=== PATIENT | female | born 1940 | race Caucasian/White ===

== ENCOUNTER → 2018-05-18 15:17 | Outpatient (CLI) | payer MEDICARE, SELFPAY | PROVIDERS: Family Provider Family Medicine; PCP Family Medicine; Visit Provider Nurse Practitioner Family | DX: R10.31 Right lower quadrant pain (principal); M54.9 Dorsalgia, unspecified; Z85.72 Personal history of non-Hodgkin lymphomas | CPT/HCPCS: 87086 ==

== ENCOUNTER 2018-05-20 21:24 | Emergency (ER) | payer MEDICARE, SELFPAY ==
[2018-05-20 21:25] VITALS: BP 188/115; PULSE 104; RESP 20; TEMP 36.9; O2SAT 97; BMI 23.8
--- NOTE | 2018-05-20 21:46 | ED.VISSUMM ---
- ER Visit Summary Date of Service: 05/20/18 Chief Complaint: Abdominal pain History of Present Illness: The patient is a 77 F's to the emergency department with 2 weeks of worsening abdominal pain. Patient describes a tightness from her umbilicus across her right abdomen. She states is not made worse with eating. She denies any nausea vomiting. She thought initially she was constipated. She has been taking some stool softeners had normal bowel movement today. She denies any fevers or chills. The patient is concerned because she has a history of non-Hodgkin's lymphoma. In 2008, she had a small bowel resection because of the cancer. She then underwent chemotherapy. She has been in remission. She does follow with Dr. Carlton. She was actually seen in the office by the nurse practitioner earlier this week. She states that she had lab work done which showed a mild elevation of LDH. She was scheduled for an outpatient CT to be done on Tuesday, but her pain has been worsening. Physical Examination: Vital signs reviewed General: Well-nourished, well-developed Head: Normocephalic, atraumatic Eyes: Pupils equal and reactive, extraocular muscles intact Neck, supple, no lymphadenopathy Heart: Regular rate and rhythm Respiratory: No distress, clear bilaterally Abdomen: Soft, mildly tender in the right lateral abdomen without rebound or guarding, nondistended, no peritoneal signs Back: Nontender Extremities: Nontender, no edema, no cords Skin: Normal color no rash Neuro: Alert and oriented, no focal or lateralizing deficits Test Results: [] Emergency Department Course and Treatment: Patient presents with worsening abdominal pain. She states he has with the same symptoms that she had when she was diagnosed with her non-Hodgkin's lymphoma. IV was established. The pain was addressed. Patient will undergo CT of the abdomen and pelvis with both oral and IV contrast. Disposition is pending completion of evaluation. Patient will be signed out to oncoming physician. Treatment Plan: [] Disposition: Pending Impression: 1. Abdominal pain This note was generated with [employer] dictation software. It may contain incorrect words, spelling, and punctuation that were not noted in review of the chart prior to signing ED Disposition - Plan for ED Patient: Chief Complaint: Abd Pain Referrals: Jethro Vogel MD [Primary Care Provider] -
[2018-05-20] MEDS: Ondansetron 4 MG/2 ML Vial IV (21:58)
[2018-05-20] MEDS: Morphine 4 MG/ML Syringe IV (21:58)
[2018-05-20] MEDS: 0.9% Normal Saline 1,000 ML 1000 ML IV (21:59)
[2018-05-20 22:03] LABS: Absolute Neutrophil Count 5.2 X10^3/uL (2.0-7.7); Basophil# 0.01 X10^3/uL; Basophil% 0.1 % (0-1); Eosinophil# 0.18 X10^3/uL; Eosinophils% 2.4 % (0-5); Hematocrit 38.5 % (37-47); Hemoglobin 12.3 g/dl (12.0-15.0); Lymphocyte % 18.8 % (19-41); Mean Corp Hgb Conc 31.9 g/gl (32-36); Mean Corpuscular Hgb 27.5 pg (27.0-32.0); Mean Corpuscular Volume 85.9 fL (81-99); Mean Platelet Vol. 9.7 fl (6.2-12.0); Monocyte# 0.66 X10^3/uL; Monocyte% 8.9 % (0-10); Neutrophil % 69.8 % (47-70); Platelet Count 231 K/mm3 (150-450); RBC Distribution Width CV 13.9 % (11.6-14.6); RBC Distribution Width SD 43.8 fl (35.1-43.9); Red Blood Count 4.48 M/mm3 (4.2-5.4); White Blood Count 7.5 K/mm3 (4.4-11.0)
[2018-05-20 22:06] LABS: POSITIVE COUNT NO; POSITIVE DIFFERENTIAL NO; POSITIVE MORPHOLOGY NO
[2018-05-20 22:20] LABS: ALB/GLOB Ratio 0.9 RATIO (0.9-2.4); AST(SGOT) 17 U/L (15-37); Alanine Aminotransfer ALT/SGPT 22 U/L (13-56); Albumin, Serum 3.5 g/dL (3.2-5.0); Alkaline Phosphatase 93 U/L (45-117); Anion Gap 13 (5-15); BUN 18 mg/dL (7-18); BUN/Creat Ratio 25.3 RATIO (10-20); Calcium,Total 8.8 mg/dL (8.5-10.1); Chloride 103 mmol/L (98-107); Creatinine, Serum 0.71 mg/dL (0.55-1.02); EST Glomerular Filtration Rate 85 mL/min (>60); Est Glom Filt Rate - Afr Amer 102 mL/min (>60); Estimated Creatinine Clearance 38.46 ml/min; Globulin 3.9 g/dL (2.2-4.2); Glucose 96 mg/dL (74-106); Lipase 137 U/L (73-393); Potassium 4.1 mmol/L (3.5-5.1); Protein, Total 7.4 g/dL (6.4-8.2); Sodium Level 140 mmol/L (136-145)
[2018-05-20 22:37] LABS: Lactic Acid 0.9 mmol/L (0.4-2.0)
[2018-05-20 23:04] VITALS: BP 158/72; PULSE 74; RESP 20; O2SAT 97
[2018-05-20 23:04] LABS: Bacteria 0 SEEN /hpf (None Seen); Mucous, Urine 0 SEEN /hpf (<or=2+); Red Blood Cells-Urine 0 SEEN /hpf (0-5); Squamous Epithelial Cells - UA 0 SEEN /hpf (5-10); White Blood Cells 0 SEEN /hpf (0-5)
[2018-05-20 23:07] LABS: Color, Urine Yellow (Yellow); Glucose, Dipstick Normal (Normal); Ketone-Dipstick 5 mg/dl (Negative); Leukocyte Esterase-Dipstick Negative /ul (Negative); Nitrite-Dipstick Negative (Negative); Occult Blood-Urine Negative /ul (Negative); Protein-Dipstick Negative (Negative); Urine Bilirubin Dipstick Negative (Negative); Urine Clarity Clear (Clear); Urine Urobilinogen Normal (Normal); Urine pH 6.5 (5.0 - 8.0)
[2018-05-21 01:08] VITALS: BP 133/63; PULSE 84; RESP 18; O2SAT 100
--- NOTE | 2018-05-21 01:41 | ED.DEP ---
ED Disposition - Plan for ED Patient: Chief Complaint: Abd Pain Instructions: ED Abdominal Pain Unkn Cause Prescriptions: Oxycodone HCl/Acetaminophen [Percocet 5/325] 1 tab PO Q6H PRN PRN 3 Days #12 tab PRN Reason: Pain Referrals: Marcus Caceres MD [NON-STAFF] - As soon as possible
[2018-05-21] MEDS: oxyCODONE 5 MG Tablet 10 MG PO (02:04)
[2018-05-21 02:10] VITALS: BP 142/78; PULSE 82; RESP 18; O2SAT 100
== END 2018-05-21 02:12 | disposition home or self-care (01) ==
PROVIDERS: Emergency Provider Emergency Medicine; Family Provider Family Medicine; PCP Family Medicine
DX: R10.9 Unspecified abdominal pain (principal); K63.9 Disease of intestine, unspecified; R59.0 Localized enlarged lymph nodes; J90 Pleural effusion, not elsewhere classified; K76.9 Liver disease, unspecified; Z85.72 Personal history of non-Hodgkin lymphomas
CPT/HCPCS: 74177; 80053; 81001; 83605; 83690; 85025; 96361; 96374; 96375; 99283; J7030; Q9967; J2405

== ENCOUNTER → 2018-05-31 09:00 | Outpatient (CLI) | payer MEDICARE, SELFPAY ==
[2018-05-31] VITALS (10 sets, daily range): BP systolic 127–189; BP diastolic 53–91; PULSE 14–86; RESP 12–99; TEMP 36.4; O2SAT 96–99; BMI 22.4
--- NOTE | 2018-05-31 | ASPIGT_PTH ---
PATIENT: AMILCAR DALY LOC: CT U#:[id number] AGE/SX: 84/F ROOM: RE05/31/[address]: Dr. Marcus Caceres MD : 1940 BED: DIS: SPEC #: [id number] RECD: 05/31/18 13:00 STATUS: SALAZAR ROTHMANAlfreda #: [id number] FRANCOIS: 05/31/18 00:[address]: Marcus Caceres DEPT: SURGICAL PATHOLOGY RECD BY: Pardeep Sotomayor ENTERED: 05/31/18 13:01 SP TYPE: ASP RAD OTHR DR: Dr. 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 Moctezuma. Immediate Evaluation = Atypical lymphocytes noted. Immunohistochemistry ([id number]) and FLOW analysis support the above diagnosis. The complete FLOW analysis is viewable in patient?s EMR. Case has been reviewed in consultation with Dr. Moctezuma who concurs with the above diagnosis. IDC:DANICA MICROSCOPIC DESCRIPTION Slides are reviewed. GROSS DESCRIPTION Received in fixative is one container labeled with the patient's name and designated left retroperitoneal lymph node biopsy. The specimen consists of multiple irregular fragments of mims soft tissue that in aggregate measure 2 x 0.2 x 0.1 cm. The entire specimen is submitted in one cassette. One touch imprint was prepared at the time of core biopsy. / DANICA:ondina 05/31/18 TC: CPT:
--- NOTE | 2018-05-31 | IMM_PTH ---
PATIENT: AMILCAR DALY LOC: CT U#:[id number] AGE/SX: 84/F ROOM: RE05/31/[address]: Dr. Marcus Caceres MD : 1940 BED: DIS: SPEC #: [id number] RECD: 06/01/18 12:26 STATUS: SOUTiffanie REQ #: [id number] FRANCOIS: 05/31/18 00:[address]: Marcus Caceres DEPT: IMMUNOHISTOCHEMISTRY RECD BY: Samantha Jameson ENTERED: 06/01/18 12:29 SP TYPE: IMMUNO OTHR DR: Dr. Jethro Vogel MD Tissues: Retroperitoneum, NOS Procedures: BCL-2 (add) BCL-6 (add) CD10 (add) CD138 (add) CD15 (add) CD20 (add) CD23 (add) CD3 (add) CD30 (add) CD43 (add) CD45 (add) CD5 (add) CD79A (add) CYCLIN (add) KAPPA (add) KI-67 (add) LAMBDA (add) MACRO (add) MUM1 (add) Pankeratin (initial) Comments: Case discussed with Dr. Claudio at [facility]. The flow analysis correlates with the above IHC. PHYSICIAN & [place] [id number] SPECIMEN INFORMATION: Tissue Source: Left retroperitoneal lymph node core biopsy Clinical Info: Diffuse large B-cell lymphoma; intra-abdominal lymph nodes Specimen Number: [id number] CPT code: 36599, 15093 x19 METHODOLOGY: Deparaffinized sections of prefer/formalin-fixed tissue or PAP/DQ stained slides are incubated with monoclonal/polyclonal antibodies/oligonucleotide probes. Localization is made via biotin free immunoperoxidase method. Appropriate controls are performed and reacted as expected. Results on target cell population are indicated in the following table: RESULTS: ANTIBODY / CLONE RESULT AE1-3 (AE1/AE3/PCK26) negative CD3 (PS1) negative CD5 (SP10) negative CD10 (56C6) positive CD15 (MMA) negative CD20 (L26) positive CD23 (1B12) negative CD30 (Jared-H2) negative CD43 (L60) negative CD45 (RP2/18) positive CD79a (11E3) positive CD138 (B-A38) negative BCL-2 (bcl-2/100/D5) positive BCL-6 (PN979C/A8) positive Cyclin D1/BCL-1 (SP4) negative MUM1 (MRQ-43) negative Lilly (polyclonal) negative Lambda (polyclonal) negative Macro (HAM-56) negative Ki-67 (30-9) positive, moderate These tests were developed and their performance characteristics determined by [facility]. They may not have been cleared or approved by the U.S. Food and Drug Administration. The FDA has determined that such clearance or approval is not necessary. INTERPRETATION: Left retroperitoneal lymph node, core biopsy: Non-Hodgkin?s B-cell lymphoma, follicular center origin. Comment: FLOW analysis concurs with the above diagnois. Case has been reviewed in consultation with Dr. Moctezuma who concurs with the above diagnosis. IDC:DANICA AM:ondina 06/02/18
== END ==
PROVIDERS: Family Provider Family Medicine; PCP Family Medicine; Visit Provider Internal Medicine Medical Oncology
DX: C83.33 Diffuse large B-cell lymphoma, intra-abdominal lymph nodes (principal)
CPT/HCPCS: 49180; 77012; 88172; 88305; 88313; 88341; 88342; 99156; 99157; J7040; A4216

== ENCOUNTER → 2018-06-05 10:54 | Outpatient (CLI) | payer MEDICARE, SELFPAY ==
--- NOTE | 2018-06-05 10:58 | ECHODONC_ITS ---
Reason For Study: Pre-chemo Procedure This was a 2D Doppler, Color Flow transthoracic echocardiogram. Myocardial strain analysis was performed in this exam to aid in the assessment of cardiac function. Exam performed in department. Left Ventricle Normal LV size. Mild global left ventricular systolic dysfunction. The estimated ejection fraction is 45 %. The global longitudinal strain = -15.4% (abnormal). 3D EF was 49%. No evidence for diastolic dysfunction. The global longitudinal strain is mildly abnormal. There is mild global hypokinesis of the left ventricle. Right Ventricle Normal RV size. Normal systolic function. Atria Normal left atrium. Normal right atrium. Mitral Valve Normal mitral valve. Mild-Moderate (1-2+) eccentric mitral valve insufficiency. Tricuspid Valve Normal tricuspid valve. Mild (1+) tricuspid valve insufficiency. Pulmonary artery systolic pressure is 30 mmHg. Aortic Valve Normal aortic valve. Trisinus/trileaflet aortic valve. Pulmonic Valve Normal pulmonic valve. Great Vessels Normal aortic root. The pulmonary artery is normal size. Normal inferior vena cava. Pericardium/Pleural No pericardial effusion. MMode/2D Measurements & Calculations LVIDd: 4.9 cm IVSd: 0.80 cm Ao root diam: 2.9 cm LVIDs: 3.8 cm LVPWd: 0.82 cm LA dimension: 3.4 cm RVDd: 3.0 cm FS: 22.3 % LAV(MOD-bp): 43.5 ml LA A4 area: 11.9 cm2 RA A4 area: 11.4 cm2 LAV(MOD-bp) Indexed: 30.4 ml/m2 LAV(MOD-sp2): 51.4 ml LAV(MOD-sp4): 28.9 ml Doppler Measurements & Calculations MV E max glen: 82.9 cm/sec Lat Peak E' Glen: 12.3 cm/sec Med Peak E' Glen: 7.2 cm/sec MV A max glen: 68.7 cm/sec E/E' lat: 6.7 E/E' med: 11.6 MV E/A: 1.2 Ao V2 max: 157.7 cm/sec LV V1 max: 114.8 cm/sec PA V2 max: 105.7 cm/sec Ao max P.0 mmHg LV V1 max P.3 mmHg TR max glen: 252.9 cm/sec TR max P.6 mmHg Interpretation Summary Normal LV size. Mild global left ventricular systolic dysfunction. The estimated ejection fraction is 45 %. The global longitudinal strain = -15.4% (abnormal). No evidence for diastolic dysfunction. Mild-Moderate (1-2+) eccentric mitral valve insufficiency. Pulmonary artery systolic pressure is 30 mmHg. The global longitudinal strain is mildly abnormal. Ordering Physician: Marcus Caceres Referring Physician: Marcus Caceres Performed By: Lili Odonnell RDCS
== END ==
PROVIDERS: Family Provider Family Medicine; PCP Family Medicine; Visit Provider Internal Medicine Medical Oncology
DX: Z01.818 Encounter for other preprocedural examination (principal); C83.33 Diffuse large B-cell lymphoma, intra-abdominal lymph nodes
CPT/HCPCS: 0399T; 93306

== ENCOUNTER 2018-06-27 10:17 | Day surgery (SDC) | payer MEDICARE, SELFPAY ==
[2018-06-27 10:35] VITALS: BP 119/70; PULSE 89; RESP 16; TEMP 36.6; O2SAT 98; BMI 22.4
--- NOTE | 2018-06-27 11:50 | PCM.DC.POR ---
Discharge Diet: No Restrictions Discharge Activity: May not drive while taking narcotic pain medications. May shower in (days): 5 - Okay to take a lower shower but keep the port site clean and dry for 5 days Lifting Restrictions: No lifting greater than 15 pounds for 1-2 weeks on the right side Call your doctor if your incision/area has: Continuous Slow Oozing, Sudden Increased Bleeding, Increased Pain/ Swelling, Increased Redness, Foul Smelling Discharge, Swelling at the incision site Call your doctor if you observe: Fever of 101 or Higher Remove Dressing in (days):: 2 - Keep port site clean and dry for 5 days Allergies/Adverse Reactions: Allergies No Known Allergies Allergy (Verified 06/20/18 09:57) Medications to take at Discharge Ferrous Sulfate [Iron] 500 mg PO DAILY 05/31/18 Melatonin 5 mg PO QHS 06/08/18 Oxycodone HCl/Acetaminophen [Percocet 5-325] 1 tab PO Q4H PRN PRN #90 tab 06/08/18 Sennosides/Docusate Sodium [Senna-Docusate Sodium Tablet] 1 tab PO DAILY 06/08/18 Lidocaine/Prilocaine [Lidocaine-Prilocaine Cream] 30 gm TP DAILY PRN PRN #1 cream..g. 06/14/18 Ondansetron HCl [Zofran] 4 mg PO Q8H PRN PRN #30 tab 06/14/18 Allopurinol [Zyloprim] 300 mg PO DAILY 30 Days #30 tab 06/15/18 Ondansetron [Zofran Odt] 8 mg PO Q8H PRN PRN #30 06/26/18 Primary Care Physician: Jethro Vogel MD [Primary Care Provider] - Test Results: Test results from this visit will be discussed in further detail at your follow-up appointment, if applicable. Please Follow Up With: Subha Gregory MD - After 5:00 on the weekends call [phone] with any concerns When: Call the office for a follow-up appointment in 10 days for suture removal. Proposed Discharge Date: 06/27/18
[2018-06-27] MEDS: Cefazolin 2 GM in 0.9% Normal Saline 100 ML IV (11:57)
[2018-06-27] MEDS: Bupivacaine Mpf 0.5% 30 ML VIAL (12:15)
--- NOTE | 2018-06-27 12:46 | PCM.OPRPT ---
Report of Operation Date of Procedure: 06/27/18 Pre-Operative Diagnosis: z45.2, non-Hodgkin's lymphoma Post-Operative Diagnosis: Same Surgery/Procedure Performed:: 1. Insertion of right IJ Port-A-Cath. 2. Use of ultrasound. 3. Use of fluoroscopy Type of Anesthesia:: MAC/Supplemental/Local Anesthesiologist: Jung Padgett Special Medications: Ancef 2 g IV x1 Specimen's removed: None Estimated Blood Loss (mL): < 10 cc Fluids Replaced: 800 cc Description of Procedure: After informed consent was given, the patient was brought to the operating room and placed in the supine position. Appropriate time out protocol was followed. He was then given IV conscious sedation for anesthesia. The patient's bilateral upper chest and neck were then prepped with a surgical skin preparation and sterile surgical drapes were placed. After proper landmarks were ascertained, the skin at the upper right chest area was then infiltrated with 1:1 mixture of 1% lidocaine with epinephrine and 0.5% maricaine. A needle trocar was then inserted into the right internal jugular vein with ultrasound guidance-multiple vessels were viewed with u/s and the right IJ was chosen-- and there was good aspiration of venous blood. A wire was then threaded into the needle trocar and this was visualized under fluoroscopy to ensure that the wire was in the superior vena cava. Once this was done, then the needle trocar was removed. A small skin adri was made with an 11 blade knife at the wire entrance site. The dilator with the introducer sheath attached was then placed over the wire into the right internal jugular vein via the Seldinger technique and this was visualized under fluoroscopy. The dilator and sheath were in proper position as visualized by fluoroscopy. A subcutaneous pocket was then created caudad to the catheter insertion site. A transverse skin incision was made after the skin and subcutaneous tissues were infiltrated with local anesthetic. Blunt dissection was then used to create a space large enough for placement of the subcutaneous port. The catheter was then tunneled into the subcutaneous pocket. The wire and dilator were then removed. The catheter was then threaded into the introducer sheath and was positioned with its tip at the junction of the superior vena cava and the right atrium as visualized under fluoroscopy. The excess catheter was transected. The catheter was then attached to the subcutaneous port using manufacturers guidelines. The catheter was flushed with a heparin saline mixture prior to placement. Hemostasis was carefully controlled with electrocautery. The port was sutured to the subcutaneous fascia using 3-0 PDS suture at two sites. The port was then placed in the subcutaneous pocket and the sutures were ligated. The incision were reapproximated with interrupted subdermal 3-0 vicryl sutures. The skin was reapproximated with 3-0 nylon suture in a interrupted fashion. Steristrips were used for reinforcement of the skin closure at IJ insertion site and a sterile opsite dressings were applied. The patient tolerated the procedure well. Implants Used: [employer] PowerPort isp M.R.I. 6Fr Lot [id number] Grafts/Implants Used: [employer] PowerPort isp M.R.I. 6Fr Lot [id number] - Complications none
[2018-06-27 12:50] VITALS: BP 112/60; BP 119/70; PULSE 88; RESP 16; TEMP 36.5; O2SAT 100
--- NOTE | 2018-06-27 12:53 | RAD_ITS ---
STUDY: X-RAY CHEST REASON FOR EXAM: Female, 77 years old. Post port placement. TECHNIQUE: Single AP portable view of the chest. COMPARISON: None. FINDINGS: A right-sided port catheter has been placed. The tip is in the proximal portion of the superior vena cava. Hyperinflation. Scattered calcified granulomas. There is no demonstrated pleural abnormality. Normal size heart. Normal mediastinum and emir. Normal visualized pulmonary arteries. There is atherosclerotic tortuosity of the aortic arch and descending thoracic aorta. Normal visualized thoracic spine. Normal visualized ribs, clavicles, and shoulders. There is no demonstrated abnormality of the visualized soft tissue structures of the upper abdomen. RAD/CXR for Line Placement IMPRESSION: The tip of the right portacatheter is in the proximal portion of the superior vena cava. No acute abnormality is seen. Electronically Signed: Jagjit Villavicencio MD at 13:34 EDT Tel [phone], Service support ,
[2018-06-27 12:56] VITALS: BP 118/54; BP 119/70; PULSE 83; RESP 16; O2SAT 98
[2018-06-27 13:01] VITALS: BP 112/60; BP 119/70; PULSE 79; RESP 16; O2SAT 100
[2018-06-27 13:06] VITALS: BP 119/70; BP 132/72; PULSE 82; RESP 16; TEMP 36.9; O2SAT 100
[2018-06-27 13:49] VITALS: BP 119/70
== END 2018-06-27 14:00 | disposition home or self-care (01) ==
LOC: SDC 10:18 → AC 10:18
PROVIDERS: Family Provider Family Medicine; PCP Family Medicine; Visit Provider Surgery
PROC: (CPT 36561; principal; 2018-06-27 11:45)
DX: Z45.2 Encounter for adjustment and management of vascular access device (principal); C83.33 Diffuse large B-cell lymphoma, intra-abdominal lymph nodes; Z79.899 Other long term (current) drug therapy; G25.81 Restless legs syndrome
CPT/HCPCS: 00532; 36561; 71045; 77001; J7120; C1788; J2405

== ENCOUNTER → 2018-08-29 14:39 | Outpatient (CLI) | payer MEDICARE, SELFPAY ==
[2018-08-21 08:56] VITALS: BMI 23.6
--- NOTE | 2018-08-29 14:40 | CT_ITS ---
STUDY: CT CHEST WITH CONTRAST REASON FOR EXAM: Female, 77 years old. B cell and non-Hodgkin's lymphoma RADIATION DOSAGE (If Supplied By Facility): CTDIvol = ( ) mGy, DLP = ( ) mGycm TECHNIQUE: Transaxial imaging was performed following intravenous administration of 100ML ml of Isovue 300 contrast material. Individualized dose optimization techniques were used for this CT. COMPARISON: None. FINDINGS: TRACHEA, THYROID, ESOPHAGUS: No tracheomalacia,stricture or wall thickening. Thyroid and esophagus are normal CARDIOVASCULAR SYSTEM: The thoracic aorta is normal with no focal aneurysm or dissection. There are no abnormal calcifications/metallic densities at the aortic root. The pulmonary trunk and the left and right pulmonary arteries and their lobar and segmental branches all fail to show any abnormal and persistent filling defects to indicate the presence of pulmonary embolism. The heart is normal in size with no demonstration of any right ventricular strain. No developmental vascular anomalies are seen. MARGOT AND LYMPH NODES: No hilar masses and no mediastinal, hilar, axillary or supraclavicular adenopathy LUNGS, LOW-ATTENUATION: No traction bronchiectasis, honeycombing,emphysema, lung cysts or cavitations LUNGS, HIGH ATTENUATION: No nodules/masses, ground glass opacities/consolidations or increased interstitial markings LUNGS, MOSAIC/CRAZY PAVING: Not evident PLEURA AND CHEST WALL: No plural effusions, pneumothoraces,rib fractures or any osteolytic/osteoblastic changes . The soft tissue chest wall including the breasts are normal UPPER ABDOMEN: Upright retrocrural adenopathy with central calcification most probably related to prior treatment. There is a 1.4 cm lymph node around the celiac axis.. CT/Chest WITH Contrast IMPRESSION: ] Retrocrural adenopathy with calcifications centrally. This is probably from a previous treatment. 1.4 cm lymph node around the celiac axis. No mediastinal, hilar or axillary adenopathy. No acute findings in the lungs. Electronically Signed: Maverick Galvan MD at 5:18 EST Tel , Service support ,
--- NOTE | 2018-08-29 14:40 | CT_ITS ---
STUDY: CT ABDOMEN WITH CONTRAST REASON FOR EXAM: Female, 77 years old. B-cell and NHL lymphoma RADIATION DOSAGE (If Supplied By Facility): CTDIvol = ( 7.81 ) mGy, DLP = ( 379.95 ) mGycm TECHNIQUE: Transaxial images were obtained post I.V. administration of 100ML ml of Isovue 300 contrast, and with oral contrast. Sagittal and coronal images were reconstructed. Individualized dose optimization techniques were used for this CT. COMPARISON: PET/CT 07/17/2018 FINDINGS: The visualized lung bases are unremarkable. The visualized portions of the heart are within normal limits. Stable partially calcified right retrocrural adenopathy measuring 2.7 x 2.0 cm. Subcentimeter cyst in the hepatic dome. Normal gallbladder and extrahepatic biliary system. Splenomegaly, with spleen length of 14 cm. Normal pancreas. Normal bilateral adrenal glands. Normal right kidney. Normal left kidney. The stomach is distended. 19 mm duodenal diverticulum. Probable constipation. The appendix is visualized and appears normal. There is diffuse atherosclerotic calcification of the abdominal aorta with elongation and tortuosity, but without a demonstrated aneurysm. Normal inferior vena cava. Normal retroperitoneum. Normal abdominal wall. L5-S1 grade 1 anterolisthesis and severe bilateral foraminal stenoses. CT/Abdomen WITH IV Contrast IMPRESSION: Stable partially calcified right retrocrural adenopathy. No other abdominal masses or adenopathy are evident. Gastric distention. Duodenal diverticulum. Splenomegaly. Electronically Signed: David Nation MD at 10:42 EST Tel , Service support ,
== END ==
PROVIDERS: Family Provider Family Medicine; PCP Family Medicine; Referring Provider Internal Medicine Medical Oncology; Visit Provider Internal Medicine Medical Oncology
DX: C83.33 Diffuse large B-cell lymphoma, intra-abdominal lymph nodes (principal)
CPT/HCPCS: 71260; 74160; Q9967; A4216

== ENCOUNTER → 2018-10-02 07:54 | Outpatient (CLI) | payer MEDICARE, SELFPAY ==
[2018-09-13 11:51] VITALS: BMI 22.8
[2018-09-29 13:56] LABS: Platelet Count 185 K/mm3 (150-450)
[2018-09-29 14:06] LABS: Partial Thromboplast Time 27.3 Seconds (24.1-36.2)
--- NOTE | 2018-10-02 08:02 | CT_ITS ---
STUDY: CT ABDOMEN WITHOUT CONTRAST REASON FOR EXAM: Female, 77 years old. Right retrocrural lymph node. RADIATION DOSAGE (If Supplied By Facility): CTDIvol = ( 9.87 ) mGy, DLP = ( 233.41 ) mGycm TECHNIQUE: Transaxial images were obtained without intravenous contrast, and without oral contrast. Sagittal and coronal images were reconstructed. Individualized dose optimization techniques were used for this CT. COMPARISON: Comparison is made with prior examination dated August 29, 2018. FINDINGS: The patient was scheduled for possible percutaneous biopsy of the right retrocrural lymph node. The patient was placed in the prone position. No safe access was obtainable for the biopsy. The biopsy was canceled. CT/Limited or Localized F/U CT IMPRESSION: The biopsy of the right retrocrural lymph nodes was canceled. No safe access was available. Electronically Signed: Jagjit Villavicencio MD at 10:01 EST Tel [phone], Service support ,
[2018-10-02 08:21] VITALS: BP 134/87; PULSE 96; RESP 14; TEMP 36.5; O2SAT 97; BMI 21.9
== END ==
PROVIDERS: Family Provider Family Medicine; PCP Family Medicine; Referring Provider Internal Medicine Medical Oncology; Visit Provider Internal Medicine Medical Oncology
DX: C83.33 Diffuse large B-cell lymphoma, intra-abdominal lymph nodes (principal)
CPT/HCPCS: 76380; 85049; 85610; 85730

== ENCOUNTER → 2018-11-28 12:46 | Outpatient (CLI) | payer MEDICARE, SELFPAY ==
[2018-10-03 10:44] VITALS: BMI 22.1
--- NOTE | 2018-11-28 12:48 | CT_ITS ---
STUDY: CT CHEST WITH CONTRAST REASON FOR EXAM: Female, 77 years old. Follow-up lymphoma. No new problems. Prior Chemotherapy. Prior bowel resection and appendectomy. RADIATION DOSAGE (If Supplied By Facility): CTDIvol = ( 8.37 ) mGy, DLP = ( 561.88 ) mGycm TECHNIQUE: Transaxial imaging was performed following intravenous administration of Isovue 300 100mL IV. : Sagittal 2-D MPR Individualized dose optimization techniques were used for this CT. COMPARISON: CT abdomen and pelvis 11/28/2017. CT biopsy 10/02/2018. PET/CT 09/11/2018. CT chest 08/29/2018.. FINDINGS: Supraclavicular: Normal. Thoracic body wall soft tissues: No acute process. No axillary lymphadenopathy. A nodular focus within the left breast retroareolar measures 1.5 cm, stable compared to prior CT chest imaging of 2017. Close correlation with the patient's mammographic history is necessary. This nodule does not present with any apparent abnormal radiotracer uptake on prior PET CT scan. Upper abdomen: Tiny cyst of the dome of the liver. No acute process. Osseous structures: No lytic or blastic lesions. Mediastinum: Normal esophagus. A few small echoes are present in the mediastinum and at the base of the right hilum. Right hilar lymph node with a maximum dimension short axis X mm. This lymph node was PET positive on the study of 09/11/2018. On the prior CT study of 08/14/2018 with lymph node measured short axis XIV mm. Diminishing in size. Likely reflecting response to therapy. Additional mediastinal lymph nodes are seen on prior imaging to have substantially diminished in size. Heart: Mild cardiomegaly, mild ectasia of the left ventricle compared to the other chambers. Minimal coronary calcifications. Aorta: Mild atherosclerosis. Pulmonary arteries: Normal. Lungs: COPD/emphysema. No acute process. No suspicious lesions. Unremarkable airways. CT/Chest WITH Contrast IMPRESSION: Diminishing size of mediastinal and right hilar lymph nodes, likely reflecting response to therapy. COPD/emphysema. Mild coronary atherosclerosis. No other acute thoracic process is evident. Electronically Signed: Pelon Campuzano MD at 15:28 EST Tel , Service support ,
--- NOTE | 2018-11-28 12:48 | CT_ITS ---
STUDY: CT ABDOMEN AND PELVIS WITH CONTRAST REASON FOR EXAM: Female, 77 years old. History of lymphoma. Prior chemotherapy and bowel resection. RADIATION DOSAGE (If Supplied By Facility): CTDIvol = ( 8.37 ) mGy, DLP = ( 561.88 ) mGycm TECHNIQUE: Transaxial images were obtained from the dome of the diaphragm to the symphysis pubis with oral contrast. Isovue 300 100mL IV/Oral was administered. Sagittal and coronal images were reconstructed. Individualized dose optimization techniques were used for this CT. COMPARISON: Comparison is made with prior study dated August 29, 2018. FINDINGS: The visualized lung bases are unremarkable. The visualized portions of the heart are within normal limits. Stable partially calcified right retrocrural lymphadenopathy. Stable subcentimeters cyst in the dome of the right lobe of the liver. Normal gallbladder and extrahepatic biliary system. Borderline splenomegaly. Normal pancreas. Normal bilateral adrenal glands. 2 mm nonobstructive calculus in the mid calyx of the right kidney. Mild fullness of the renal pelves bilaterally. Normal visualized stomach. Stable 1.8 mm duodenal diverticulum. Normal small intestine. Moderate amount of fecal material is seen in the colon. There are surgical clips in the region of the appendix consistent with a prior appendectomy. There is scattered atherosclerotic calcification of the abdominal aorta, without a demonstrated aneurysm. Normal inferior vena cava. Normal retroperitoneum. Normal urinary bladder. The uterus is retroverted. Normal abdominal wall. There are degenerative changes of the visualized lumbar spine. Grade 1 anterolisthesis of L4 on L5. CT/Abdomen/Pelvis WITH Contrast IMPRESSION: Stable examination. Stable partially calcified right retrocrural lymph node. Electronically Signed: Jagjit Villavicencio, at 9:17 EST , Service support ,
[2018-11-28 13:10] LABS: CREATININE FINGERSTICK 1.1 mg/dL (0.55-1.02)
== END ==
PROVIDERS: Family Provider Family Medicine; PCP Family Medicine; Referring Provider Internal Medicine Medical Oncology; Visit Provider Internal Medicine Medical Oncology
DX: C83.33 Diffuse large B-cell lymphoma, intra-abdominal lymph nodes (principal)
CPT/HCPCS: 71260; 74177; Q9967

== ENCOUNTER → 2019-05-31 08:27 | Outpatient (CLI) | payer MEDICARE, SELFPAY ==
[2018-11-30 13:11] VITALS: BMI 22.7
--- NOTE | 2019-05-31 08:28 | CT_ITS ---
HISTORY:NHL FOLLOW UP NHL FOLLOW UP TECHNIQUE: Helically acquired images were obtained of the abdomen and pelvis following IV contrast. A radiation dose optimization technique was used for this scan. IV Contrast dosage and agent:100 Isovue 300 Oral contrast: Yes COMPARISON: December 08 FINDINGS: # of images incl. paperwork: [phone] LOWER CHEST: Lung bases are clear. No cardiomegaly or pericardial effusion observed. Again noted is right partially calcified retrocrural adenopathy however diminished calcification is seen in this region onset of study LIVER: Stable appearing subcentimeter cyst at the dome of the right lobe of the liver GALLBLADDER AND BILIARY TREE: No calcified gallstones. There is no gallbladder distension or wall edema. No intra- or extrahepatic biliary ductal dilation. KIDNEYS AND URETERS: Fullness in the renal pelvises bilaterally similar to prior study ADRENAL GLANDS: Non-enlarged. SPLEEN: Normal size without focal cystic or solid mass. PANCREAS: No focal cystic or solid mass. BOWEL: The stomach is unremarkable Again noted is a duodenal diverticulum and is slightly more prominent than on the prior study. The small bowel is unremarkable. No mechanical obstruction. Fecal material is seen throughout the colon. No diverticulitis. Prior appendectomy. LYMPH NODES: Stable appearing left periaortic lymph node adjacent to the renal artery seen on axial image 37 series 2 PERITONEUM: No ascites or free air. No other fluid collection. VESSELS: Aorta is non-dilated. URINARY BLADDER: Incompletely distended, otherwise grossly unremarkable. REPRODUCTIVE ORGANS: No pelvic masses or pelvic ascites. ABDOMINAL WALL: No discrete abdominal or pelvic wall hernia observed. BONES: Grade 1 anterior spondylolisthesis L4 on L5 unchanged from prior study CT/Abdomen/Pelvis WITH Contrast IMPRESSION: Stable examination. Individualized dose optimization techniques were used for this CT. at 2106 Reported and signed by: Chio Bravo DO Electronically Signed: Chio Bravo DO at 21:05 EDT Tel , Service support ,
--- NOTE | 2019-05-31 08:28 | CT_ITS ---
HISTORY:NHL FOLLOW UP NHL FOLLOW UP CT Chest W/ Contrast TECHNIQUE: Helically acquired images were obtained of the chest following 100 Isovue 300 IV contrast. A radiation dose optimization technique was used for this scan. COMPARISON: None FINDINGS: # of images incl. paperwork: [phone] There is a right-sided port with the catheter tip at the cavoatrial junction PULMONARY ARTERIES: There is no central pulmonary embolism although this study was not performed with the pulmonary embolism protocol. AORTA/AORTIC ARCH: Unremarkable. HEART/PERICARDIUM: Mild cardiomegaly similar to prior study ADENOPATHY: There is a right hilar lymph node with a maximal short axis dimension of 1 cm similar to prior study Precarinal lymph nodes are stable when compared to prior study no left hilar adenopathy. No axillary adenopathy. Left retroareolar nodular density appears similar in size when compared to prior study. THYROID: Unremarkable. LUNG PARENCHYMA: There is scarring in the lung apices. The overall appearance is similar to prior study. Mild emphysematous changes PULMONARY NODULES (>3mm): Unremarkable. PLEURAL EFFUSION: Unremarkable. PNEUMOTHORAX: Unremarkable. UPPER ABDOMEN: Stable appearing cyst within the right lobe of the liver Stable right retrocrural adenopathy OSSEOUS STRUCTURES: Unremarkable. CT/Chest WITH Contrast IMPRESSION: Stable appearing chest Individualized dose optimization techniques were used for this CT. at 2122 Reported and signed by: Chio Bravo DO Electronically Signed: Chio Bravo DO at 21:21 EDT Tel , Service support ,
[2019-05-31 08:40] LABS: CREATININE FINGERSTICK 0.6 mg/dL (0.55-1.02); EGFR FINGERSTICK > 60.0000 mL/min (>60)
== END ==
PROVIDERS: Family Provider Family Medicine; PCP Family Medicine; Referring Provider Internal Medicine Medical Oncology; Visit Provider Internal Medicine Medical Oncology
DX: C83.33 Diffuse large B-cell lymphoma, intra-abdominal lymph nodes (principal)
CPT/HCPCS: 71260; 74177; Q9967

== ENCOUNTER → 2019-11-29 13:11 | Outpatient (CLI) | payer MEDICARE, SELFPAY ==
[2019-06-04 10:42] VITALS: BMI 22.8
--- NOTE | 2019-11-29 13:11 | CT_ITS ---
STUDY: CT CHEST/THORAX WITH CONTRAST REASON FOR EXAM: Female, 78 years old. NHL-monitoring. Last chemo 08/2018. RADIATION DOSAGE (If Supplied By Facility): CTDIvol = ( 9.53 ) mGy, DLP = ( 688.72 ) mGycm TECHNIQUE: Transaxial imaging was performed following intravenous administration of Oral and IV Readi-CAT and 100mL Isovue-300. Multiplanar coronal and sagittal images were reformatted. Individualized dose optimization techniques were used for this CT. COMPARISON: CT chest May 31, 2019. FINDINGS: A right chest wall MediPort is again noted, the catheter extending to the cavoatrial junction. This is a diminished inspiratory effort compared to previous exam. There is minor increased subpleural reticular density in the apical lateral right upper lobe compared to prior study, likely due to crowding. No new infiltrate. There is no demonstrated pleural abnormality. Normal heart and pericardium. There are calcifications of the coronary arteries. Normal mediastinum. Normal hilar regions. Normal enhanced pulmonary arteries. There is stable atherosclerotic calcification of the aortic arch. There are multi-level degenerative changes of the thoracic spine. There is no demonstrated abnormality of the visualized upper abdomen. CT/Chest WITH Contrast IMPRESSION: No acute cardiopulmonary disease. Right chest wall Mediport again noted. Electronically Signed: Ector Kraft MD at 16:42 EST , Service support ,
--- NOTE | 2019-11-29 13:11 | CT_ITS ---
STUDY: CT ABDOMEN AND PELVIS WITH CONTRAST REASON FOR EXAM: Female, 78 years old. 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 Oral and amp; IV Readi-CAT and amp; 100mL Isovue-300 was administered. Sagittal and coronal images were reconstructed. Individualized dose optimization techniques were used for this CT. COMPARISON: None. FINDINGS: The visualized lung bases are unremarkable. The visualized portions of the heart are within normal limits. Normal liver. The patent portal vein diameter is 13 mm. Normal gallbladder and extrahepatic biliary system. Normal spleen. Normal pancreas. Normal bilateral adrenal glands. Normal right kidney. Normal left kidney. No hydronephrosis. There is a small hiatal hernia. Normal small intestine. There is a moderate volume of stool mixed with contrast from previous study down to the proximal sigmoid colon. Cecum has a maximum diameter of 10 cm (series 605 image 41). There is gas and stool in the rectosigmoid, with moderate gaseous distention of the rectal vault itself. There is non-visualization of the appendix. There is mild to moderate atherosclerotic calcification of the abdominal aorta and proximal iliac arteries with elongation and tortuosity, but without a demonstrated aneurysm. Normal inferior vena cava. There is a 1. 51.2 x 2.0 cm retrocrural lymph node at the diaphragmatic hiatus to the right of the abdominal aorta that has mildly increased in size. There is a borderline enlarged 1.5 x 1.15 x 0.9 cm retrocaval lymph node at the L3 level Normal urinary bladder. There is atrophy of the uterus. Normal abdominal wall. There are stable degenerative changes of the visualized lumbar spine, including grade 1 L4-5 spondylolisthesis. Some degenerative sclerosis and subarticular cystic degenerative change seen in the roof of the left acetabulum. There are stable degenerative changes of the pubic symphysis. CT/Abdomen/Pelvis WITH Contrast IMPRESSION: 1. Findings consistent with constipation with notable stool throughout most of the colon. The rectal vault also is distended with gas at the time of scanning. No sign of small bowel obstruction. The appendix is not visualized. 2. Small hiatal hernia. 3. Stable mild to moderate aortoiliac atherosclerotic calcific plaquing with some elongation and tortuosity. No demonstrated aortic aneurysm. 4. A mildly enlarged retrocrural lymph node and borderline enlarged retrocaval lymph node described above are increased in size from previous study. 5. Multilevel degenerative changes of the spine again noted, including a grade 1 L4-5 spondylolisthesis. Electronically Signed: Ector Kraft MD at 18:17 EST , Service support ,
[2019-11-29 13:26] LABS: CREATININE FINGERSTICK 0.8 mg/dL (0.55-1.02)
[2019-11-29] MEDS: 0.9% Saline Lock 10 ML Syringe IV (13:30)
== END ==
PROVIDERS: Family Provider Family Medicine; PCP Family Medicine; Referring Provider Internal Medicine Medical Oncology; Visit Provider Internal Medicine Medical Oncology
DX: C83.33 Diffuse large B-cell lymphoma, intra-abdominal lymph nodes (principal)
CPT/HCPCS: 71260; 74177; Q9967; A4216

== ENCOUNTER → 2020-06-03 13:44 | Outpatient (CLI) | payer MEDICARE, SELFPAY ==
[2019-12-04 14:37] VITALS: BMI 24.2
--- NOTE | 2020-06-03 13:45 | CT_ITS ---
STUDY: CT CHEST WITH CONTRAST REASON FOR EXAM: Female, 79 years old. 6 MONTH LYMPHOMA FOLLOW UP RADIATION DOSAGE (If Supplied By Facility): CTDIvol = ( 7.79 ) mGy, DLP = ( 476.54 ) mGycm TECHNIQUE: Transaxial imaging was performed following intravenous administration of IV 100mL Isovue-300. Multiplanar coronal and sagittal images were reformatted. Individualized dose optimization techniques were used for this CT. COMPARISON: Comparison is made with prior examination of 11/29/2019. FINDINGS: A right-sided portacatheter is seen. Hyperinflation and mild degree of emphysematous changes worse in the upper lobes with scarring at the right lung apex. There is no demonstrated pleural abnormality. There are calcifications of the coronary arteries. Normal mediastinum. Normal hilar regions. Normal enhanced pulmonary arteries. There is atherosclerotic calcification of the aortic arch . There are mild degenerative changes of the thoracic spine. Multiple hypodense nodules are seen within the spleen. Retrocrural and retroperitoneal lymphadenopathy. CT/Chest WITH Contrast IMPRESSION: Hyperinflation and mild emphysematous changes. Multiple hypodense nodules in the spleen. Retroperitoneal lymphadenopathy. Electronically Signed: Jagjit Villavicencio, at 14:52 EDT , Service support ,
--- NOTE | 2020-06-03 13:45 | CT_ITS ---
STUDY: CT ABDOMEN AND PELVIS WITH CONTRAST REASON FOR EXAM: Female, 79 years old. LYMPHOMA MONITORING-6MONTH CHECK UP RADIATION DOSAGE (If Supplied By Facility): CTDIvol = ( 7.79 ) mGy, DLP = ( 476.54 ) mGycm TECHNIQUE: Transaxial images were obtained from the dome of the diaphragm to the symphysis pubis with oral contrast. IV 100mL Isovue-300 was administered. Sagittal and coronal images were reconstructed. Individualized dose optimization techniques were used for this CT. COMPARISON: Comparison is made with prior study dated 11/29/2019. FINDINGS: Stable minimal linear scarring at the lung bases. The visualized portions of the heart are within normal limits. Normal liver. Normal gallbladder and extrahepatic biliary system. Since prior study, there are multiple well-defined hypodense nodules in the spleen. The largest is in the inferior peripheral aspect of the spleen. This measures 1.9 cm x 1.4 cm. Lymphomatous involvement should be ruled out. There is a mild degree of splenomegaly. There is evidence of the peripancreatic lymphadenopathy. Lymph nodes are also seen in the gastroepiploic ligament. Normal pancreas. Normal bilateral adrenal glands. Normal right kidney. Normal left kidney. Normal visualized stomach. Normal small intestine. The surgical anastomotic site is seen in the region of the sigmoid colon. The patient is status post appendectomy. There is diffuse atherosclerotic calcification of the abdominal aorta, without a demonstrated aneurysm. Normal inferior vena cava. There is retroperitoneal lymphadenopathy with enlarged nodes greater than 10-15mm in the short axis. This has progressed as compared to prior study. Normal urinary bladder. Normal abdominal wall. There are mild degenerative changes of the visualized lumbar spine. Stable anterolisthesis of L4 on L5. Degenerative changes of symphysis pubis. CT/Abdomen/Pelvis W IV Cont ONLY IMPRESSION: Multiple new hypodense nodules in the spleen. Mild splenomegaly. Moderate degree of retroperitoneal as well as mesenteric lymphadenopathy. Electronically Signed: Jagjit Villavicencio, at 14:33 EDT , Service support ,
[2020-06-03 13:56] LABS: CREATININE FINGERSTICK 0.7 mg/dL (0.55-1.02)
[2020-06-03] MEDS: 0.9% Saline Lock 10 ML Syringe IV (14:07)
== END ==
PROVIDERS: PCP Family Medicine; Referring Provider Internal Medicine Medical Oncology; Visit Provider Internal Medicine Medical Oncology
DX: C83.33 Diffuse large B-cell lymphoma, intra-abdominal lymph nodes (principal)
CPT/HCPCS: 71260; 74177; Q9967; A4216

== ENCOUNTER → 2020-06-12 08:27 | Outpatient (CLI) | payer MEDICARE, SELFPAY ==
[2020-06-10 14:39] VITALS: BMI 22.8
[2020-06-12] VITALS (9 sets, daily range): BP systolic 122–172; BP diastolic 56–86; PULSE 78–96; RESP 12–16; TEMP 36.4; O2SAT 93–98; BMI 22.8
--- NOTE | 2020-06-12 | IMM_PTH ---
PATIENT: AMILCAR DALY LOC: CT U#:[id number] AGE/SX: 84/F ROOM: RE06/12/[address]: Dr. Marcus Caceres MD : 1940 BED: DIS: SPEC #: [id number] RECD: 06/13/20 12:12 STATUS: SOUTiffanie REQ #: [id number] FRANCOIS: 06/12/20 00:[address]: Marcus Caceres DEPT: IMMUNOHISTOCHEMISTRY RECD BY: Samantha Jameson ENTERED: 06/13/20 12:14 SP TYPE: IMMUNO OTHR DR: Dr. Jethro Vogel MD Tissues: Abdomen, NOS Procedures: BCL-2 (add) BCL-6 (add) CD10 (add) CD20 (add) CD23 (add) CD3 (add) CD43 (add) CD45 (add) CD5 (add) CD79A (add) CK8 (add) CYCLIN (add) KI-67 (add) Pankeratin (initial) PHYSICIAN & [address] [address] SPECIMEN INFORMATION: Tissue Source: Abdominal mass Clinical Info: Enlarged abdominal mass Specimen Number: [id number] CPT code: 54321, 52379 x13 METHODOLOGY: Deparaffinized sections of prefer/formalin-fixed tissue or PAP/DQ stained slides are incubated with monoclonal/polyclonal antibodies/oligonucleotide probes. Localization is made via biotin free immunoperoxidase method. Appropriate controls are performed and reacted as expected. Results on target cell population are indicated in the following table: RESULTS: ANTIBODY / CLONE RESULT AE1-3 (AE1/AE3/PCK26) negative CK8 (47phqoX17) negative CD3 (PS1) negative CD5 (SP10) negative CD20 (L26) positive CD43 (L60) negative CD45 (RP2/18) positive CD79a (11E3) positive CD10 (56C6) positive CD23 (1B12) negative BCL-2 (bcl-2/100/D5) positive BCL-6 (SO248E/A8) positive Cyclin D1/BCL-1 (SP4) negative Ki-67 (30-9) positive, moderate to high These tests were developed and their performance characteristics determined by [facility]. They may not have been cleared or approved by the U.S. Food and Drug Administration. The FDA has determined that such clearance or approval is not necessary. The above immunohistochemical/dualISH markers are ordered and reviewed by the Pathologist. 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 SJ:ondina 06/16/20
[2020-06-12 09:22] LABS: Prothrombin Time (Protime)PT. 12.4 SECONDS (11.7-14.9)
[2020-06-12 09:23] LABS: Partial Thromboplast Time 26.5 Seconds (24.1-36.2)
--- NOTE | 2020-06-12 09:40 | CT_ITS ---
PROCEDURE: CT GUIDED left retroperitoneal percutaneous biopsy. DATE: 06/12/2020. INDICATION: Female, 79 years old. History of lymphoma. PHYSICIAN: Jagjit Villavicencio M.D. RADIATION DOSAGE (If Supplied By Facility): CTDIvol = ( 15 ) mGy, DLP = ( 250.88 ) mGycm. Individualized dose optimization techniques were utilized. PROCEDURE: The risks, benefits, and alternatives to the procedure were explained to the patient. The specific risk of hemorrhage requiring further treatment or intervention was detailed and accepted. Follow-up instructions were discussed with the patient as well. Written informed consent was obtained. The patient was brought into the CT suite and placed in the prone position. . An appropriate entry site was identified. The overlying skin was prepped and draped in the usual sterile fashion. 1% lidocaine was administered subcutaneously for local anesthesia. Conscious sedation was performed. The patient received 1 mg of VERSED and 25 mcg of FENTANYL intravenously. Conscious sedation was started at 9:48 AM and terminated at 10:10 AM. The patient was independently monitored by the department nurse. Under CT guidance, a total of 5 passes were performed utilizing a 18-gauge core biopsy needle. The specimens were then placed in the appropriate fluid and transported to the laboratory for analysis. Hemostasis was obtained. The patient tolerated the procedure well without immediate complications. CT/Biopsy/Inj or Needle Placement IMPRESSION: Successful CT guided percutaneous biopsy of the left retroperitoneal soft tissue mass, as described above. The conscious sedation protocol was followed. Electronically Signed: Jagjit Villavicencio, at 10:54 EDT , Service support ,
[2020-06-12] MEDS: Midazolam 2 MG/2 ML Syringe IV (09:48)
[2020-06-12] MEDS: fentaNYL 100 MCG/2 ML Ampul IV (09:51)
--- NOTE | 2020-06-12 10:10 | ASPIGT_PTH ---
PATIENT: AMILCAR DALY LOC: CT U#:[id number] AGE/SX: 84/F ROOM: RE06/12/[address]: Dr. Marcus Caceres MD : 1940 BED: DIS: SPEC #: [id number] RECD: 06/12/20 10:15 STATUS: SALAZAR MESSINA #: [id number] FRANCOIS: 06/12/20 10:[address]: Marcus Caceres DEPT: SURGICAL PATHOLOGY RECD BY: Linnette Crespo ENTERED: 06/12/20 11:29 SP TYPE: ASP RAD OTHR DR: Dr. 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 See comment. DANICA:ondina 06/16/20 COMMENT The specimen is evaluated at the time of biopsy by Dr. Moctezuma. Immediate Evaluation = Mostly blood. Flow cytometry study from [employer] [facility] was canceled due to low cell yield. Immunohistochemistry ([id number]) supports the above diagnosis. The atypical cell predominantly consists of large cells. 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 MICROSCOPIC DESCRIPTION Slides are reviewed. GROSS DESCRIPTION Received in fixative is one container labeled with the patient's name and designated abdominal mass biopsy. The specimen consists of multiple irregular fragments of mims soft tissue mixed with blood clot that in aggregate measure 1.5 x 0.1 x 0.1 cm. One core is submitted for flow cytometry study. The entire specimen is submitted in one cassette. Two touch imprints are prepared at the time of core biopsy. / DANICA:ondina 06/12/20 TC:0 CPT: 76600, 17252 ADDENDUM ADDENDUM ADDENDUM ADDENDUM ADDENDUM ADDENDUM ADDENDUM ADDENDUM ADDENDUM ADDENDUM ADDENDUM ADDENDUM ADDENDUM ADDENDUM ADDENDUM 06/30/2020 10:57 ADDENDUM 06/30/2020 10:57 ADDENDUM 06/30/2020 10:57 ADDENDUM 06/30/2020 10:57 ADDENDUM 06/30/2020 10:57 FLUORESCENCE IN SITU HYBRIDIZATION REPORT FROM [facility] INTERPRETATION: BCL2-IGH [translocation t(14;18)] gene rearrangement is detected. RESULTS: IGH/BCL2 for t(14;18) Normal nuclei 40% Positive nuclei with dual fusion 60% IMMUNOHISTOCHEMISTRY FROM [facility] INTERPRETATION: No evidence of overt or ALK-1 or CD1a expression. Please see complete report in e-chart or EMR for further details
[2020-06-12] MEDS: 0.9% Saline Lock 10 ML Syringe IV (11:25)
== END ==
PROVIDERS: PCP Family Medicine; Referring Provider Internal Medicine Medical Oncology; Visit Provider Internal Medicine Medical Oncology
DX: C83.33 Diffuse large B-cell lymphoma, intra-abdominal lymph nodes (principal)
CPT/HCPCS: 49180; 36415; 77012; 85610; 85730; 88172; 88305; 88313; 88341; 88342; 99155; 99156; J7040; A4216

== ENCOUNTER → 2020-07-10 12:52 | Outpatient (CLI) | payer MEDICARE, SELFPAY ==
[2020-06-12 09:06] VITALS: BMI 22.8
--- NOTE | 2020-07-10 12:52 | ECHODONC_ITS ---
Reason For Study: PRE CHEMO Procedure This was a 2D Doppler, Color Flow transthoracic echocardiogram. Myocardial strain analysis was performed in this exam to aid in the assessment of cardiac function. Exam performed in department. Left Ventricle Normal LV size. The estimated ejection fraction is 45 %. Stage 1 diastolic dysfunction. There is mild global hypokinesis of the left ventricle. Right Ventricle Normal RV size. Normal systolic function. Atria Normal left atrium. Normal right atrium. No doppler evidence for ASD. Mitral Valve There is no mitral valve stenosis. Trivial mitral valve insufficiency. Tricuspid Valve There is no tricuspid stenosis. Trivial tricuspid valve insufficiency. Pulmonary artery systolic pressure is 25-30 mmHg. Aortic Valve Aortic sclerosis, no stenosis. No aortic valve insufficiency. Pulmonic Valve There is no pulmonic valvular stenosis. No pulmonic valve insufficiency. Great Vessels Normal aortic root. Pericardium/Pleural No pericardial effusion. MMode/2D Measurements & Calculations LVIDd: 4.4 cm IVSd: 0.82 cm Ao root diam: 3.1 cm LVIDs: 3.7 cm LVPWd: 0.84 cm RVDd: 2.6 cm FS: 14.8 % LAV(MOD-bp): 27.3 ml LVAd ap4: 24.4 cm2 SV(MOD-sp4): 30.7 ml LAV(MOD-bp) Indexed: 19.7 ml/m2 EDV(MOD-sp4): 72.3 ml LAV(MOD-sp2): 31.3 ml EDV(sp4-el): 73.9 ml LAV(MOD-sp4): 20.5 ml LVAs ap4: 17.2 cm2 ESV(MOD-sp4): 41.6 ml ESV(sp4-el): 40.9 ml EF(MOD-sp4): 42.5 % EF(sp4-el): 44.6 % SV(sp4-el): 33.0 ml LA A4 area: 10.1 cm2 LA dimension(2D): 3.3 cm RA A4 area: 8.7 cm2 Time Measurements MV dec time: 0.38 sec Doppler Measurements & Calculations MV E max glen: 37.8 cm/sec Lat Peak E' Glen: 7.9 cm/sec Med Peak E' Glen: 6.7 cm/sec MV A max glen: 76.3 cm/sec E/E' lat: 4.8 E/E' med: 5.7 MV E/A: 0.50 Ao V2 max: 164.0 cm/sec LV V1 max: 86.2 cm/sec PA V2 max: 109.5 cm/sec Ao max P.8 mmHg LV V1 max P.0 mmHg TR max glen: 230.6 cm/sec TR max P.3 mmHg Interpretation Summary The estimated ejection fraction is 45 %. Stage 1 diastolic dysfunction. There is mild global hypokinesis of the left ventricle. Trivial mitral valve insufficiency. Ordering Physician: Marcus Caceres Referring Physician: LOLITA IRVING Performed By: Olinda Gardner RDCS
== END ==
PROVIDERS: PCP Family Medicine; Referring Provider Internal Medicine Medical Oncology; Visit Provider Internal Medicine Medical Oncology
CPT/HCPCS: 93306; 93356; J7040

== ENCOUNTER 2020-10-05 13:41 | Emergency (ER) | payer MEDICARE, SELFPAY ==
[2020-09-12 08:35] VITALS: BMI 23.1
[2020-10-05 13:42] VITALS: BP 142/77; PULSE 90; RESP 20; TEMP 36.1; O2SAT 99; BMI 25.8
--- NOTE | 2020-10-05 13:56 | ED.DCSUM_ITS ---
- ER Visit Summary Date of Service: 10/05/20 Chief Complaint: Dental pain History of Present Illness: The patient is a 79 F who presents with left lower dental pain that has been getting worse over the past 3 days. Patient states today she noted more swelling. Patient describes her pain as throbbing. Missy meraz states her pain improved with Aleve. Patient denies any difficulty breathing or difficulty swallowing. Patient denies any fevers or chills. Patient denies any hot or cold sensitivity. Patient does have a history of non- Hodgkin's lymphoma. Patient states she called her oncologist who referred her to the emergency department. Physical Examination: Vital signs are stable. Patient is afebrile. Patient is in no acute distress. Oral mucosa is pink and moist. Oropharynx is clear. Airway is patent. There is gingival edema over the left lower premolar area. There is no definite abscess. There is no fluctuance. There is tenderness to percussion over the left lower first and second premolars. There are small dental caries noted in these teeth. There is no sublingual edema or erythema. There is no evidence of Abdirashid's angina. Neck is supple. Trachea is midline. Heart was regular rate and rhythm. Lungs are clear and equal bilaterally. Cranial nerves II through XII are intact. There are no focal motor or sensory deficits. Emergency Department Course and Treatment: Patient was given a dose of Pen-Vee K here. Patient was given a prescription for Pen-Vee K. Patient was instructed to follow-up with her dentist in 5 to 7 days. Patient understood and was agreeable with the plan. All questions were answered. Disposition: Discharge home Impression: 1. Infected dental caries This note was generated with AirPR dictation software. It may contain incorrect words, spelling, and punctuation that were not noted in review of the chart prior to signing ED Disposition - Plan for ED Patient: Disposition: Home or Assisted Living Diagnosis: Infected dental caries Instructions: ED Dental Cavity Prescriptions: Penicillin V Potassium 500 mg PO 4X/DAY #40 tab Transmission Status: Pending to [facility]/pharmacy #[id number] Referrals: Jethro Vogel MD [Primary Care Provider] - 5-7 Days Dentist,Your [STAFF PHYSICIAN] - 5-7 Days
[2020-10-05] MEDS: Penicillin Vk 250 MG Tablet 500 MG PO (14:08)
== END 2020-10-05 14:17 | disposition home or self-care (01) ==
LOC: ED 14:09
PROVIDERS: Emergency Provider Emergency Medicine; PCP Family Medicine
DX: K04.7 Periapical abscess without sinus (principal); K02.9 Dental caries, unspecified; Z85.72 Personal history of non-Hodgkin lymphomas
CPT/HCPCS: 99283

== ENCOUNTER → 2020-12-11 12:36 | Outpatient (CLI) | payer MEDICARE, SELFPAY ==
[2020-11-21 09:27] VITALS: BMI 23.1
--- NOTE | 2020-12-11 12:38 | ECHODONC_ITS ---
Version 2 Reason For Study: DYSPNEA Procedure This was a 2D Doppler, Color Flow transthoracic echocardiogram. Myocardial strain analysis was performed in this exam to aid in the assessment of cardiac function. Exam performed in department. Left Ventricle Normal LV size. The estimated ejection fraction is 45 %. Stage 1 diastolic dysfunction. There is mild global hypokinesis of the left ventricle. Right Ventricle Normal RV size. Normal systolic function. Atria Normal left atrium. Normal right atrium. Mitral Valve Normal mitral valve. Tricuspid Valve Normal tricuspid valve. Mild tricuspid valve insufficiency. Pulmonary artery systolic pressure is 27 mmHg. Aortic Valve Trisinus/trileaflet aortic valve. Pulmonic Valve Normal pulmonic valve. Great Vessels Normal aortic root. The pulmonary artery is normal size. Normal inferior vena cava. Pericardium/Pleural No pericardial effusion. MMode/2D Measurements & Calculations LVIDd: 4.3 cm IVSd: 0.78 cm Ao root diam: 3.0 cm LVIDs: 3.4 cm LVPWd: 0.64 cm FS: 20.3 % LAV(MOD-bp): 36.2 ml LVAd ap4: 25.0 cm2 SV(MOD-sp4): 30.4 ml LAV(MOD-bp) Indexed: 25.7 ml/m2 EDV(MOD-sp4): 71.8 ml LAV(MOD-sp2): 42.2 ml EDV(sp4-el): 72.9 ml LAV(MOD-sp4): 31.2 ml LVAs ap4: 17.6 cm2 ESV(MOD-sp4): 41.4 ml ESV(sp4-el): 40.8 ml EF(MOD-sp4): 42.4 % EF(sp4-el): 44.1 % SV(sp4-el): 32.1 ml LA A4 area: 13.2 cm2 LA dimension(2D): 3.0 cm RA A4 area: 10.0 cm2 Time Measurements MV dec time: 0.18 sec Doppler Measurements & Calculations MV E max glen: 56.7 cm/sec Lat Peak E' Glen: 11.7 cm/sec Med Peak E' Glen: 3.6 cm/sec MV A max glen: 89.7 cm/sec E/E' lat: 4.9 E/E' med: 15.7 MV E/A: 0.63 Ao V2 max: 173.1 cm/sec LV V1 max: 99.9 cm/sec TR max glen: 240.6 cm/sec Ao max P.0 mmHg LV V1 max P.0 mmHg TR max P.2 mmHg Interpretation Summary Normal LV size. The estimated ejection fraction is 45 %. There is mild global hypokinesis of the left ventricle. Stage 1 diastolic dysfunction. The global longitudinal strain = -14.3% (abnormal). The global longitudinal strain has worsened. Ordering Physician: Chucky Gomez Referring Physician: LOLITA IRVING Performed By: Kaia Fisher, ADALBERTO, RVT
== END ==
PROVIDERS: PCP Family Medicine; Referring Provider Internal Medicine Cardiovascular Disease; Visit Provider Internal Medicine Cardiovascular Disease
DX: R05 Cough (principal); R06.02 Shortness of breath; I50.23 Acute on chronic systolic (congestive) heart failure; Z29.8 Encounter for other specified prophylactic measures; C83.33 Diffuse large B-cell lymphoma, intra-abdominal lymph nodes; R59.0 Localized enlarged lymph nodes; C82.90 Follicular lymphoma, unspecified, unspecified site; C85.90 Non-Hodgkin lymphoma, unspecified, unspecified site
CPT/HCPCS: 93306; 93356

== ENCOUNTER 2021-02-26 15:31 | Outpatient (RCR) | payer MEDICARE, SELFPAY ==
[2021-02-12 09:34] VITALS: BMI 22.1
== END 2021-04-17 23:59 ==
LOC: IMMUN 15:31
PROVIDERS: PCP Family Medicine; Visit Provider Family Medicine
DX: Z23 Encounter for immunization (principal)
CPT/HCPCS: 0001A; 91300

== ENCOUNTER 2021-03-31 16:35 | Inpatient (IN) | payer MEDICARE, SELFPAY ==
[2021-03-31 15:31] VITALS: BMI 21.5
[2021-03-31 16:36] VITALS: BP 146/88; PULSE 95; RESP 18; TEMP 35.7; O2SAT 96; BMI 21.3
--- NOTE | 2021-03-31 17:32 | EDS_ITS ---
HPI History of Present Illness HPI Narrative: Patient has a history of non-Hodgkin's lymphoma and chemotherapy, she is presenting with pain and swelling in her left hand which is nontraumatic. This started about a week ago with some swelling of her middle finger and MP joint region on the volar side it is now progressive. It is more warm than normal and they have noticed relatively rapid migration from the hand to the wrist and forearm just today in the last few hours. No fever or chills. No pain in the axilla. No chest pain or shortness Chief Complaint: Upper Extremity Injury PFSH PFSH Medical History (Updated 03/31/21 @ 18:[address] Rajesh Pizarro MD) Abdominal mass Acute on chronic systolic (congestive) heart failure Chemotherapy follow-up examination CT guided biopsy Diffuse large B-cell lymphoma of intra-abdominal lymph nodes Edema Educational circumstance Follicular lymphoma History of non-Hodgkin's lymphoma Immunotherapy encounter Lymphadenopathy, abdominal Non Hodgkin's lymphoma Osteoporosis Right sided abdominal pain Right-sided back pain Home Medications melatonin 5 mg PO QHS PRN 06/08/18 [History Last Taken Unknown] lidocaine-prilocaine 30 g TP DAILY PRN PRN #1 cream..g. 06/14/18 [Rx Last Taken Unknown] ondansetron 4 mg PO Q8H PRN PRN #30 tab 07/17/20 [Rx Last Taken Unknown] lisinopril 2.5 mg tablet 2.5 mg PO BID #180 tab 11/21/20 [Rx Last Taken Unknown] Allergy/AdvReac Type Severity Reaction Status Date / Time No Known Allergies Allergy Verified 03/31/21 16:36 Family History Mother Brain cancer Breast cancer Father Bone cancer Lung cancer Brother Esophageal cancer Bone cancer Surgical History History of lumpectomy s/p vascular port insertion (06/2018) Status post colectomy Social History (Updated 03/31/21 @ 16:08 by Yazmin Amato) Smoking Status: Never smoker alcohol intake: never chirag/religious: Mandaeism seatbelt use: always do you feel safe at home: Yes ROS ROS ED ROS Narrative Past medical history: Reviewed Medications: Reviewed Social history: Noncontributory Review of systems: All systems negative except as indicated General: No fever Eyes: No visual changes ENT: No upper airway congestion, normal voice Neck: No neck pain Cardiovascular: No chest pain Respiratory: No shortness of breath or cough Gastrointestinal: No abdominal pain, nausea vomiting or diarrhea Genitourinary: No dysuria Musculoskeletal: Left hand pain Skin: Redness and some edema of the left hand Neurological: No memory loss, confusion or any focal weakness Psych: No recent behavioral changes Hematologic: No easy bleeding or easy bruising EXAM Physical Exam Narrative Exam Narrative: Physical exam General: Patient does not appear acutely ill. She appears relatively comfortable in bed. Head: Normocephalic, Atraumatic Eyes: Conjunctiva not pale ENT: Moist mucous membranes Neck: Supple, Nontender, No lymphadenopathy Cardiovascular: Regular rate, Regular rhythm Respiratory: No distress, CTA bilaterally Abdomen: Soft, Nontender, Nondistended Back: Nontender, Normal Inspection. Negative for: CVA tenderness Extremities: Left hand and wrist reveals edema, there is some erythema present especially volar region with some extending early lymphangitic streaking. Slight calor is present. Skin: Edema and likely early cellulitis as above Neurological: Alert, Normal Strength, Normal Sensation Psychological: Normal affect Const Vital Signs: 03/31/21 16:36 Temperature 96.3 F L Temperature Source Temporal Pulse Rate 95 Respiratory Rate 18 Blood Pressure 146/88 H Blood Pressure Mean 107 Pulse Ox 96 Oxygen Delivery Method Room Air MDM MDM MDM Narrative Medical decision making narrative: Patient likely has cellulitis, she is neutropenic and she has elevated CRP, because of this I believe it is burgos to admit her to the hospital. Antibiotics were started. Discharge Plan Triage Chief Complaint: Upper Extremity Injury ED Provider: Rajesh Pizarro Dx/Rx/DC Orders Clinical Impression: Cellulitis Prescriptions: No Action lisinopril 2.5 mg tablet 2.5 mg PO BID Qty: 180 RF: 2 melatonin 5 MG tablet 5 mg PO QHS PRN (Reason: Sleep) RF: 0 lidocaine-prilocaine 30 GM cream 30 g TP DAILY PRN PRN (Reason: Not Specified) Qty: 1 RF: 2 ondansetron 4 MG tablet 4 mg PO Q8H PRN PRN (Reason: Nausea/Vomiting) Qty: 30 RF: 0 Primary Care Provider: Jethro Vogel Referrals: Jethro Vogel MD [Primary Care Provider] - Disposition Disposition: Acute [facility]
[2021-03-31 17:53] LABS: Absolute Lymphocyte Count 1.76 X10^3/uL (0.83-4.51); Absolute Neutrophil Count 1.9 X10^3/uL (2.0-7.7); Basophil# 0.01 X10^3/uL; Basophil% 0.2 % (0-1); Hematocrit 31.3 % (37-47); Hemoglobin 10.4 g/dL (12.0-15.0); Lymphocyte # 1.76 X10^3/ul (0.83-4.51); Lymphocyte % 42.4 % (19-41); Mean Corp Hgb Conc 33.2 g/dL (32-36); Mean Corpuscular Hgb 30.5 pg (27.0-32.0); Mean Corpuscular Volume 91.8 fL (81-99); Mean Platelet Vol. 9.7 fl (6.2-12.0); Monocyte# 0.49 X10^3/uL; Monocyte% 11.8 % (0-10); NRBC Flagged by Analyzer 0 % (0-5); Neutrophil # 1.88 X10^3/uL (2.7-7.7); Neutrophil % 45.4 % (47-70); POSITIVE COUNT YES; Platelet Count 96 K/mm3 (150-450); RBC Distribution Width CV 14.1 % (11.6-14.6); RBC Distribution Width SD 47.8 fl (35.1-43.9); Red Blood Count 3.41 M/mm3 (4.2-5.4); White Blood Count 4.2 K/mm3 (4.4-11.0)
--- NOTE | 2021-03-31 17:53 | RAD_ITS ---
STUDY: X-RAY - LEFT HAND REASON FOR EXAM: Female, 80 years old. [facility] AND [facility]RIST. NO KNOWN INJURY. HX OF NON-HODGKINS. TECHNIQUE: 3 view(s) of the hand. COMPARISON: None. FINDINGS: The bony structures are demineralized. No aggressive process is seen. Moderate diffuse soft tissue swelling noted. Chondrocalcinosis of the TFCC noted. No visualized fracture. Normal radiocarpal articulation. Normal distal radioulnar joint. Normal visualized carpal bones. Normal carpal articulations Normal carpometacarpal articulation of the thumb. Normal second through fifth carpometacarpal joints. Normal metacarpi. Normal metacarpophalangeal joint of the thumb. Normal interphalangeal joint of the thumb. Normal proximal and distal phalanges of the thumb. Normal metacarpophalangeal joints of the second through fifth fingers. Normal proximal and distal interphalangeal joints of the second through fifth fingers. Normal phalanges of the second through fifth fingers. RAD/Hand Min 3 Views IMPRESSION: 1. Moderate diffuse soft tissue swelling. Electronically Signed: Shaji Sosa MD at 19:27 EDT , Service support ,
[2021-03-31 18:03] LABS: Differential Indicated SCAN CRITERIA MET
[2021-03-31 18:06] LABS: AST(SGOT) 26 U/L (15-37); Alanine Aminotransfer ALT/SGPT 29 U/L (13-56); Albumin, Serum 3.2 g/dL (3.2-5.0); Alkaline Phosphatase 123 U/L (45-117); Anion Gap 4 (5-15); BUN 23 mg/dL (7-18); BUN/Creat Ratio 29.8 RATIO (10-20); Calcium,Total 8.4 mg/dL (8.5-10.1); Chloride 103 mmol/L (98-107); Creatinine, Serum 0.77 mg/dL (0.55-1.02); EST Glomerular Filtration Rate 76 mL/min (>60); Est Glom Filt Rate - Afr Amer 92 mL/min (>60); Globulin 3.1 g/dL (2.2-4.2); Glucose 92 mg/dL (74-106); Potassium 4.2 mmol/L (3.5-5.1); Protein, Total 6.3 g/dL (6.4-8.2); Sodium Level 134 mmol/L (136-145)
--- NOTE | 2021-03-31 18:38 | PCM.HP.STD ---
HPI - General General Date of Admission: 03/31/21 HPI Narrative AMILCAR DALY, is a 80 F who presents to the ER with hand swelling and redness on the left. Said about a week ago when she went to see her PCP who just noticed some swelling but otherwise was can a monitor at and then overnight she went from having some swelling in her hands to having swelling up to her forearm. She does not have an elevated white count however she does have a history of non-Hodgkin's lymphoma and is currently on chemotherapy, and her current white blood cell count is twice what it normally is. She also has an elevated CRP. She was started on vancomycin and Zosyn in the ER. Hand x-ray was read as normal by the ED physician however there is no radiological read. [facility] Medical History (Updated 03/31/21 @ 19:12 by Chika Mane) Abdominal mass Acute on chronic systolic (congestive) heart failure Chemotherapy follow-up examination CT guided biopsy Diffuse large B-cell lymphoma of intra-abdominal lymph nodes Edema Educational circumstance Follicular lymphoma GERD (gastroesophageal reflux disease) History of non-Hodgkin's lymphoma Hypertension Immunotherapy encounter Lymphadenopathy, abdominal Non Hodgkin's lymphoma Osteoporosis Right sided abdominal pain Right-sided back pain Home Medications lisinopril 2.5 mg PO BID 03/31/21 [History Last Taken 03/31/21] Allergy/AdvReac Type Severity Reaction Status Date / Time No Known Allergies Allergy Verified 03/31/21 16:36 Family History Mother Brain cancer Breast cancer Father Bone cancer Lung cancer Brother Esophageal cancer Bone cancer Surgical History (Updated 03/31/21 @ 19:10 by Chika Mane) History of appendectomy History of lumpectomy s/p vascular port insertion (06/2018) Status post colectomy Social History (Updated 03/31/21 @ 16:08 by Yazmin Amato) Smoking Status: Never smoker alcohol intake: never chirag/scientology: [employer]aritan seatbelt use: always do you feel safe at home: Yes ROS Constitutional Constitutional: Denies chills, fatigue, fever(s) or malaise Eyes Eyes: Denies blurry vision ENT HEENT: Denies headache(s) or nasal discharge Cardiovascular Cardiovascular: Denies chest pain, dyspnea on exertion or syncope Respiratory/Chest Respiratory/Chest: Denies cough, shortness of breath at rest or shortness of breath with exertion Gastrointestinal Gastrointestinal: Denies constipation, diarrhea, nausea or vomiting Genitourinary Genitourinary: Denies dysuria Musculoskeletal Musculoskeletal: Reports joint swelling Integumentary Integumentary: Reports erythema Neurologic Neurologic: Denies focal weakness, numbness or tremor(s) Psychiatric Psychiatric: Denies anxiety or depression Vital Signs Vital Signs Vital Signs: 03/31/21 16:36 Temperature 96.3 F L Temperature Source Temporal Pulse Rate 95 Respiratory Rate 18 Blood Pressure 146/88 H Blood Pressure Mean 107 Pulse Ox 96 Oxygen Delivery Method Room Air Weight Weight: 102 lb 1.184 oz Body Mass Index (BMI) 21.3 Physical Exam Const alert, oriented x3 and no apparent distress General Appearance: cooperative HEENT normocephalic and moist oral mucous membranes Eyes PERRL, EOMs intact bilaterally and conjunctivae normal Neck supple and no JVD Resp normal respiratory effort, no retractions, no use of accessory muscles and clear to auscultation bilaterally Auscultation: Negative for crackles, rales, rhonchi or wheezes Cardio regular rate, regular rhythm, S1 normal heart sound, S2 normal heart sound and no murmurs GI soft to palpation, non-tender and non-distended; Negative for hepatosplenomegaly Extremity no clubbing, cyanosis or edema Skin no wounds Skin Narrative: Edema in her left hand with erythema in the distal third of her forearm General Skin Exam: erythema Lesions: no lesions Trauma: no lacerations or abrasions Neuro no focal motor deficits and no sensory deficits noted Psych affect normal Appearance: appropriate Results Lab / Micro Data Result Diagrams: 04/01/21 04:56 04/01/21 04:56 Labs: Laboratory Results - last 24 hr 03/31/21 03/31/21 17:30 17:30 WBC 4.2 L RBC 3.41 L Hgb 10.4 L Hct 31.3 L MCV 91.8 MCH 30.5 MCHC 33.2 RDW Std Deviation 47.8 H RDW Coeff of [place] 14.1 Plt Count 96 L MPV 9.7 Immature Gran % (Auto) 0.200 Neut % (Auto) 45.4 L Lymph % (Auto) 42.4 H [place] % (Auto) 11.8 H Eos % (Auto) 0.0 Baso % (Auto) 0.2 Absolute Neuts (auto) 1.9 L Absolute Lymphs (auto) 1.76 Nucleated RBC % 0 Sodium 134 L Potassium 4.2 Chloride 103 Carbon Dioxide 27.0 Anion Gap 4 L BUN 23 H Creatinine 0.77 Estim Creat Clear Calc 32.80 Est GFR (MDRD) Af Amer 92 Est GFR (MDRD) Non-Af 76 BUN/Creatinine Ratio 29.8 H Glucose 92 Calcium 8.4 L Total Bilirubin 0.60 AST 26 ALT 29 Alkaline Phosphatase 123 H C-React Prot Ext Range 16.30 H Total Protein 6.3 L Albumin 3.2 Globulin 3.1 Albumin/Globulin Ratio 1.0 Assessment & Plan Assessment/Plan (1) Cellulitis: QUALIFIERS: Laterality: left Site of cellulitis: extremity Site of cellulitis of extremity: upper extremity Qualified Code(s): L03.114 - Cellulitis of left upper limb PLAN: 1. Left hand and forearm cellulitis and swelling -There does appear to be some streaking up towards the axilla though no pain or tenderness or swollen lymph nodes there. -Continue with Vanco and Zosyn. -Hand x-ray is unremarkable -No wounds or lacerations -Blood cultures obtained and pending, this will be monitored closely given her neutropenia 2. Hypertension -Stable -Continue with lisinopril 3. Non-Hodgkin's lymphoma -Currently in the maintenance stage of treatment, she has received chemotherapy 3 different times as well as radiation -She states that she was told is not curable but could potentially be managed DVT: Lovenox Charges/Coding Visit Charges OBSV E&M: 22738 Initial observation care L2
[2021-03-31 18:40] LABS: Differential Comment SCANNED
[2021-03-31 18:41] LABS: Erythrocyte Sedimentation Rate 25 mm/hr (0-30); Platelet Estimate MOD DEC (ADEQ)
[2021-03-31 18:48] VITALS: BP 146/88; PULSE 95; RESP 18; TEMP 35.7; O2SAT 96
[2021-03-31 18:53] VITALS: BP 152/78; PULSE 99; RESP 16; TEMP 36.7; O2SAT 100
[2021-03-31 19:43] VITALS: BMI 21.5
[2021-03-31 19:45] VITALS: BP 147/82; PULSE 89; RESP 16; TEMP 37; O2SAT 98
[2021-03-31 20:07] VITALS: BP 147/82; PULSE 89; RESP 16; TEMP 37; O2SAT 98
--- NOTE | 2021-03-31 20:16 | PHA.PHARE_ITS ---
Consult Pharmacy has been consulted to manage selected antiobiotic: Vancomycin Type of Consult: New start Suspected Infection: Skin/Soft tissue Prior Doses of Antibiotics Received/Current Regimen: received 750mg x1 in E.R. starting at 19:53 Labs: Sodium 134 mmol/L (136-145) L 03/31/21 17:30 Potassium 4.2 mmol/L (3.5-5.1) 03/31/21 17:30 Chloride 103 mmol/L (98-107) 03/31/21 17:30 Carbon Dioxide 27.0 mmol/L (21.0-32.0) 03/31/21 17:30 Anion Gap 4 (5-15) L 03/31/21 17:30 BUN 23 mg/dL (7-18) H 03/31/21 17:30 Creatinine 0.77 mg/dL (0.55-1.02) 03/31/21 17:30 Est GFR (MDRD) Af Amer 92 mL/min (>60) 03/31/21 17:30 Est GFR (MDRD) Non-Af 76 mL/min (>60) 03/31/21 17:30 BUN/Creatinine Ratio 29.8 RATIO (10-20) H 03/31/21 17:30 Glucose 92 mg/dL (74-106) 03/31/21 17:30 Weight used for dosin.8 kg Estimated Creatinine Clearance: 32.8ml/min Goal Trough: 15-20 mcg/mL Pharmacy Plan for Drug Dosing: Starting 24 hours after the E.R. dose, will continue with 750mg IV q24h per [facility] dosing protocol. A trough will be ordered to be drawn before the 3rd total dose. Pharmacy Service will continue to monitor and adjust dosing as required. Follow-Up Labs: Trough Vancomycin Labs to be done on [date and time ordered]: 04/02/21 19:30
[2021-03-31] MEDS: Lisinopril 2.5 MG Tablet PO (22:46)
[2021-03-31] MEDS: MELATONIN 3 MG TABLET PO (22:52)
[2021-03-31] MEDS: Acetaminophen 325 MG Tablet 650 MG PO (22:52)
[2021-04-01 01:55] VITALS: BP 101/49; PULSE 79; RESP 16; TEMP 36.7; O2SAT 98
[2021-04-01 05:23] LABS: Absolute Lymphocyte Count 0.79 X10^3/uL (0.83-4.51); Absolute Neutrophil Count 1.3 X10^3/uL (2.0-7.7); Basophil# 0.01 X10^3/uL; Basophil% 0.4 % (0-1); Hematocrit 28.7 % (37-47); Hemoglobin 9.3 g/dL (12.0-15.0); Lymphocyte # 0.79 X10^3/ul (0.83-4.51); Lymphocyte % 33.2 % (19-41); Mean Corp Hgb Conc 32.4 g/dL (32-36); Mean Corpuscular Volume 92.6 fL (81-99); Mean Platelet Vol. 9.8 fl (6.2-12.0); Monocyte# 0.32 X10^3/uL; Monocyte% 13.4 % (0-10); NRBC Flagged by Analyzer 0 % (0-5); Neutrophil # 1.26 X10^3/uL (2.7-7.7); POSITIVE COUNT YES; Platelet Count 87 K/mm3 (150-450); RBC Distribution Width CV 14.2 % (11.6-14.6); RBC Distribution Width SD 47.4 fl (35.1-43.9); White Blood Count 2.4 K/mm3 (4.4-11.0)
[2021-04-01 05:38] LABS: Anion Gap 4 (5-15); BUN 21 mg/dL (7-18); BUN/Creat Ratio 27.8 RATIO (10-20); Calcium,Total 8.2 mg/dL (8.5-10.1); Chloride 107 mmol/L (98-107); Creatinine, Serum 0.76 mg/dL (0.55-1.02); EST Glomerular Filtration Rate 78 mL/min (>60); Est Glom Filt Rate - Afr Amer 95 mL/min (>60); Estimated Creatinine Clearance 33.13 ml/min; Glucose 98 mg/dL (74-106); Potassium 4.3 mmol/L (3.5-5.1); Sodium Level 139 mmol/L (136-145)
[2021-04-01 09:35] VITALS: BP 125/67; PULSE 79; RESP 14; TEMP 36.6; O2SAT 98
[2021-04-01] MEDS: Acetaminophen 325 MG Tablet 650 MG PO (09:39)
[2021-04-01] MEDS: Lisinopril 2.5 MG Tablet PO ×2 (09:39→21:29)
--- NOTE | 2021-04-01 14:17 | PCM.PN.HOSP ---
Subjective Subjective Doing well, swelling is significantly improved, as this redness. No fevers or chills overnight. Objective Data Objective Data Vital Signs: Vital Signs Temp Pulse Resp BP Pulse Ox 97.9 F 79 14 125/67 H 98 04/01/21 09:35 04/01/21 09:35 04/01/21 09:35 04/01/21 09:35 04/01/21 09:35 Oxygen Delivery Method Room Air Weight: 103 lb 1.587 oz Body Mass Index (BMI) 21.5 Intake & Output: Intake and Output for Last 24 Hours 03/31/21 04/01/21 04/02/21 03:59 03:59 03:59 Intake Total 415 / 415 450 / 450 Balance 415 / 415 450 / 450 Lab / Micro Data Result Diagrams: 04/01/21 04:56 04/01/21 04:56 Labs: Laboratory Results - last 24 hr 03/31/21 03/31/21 04/01/21 17:30 17:30 04:56 WBC 4.2 L 2.4 L RBC 3.41 L 3.10 L Hgb 10.4 L 9.3 L Hct 31.3 L 28.7 L MCV 91.8 92.6 MCH 30.5 30.0 MCHC 33.2 32.4 RDW Std Deviation 47.8 H 47.4 H RDW Coeff of Alden 14.1 14.2 Plt Count 96 L 87 L MPV 9.7 9.8 Immature Gran % (Auto) 0.200 0.000 Neut % (Auto) 45.4 L 53.0 Lymph % (Auto) 42.4 H 33.2 [place] % (Auto) 11.8 H 13.4 H Eos % (Auto) 0.0 0.0 Baso % (Auto) 0.2 0.4 Absolute Neuts (auto) 1.9 L 1.3 L Absolute Lymphs (auto) 1.76 0.79 L Nucleated RBC % 0 0 Differential Comment SCANNED Platelet Estimate MOD DEC ESR 25 Sodium 134 L Potassium 4.2 Chloride 103 Carbon Dioxide 27.0 Anion Gap 4 L BUN 23 H Creatinine 0.77 Estim Creat Clear Calc 32.80 Est GFR (MDRD) Af Amer 92 Est GFR (MDRD) Non-Af 76 BUN/Creatinine Ratio 29.8 H Glucose 92 Calcium 8.4 L Total Bilirubin 0.60 AST 26 ALT 29 Alkaline Phosphatase 123 H C-React Prot Ext Range 16.30 H Total Protein 6.3 L Albumin 3.2 Globulin 3.1 Albumin/Globulin Ratio 1.0 04/01/21 04:56 WBC RBC Hgb Hct MCV MCH MCHC RDW Std Deviation RDW Coeff of Alden Plt Count MPV Immature Gran % (Auto) Neut % (Auto) Lymph % (Auto) [place] % (Auto) Eos % (Auto) Baso % (Auto) Absolute Neuts (auto) Absolute Lymphs (auto) Nucleated RBC % Differential Comment Platelet Estimate ESR Sodium 139 Potassium 4.3 Chloride 107 Carbon Dioxide 28.0 Anion Gap 4 L BUN 21 H Creatinine 0.76 Estim Creat Clear Calc 33.13 Est GFR (MDRD) Af Amer 95 Est GFR (MDRD) Non-Af 78 BUN/Creatinine Ratio 27.8 H Glucose 98 Calcium 8.2 L Total Bilirubin AST ALT Alkaline Phosphatase C-React Prot Ext Range Total Protein Albumin Globulin Albumin/Globulin Ratio Radiography Diagnostic Testing: Radiology Impression Hand X-Ray 03/31/21 17:53 IMPRESSION: 1. Moderate diffuse soft tissue swelling. Electronically Signed: Shaji Sosa MD at 19:27 EDT , Service support , Physical Exam Const alert, oriented x3 and no apparent distress General Appearance: cooperative HEENT normocephalic and moist oral mucous membranes Eyes PERRL, EOMs intact bilaterally and conjunctivae normal Neck supple and no JVD Resp normal respiratory effort, no retractions, no use of accessory muscles and clear to auscultation bilaterally Auscultation: Negative for crackles, rales, rhonchi or wheezes Cardio regular rate, regular rhythm, S1 normal heart sound, S2 normal heart sound and no murmurs GI soft to palpation, non-tender and non-distended; Negative for hepatosplenomegaly Extremity no clubbing, cyanosis or edema Skin no wounds Skin Narrative: Edema in her left hand with erythema in the distal third of her forearm, improving Lesions: no lesions Trauma: no lacerations or abrasions Neuro no focal motor deficits and no sensory deficits noted Psych affect normal Appearance: appropriate Assessment & Plan Assessment/Plan (1) Cellulitis: QUALIFIERS: Site of cellulitis: extremity Site of cellulitis of extremity: upper extremity Laterality: left Qualified Code(s): L03.114 - Cellulitis of left upper limb PLAN: 1. Left hand and forearm cellulitis and swelling -There does appear to be some streaking up towards the axilla though no pain or tenderness or swollen lymph nodes there. -Continue with Vanco and Zosyn, Will obtain a MRSA screen to see if we can narrow antibiotics potentially down to Augmentin -Hand x-ray is unremarkable and red with just some swelling -No wounds or lacerations -Blood cultures obtained and pending, this will be monitored closely given her neutropenia 2. Hypertension -Stable -Continue with lisinopril 3. Non-Hodgkin's lymphoma -Currently in the maintenance stage of treatment, she has received chemotherapy 3 different times as well as radiation -She states that she was told is not curable but could potentially be managed DVT: Rosenox Charges/Coding Visit Charges OBSV E&M: 12433 Subsequent observation care L2
[2021-04-01 14:30] VITALS: BP 145/78; PULSE 89; RESP 16; TEMP 36.8; O2SAT 98
--- NOTE | 2021-04-01 15:00 | CASEMGMT ---
CHITRA LAWRENCE Assessment: Face to Face with pt for initial transition planning/care coordination assessment. RN MELINDA introduced self and role at [facility], pt voices understanding and consents to assessment. Pt is A/O x4 and answers all questions appropriately at this time. Pt sitting up in bed with at bedside. Care providers, pharmacy, and demographics verified/updated. Admitting Dx: Hand Cellulitis PCP: Jaspreet Specialists: Jason, cardio; Prah, onc Preferred Pharmacy: [facility] Insurance: [facility] Prescription Benefit: yes LW/HPOA: Pt states she does have a LW/DPOA. States her DPOA is her Duane Castro. LNOK: Duane Castro, ; Leonel Castro, son Living Arrangements: Pt lives with in a single story house with one step to enter. Pt denies concerns at home. Pt states she is I in ADL's. Transportation: Pt drives self and denies concerns with transportation. DME/HHC/SNF: Pt has canes, walkers and BSC at home. She states she doesn't use them but has acquired them. Pt denies previous history of HHC or SNF. Pt states no concerns with going home at time of dc. Pt states no further concerns/needs. CM to follow. Advised pt to ask CM if any further question/concerns/needs arise, voices understanding. Pt Goal: Home Plan: Home
[2021-04-01 16:44] LABS: M R Staph aureus DNA By PCR Negative (Negative); Probe Check PASS; Specimen Processing Control PASS
--- NOTE | 2021-04-01 16:44 | CHAPLAIN ---
Type of Pastoral Visit _x__ Initial Visit ___ Follow-up Visit ___ On-call Visit ___ General Patient Visit ___ Spiritual Assessment ___ Family Conference ___ Bereavement ___ Rapid Response ___ Code Blue ___ Other (describe below) Pastoral Care Referral From _x__ Patient ___ Family ___ Nurse ___ Physician ___ [place] [employer] ___ Cras ___ Other (describe below) Sacrament/Intervention _x__ Active listening ___ Anointing ___ Evangelical ___ Bereavement ___ Communion ___ Estefany exploration ___ ___ Life review _x__ Prayer ___ Reconciliation ___ Sacrament of Sick _x__ Supportive presence ___ Wedding ___ Other (describe below) Pastoral Comments
[2021-04-01 19:56] VITALS: BP 140/66; PULSE 87; RESP 16; TEMP 36.6; O2SAT 98
[2021-04-01] MEDS: Loperamide 2 MG Capsule PO (23:47)
[2021-04-02 02:20] VITALS: BP 115/58; PULSE 88; RESP 16; TEMP 36.6; O2SAT 97
[2021-04-02 06:48] LABS: Absolute Neutrophil Count 1.2 X10^3/uL (2.0-7.7); Basophil# 0.01 X10^3/uL; Basophil% 0.4 % (0-1); Hematocrit 31.8 % (37-47); Hemoglobin 10.5 g/dL (12.0-15.0); Lymphocyte % 34.8 % (19-41); Mean Corpuscular Hgb 30.6 pg (27.0-32.0); Mean Corpuscular Volume 92.7 fL (81-99); Mean Platelet Vol. 9.7 fl (6.2-12.0); Monocyte# 0.32 X10^3/uL; Monocyte% 13.9 % (0-10); NRBC Flagged by Analyzer 0 % (0-5); Neutrophil # 1.16 X10^3/uL (2.7-7.7); Neutrophil % 50.5 % (47-70); Platelet Count 106 K/mm3 (150-450); RBC Distribution Width CV 13.9 % (11.6-14.6); RBC Distribution Width SD 47.6 fl (35.1-43.9); Red Blood Count 3.43 M/mm3 (4.2-5.4); White Blood Count 2.3 K/mm3 (4.4-11.0)
[2021-04-02] MEDS: Lisinopril 2.5 MG Tablet PO (09:09)
[2021-04-02] MEDS: Loperamide 2 MG Capsule PO (09:12)
[2021-04-02 09:14] VITALS: BP 169/82; PULSE 100; RESP 16; TEMP 36.4; O2SAT 100
--- NOTE | 2021-04-02 09:45 | PCM.DC ---
Discharge Instructions Diet Discharge Diet: No restrictions Activity Discharge Activity: Return to Normal Activity Dressing / Incision Call your doctor if you observe: Fever of 101 or Higher, Shortness of breath, Dizziness, Swelling in the ankles, Chest pain and Increased palpitations (irregular heartbeat) Follow Up Care Test Results: Test results from this visit will be discussed in further detail at your follow-up appointment, if applicable. Discharge Plan Admission Admit Date/Time: 04/01/21 15:17 Attending Provider: José Manuel Browning Primary Care Provider: Jethro Vogel Instructions Patient Instructions: ED Cellulitis Discharge Orders/Prescriptions Prescriptions: New amoxicillin-pot clavulanate [Augmentin] 875-125 mg tablet 1 tab PO Q12H Qty: 14 RF: 0 Continued lisinopril 2.5 mg tablet 2.5 mg PO BID RF: 0 Referrals / Follow Up: Jethro Vogel MD [Primary Care Provider] - In 1 Week Marcus Caceres MD [NON-STAFF] - Within 2 Weeks Disposition Disposition (needs filled in before D/C Order can be placed): Home, Self Care
--- NOTE | 2021-04-02 09:50 | DS.PCM_ITS ---
Providers Date of Admission: 04/01/21 Primary Care Physician: Dr. Jethro Vogel MD Reason For Visit: HAND CELLULITIS Diagnosis Discharge Diagnosis (1) Cellulitis: Status: Acute Code(s): L03.90 - Cellulitis, unspecified Qualifiers: Site of cellulitis: extremity Site of cellulitis of extremity: upper extremity Laterality: left Qualified Code(s): L03.114 - Cellulitis of left upper limb Medications at Discharge Home Medications lisinopril 2.5 mg PO BID 03/31/21 amoxicillin-pot clavulanate [Augmentin] 1 tab PO Q12H #14 tab 04/02/21 Hospital Course Operations None Procedures None Summary of Care Provided Minutes Spent on Discharge: 35 Hospital Course: Per HPI: AMILCAR DALY, is a 80 F who presents to the ER with hand swelling and redness on the left. Said about a week ago when she went to see her PCP who just noticed some swelling but otherwise was can a monitor at and then overnight she went from having some swelling in her hands to having swelling up to her forearm. She does not have an elevated white count however she does have a history of non-Hodgkin's lymphoma and is currently on chemotherapy, and her current white blood cell count is twice what it normally is. She also has an elevated CRP. She was started on vancomycin and Zosyn in the ER. Hand x-ray was read as normal by the ED physician however there is no radiological read. Hospital Course: 1. Left hand and forearm cellulitis and swelling with [id number] female with a history of lymphoma and multiple cycles of chemotherapy and currently is on maintenance treatment as well as radiation therapy, presented with left hand cellulitis that started about a week ago. She states it initially started with swelling and then it became red overnight prior to admission. She was started on vancomycin and Zosyn and her swelling improved dramatically. She feels much better today, continues to be neutropenic down to 1.2 and I did notify her oncologist but that has been fairly stable being neutropenic since at least September of this year. MRSA screen was negative therefore vancomycin was discontinued and she was discharged on Augmentin for 7 more days, to complete a 10-day course. I discussed with her the plan for discharge and she expressed understanding of the risk and benefits of going home and would like to go home today. 2. Hypertension and non-Hodgkin's lymphoma her chronic medical conditions which complicate her care. Her home medications were continued where appropriate Physical Exam Const alert, oriented x3 and no apparent distress General Appearance: cooperative HEENT normocephalic and moist oral mucous membranes Eyes PERRL, EOMs intact bilaterally and conjunctivae normal Neck supple and no JVD Resp normal respiratory effort, no retractions, no use of accessory muscles and clear to auscultation bilaterally Auscultation: Negative for crackles, rales, rhonchi or wheezes Cardio regular rate, regular rhythm, S1 normal heart sound, S2 normal heart sound and no murmurs GI soft to palpation, non-tender and non-distended; Negative for hepatosplenomegaly Extremity no clubbing, cyanosis or edema Skin no rashes or lesions noted Skin Narrative: Some swelling remains over the dorsal aspect of her wrist on the left. Neuro no focal motor deficits and no sensory deficits noted Psych affect normal Appearance: appropriate Weight / BMI Weight Weight: 103 lb 1.587 oz Body Mass Index (BMI) 21.5 ABG / Lab / Microbiology Data Result Diagrams: 04/02/21 05:56 04/01/21 04:56 Laboratory: Laboratory Results - last 24 hr 04/01/21 04/02/21 14:35 05:56 WBC 2.3 L RBC 3.43 L Hgb 10.5 L Hct 31.8 L MCV 92.7 MCH 30.6 MCHC 33.0 RDW Std Deviation 47.6 H RDW Coeff of Alden 13.9 Plt Count 106 L MPV 9.7 Immature Gran % (Auto) 0.400 Neut % (Auto) 50.5 Lymph % (Auto) 34.8 [place] % (Auto) 13.9 H Eos % (Auto) 0.0 Baso % (Auto) 0.4 Absolute Neuts (auto) 1.2 L Absolute Lymphs (auto) 0.80 L Nucleated RBC % 0 MRSA (PCR) Negative Microbiology: Microbiology 04/01/21 18:05 C. difficile DNA Amplification - Final Stool Microbiology 04/01/21 18:05 Stool C. difficile DNA Amplification - Final D/C Instructions Discharge Diet: No restrictions Call your doctor if you observe: Fever of 101 or Higher, Shortness of breath, Dizziness, Swelling in the ankles, Chest pain and Increased palpitations (irregular heartbeat) Meaningful Use Info Meaningful Use Diagnoses (Choose all that apply): None applicable Discharge Plan Admission Admit Date/Time: 04/01/21 15:17 Attending Provider: José Manuel Browning Primary Care Provider: Jethro Vogel Instructions Patient Instructions: ED Cellulitis Discharge Orders/Prescriptions Prescriptions: New amoxicillin-pot clavulanate [Augmentin] 875-125 mg tablet 1 tab PO Q12H Qty: 14 RF: 0 Continued lisinopril 2.5 mg tablet 2.5 mg PO BID RF: 0 Referrals / Follow Up: Jethro Vogel MD [Primary Care Provider] - In 1 Week Marcus Caceres MD [NON-STAFF] - Within 2 Weeks Disposition Disposition (needs filled in before D/C Order can be placed): Home, Self Care Charges/Coding Visit Charges Inpatient E&M: 20990 Disch Hosp
--- NOTE | 2021-04-02 10:19 | CASEMGMT ---
Pt screened with [facility] Palliative Care Screening Tool due to strata 3, pt did not meet criteria.
--- NOTE | 2021-04-03 16:04 | CASEMGMT ---
CHITRA LAWRENCE Discharge Follow Up Phone Call: LEIGHA: Bartolome Strata:3 Call Date: 04/03/21 Discharge Date: 04/02/21 Time of Call:1603 Duration:2 min Admitting Dx:hand cellulitis CHITRA LAWRENCE completed follow up phone call after recent hospitalization. Pt states she is doing well, tired. Pt states she was able to pick up driver her antibiotic. States she still has a small area on the back of her hand that is swollen. Pt has not yet set up her follow up appt, but states she will do so. Pt denies questions regarding her dc instructions or medications.
== END 2021-04-02 10:35 | disposition home or self-care (01) | DRG 603 ==
LOC: ED 18:25 → MS3 18:54
PROVIDERS: Admitting Provider Family Medicine; Emergency Provider Emergency Medicine; PCP Family Medicine; Visit Provider Family Medicine
DX: L03.114 Cellulitis of left upper limb (principal); C83.33 Diffuse large B-cell lymphoma, intra-abdominal lymph nodes; D70.9 Neutropenia, unspecified; M81.0 Age-related osteoporosis without current pathological fracture; Z79.899 Other long term (current) drug therapy
CPT/HCPCS: 36415; 36591; 73130; 80048; 80053; 85025; 85652; 86140; 87040; 87493; 87506; 87641; 97802; 99283; J7050; A4216

== ENCOUNTER → 2021-04-20 | Outpatient (CLI) | payer MEDICARE, SELFPAY ==
[2021-04-20 09:10] VITALS: BMI 20.9
[2021-04-20 10:57] LABS: Pathologist Comment May follow
[2021-04-20 11:26] LABS: Synovial Fld Mononuclear WBC % 34.5 %; Synovial Fld Polynuclear WBC % 65.5 %
[2021-04-20 11:34] LABS: RBC /Synovial Fluid 0.007 10^6/uL (0)
[2021-04-20 11:57] LABS: AUTO B FLUID DILUENT BKGD CT WBC <0.1 RBC <0.01 (W<.1,R<.01)
[2021-04-20 11:58] LABS: Appearance /Synovial Fluid Cloudy (CLEAR); CRYSTALS, BODY FLUID Other, see comment; Color / Synovial Fluid Yellow (Pale Yellow); Source / Synovial Fluid LWRIST
[2021-04-20 12:10] LABS: Body Fluid QC Type(s) BF1Q,BF2Q; Lymph 15 %; Monocyte /Synovial Fluid 25 %; Neutrophil 60 % (0-25)
[2021-04-20 13:16] LABS: Source- Body Fluid SYNOVIAL
[2021-04-21 12:10] LABS: Pathologist Review Reviewed
== END | disposition home or self-care (01) ==
LOC: LABSPEC 10:42
PROVIDERS: PCP Family Medicine; Referring Provider Orthopaedic Surgery; Visit Provider Orthopaedic Surgery
DX: M11.20 Other chondrocalcinosis, unspecified site (principal)
CPT/HCPCS: 82945; 84157; 87070; 87075; 87205; 89050; 89051; 89060

== ENCOUNTER 2021-04-22 04:27 | Emergency (ER) | payer MEDICARE, SELFPAY ==
[2021-04-20 09:10] VITALS: BMI 20.9
[2021-04-22 04:28] VITALS: BP 151/86; PULSE 90; RESP 16; TEMP 36.1; O2SAT 100; BMI 23.1
[2021-04-22 04:32] VITALS: BP 151/86; PULSE 90; RESP 18; TEMP 36.1; O2SAT 100
--- NOTE | 2021-04-22 04:41 | RAD_ITS ---
STUDY: X-RAY - LEFT HAND REASON FOR EXAM: Female, 80 years old. Worsening swelling, eval potential pseudogout TECHNIQUE: 3 view(s) of the hand. COMPARISON: 04/16/2021 FINDINGS: No acute fracture or dislocation. 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 There is mild arthrosis of the distal interphalangeal joints The soft tissue structures demonstrate diffuse soft tissue swelling. RAD/Hand Min 3 Views IMPRESSION: Soft tissue swelling. No acute bony abnormality or other interval change. Electronically Signed: Errol Wu MD at 5:17 EDT Tel , Service support ,
[2021-04-22] MEDS: Morphine 4 MG/ML Syringe IV (04:44)
[2021-04-22 04:45] LABS: Absolute Lymphocyte Count 1.18 X10^3/uL (0.83-4.51); Absolute Neutrophil Count 3.7 X10^3/uL (2.0-7.7); Basophil# 0.01 X10^3/uL; Basophil% 0.2 % (0-1); Eosinophil# 0.01 X10^3/uL; Eosinophils% 0.2 % (0-5); Hematocrit 35.2 % (37-47); Hemoglobin 11.2 g/dL (12.0-15.0); Lymphocyte # 1.18 X10^3/ul (0.83-4.51); Lymphocyte % 21.4 % (19-41); Mean Corp Hgb Conc 31.8 g/dL (32-36); Mean Corpuscular Hgb 30.3 pg (27.0-32.0); Mean Corpuscular Volume 95.1 fL (81-99); Monocyte# 0.59 X10^3/uL; Monocyte% 10.7 % (0-10); NRBC Flagged by Analyzer 0 % (0-5); Neutrophil % 67.1 % (47-70); Platelet Count 133 K/mm3 (150-450); RBC Distribution Width CV 13.9 % (11.6-14.6); RBC Distribution Width SD 48.5 fl (35.1-43.9); White Blood Count 5.5 K/mm3 (4.4-11.0)
[2021-04-22 04:58] LABS: Anion Gap 5 (5-15); BUN 15 mg/dL (7-18); BUN/Creat Ratio 23.4 RATIO (10-20); Calcium,Total 8.5 mg/dL (8.5-10.1); Chloride 103 mmol/L (98-107); Creatinine, Serum 0.64 mg/dL (0.55-1.02); EST Glomerular Filtration Rate 95 mL/min (>60); Est Glom Filt Rate - Afr Amer 115 mL/min (>60); Estimated Creatinine Clearance 35.49 ml/min; Glucose 91 mg/dL (74-106); Potassium 3.8 mmol/L (3.5-5.1); Sodium Level 137 mmol/L (136-145)
--- NOTE | 2021-04-22 05:00 | EDS_ITS ---
HPI History of Present Illness Chief Complaint: Other, Pain/Inj Informant: patient Narrative Narrative: Patient is a 80-year-old female with a past medical history of non- Hodgkin's lymphoma on chemotherapy who presents to the emergency department for left hand pain. This has been an ongoing issue over the past month. She was diagnosed with pseudogout after she had a needle aspiration. Prior to that she was treated in the hospital for a suspected cellulitis with IV antibiotics. She states that she did get better with antibiotics but her symptoms quickly returned. She just completed a course of prednisone. She states that the pain has become severe. The left hand is very swollen and the feels like the pain goes up to her elbow. She denies any systemic symptoms including any fever/chills. No chest pain or shortness of breath. She has not been nauseous or vomiting. She is only been taking Aleve for the pain which has not been giving her any relief. She denies any other joint pain or swelling. [facility] Medical History (Updated 04/22/21 @ 05:[address] Marcus Salgado, ) Abdominal mass Acute on chronic systolic (congestive) heart failure Chemotherapy follow-up examination CT guided biopsy Diffuse large B-cell lymphoma of intra-abdominal lymph nodes Edema Educational circumstance Follicular lymphoma GERD (gastroesophageal reflux disease) Gout History of non-Hodgkin's lymphoma Hypertension Immunotherapy encounter Lymphadenopathy, abdominal Non Hodgkin's lymphoma Osteoporosis Right sided abdominal pain Right-sided back pain Home Medications lisinopril 2.5 mg PO BID 03/31/21 [History Last Taken 03/31/21] hydrocodone-acetaminophen 1 tab PO Q6H PRN 4 Days #12 tab 04/22/21 [Rx Last Taken Unknown] prednisone 10 mg PO DAILY #30 tablet 04/22/21 [Rx Last Taken Unknown] Allergy/AdvReac Type Severity Reaction Status Date / Time No Known Allergies Allergy Verified 04/22/21 04:34 Family History Mother Brain cancer Breast cancer Father Bone cancer Lung cancer Brother Esophageal cancer Bone cancer Surgical History History of appendectomy History of lumpectomy s/p vascular port insertion (06/2018) Status post colectomy Social History Smoking Status: Never smoker alcohol intake: never chirag/moravian: Hindu seatbelt use: always do you feel safe at home: Yes ROS ROS ED Constitutional Constitutional ED: Denies chills or fever(s) Eyes Eyes: Denies change in vision ENT ENT ED: Denies epistaxis Cardiovascular Cardiovascular: Denies chest pain Respiratory/Chest Respiratory/Chest: Denies cough or dyspnea Gastrointestinal Gastrointestinal: Denies abdominal pain, nausea or vomiting Musculoskeletal Musculoskeletal: Reports arthralgias; Denies back pain or neck pain Neurologic Neurologic: Denies dizziness, headache(s) or weakness EXAM Physical Exam Const Vital Signs: 04/22/21 04:28 04/22/21 04:32 04/22/21 05:54 Temperature 97.0 F L 97.0 F L Temperature Source Temporal Temporal Pulse Rate 90 90 88 Respiratory Rate 16 18 18 Blood Pressure 151/86 H 151/86 H 144/71 H Blood Pressure Mean 107 107 Pulse Ox 100 100 99 Oxygen Delivery Method Room Air Room Air Positive well nourished and well developed General Appearance ED: well developed and NAD HEENT Reports normocephalic and head/scalp atraumatic Neck supple Resp normal respiratory effort and clear to auscultation bilaterally Auscultation: Negative for rales, rhonchi or wheezes Cardio regular rate, regular rhythm and no murmurs GI normal to inspection, nondistended, normoactive bowel sounds and non-tender Palpation: soft; Negative for guarding or rebound tenderness present Extremity Extremity Narrative: Left dorsal hand is swollen, erythematous and warm to the touch. This does extend to the distal forearm. She is otherwise neurovascularly intact. Full range of motion. Neuro no sensory deficits noted Sensorium / Orientation: alert Motor Exam: strength 5/5 throughout Psych mental status grossly normal MDM MDM MDM Narrative Medical decision making narrative: Patient presents the ED for left hand pain. She initially was treated as a cellulitis and then had a needle aspiration and treated as pseudogout. She just presents to course of prednisone. On arrival to the ED her vital signs are within normal limits. She is in no acute distress although does appear uncomfortable with the pain. I did review the synovial fluid joint aspiration which had a negative Gram stain with out any growth. There was 4+ white blood cells. There were rare nondescript crystals noted. Today's lab work did not reveal a high white blood cell count. She does not have a elevated neutrophil count. The rest of her lab work did not reveal any significant acute abnormality. Patient still having significant pain after the morphine so she is given a dose of hydromorphone. Patient was feeling much better from the pain aspect but did develop some nausea and weakness from this. She was given a dose of Zofran and allowed to rest in the ED. This time she does feel countable being discharged home. She does have an appointment with her oncologist in 2 hours. She is supposed to call her orthopedic doctor today as well. I did write a prescription for prednisone as well as Martelle for symptomatic treatment. She does have Aleve at home she will continue to take. Return precautions are reviewed with her including any worsening symptoms, developing systemic symptoms. She understands and is agreeable this plan. Discharged home in stable condition. All questions are answered. Lab Data Labs: Laboratory Results - last 24 hr 04/22/21 04/22/21 04:35 04:35 WBC 5.5 RBC 3.70 L Hgb 11.2 L Hct 35.2 L MCV 95.1 MCH 30.3 MCHC 31.8 L RDW Std Deviation 48.5 H RDW Coeff of Alden 13.9 Plt Count 133 L MPV 9.0 Immature Gran % (Auto) 0.400 Neut % (Auto) 67.1 Lymph % (Auto) 21.4 [place] % (Auto) 10.7 H Eos % (Auto) 0.2 Baso % (Auto) 0.2 Absolute Neuts (auto) 3.7 Absolute Lymphs (auto) 1.18 Nucleated RBC % 0 Sodium 137 Potassium 3.8 Chloride 103 Carbon Dioxide 29.0 Anion Gap 5 BUN 15 Creatinine 0.64 Estim Creat Clear Calc 35.49 Est GFR (MDRD) Af Amer 115 Est GFR (MDRD) Non-Af 95 BUN/Creatinine Ratio 23.4 H Glucose 91 Calcium 8.5 Radiography Diagnostic Testing: Radiology Impression Hand X-Ray 04/22/21 04:41 IMPRESSION: Soft tissue swelling. No acute bony abnormality or other interval change. Electronically Signed: Errol Wu MD at 5:17 EDT Tel , Service support , Discharge Plan Triage Chief Complaint: Other, Pain/Inj ED Provider: Marcus Salgado Dx/Rx/DC Orders Clinical Impression: Intermittent pain and swelling of hand, Chondrocalcinosis Instructions: Treating Gout Attacks Prescriptions: New prednisone 10 mg tablet 10 mg PO DAILY Qty: 30 RF: 0 hydrocodone-acetaminophen 5-325 mg tablet 1 tab PO Q6H PRN (Reason: pain) 4 Days Qty: 12 RF: 0 No Action lisinopril 2.5 mg tablet 2.5 mg PO BID RF: 0 Primary Care Provider: Jethro Vogel Referrals: Jethro Vogel MD [Primary Care Provider] - Marcus Pastor DO [STAFF PHYSICIAN] - As soon as possible Disposition Disposition: Home, Self Care Discharge Date/Time: 04/22/21 05:59
[2021-04-22] MEDS: HYDROmorphone 1 MG/ML Syringe IV (05:14)
[2021-04-22 05:54] VITALS: BP 144/71; PULSE 88; RESP 18; O2SAT 99
[2021-04-22] MEDS: Ondansetron ODT 4 MG Tablet PO (05:57)
== END 2021-04-22 05:59 | disposition home or self-care (01) ==
PROVIDERS: Emergency Provider Emergency Medicine; PCP Family Medicine
DX: M11.242 Other chondrocalcinosis, left hand (principal); M79.89 Other specified soft tissue disorders; I11.0 Hypertensive heart disease with heart failure; I50.23 Acute on chronic systolic (congestive) heart failure; C83.33 Diffuse large B-cell lymphoma, intra-abdominal lymph nodes; K21.9 Gastro-esophageal reflux disease without esophagitis; M10.9 Gout, unspecified; M81.0 Age-related osteoporosis without current pathological fracture; Z79.899 Other long term (current) drug therapy
CPT/HCPCS: 73130; 80048; 85025; 96374; 96375; 99284; A4216

== ENCOUNTER 2021-05-13 13:30 | Outpatient (RCR) | payer MEDICARE, SELFPAY ==
[2021-02-12 09:34] VITALS: BMI 22.1
--- NOTE | 2021-03-03 14:27 | HP.PTEVAL_ITS ---
Patient's Visit Information AMILCAR DALY is a 80 year old F referred to Physical Therapy by SHANNAN Weiss with a diagnosis of R SHLD CONTUSION. Date of Evaluation: 03/03/21 Physical Therapist: Wandy Loya, PT, Cert MDT - Visit Plan Frequency: 2-3x /Week Duration: 4-6 Weeks Plan: PHYSICAL THEARPY AFTER PHYSICIAN RE-CHECK IF ORDERS REC'D AND WITHIN ANY RESTRICTIONS GIVEN BY PHYSICIAN FOR POSTURE CORRECTION/STRENGTHENING, INSTRUCTION IN APPROPRIATE BODY MECHANICS AND ACTIVITY MODIFICATIONS. R UE ROM, STRETCHING AND STRENGTHENING. HEP INSTRUCTION. - Subjective Work/Leisure: RETIRED. Disability: NO. Present symptoms: RIGHT SHLD PAIN. R SHLD WEAKNESS AND TIGHTNESS. Present since: BEGININNG OF JANUARY 2021 (ABOUT 4.5 WEEKS AGO). Pain Scale: Worst - 8/10 Least - 0/10. Currently: 0/10 AT REST. Commenced as a result of: FALL - FELL ON CEMENT FLOOR IN BASEMENT DOING LAUNDRY. Symptoms at onset: RIGHT SHLD PAIN. Worse: REACHING, MOVING ELBOW OUT TO THE SIDE, TRYING TO HOLD ANYTHING IN RIGHT HAND. Better: REST, VOLTERON CREAM, HEATING PAD. Disturbed sleep: YES. Previous history/Previous treatment: NO PRIOR R SHLD INJURY OR TREATMENT. PATIENT REPORTS SHE WAS HAVING RADAIATION TREATMENTS SO SHE WAITED ABOUT 10 DAYS AFTER HER FALL TO GO TO [facility]. SHE HAS ONLY BEEN SEEN FOR HER SHLD ONCE BY THEM. PATIENT GOT VOLTERON CREAM AFTER [facility] DOCTOR RECOMMENDED IT. PT CONSULT ORDERED TODAY BUT PATIENT THOUGHT IT WAS GOING TO BE ORDERED SOONER. PATIENT REPORTS THEY GAVE HER 3 HOME EX'S TO DO 3 TIMES A DAY AND SHE HAS BEEN TRYING TO DO THEM. PATIENT REPORTS HER ARM STILL REALLY HURTS WHEN SHE TRIES TO MOVE HER ELBOW OUT TO THE SIDE, POUR ANYTHING OR EVEN LIFT A SKILLET. I CAN'T REACH SIDEWAYS AT ALL. PATIENT REPORTS SHE IS TRYING TO PULL ON HER HEAD AND WALK UP THE WALL FORWARD AND SIDEWAYS BUT SHE WAS NOT GIVEN PICTURES. Dizziness: NO. Tinnitis: CHRONIC. Nausea: YES. Shortness of Breath: NO. Difficulty Swollowing: NO. Gait: NORMAL. THIS IS FIRST FALL. Accidents: NO. Unexplained weight loss: NO. Imaging: R SHLD X-RAYS ORDERED BY THE [facility] - SEE [facility] EMR. THIS PT INSTRUCTED PATIENT AND TO FOLLOW UP WITH A PHYSICIAN ABOUT RESULTS. PMH/Recent major surgery: NON HODGKINS LYMPHOMA DX'D 2019 - RECENTLY TREATED WITH CHEMO AND RADIATION AND WILL BE STARTING ANTIBODIES SOON. PATIENT REPORTS THIS IS THE 3RD TIME SHE HAS HAD CHEMOTHERAPY FOR THIS. UNDER THE CARE OF DR. THOMAS. - Objective Sitting Posture/Standing Posture: POOR. FH. RSH'S. INCREASED KYPHOSIS. Active Correction of posture: NE. Other Observations: INDEP GAIT AND TRANSFERS. Motor deficit: [employer] STRENGTH 25 LBS. I PROCEEDED CAREFULLY WITH RIGHT UE MMT WITH R ELBOW AT SIDE AND GRADED APPROX: FLEX 3-/5, ABD 2/5, IR 3- /5, ER 2+/5, ELBOW FLEX 3+/5, ELBOW EXT 3+/5. Sensory deficit: EVA UE LIGHT TOUCH SENSATION APPEARS INTACT AND SYMMETRICAL. ROM deficit: AROM IN SITTING: FLEX 109 DEG, ABD 43 DEG. PATIENT IS ABLE TO GET HER RIGHT HAND INTO THE SMALL OF HER BACK AND BEHIND HER HEAD. PATIENT C/O PAIN WITH AROM TESTING ALL PLANES. Reflexes: NT. Dural Signs: NEGATIVE. Cervical Mvmt Loss: Flex: NIL. Pro: NIL. Ext: MOD. Ret: REECE. RSB: MIN. LSB: MOD. R Rot: MIN. L Rot: MOD. PATIENT DENIES INCREASED SHLD PAIN WITH CERVICAL ROM TESTING. Postural strength: POOR. Palpation: TENDERNESS WITH LIGHT PALPATION OR RIGHT PORXIMAL HUMERUS. OTHER: [facility] EMR X-RAY RESULTS NOT GIVEN TO PATIENT OR BY THIS PT THIS DATE BUT STRONGLY ENCOURAGED PATIENT TO HAVE PHYSICIAN RE-CHECK SOON POSSIBLE AND TO AVOID PROVOKING RIGHT UE PAIN WITH EX AND ACTIVITY UNTIL PHYSICIAN RE-CHECK. PATIENT AND AGREEABLE AND ARE GOING TO MAKE SOME CALLS TO FIGURE OUT WHO EXACTLY THEY WANT TO FOLLOW UP WITH (PCP VS ONCOLOGY AND [facility]). - Goals Goal 1:: DECREASE C/O RIGHT SHLD PAIN Goal Time Frame: 4-6 Weeks Goal 2:: IMPROVE FUNCTIONAL R UE ROM TO EASE ADL'S. Goal Time Frame: 4-6 Weeks Goal 3:: INCREASE FUNCTIONAL STRENGTH OF R UE TO EASE ADL'S Goal Time Frame: 4-6 Weeks Goal 4:: PATIENT WILL BE INDEP WITH A HEP FOR CONTINUED IMPROVEMENT ONCE FORMAL PHYSICAL THERAPY CONCLUDES. Goal Time Frame: 4-6 Weeks - Anticipated Interventions Patient/Client Instruction: Educate patient on: Condition, Plan of Care, Risk Factors For the Purpose of:: To improve self management Therapeutic Exercise to Include: Strength training, Body mechanics, Postural training, Neuromotor development, Passive ROM, Active ROM, Scapular Strength/Stabilization For the Purpose of:: To decrease pain, To increase ROM, To improve muscle performance and motor function, To increase tolerance to activity/condition/position, To improve ability of physical actions for home/community/work/leisure Cryotherapy (ice pack, ice massage): Yes Thermo therapy (hot pack): Yes For the Purpose of:: To decrease pain, To decrease swelling/inflammation, To improve nutrient delivery to tissue Thank you for the opportunity to evaluate your patient. For Medicare and Medicare HMO plans, please review the plan of care and approve it. It will need to be FAXED BACK to us at [phone] for Medicare purposes. For Medicare only, by signing this I certify the plan of care. Please let me know if there are questions or concerns regarding this plan of care. Physician Signature: Date:
--- NOTE | 2021-05-13 13:48 | HP.PTDCSUM ---
It has been my pleasure to treat AMILCAR DALY referred by SHANNAN Weiss, with the diagnosis of R SHLD CONTUSION for a total of 17 visit(s). Discharge Date: 05/13/21 Please see the following information for a summary of their discharge status. Subjective: R shoulder is doing good. No pain lately. activites are normal. Dressing is normally. Sleep is good. OH reaching normal. Right Shoulder Pain Intensity (Out of 10): 0 % Improvement: 95 Objective/Function: Fulla nd symmetrical AROM R shoulder and scap to L. Strength symmetrical at 4-/5 in flexion, abd bi, tri, er, IR. Moving it very wella dn without concerns today. Goal 1:: DECREASE C/O RIGHT SHLD PAIN Goal Progress: Goal Met Goal 2:: IMPROVE FUNCTIONAL R UE ROM TO EASE ADL'S. Goal Progress: Goal Met Goal 3:: INCREASE FUNCTIONAL STRENGTH OF R UE TO EASE ADL'S Goal Progress: Goal Met Goal 4:: PATIENT WILL BE INDEP WITH A HEP FOR CONTINUED IMPROVEMENT ONCE FORMAL PHYSICAL THERAPY CONCLUDES. Goal Progress: Goal Met Plan: D/C If there are questions or concerns regarding this patient's physical therapy, please feel free to call me at [phone]. Thank you for the referral of this patient. Sincerely, Bear Ordaz, DPT, OCS, CSCS Balance/Gait/Functional tests - Balance/Special Test Scores Quick DASH Score: [phone]
== END 2021-05-13 14:18 | disposition home or self-care (01) ==
LOC: PT 13:30
PROVIDERS: PCP Family Medicine; Referring Provider Physician Assistant Surgical; Visit Provider Physician Assistant Surgical
DX: S40.011D Contusion of right shoulder, subsequent encounter (principal); X58.XXXD Exposure to other specified factors, subsequent encounter
CPT/HCPCS: 97110; 97162; 97164

== ENCOUNTER → 2021-05-26 07:27 | Outpatient (CLI) | payer MEDICARE, SELFPAY ==
--- NOTE | 2021-05-26 07:29 | CT_ITS ---
STUDY: CT ABDOMEN AND PELVIS WITH CONTRAST REASON FOR EXAM: Female, 80 years old. LYMPHOMA/ABDMINAL PAIN RADIATION DOSAGE (If Supplied By Facility): CTDIvol = ( 9.32 ) mGy, DLP = ( 238.58 ) mGycm TECHNIQUE: Transaxial images were obtained from the dome of the diaphragm to the symphysis pubis with oral contrast. Oral and amp; IV Readi-CAT and amp; 100mL Isovue-300 was administered. Sagittal and coronal images were reconstructed. Individualized dose optimization techniques were used for this CT. COMPARISON: None. FINDINGS: The visualized lung bases are unremarkable. The visualized portions of the heart are within normal limits. Normal liver. Normal gallbladder and extrahepatic biliary system. Normal spleen. Normal pancreas. Normal bilateral adrenal glands. Normal right kidney. Normal left kidney. Normal visualized stomach. Normal small intestine. Normal colon. There is non-visualization of the appendix. Normal abdominal aorta. Normal inferior vena cava. Normal retroperitoneum. Normal urinary bladder. Normal abdominal wall. Normal osseous structures. CT/Abdomen/Pelvis WITH Contrast IMPRESSION: Normal enhanced CT of the abdomen and pelvis. Electronically Signed: Pelon Choen MD at 10:17 EDT Tel , Service support ,
[2021-05-26] MEDS: 0.9% Saline Lock 10 ML Syringe IV (07:45)
== END ==
PROVIDERS: PCP Family Medicine; Referring Provider Internal Medicine Medical Oncology; Visit Provider Internal Medicine Medical Oncology
DX: R10.13 Epigastric pain (principal); C82.90 Follicular lymphoma, unspecified, unspecified site
CPT/HCPCS: 74177; A4216

== ENCOUNTER → 2022-04-30 | Outpatient (CLI) | payer MEDICARE, SELFPAY ==
--- NOTE | 2022-04-30 12:50 | MRI_ITS ---
EXAM: MR LUMBAR SPINE WITHOUT AND WITH INTRAVENOUS CONTRAST CLINICAL INDICATION: LOW BACK PAIN TECHNIQUE: Multiplanar and multisequence MR images of the lumbar spine without and with intravenous contrast. This report was created using [employer] / cTrader report Ungalli technology. CONTRAST: IV 9mL Dotarem COMPARISON: None. FINDINGS: VERTEBRAE: Normal. Vertebral body heights are preserved. Normal vertebral bodies and posterior elements. Normal alignment. No spondylolisthesis. There is preservation of the normal lumbar lordosis. SPINAL CORD: Normal. Normal position and signal intensity of the conus medullaris. SOFT TISSUES: Normal. LYMPH NODES: 2.4 cm retrocrural lymph node compatible with the patient''s history of lymphoma. DISCS/SPINAL CANAL/NEURAL FORAMINA: L1-2: Disc space narrowing and mild disc bulging without significant impingement on the spinal canal or neural foramina. Abnormal signal within the L2 vertebral body with diffusely abnormal contrast enhancement associated with superior and inferior endplate compression suggestive of chronic pathologic compression. L2-3: Mild disc space narrowing and bulging without significant impression on thecal sac. Intact neural foramina. L3-4: Moderate compression deformity of the L4 vertebral body. [id number] spinal stenosis related to a central disc protrusion, ligamentous hypertrophy and facet arthropathy. Prominent narrowing of the left neural foramen. L4-5: No disc protrusion. Posterior ligamentous redundancy and facet arthropathy results in mild to moderate neural foraminal narrowing bilaterally. L5-S1: Grade 1 listhesis. Moderate degenerative narrowing of the disc space. No disc protrusion. Moderate narrowing of the neural foramina bilaterally related to the listhesis and facet arthropathy. MRI/Spine Lumbar W/WO Contrast IMPRESSION: 1. Findings suggest pathologic fracture L2 vertebral body. 2. Mild to moderate spinal stenosis at L3-4 related to disc protrusion, facet arthropathy and history or ligamentous redundancy. Multilevel neural foraminal narrowing as described. 3. Retrocrural lymphadenopathy Electronically Signed: Edward Garza MD at 16:46 EDT ,
--- NOTE | 2022-04-30 13:50 | MRI_ITS ---
EXAM: MR THORACIC SPINE WITHOUT AND WITH INTRAVENOUS CONTRAST CLINICAL INDICATION: LOW BACK PAIN TECHNIQUE: Multiplanar and multisequence MR images of the thoracic spine without and with intravenous contrast. This report was created using [employer] report MoneyExpert technology. CONTRAST: IV DOTAREM 9mL COMPARISON: None. FINDINGS: VERTEBRAE: Abnormal signal and increased contrast enhancement of the L2 vertebral body again noted suggestive of metastatic lesion. Thoracic vertebral bodies are normal. Accentuated thoracic kyphosis secondary to mild wedge deformity of the T5 vertebral body. No scoliosis. DISCS/SPINAL CANAL/NEURAL FORAMINA: Normal. Normal disc height and morphology. Normal spinal canal and neuroforamina. SPINAL CORD: Normal. Normal in signal and morphology. Normal conus medullaris. SOFT TISSUES: 2.2 cm retrocrural lymphadenopathy again seen.. MRI/Spine Thoracic W/WO Contrast IMPRESSION: 1. 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 2. No acute thoracic spine abnormality. Electronically Signed: Edward Garza MD at 17:04 EDT ,
[2022-04-30] MEDS: 0.9% Saline Lock 10 ML Syringe IV (14:23)
== END | disposition home or self-care (01) ==
PROVIDERS: PCP Internal Medicine; Referring Provider Internal Medicine Medical Oncology; Visit Provider Internal Medicine Medical Oncology
DX: M54.50 Low back pain, unspecified (principal)
CPT/HCPCS: 72157; 72158; A9575; A4216

== ENCOUNTER → 2022-07-06 | Outpatient (CLI) | payer MEDICARE, SELFPAY ==
--- NOTE | 2022-07-06 09:33 | BD_ITS ---
STUDY: DUAL ENERGY X-RAY ABSORPTIOMETRY / DXA REASON FOR EXAM: Female, 81 years old. OSTEOPOROSIS/LYMPHOMA/HX OF COMPRESSION FRACTURES TECHNIQUE: Bone Mineral Density (BMD) measurements of lumbar spine and bilateral hips were obtained. COMPARISON: None. FINDINGS: Lumbar Spine (L1-L4): g/cm2 (0.826) / T-score (-1.7) / Z-score (0.9) Findings are suggestive of osteopenia with a moderate fracture risk. Left Femur Total: g/cm2 (0.598) / T-score (-2.8) / Z-score (-0.7) Left Femoral Neck: g/cm2 (0.494) / T-score (-3.2) / Z-score (-0.8) Right Femur Total: g/cm2 (0.620) / T-score (-2.6) / Z-score (-0.5) Right Femoral Neck: g/cm2 (0.544) / T-score (-2.7) / Z-score (-0.4) BD/Dexa Bone Density Study IMPRESSION: The patient is considered osteoporotic as outlined below according to World Perico Organization (WHO) criteria with a high fracture risk. Reference Information: The T-score is the number of standard deviations above or below the standard which is normal for young adults at their peak bone mineral density. The World Health Organization (WHO) interprets the T-scores as follows: Above -1 Normal bone density Between -1 and -2.5 Osteopenia Equal to / or below -2.5 Osteoporosis As a practical clinical guideline, osteopenia may be graded as follows: Mild -1 through -1.5 Moderate -1.6 through -2.0 Severe -2.1 through -2.4 The Z-score is the number of standard deviations above or below age-matched controls. A Z-score of less than -1.5 would be considered abnormal. References: 1. NIH Osteoporosis and Related Bone Diseases www osteo.org 2. International Society for Clinical Densitometry www iscd.org 3. National Osteoporosis Foundation www nof.org Electronically Signed: Jagjit Villavicencio MD at 10:20 EDT ,
--- NOTE | 2022-07-06 09:59 | NM_ITS ---
CLINICAL: 81-year-old female with history of lymphoma with known compression fracture. WHOLE BODY 99m Tc MDP RADIONUCLIDE BONE SCINTIGRAPHY COMPARISON: MRI of the lumbar spine report 04/30/2022 FINDINGS: Following the intravenous administration of 28.0 mCi of 99m Tc MDP, whole body bone images reveal: 1. Increased radiopharmaceutical concentration is defined in the second lumbar vertebra. 2. Facilitated uptake is noted in the fourth and fifth lumbar vertebra, the right wrist, the acromioclavicular compartment of the left shoulder. 3. There is enhanced tracer concentration noted in the region of the proximal sternum-manubrium and distal sternum. 4. The remaining skeletal structures are scintigraphically unremarkable with normal-appearing renal images and urinary bladder activity identified. NM/Bone Scan Whole Body IMPRESSION: 1. Increased tracer concentration visualized in the second lumbar vertebra is consistent with the presence of trauma-fracture. Plain film radiography correlation may be of benefit. 2. Degenerative arthritis is defined in the fourth and fifth lumbar vertebra, the right wrist, the acromioclavicular compartment of the left shoulder. 3. The increased uptake noted in the proximal and distal sternum warrants further evaluation with dedicated plain film x-ray. Electronically Signed: Pelon Wood, at 23:00 EDT ,
== END | disposition home or self-care (01) ==
LOC: NM 09:30
PROVIDERS: Referring Provider Internal Medicine Medical Oncology; Visit Provider Internal Medicine Medical Oncology
DX: C82.90 Follicular lymphoma, unspecified, unspecified site (principal); M81.0 Age-related osteoporosis without current pathological fracture; M84.48XA Pathological fracture, other site, initial encounter for fracture
CPT/HCPCS: 77080; 78306; A9503

== ENCOUNTER 2022-08-16 11:20 | Observation (INO) | payer MEDICARE, SELFPAY ==
[2022-08-16] VITALS (8 sets, daily range): BP systolic 138–175; BP diastolic 70–90; PULSE 74–91; RESP 15–18; TEMP 36.2–36.9; O2SAT 96–100; BMI 19.8; BMI 20.2
--- NOTE | 2022-08-16 12:55 | CT_ITS ---
EXAM: CT CHEST, ABDOMEN AND PELVIS WITHOUT INTRAVENOUS CONTRAST CLINICAL INDICATION: fall, back pain, osteoporosis TECHNIQUE: Helically acquired images were obtained of the chest, abdomen and pelvis without intravenous contrast. This CT exam was performed using one or more of the following dose reduction techniques: automated exposure control, adjustment of the mA and/or kV according to patient size, and/or use of iterative reconstruction technique. This report was created using SmartCloud report generation technology. RADIATION DOSE: CTDIvol = 11.82 mGy, DLP = 238.30 mGy-cm COMPARISON: ct chest 08.11.21 FINDINGS: CHEST: LUNGS AND PLEURAL SPACES: Stable multiple peripherally located 2mm nodules in the right lung. Example of which is noted on Se 12 IM: 39. ACR Lung CT Screening Reporting T Data System (Lung-RADS) score: 2S - Benign Appearance or Behavior. Additional clinically significant or potentially clinically significant findings are described. Recommend continued annual screening with low-dose CT (LDCT) in 12 months. There is no pneumothorax. There is no demonstrated pleural abnormality. HEART: There are calcifications of the coronary arteries. Heart size is normal. No pericardial effusion. MEDIASTINUM: Unremarkable. No mediastinal or hilar adenopathy. Esophagus is unremarkable. No hiatal hernia. THYROID: Unremarkable. No thyroid lesions. ABDOMEN: LIVER: Normal liver. GALLBLADDER AND BILE DUCTS: Normal gallbladder and extrahepatic biliary system. No calcified gallstones. No gallbladder distention or wall edema. No intra- or extrahepatic biliary ductal dilation. PANCREAS: Normal pancreas. No focal cystic mass. SPLEEN: Normal spleen. ADRENALS: Normal bilateral adrenal glands. KIDNEYS AND URETERS: Non obstructive 2 mm right renal parenchymal stones. Normal renal size and position. STOMACH AND BOWEL: Rectosigmoid anastomosis. Stool throughout the colon. No stomach or bowel distention. No focal inflammatory change. PELVIS: APPENDIX: There is non-visualization of the appendix. BLADDER: Normal urinary bladder. REPRODUCTIVE: There is atrophy of the uterus. CHEST, ABDOMEN and PELVIS: INTRAPERITONEAL SPACE: Unremarkable. No ascites or other fluid collection. No free air. BONES/JOINTS: There is a compression deformity of the spine at level: L1 and L3. These are age-indeterminate. Pathologic fracture should be considered. MRI could further evaluate if of concern. There are degenerative changes of the shoulders. There are multi-level degenerative changes of the thoracic spine. There are diffuse degenerative changes of the visualized lumbar spine. There is a Grade 1 anterolisthesis of L4 on L5. No suspicious lytic or blastic abnormality. SOFT TISSUES: 15mm masslike nodularity inferior outer aspect of the right breast. Series 9 image 16. Mammography is recommended to further evaluate. No discrete abdominal or pelvic wall hernia. VASCULATURE: There is atherosclerotic calcification of the aortic arch with tortuosity and elongation of the aortic arch and descending thoracic aorta. There are calcifications of the abdominal aorta. This is consistent for atherosclerotic disease. There is no abdominal aortic aneurysm. LYMPH NODES: Enlarged lymph nodes near the aortic sameer measuring up to 23mm. Se 9 IM: 27. TUBES, LINES AND DEVICES: There is a right Port-A-Cath and/or mediport in place. The tip is in the superior vena cava. CT/CT Chest, Abd, Pelvis WO Cont IMPRESSION: 1. 15mm masslike nodularity inferior outer aspect of the right breast. Series 9 image 16. Mammography is recommended to further evaluate. 2. Stable multiple peripherally located 2mm nodules in the right lung. Example of which is noted on Se 12 IM: 39. ACR Lung CT Screening Reporting T Data System (Lung-RADS) score: 2S - Benign Appearance or Behavior. Additional clinically significant or potentially clinically significant findings are described. Recommend continued annual screening with low-dose CT (LDCT) in 12 months. 3. Enlarged lymph nodes near the aortic sameer measuring up to 23mm. Se 9 IM: 27. 4. There is a compression deformity of the spine at level: L1 and L3. These are age-indeterminate. Pathologic fracture should be considered. MRI could further evaluate if of concern. Electronically Signed: Kali Pinzon MD at 15:02 [facility] ,
--- NOTE | 2022-08-16 12:55 | CT_ITS ---
EXAM: CT SPINE - CERVICAL WITHOUT IV REASON FOR EXAM: Female, 81 years old. NECK PAIN fall, pain HISTORY: NECK PAIN fall, pain Individualized dose optimization techniques were used for this CT. TECHNIQUE: Multiplanar images were obtained of the cervical spine. IV contrast was not utilized. COMPARISON: None. FINDINGS: The vertebral bodies do maintain their height. The odontoid process is intact. No pre-vertebral soft tissue swelling is seen. The intravertebral disc height is lost. There are scattered lymph nodes in the neck. There are degenerative changes of the osseous structures. There is bilateral facet arthropathy. There are scattered levels of foraminal stenosis. There are vascular calcifications. Right IJ line in place. CT/Spine Cervical without Contras IMPRESSION: Degenerative changes of the cervical spine. There are no acute findings. Electronically Signed: Kali Pinozn MD at 14:44 EST ,
--- NOTE | 2022-08-16 12:55 | EKG12_ITS ---
Test Reason : SYNCOPE Blood Pressure : / mmHG Vent. Rate : 072 BPM Atrial Rate : 072 BPM P-R Int : 150 ms QRS Dur : 084 ms QT Int : 420 ms P-R-T Axes : 075 046 104 degrees QTc Int : 459 ms Normal sinus rhythm Left ventricular hypertrophy with repolarization abnormality ( Sokolow-Pal ) Abnormal ECG Confirmed by ANN MAYO, KORI ([id number]), electronic news gathering editor DOROTHY PARSONS ([id number]) on 08/17/2022 8:29:52 AM Referred By: CATRINA Confirmed By:KORI JUAREZ MD
--- NOTE | 2022-08-16 12:57 | EDS_ITS ---
HPI History of Present Illness Chief Complaint: Syncope Onset/Context/Timing Onset: Today Narrative Narrative: Patient presents after a syncopal episode at home. She states she was standing at the kitchen peeling some apples when she passed out and fell to the floor. She denies any prodromal symptoms. She states she not been standing there very long. At this time she feels tired in general but otherwise no focal complaints. Daughter states she was complaining of mild headache and some neck and upper shoulder/back pain. She has a history of pathologic lumbar fracture recently. [facility] Medical History (Updated 08/16/22 @ 16:[address] Radha Orr MD) Abdominal mass Chemotherapy follow-up examination CT guided biopsy Diffuse large B-cell lymphoma of intra-abdominal lymph nodes Edema Educational circumstance Follicular lymphoma GERD (gastroesophageal reflux disease) Gout History of non-Hodgkin's lymphoma Immunotherapy encounter Lymphadenopathy, abdominal Non Hodgkin's lymphoma Non-ischemic cardiomyopathy Osteoporosis Pain of sternum Pathologic fracture of lumbar vertebra Right sided abdominal pain Right-sided back pain Syncope (08/16/22) Home Medications naproxen sodium 220 mg capsule (Aleve) 220 mg PO BID PRN 05/21/21 [History Last Taken Unknown] lisinopril 20 mg tablet 20 mg PO DAILY (insurance won't cover 2.5 mg tab BID) #90 tabs 01/08/22 [Rx Last Taken Unknown] carvedilol 12.5 mg tablet 12.5 mg PO BID #180 tabs 08/10/22 [Rx Last Taken Unknown] calcium carbonate 500 mg calcium (1,250 mg) tablet 500 mg PO DAILY 08/12/22 [History Last Taken Unknown] cholecalciferol (vitamin D3) 50 mcg (2,000 unit) capsule ea PO 08/12/22 [History Last Taken Unknown] Allergy/AdvReac Type Severity Reaction Status Date / Time No Known Allergies Allergy Verified 08/12/22 08:29 Family History Mother Brain cancer Breast cancer Father Bone cancer Lung cancer Brother Esophageal cancer Bone cancer Surgical History History of appendectomy History of lumpectomy s/p vascular port insertion (06/2018) Status post colectomy Social History Smoking Status: Never smoker alcohol intake: never chirag/presybeterian: Episcopal seatbelt use: always do you feel safe at home: Yes ROS ROS ED Constitutional Constitutional ED: Denies chills or fever(s) Eyes Eyes: Denies change in vision or discharge from eye(s) ENT ENT ED: Denies discharge from eye(s), rhinorrhea or sore throat Cardiovascular Cardiovascular: Denies chest pain or palpitations Respiratory/Chest Respiratory/Chest: Denies cough or dyspnea Gastrointestinal Gastrointestinal: Denies abdominal pain, diarrhea, nausea or vomiting Genitourinary Genitourinary ED: Denies dysuria Musculoskeletal Musculoskeletal: Reports neck pain; Denies back pain or extremity pain Integumentary Denies Abrasions or rash Neurologic Neurologic: Reports headache(s); Denies weakness Allergic/Immunologic Allergic/Immunologic ED: Denies lip swelling or urticaria EXAM Physical Exam Const Vital Signs: 08/16/22 11:21 08/16/22 14:30 08/16/22 14:30 Temperature 97.1 F L Temperature Source Temporal Pulse Rate 82 74 Respiratory Rate 18 17 Respiratory Effort Normal Non-Labored Respiratory Pattern Normal Blood Pressure 166/88 H 155/79 H Blood Pressure Mean 114 104 Pulse Ox 100 98 Oxygen Delivery Method Room Air Room Air Positive well nourished and well developed General Appearance ED: well developed HEENT Reports normocephalic and head/scalp atraumatic Eyes PERRL and EOMs intact bilaterally Neck supple Chest Wall inspection of chest normal and palpation of chest normal Resp normal respiratory effort and clear to auscultation bilaterally Cardio regular rate and regular rhythm GI normal to inspection, nondistended, normoactive bowel sounds Palpation: soft Extremity normal to inspection Neuro oriented x3 and no sensory deficits noted Sensorium / Orientation: alert Motor Exam: strength 5/5 throughout Psych mental status grossly normal Skin no rashes or lesions noted MDM MDM MDM Narrative Medical decision making narrative: Patient placed on critical care clinical nurse specialist. EKG and lab work obtained. CT scans of the head, C-spine, chest, abdomen, and pelvis are obtained. Lab Data Attestation: I reviewed the patient's lab results. Labs: Laboratory Results - last 24 hr 08/16/22 08/16/22 14:05 14:05 WBC 4.5 RBC 3.76 L Hgb 10.5 L Hct 33.2 L MCV 88.3 MCH 27.9 MCHC 31.6 L RDW Std Deviation 47.1 H RDW Coeff of Alden 14.6 Plt Count 89 L MPV 9.5 Immature Gran % (Auto) 0.200 Neut % (Auto) 59.0 Lymph % (Auto) 31.1 Pratt % (Auto) 9.3 Eos % (Auto) 0.0 Baso % (Auto) 0.4 Absolute Neuts (auto) 2.7 Absolute Lymphs (auto) 1.40 Nucleated RBC % 0 Differential Comment SCANNED Platelet Estimate MOD DEC Sodium 140 Potassium 4.0 Chloride 105 Carbon Dioxide 30.0 Anion Gap 5 BUN 18 Creatinine 0.72 Estim Creat Clear Calc 30.01 Est GFR (MDRD) Af Amer 99 Est GFR (MDRD) Non-Af 82 BUN/Creatinine Ratio 24.9 H Glucose 96 Calcium 9.3 Troponin I High Sens 13 Radiography Diagnostic Testing: Clinical Impression(s) from Imaging Studies Cervical Spine CT 08/16/22 12:55 IMPRESSION: Degenerative changes of the cervical spine. There are no acute findings. Electronically Signed: Kali Pinzon MD at 14:44 EST , Chest/Abdomen/Pelvis CT 08/16/22 12:55 IMPRESSION: 1. 15mm masslike nodularity inferior outer aspect of the right breast. Series 9 image 16. Mammography is recommended to further evaluate. 2. Stable multiple peripherally located 2mm nodules in the right lung. Example of which is noted on Se 12 IM: 39. ACR Lung CT Screening Reporting T Data System (Lung-RADS) score: 2S - Benign Appearance or Behavior. Additional clinically significant or potentially clinically significant findings are described. Recommend continued annual screening with low-dose CT (LDCT) in 12 months. 3. Enlarged lymph nodes near the aortic sameer measuring up to 23mm. Se 9 IM: 27. 4. There is a compression deformity of the spine at level: L1 and L3. These are age-indeterminate. Pathologic fracture should be considered. MRI could further evaluate if of concern. Electronically Signed: Kali Pinzon MD at 15:02 EST , Brain CT 08/16/22 14:20 IMPRESSION: There are no acute findings. Chronic involutional changes of the brain. Electronically Signed: Kali Pinzon MD at 14:43 EST , EKG Initial EKG: Attestation: I personally reviewed and interpreted this EKG as follows: Interpretation: Sinus Rhythm (Sinus at [address] changes in lead V4, V5, V6 are noted. This is slightly changed when compared to prior les dy of October 2020.) Treatment and Re-Evaluation Narrative: On repeat evaluation patient is resting comfortably. She has had no further symptoms while in the emergency room. CBC reveals thrombocytopenia with platelet count now in the 80s. 4 days ago her platelet count was nearly 190. I spoke with oncology who feels this is likely secondary to a recent injection she had as thrombocytopenia is a common side effect. She has had problems with thrombocytopenia in the past. Chemistry studies are unremarkable. Troponin is negative. CT scan of the head and C-spine reveal no acute findings. CT of the chest reveals a mass along the lateral portion of the right breast and follow-up mammogram is recommended. This was discussed with the patient as well as her oncologist, Dr. Caceres. CT scan of the abdomen and pelvis reveals compression fractures of L1 and L3, possibly pathologic. On review of prior records patient had an MRI in April that revealed a pathologic fracture of L2. When I compare the heny-gl-iucv images there are compressions noted to 2 lumbar vertebrae in April. There was miscounting and this actually represents the same 2 vertebrae that are being seen currently. Given the patient's syncopal episode with no prodrome, I did recommend observation overnight for monitoring of her cardiac rhythm. After discussion with her family she has agreed for observation. I will speak with the hospitalist. Discharge Plan Triage Chief Complaint: Syncope Other Complaint: Fall ED Provider: Radha Orr Dx/Rx/DC Orders Clinical Impression: Syncope, Compression fracture, Breast mass Prescriptions: No Action naproxen sodium [Aleve] 220 mg capsule 220 mg PO BID PRN lisinopril 20 mg tablet 20 mg PO DAILY Qty: 90 3RF calcium carbonate 500 mg calcium (1,250 mg) tablet 500 mg PO DAILY cholecalciferol (vitamin D3) 50 mcg (2,000 unit) capsule PO Label Comments: TAKE 1 CAPSULE BY MOUTH EVERY DAY carvedilol 12.5 mg tablet 12.5 mg PO BID Qty: 180 3RF Rx Instructions: must administer with a meal/food Primary Care Provider: Pee Calle Referrals: Care Physician,No Primary [Non-Staff] - Disposition Disposition: Acute Care Hospital [facility]
[2022-08-16 14:19] LABS: Absolute Neutrophil Count 2.7 X10^3/uL (2.0-7.7); Basophil# 0.02 X10^3/uL; Basophil% 0.4 % (0-1); Hematocrit 33.2 % (37-47); Hemoglobin 10.5 g/dL (12.0-15.0); Lymphocyte % 31.1 % (19-41); Mean Corp Hgb Conc 31.6 g/dL (32-36); Mean Corpuscular Hgb 27.9 pg (27.0-32.0); Mean Corpuscular Volume 88.3 fL (81-99); Mean Platelet Vol. 9.5 fl (6.2-12.0); Monocyte# 0.42 X10^3/uL; Monocyte% 9.3 % (0-10); NRBC Flagged by Analyzer 0 % (0-5); Neutrophil # 2.65 X10^3/uL (2.7-7.7); POSITIVE COUNT YES; Platelet Count 89 K/mm3 (150-450); RBC Distribution Width CV 14.6 % (11.6-14.6); RBC Distribution Width SD 47.1 fl (35.1-43.9); Red Blood Count 3.76 M/mm3 (4.2-5.4); White Blood Count 4.5 K/mm3 (4.4-11.0)
[2022-08-16 14:20] LABS: Differential Indicated SCAN CRITERIA MET
--- NOTE | 2022-08-16 14:20 | CT_ITS ---
STUDY: CT BRAIN WITHOUT CONTRAST REASON FOR EXAM: Female, 81 years old. HEADACHE fall Individualized dose optimization techniques were used for this CT. TECHNIQUE: Transaxial CT imaging of the brain was performed without administration of intravenous contrast material. COMPARISON: None FINDINGS: There are calcifications around the carotid artery. These are noted in the cavernous carotid arteries. Normal calvarium. Normal soft tissues. There is mild cerebral atrophy with widening of the extra-axial spaces and ventricular dilatation. There are areas of decreased attenuation within the white matter tracts of the supratentorial brain, consistent with microvascular disease changes. Normal basal ganglia and thalami. Normal brainstem. There is mild cerebellar atrophy. There is no intracranial hemorrhage. There are no findings of an acute ischemic infarction. Normal visualized paranasal sinuses. ASPECTS Score for Acute Strokes: 07/05 CT/Brain/Head without Contrast IMPRESSION: There are no acute findings. Chronic involutional changes of the brain. Electronically Signed: Kali Pinzon MD at 14:43 EST ,
[2022-08-16 14:32] LABS: Anion Gap 5 (5-15); BUN 18 mg/dL (7-18); BUN/Creat Ratio 24.9 RATIO (10-20); Calcium,Total 9.3 mg/dL (8.5-10.1); Chloride 105 mmol/L (98-107); Creatinine, Serum 0.72 mg/dL (0.55-1.02); EST Glomerular Filtration Rate 82 mL/min (>60); Est Glom Filt Rate - Afr Amer 99 mL/min (>60); Estimated Creatinine Clearance 30.01 ml/min; Glucose 96 mg/dL (74-106); Sodium Level 140 mmol/L (136-145); Troponin-I HS (w/2H Reflex) 13 pg/mL (3.0-54.0)
[2022-08-16 14:54] LABS: Differential Comment SCANNED; Platelet Estimate MOD DEC (ADEQ)
[2022-08-16 16:13] LABS: Reflex Troponin-HS? (from REC) Y
--- NOTE | 2022-08-16 16:24 | HP.PCM.HOS_ITS ---
HPI - General General Date of Admission: 08/16/22 Date of Service: 08/16/22 Chief Complaint: Syncope HPI Narrative AMILCAR DALY, is a 81 F who presents with the above. 81-year-old female with past medical history of non-Hodgkin's lymphoma follicular CA, follows with oncology in the outpatient, chronic pathologic lumbar vertebral fracture, osteoporosis, hypertension comes in with an episode of syncope. Patient stated that she was in her usual state of health, peeling apples at the sink when she had a syncopal episode. Her was in the kitchen with her at the kitchen table. According to him, patient passed out for about 2 minutes. When she woke up, she was not confused, no incontinence of urine or stool. She denied feeling unwell prior to days of having dizziness or palpitations. Patient follows with oncology and received Gazyva on 08/12/22. Vitals in the ED showed blood pressure 175/88, heart rate 85, temperature 98.2 F, oxygen saturation 98% on room air. WBC count 4.5, hemoglobin 10.5, platelet count is 89, down from 188 on 12 August. CMP was unremarkable. CT of the cervical spine showed degenerative changes. CT of the abdomen and pelvis showed decompression deformity of the spine at L1 and L3. Brain CT showed chronic involutional changes of the brain. EKG shows T wave inversions in the lateral leads -1, aVL, V4, V5, V6, mild ST segment depression in V5 and V6. Initial troponin was 13. [facility] History Abdominal mass Chemotherapy follow-up examination CT guided biopsy Diffuse large B-cell lymphoma of intra-abdominal lymph nodes Edema Educational circumstance Follicular lymphoma GERD (gastroesophageal reflux disease) Gout History of non-Hodgkin's lymphoma Immunotherapy encounter Lymphadenopathy, abdominal Non Hodgkin's lymphoma Non-ischemic cardiomyopathy Osteoporosis Pain of sternum Pathologic fracture of lumbar vertebra Right sided abdominal pain Right-sided back pain Syncope (08/16/22) Home Medications naproxen sodium 220 mg capsule (Aleve) 220 mg PO BID PRN Pain 05/21/21 [History Last Taken 1 Week Ago ~08/09/22] carvedilol 12.5 mg tablet 12.5 mg PO BID #180 tabs 08/10/22 [Rx Last Taken 08/16/22] calcium carbonate 500 mg calcium (1,250 mg) tablet 1,000 mg PO DAILY SUPPLEMENT 08/12/22 [History Last Taken 08/16/22] cholecalciferol (vitamin D3) 50 mcg (2,000 unit) capsule 1 ea PO DAILY 08/12/22 [History Last Taken 08/15/22] ferrous sulfate 142 mg (45 mg iron) tablet,extended release (Slow Fe) 142 mg PO DAILY SUPPLEMENT 08/16/22 [History Last Taken 08/16/22] lisinopril 20 mg tablet 20 mg PO DAILY BP 08/16/22 [History Last Taken 08/16/22] Allergy/AdvReac Type Severity Reaction Status Date / Time No Known Allergies Allergy Verified 08/12/22 08:29 Family History Mother Brain cancer Breast cancer Father Bone cancer Lung cancer Brother Esophageal cancer Bone cancer Surgical History History of appendectomy History of lumpectomy s/p vascular port insertion (06/2018) Status post colectomy Social History Smoking Status: Never smoker alcohol intake: never chirag/shinto: Restorationism seatbelt use: always do you feel safe at home: Yes ROS ROS Narrative Constitutional: Denies: Anorexia, Chills, Fever, Night Sweats, Weight Change Eyes: Denies: Blurred vision, Cataracts, Conjunctivae Inflammation, Pain, Redness, Vision Change HEENT: Denies: Difficulty Hearing, Difficulty Swallowing, Head Aches, Hearing Changes, Sinus Congestion, Sinus Drainage Cardiovascular: Denies: Chest Pain, Orthopnea, Palpitations Respiratory: Denies: Cough, Shortness of breath at rest, Sputum production Gastrointestinal: Denies: Abdominal Pain, Nausea, Vomiting Genitourinary: Denies: Dysuria Musculoskeletal: Denies: Joint Pain, Joint stiffness, Joint swelling, Joint Tenderness Skin: Denies: Rash, Wounds Neurological: Denies: Numbness, Tingling, Focal weakness Vital Signs Vital Signs Vital Signs: 08/16/22 11:21 08/16/22 14:30 08/16/22 14:30 Temperature 97.1 F L Temperature Source Temporal Pulse Rate 82 74 Respiratory Rate 18 17 Respiratory Effort Normal Non-Labored Respiratory Pattern Normal Blood Pressure 166/88 H 155/79 H Blood Pressure Mean 114 104 Pulse Ox 100 98 Oxygen Delivery Method Room Air Room Air Weight Weight: 43.091 kg Body Mass Index (BMI) 19.8 Physical Exam Narrative Physical exam: General: Alert, Oriented x3, Cooperative, appears cachectic, on room air HEENT: Atraumatic Oral: Moist Mucosa Neck: Supple Lungs: Clear to auscultation, tenderness on palpating the right shoulder Cardiovascular: HS I+II, regular, no murmurs Abdomen: Bowel Sounds Present, Soft, Non Tender Extremities: No edema Skin: No rashes, No breakdown Neurological: Grossly intact Psych/Mental Status: Appropriate Results Lab / Micro Data Result Diagrams: 08/16/22 14:05 08/16/22 14:05 Labs: Laboratory Results - last 24 hr 08/16/22 14:05: WBC 4.5, RBC 3.76 L, Hgb 10.5 L, Hct 33.2 L, MCV 88.3, MCH 27.9, MCHC 31.6 L, RDW Std Deviation 47.1 H, RDW Coeff of Alden 14.6, Plt Count 89 L, MPV 9.5, Immature Gran % (Auto) 0.200, Neut % (Auto) 59.0, Lymph % (Auto) 31.1, [place] % (Auto) 9.3, Eos % (Auto) 0.0, Baso % (Auto) 0.4, Absolute Neuts (auto) 2.7, Absolute Lymphs (auto) 1.40, Nucleated RBC % 0, Differential Comment SCANNED, Platelet Estimate MOD DEC 08/16/22 14:05: Sodium 140, Potassium 4.0, Chloride 105, Carbon Dioxide 30.0, Anion Gap 5, BUN 18, Creatinine 0.72, Estim Creat Clear Calc 30.01, Est GFR (MDRD) Af Amer 99, Est GFR (MDRD) Non-Af 82, BUN/Creatinine Ratio 24.9 H, Glucose 96, Calcium 9.3, Troponin I High Sens 13 Radiology Impression Cervical Spine CT 08/16/22 12:55 IMPRESSION: Degenerative changes of the cervical spine. There are no acute findings. Electronically Signed: Kali Pinzon MD at 14:44 EST , Chest/Abdomen/Pelvis CT 08/16/22 12:55 IMPRESSION: 1. 15mm masslike nodularity inferior outer aspect of the right breast. Series 9 image 16. Mammography is recommended to further evaluate. 2. Stable multiple peripherally located 2mm nodules in the right lung. Example of which is noted on Se 12 IM: 39. ACR Lung CT Screening Reporting T Data System (Lung-RADS) score: 2S - Benign Appearance or Behavior. Additional clinically significant or potentially clinically significant findings are described. Recommend continued annual screening with low-dose CT (LDCT) in 12 months. 3. Enlarged lymph nodes near the aortic sameer measuring up to 23mm. Se 9 IM: 27. 4. There is a compression deformity of the spine at level: L1 and L3. These are age-indeterminate. Pathologic fracture should be considered. MRI could further evaluate if of concern. Electronically Signed: Kali Pinzon MD at 15:02 EST , Brain CT 08/16/22 14:20 IMPRESSION: There are no acute findings. Chronic involutional changes of the brain. Electronically Signed: Kali Pinzon MD at 14:43 EST , Assessment & Plan Assessment/Plan (1) Syncope: PLAN: Plan 1. Acute syncopal episode, unclear etiology Previous 2D echo in January 2022 showed EF of 45%, stage I diastolic dysfunction Admit to PCU, check orthostatic vitals, continue with gentle IV fluids Trend troponins 2. Abnormal EKG, patient denies any chest pain We will trend troponin 3. Hypertension, slightly uncontrolled at admission, Continue on home lisinopril and Coreg 4. Pathological fracture, L1 and L3, chronic Follows with outpatient pain management?Dr. Zamora 5. Osteoporosis, continue outpatient treatment Continue on vitamin D and calcium 6.DVT PPx- Heparin SC Charges/Coding Visit Charges OBSV E&M: 10415 Initial observation care L3
[2022-08-16 17:29] LABS: Troponin-I HS 16 pg/mL (3.0-54.0)
[2022-08-16] MEDS: 0.9% Normal Saline 1,000 ML 75 ML IV (17:45)
[2022-08-16] MEDS: 0.9% Saline Lock 10 ML Syringe IV (17:48)
[2022-08-16 20:30] LABS: Troponin-I HS 18 pg/mL (3.0-54.0)
[2022-08-16] MEDS: Heparin Injection (Vial) 5,000 UNIT/ML VIAL 5000 UNIT SC (22:21)
[2022-08-16] MEDS: Carvedilol 12.5 MG Tablet PO (22:22)
[2022-08-17 03:00] VITALS: PULSE 73
[2022-08-17 03:41] VITALS: BP 116/55; PULSE 71; RESP 18; TEMP 36.4; O2SAT 97
[2022-08-17 05:31] LABS: Absolute Lymphocyte Count 1.15 X10^3/uL (0.83-4.51); Absolute Neutrophil Count 1.6 X10^3/uL (2.0-7.7); Basophil# 0.02 X10^3/uL; Basophil% 0.6 % (0-1); Hematocrit 30.6 % (37-47); Hemoglobin 9.9 g/dL (12.0-15.0); Lymphocyte # 1.15 X10^3/ul (0.83-4.51); Lymphocyte % 36.2 % (19-41); Mean Corp Hgb Conc 32.4 g/dL (32-36); Mean Corpuscular Hgb 28.5 pg (27.0-32.0); Mean Corpuscular Volume 88.2 fL (81-99); Mean Platelet Vol. 9.6 fl (6.2-12.0); Monocyte# 0.39 X10^3/uL; Monocyte% 12.3 % (0-10); NRBC Flagged by Analyzer 0 % (0-5); Neutrophil # 1.62 X10^3/uL (2.7-7.7); Neutrophil % 50.9 % (47-70); POSITIVE COUNT YES; Platelet Count 86 K/mm3 (150-450); RBC Distribution Width CV 14.7 % (11.6-14.6); RBC Distribution Width SD 47.9 fl (35.1-43.9); Red Blood Count 3.47 M/mm3 (4.2-5.4); White Blood Count 3.2 K/mm3 (4.4-11.0)
[2022-08-17] MEDS: 0.9% Normal Saline 1,000 ML 75 ML IV (05:40)
[2022-08-17] MEDS: Heparin Injection (Vial) 5,000 UNIT/ML VIAL 5000 UNIT SC (05:40)
[2022-08-17 05:55] LABS: AST(SGOT) 21 U/L (15-37); Alanine Aminotransfer ALT/SGPT 21 U/L (13-56); Albumin, Serum 2.9 g/dL (3.2-5.0); Alkaline Phosphatase 80 U/L (45-117); Anion Gap 5 (5-15); BUN 19 mg/dL (7-18); BUN/Creat Ratio 24.4 RATIO (10-20); Calcium,Total 8.5 mg/dL (8.5-10.1); Chloride 107 mmol/L (98-107); Creatinine, Serum 0.78 mg/dL (0.55-1.02); EST Glomerular Filtration Rate 75 mL/min (>60); Est Glom Filt Rate - Afr Amer 91 mL/min (>60); Estimated Creatinine Clearance 30.71 ml/min; Globulin 2.8 g/dL (2.2-4.2); Glucose 96 mg/dL (74-106); Magnesium 2.1 mg/dL (1.6-2.6); Potassium 4.2 mmol/L (3.5-5.1); Protein, Total 5.7 g/dL (6.4-8.2); Sodium Level 139 mmol/L (136-145)
[2022-08-17 06:59] VITALS: PULSE 69
--- NOTE | 2022-08-17 07:54 | ECHOD_ITS ---
Reason For Study: Syncope Procedure This was a 2D Doppler, Color Flow transthoracic echocardiogram. Myocardial strain analysis was performed in this exam to aid in the assessment of cardiac function. Exam performed portable in patient room. Left Ventricle Normal LV size. Left ventricular systolic function is normal. The estimated ejection fraction is 65 %. Stage 1 diastolic dysfunction. No regional wall motion abnormalities noted. Right Ventricle Normal RV size. Normal systolic function. Atria Normal left atrium. Normal right atrium. Mitral Valve Normal mitral valve. Mild (1+) eccentric mitral valve insufficiency. Tricuspid Valve Normal tricuspid valve. Trivial tricuspid valve insufficiency. Pulmonary artery systolic pressure is 30 mmHg. Aortic Valve Trisinus/trileaflet aortic valve. Pulmonic Valve Normal pulmonic valve. Great Vessels Normal aortic root. The pulmonary artery is normal size. Normal inferior vena cava. Pericardium/Pleural No pericardial effusion. MMode/2D Measurements & Calculations LVIDd: 4.6 cm IVSd: 0.97 cm Ao root diam: 3.1 cm LVIDs: 3.2 cm LVPWd: 0.94 cm LA dimension: 3.6 cm RVDd: 2.7 cm FS: 28.9 % LAV(MOD-bp): 33.9 ml LVAd ap4: 25.7 cm2 SV(MOD-sp4): 41.5 ml LAV(MOD-bp) Indexed: 25.3 ml/m2 LVLd ap4: 6.9 cm LAV(MOD-sp2): 34.3 ml EDV(MOD-sp4): 79.1 ml LAV(MOD-sp4): 29.2 ml EDV(sp4-el): 81.0 ml LVAs ap4: 16.3 cm2 LVLs ap4: 5.9 cm ESV(MOD-sp4): 37.7 ml ESV(sp4-el): 38.1 ml EF(MOD-sp4): 52.4 % EF(sp4-el): 53.0 % SV(sp4-el): 42.9 ml LA A4 area: 12.7 cm2 RA A4 area: 12.1 cm2 Time Measurements MV dec time: 0.20 sec Doppler Measurements & Calculations MV E max glen: 65.2 cm/sec Lat Peak E' Glen: 12.2 cm/sec Med Peak E' Glen: 7.5 cm/sec MV A max glen: 89.3 cm/sec E/E' lat: 5.3 E/E' med: 8.7 MV E/A: 0.73 MV V2 max: 100.0 cm/sec MV P1/2t max glen: 79.6 cm/sec Ao V2 max: 197.4 cm/sec MV max P.0 mmHg MV P1/2t: 71.5 msec Ao max P.7 mmHg MV V2 mean: 58.4 cm/sec Ao V2 mean: 138.8 cm/sec MV mean P.6 mmHg MV dec slope: 326.1 cm/sec2 Ao mean P.9 mmHg MV V2 VTI: 28.9 cm MVA(P1/2t): 3.1 cm2 Ao V2 VTI: 42.5 cm LV V1 max: 127.8 cm/sec MR max glen: 451.5 cm/sec PA V2 max: 100.5 cm/sec LV V1 max P.5 mmHg MR max P.5 mmHg LV V1 mean P.1 mmHg LV V1 mean: 97.1 cm/sec LV V1 VTI: 27.6 cm TR max glen: 250.7 cm/sec TR max P.2 mmHg ECHO/Echo Complete Interpretation Summary Normal LV size. Left ventricular systolic function is normal. The estimated ejection fraction is 65 %. Mild (1+) eccentric mitral valve insufficiency. Stage 1 diastolic dysfunction. Pulmonary artery systolic pressure is 30 mmHg. Ordering Physician: Corina Brandon Referring Physician: Pee Calle Performed By: Dwayne Miranda RCS
[2022-08-17 09:17] VITALS: BP 117/57; PULSE 76; RESP 16; TEMP 36.6; O2SAT 97
[2022-08-17] MEDS: Carvedilol 12.5 MG Tablet PO (09:23)
[2022-08-17] MEDS: Lisinopril 20 MG Tablet PO (09:23)
--- NOTE | 2022-08-17 12:04 | DCINST_ITS ---
Discharge Instructions Diet Discharge Diet: No restrictions Activity Discharge Activity: Return to Normal Activity Follow Up Care Test Results: Test results from this visit will be discussed in further detail at your follow- up appointment, if applicable. Discharge Plan Admission Admit Date/Time: 08/16/22 16:20 Primary Reason for Your Visit: Syncope Attending Provider: Corina Brandon Primary Care Provider: Pee Calle Instructions Additional Instructions / Restrictions: Continue to keep yourself hydrated. Follow-up with your primary care doctor within 1 week. Discharge Orders/Prescriptions Prescriptions: Continued naproxen sodium [Aleve] 220 mg capsule 220 mg PO BID PRN (Reason: Pain) calcium carbonate 500 mg calcium (1,250 mg) tablet 1,000 mg PO DAILY cholecalciferol (vitamin D3) 50 mcg (2,000 unit) capsule 1 ea PO DAILY Label Comments: TAKE 1 CAPSULE BY MOUTH EVERY DAY Slow Fe 142 mg (45 mg iron) Tablet Extended Release 142 mg PO DAILY lisinopril 20 mg tablet 20 mg PO DAILY carvedilol 12.5 mg tablet 12.5 mg PO BID Qty: 180 3RF Rx Instructions: must administer with a meal/food Referrals / Follow Up: Pee Calle DO [Primary Care Provider] - In 1 Week Care Physician,No Primary [Non-Staff] - Disposition Disposition (needs filled in before D/C Order can be placed): Home, Self Care
--- NOTE | 2022-08-17 12:07 | PCM.DC.SUM ---
Providers Date of Admission: 08/16/22 Date of Discharge: 08/17/22 Primary Care Physician: Dr. Pee Calle, DO Reason For Visit: SYNCOPE Diagnosis Discharge Diagnosis (1) Syncope: Status: Acute Code(s): R55 - Syncope and collapse Plan 1. Acute syncopal episode, unclear etiology 2. Abnormal EKG 3. Hypertension 4. Pathological fracture, L1 and L3, chronic 5. Osteoporosis Medications at Discharge Home Medications naproxen sodium 220 mg capsule (Aleve) 220 mg PO BID PRN Pain 05/21/21 carvedilol 12.5 mg tablet 12.5 mg PO BID #180 tabs 08/10/22 calcium carbonate 500 mg calcium (1,250 mg) tablet 1,000 mg PO DAILY SUPPLEMENT 08/12/22 cholecalciferol (vitamin D3) 50 mcg (2,000 unit) capsule 1 ea PO DAILY 08/12/22 ferrous sulfate 142 mg (45 mg iron) tablet,extended release (Slow Fe) 142 mg PO DAILY SUPPLEMENT 08/16/22 lisinopril 20 mg tablet 20 mg PO DAILY BP 08/16/22 Hospital Course Operations None Procedures 2-D Echocardiogram Summary of Care Provided Minutes Spent on Discharge: 35 Hospital Course: 81-year-old female with past medical history of non-Hodgkin's lymphoma follicular CA, follows with oncology in the outpatient, chronic pathologic lumbar vertebral fracture, osteoporosis, hypertension comes in with an episode of syncope. Patient stated that she was in her usual state of health, peeling apples at the sink when she had a syncopal episode.? Her was in the kitchen with her at the kitchen table.? According to him, patient passed out for about 2 minutes.? When she woke up, she was not confused, no incontinence of urine or stool.? She denied feeling unwell prior to days of having dizziness or palpitations. Patient follows with oncology and received Gazyva on 08/12/22.? Patient was admitted to the progressive care unit, monitored on telemetry. No acute events on telemetry. She underwent 2D echo that showed EF of 65%, stage I diastolic dysfunction. Patient repeat blood work in a.m. was stable. She denied any new complaints She was discharged home to follow-up with her primary care doctor. She was encouraged to keep yourself hydrated. Physical Exam Narrative Physical exam: General: Alert, Oriented x3, Cooperative, appears cachectic, on room air HEENT: Atraumatic Oral: Moist Mucosa Neck: Supple Lungs: Clear to auscultation, tenderness on palpating the right shoulder Cardiovascular: HS I+II, regular, no murmurs Abdomen: Bowel Sounds Present, Soft, Non Tender Extremities: No edema Skin: No rashes, No breakdown Neurological: Grossly intact Psych/Mental Status: Appropriate Weight / BMI Weight Weight: 44.4 kg Body Mass Index (BMI) 20.2 ABG / Lab / Microbiology Data Result Diagrams: 08/17/22 05:13 08/17/22 05:13 Laboratory: Laboratory Results - last 24 hr 08/16/22 14:05: WBC 4.5, RBC 3.76 L, Hgb 10.5 L, Hct 33.2 L, MCV 88.3, MCH 27.9, MCHC 31.6 L, RDW Std Deviation 47.1 H, RDW Coeff of Alden 14.6, Plt Count 89 L, MPV 9.5, Immature Gran % (Auto) 0.200, Neut % (Auto) 59.0, Lymph % (Auto) 31.1, [place] % (Auto) 9.3, Eos % (Auto) 0.0, Baso % (Auto) 0.4, Absolute Neuts (auto) 2.7, Absolute Lymphs (auto) 1.40, Nucleated RBC % 0, Differential Comment SCANNED, Platelet Estimate MOD 08/16/22 14:05: Sodium 140, Potassium 4.0, Chloride 105, Carbon Dioxide 30.0, Anion Gap 5, BUN 18, Creatinine 0.72, Estim Creat Clear Calc 30.01, Est GFR (MDRD) Af Amer 99, Est GFR (MDRD) Non-Af 82, BUN/Creatinine Ratio 24.9 H, Glucose 96, Calcium 9.3, Troponin I High Sens 13 08/16/22 16:50: Troponin I High Sens 16 08/16/22 20:00: Troponin I High Sens 18 08/17/22 05:13: WBC 3.2 L, RBC 3.47 L, Hgb 9.9 L, Hct 30.6 L, MCV 88.2, MCH 28.5, MCHC 32.4, RDW Std Deviation 47.9 H, RDW Coeff of Alden 14.7 H, Plt Count 86 L, MPV 9.6, Immature Gran % (Auto) 0.000, Neut % (Auto) 50.9, Lymph % (Auto) 36.2, [place] % (Auto) 12.3 H, Eos % (Auto) 0.0, Baso % (Auto) 0.6, Absolute Neuts (auto) 1.6 L, Absolute Lymphs (auto) 1.15, Nucleated RBC % 0 08/17/22 05:13: Sodium 139, Potassium 4.2, Chloride 107, Carbon Dioxide 27.0, Anion Gap 5, BUN 19 H, Creatinine 0.78, Estim Creat Clear Calc 30.71, Est GFR (MDRD) Af Amer 91, Est GFR (MDRD) Non-Af 75, BUN/Creatinine Ratio 24.4 H, Glucose 96, Calcium 8.5, Magnesium 2.1, Total Bilirubin 0.80, AST 21, ALT 21, Alkaline Phosphatase 80, Total Protein 5.7 L, Albumin 2.9 L, Globulin 2.8, Albumin/Globulin Ratio 1.0 08/17/22 05:13: Phosphorus 4.0 Radiography Diagnostic Testing: Radiology Impression Cervical Spine CT 08/16/22 12:55 IMPRESSION: Degenerative changes of the cervical spine. There are no acute findings. Electronically Signed: Kali Pinzon MD at 14:44 EST Reading Location ID and State: [facility] / [place] , Service support , Chest/Abdomen/Pelvis CT 08/16/22 12:55 IMPRESSION: 1. 15mm masslike nodularity inferior outer aspect of the right breast. Series 9 image 16. Mammography is recommended to further evaluate. 2. Stable multiple peripherally located 2mm nodules in the right lung. Example of which is noted on Se 12 IM: 39. ACR Lung CT Screening Reporting T Data System (Lung-RADS) score: 2S - Benign Appearance or Behavior. Additional clinically significant or potentially clinically significant findings are described. Recommend continued annual screening with low-dose CT (LDCT) in 12 months. 3. Enlarged lymph nodes near the aortic sameer measuring up to 23mm. Se 9 IM: 27. 4. There is a compression deformity of the spine at level: L1 and L3. These are age-indeterminate. Pathologic fracture should be considered. MRI could further evaluate if of concern. Electronically Signed: Kali Pinzon MD at 15:02 EST , Brain CT 08/16/22 14:20 IMPRESSION: There are no acute findings. Chronic involutional changes of the brain. Electronically Signed: Kali Pinzon MD at 14:43 EST , Echocardiogram 08/17/22 07:54 Interpretation Summary Normal LV size. Left ventricular systolic function is normal. The estimated ejection fraction is 65 %. Mild (1+) eccentric mitral valve insufficiency. Stage 1 diastolic dysfunction. Pulmonary artery systolic pressure is 30 mmHg. Ordering Physician: Corina Brandon Referring Physician: Pee Calle Performed By: Dwayne Miranda RCS D/C Instructions Discharge Diet: No restrictions Meaningful Use Info Meaningful Use Diagnoses (Choose all that apply): None applicable Discharge Plan Admission Admit Date/Time: 08/16/22 16:20 Primary Reason for Your Visit: Syncope Attending Provider: Corina Brandon Primary Care Provider: Pee Calle Instructions Additional Instructions / Restrictions: Continue to keep yourself hydrated. Follow-up with your primary care doctor within 1 week. Discharge Orders/Prescriptions Prescriptions: Continued naproxen sodium [Aleve] 220 mg capsule 220 mg PO BID PRN (Reason: Pain) calcium carbonate 500 mg calcium (1,250 mg) tablet 1,000 mg PO DAILY cholecalciferol (vitamin D3) 50 mcg (2,000 unit) capsule 1 ea PO DAILY Label Comments: TAKE 1 CAPSULE BY MOUTH EVERY DAY Slow Fe 142 mg (45 mg iron) Tablet Extended Release 142 mg PO DAILY lisinopril 20 mg tablet 20 mg PO DAILY carvedilol 12.5 mg tablet 12.5 mg PO BID Qty: 180 3RF Rx Instructions: must administer with a meal/food Referrals / Follow Up: Pee Calle DO [Primary Care Provider] - In 1 Week Care Physician,No Primary [Non-Staff] - Disposition Disposition (needs filled in before D/C Order can be placed): Home, Self Care Charges/Coding Visit Charges Inpatient E&M: 71518 Disch Hosp
--- NOTE | 2022-08-17 13:16 | CASEMGMT ---
This RN CM to room to discuss d/c plan. Pt is up in bathroom independently. Pt/ state no concerns with pt going home at discharge. Pt voices no further questions/concerns/needs. SStaten CHITRA CM
[2022-08-17 13:48] VITALS: BP 133/61; PULSE 71; RESP 16; TEMP 36.6; O2SAT 97
[2022-08-17] MEDS: 0.9% Saline Lock 10 ML Syringe IV (13:50)
--- NOTE | 2022-08-17 13:53 | CHAPLAIN ---
Type of Pastoral Visit _x__ Initial Visit ___ Follow-up Visit ___ On-call Visit ___ General Patient Visit ___ Spiritual Assessment ___ Family Conference ___ Bereavement ___ Rapid Response ___ Code Blue ___ Other (describe below) Pastoral Care Referral From _x__ Patient ___ Family ___ Nurse ___ Physician ___ Driver Wheelchair ___ Scrap Bunch Maker ___ Other (describe below) Sacrament/Intervention _x__ Active listening ___ Anointing ___ Anabaptist ___ Bereavement ___ Communion ___ Estefany exploration ___ ___ Life review _x__ Prayer ___ Reconciliation ___ Sacrament of Sick ___ Supportive presence ___ Wedding ___ Other (describe below) Pastoral Comments patient had numerous tests done and results were favorable; spouse is with her in the room; both speak of the hope of discharge soon and the relief of good report; pt is a cancer survivor and has gone through previous health issues; pt welcomes a prayer and the presence of this motion picture director
--- NOTE | 2022-08-17 14:05 | PHA.DC.MR ---
Pharmacy Service has performed discharge medication reconciliation for this patient. The patient's discharge medication list was reviewed for discrepancies and discrepancies were resolved. Home Medications naproxen sodium 220 mg capsule (Aleve) 220 mg PO BID PRN Pain 05/21/21 carvedilol 12.5 mg tablet 12.5 mg PO BID #180 tabs 08/10/22 calcium carbonate 500 mg calcium (1,250 mg) tablet 1,000 mg PO DAILY SUPPLEMENT 08/12/22 cholecalciferol (vitamin D3) 50 mcg (2,000 unit) capsule 1 ea PO DAILY 08/12/22 ferrous sulfate 142 mg (45 mg iron) tablet,extended release (Slow Fe) 142 mg PO DAILY SUPPLEMENT 08/16/22 lisinopril 20 mg tablet 20 mg PO DAILY BP 08/16/22
== END 2022-08-17 12:04 | disposition home or self-care (01) ==
LOC: ED 16:19 → PCU 16:39
PROVIDERS: Admitting Provider Internal Medicine; Emergency Provider Emergency Medicine; Visit Provider Internal Medicine
DX: R55 Syncope and collapse (principal); M80.08XA Age-related osteoporosis with current pathological fracture, vertebra(e), initial encounter for fracture; I42.8 Other cardiomyopathies; N63.10 Unspecified lump in the right breast, unspecified quadrant; Z79.899 Other long term (current) drug therapy; K21.9 Gastro-esophageal reflux disease without esophagitis; Z85.72 Personal history of non-Hodgkin lymphomas; R93.1 Abnormal findings on diagnostic imaging of heart and coronary circulation
CPT/HCPCS: 36415; 36591; 70450; 71250; 72125; 74176; 80048; 80053; 83735; 84100; 84484; 85025; 93005; 93306; 96360; 96361; 96372; 99218; 99285; J7030; A4216; G0378

== ENCOUNTER 2022-10-15 07:58 | Outpatient (CLI) | payer MEDICARE, SELFPAY ==
[2022-10-15] VITALS (9 sets, daily range): BP systolic 104–152; BP diastolic 49–83; PULSE 67–76; RESP 12–19; TEMP 36.4; O2SAT 97–100
--- NOTE | 2022-10-15 | IMM_PTH ---
PATIENT: AMILCAR DALY LOC: CT U#:[id number] AGE/SX: 81/F ROOM: RE10/15/[address]: Dr. Marcus Caceres MD : 1940 BED: DIS: 10/15/2022 SPEC #: [id number] RECD: 10/15/22 13:26 STATUS: SOUTiffanie REQ #: [id number] FRANCOIS: 10/15/22 00:[address]: Marcus Caceres DEPT: IMMUNOHISTOCHEMISTRY RECD BY: Samantha Jameson ENTERED: 10/15/22 13:28 SP TYPE: IMMUNO OTHR DR: Dr. Pee Calle DO Tissues: Chest wall, NOS Procedures: BCL-2 (add) BCL-6 (add) CD10 (add) CD20 (add) CD23 (add) CD3 (add) CD43 (add) CD45 (add) CD5 (add) CD79A (add) CK8 (add) CYCLIN (add) KI-67 (add) MUM1 (add) C-MYC (add) Pankeratin (initial) PHYSICIAN & [address] [address] SPECIMEN INFORMATION: Tissue Source: Chest wall mass Clinical Info: Chest wall mass Specimen Number: [id number] CPT code: 07649, 01156 x15 METHODOLOGY: Deparaffinized sections of prefer/formalin-fixed tissue or PAP/DQ stained slides are incubated with monoclonal/polyclonal antibodies/oligonucleotide probes. Localization is made via biotin free immunoperoxidase method. Appropriate controls are performed and reacted as expected. Results on target cell population are indicated in the following table: RESULTS: ANTIBODY / CLONE RESULT AE1-3 (AE1/AE3/PCK26) negative CK8 ([id number]) negative CD3 (PS1) negative CD5 (SP10) negative CD20 (L26) positive CD43 (L60) negative CD45 (RP2/18) positive CD79a (11E3) positive CD10 (56C6) positive CD23 (1B12) negative BCL-2 (bcl-2/100/D5) positive BCL-6 ([id number]/A8) positive Cyclin D1/BCL-1 (SP4) negative MUM1 (MRQ-43) positive C-MYC (Y69) negative Ki-67 (30-9) positive, moderate, ~50-60% These tests were developed and their performance characteristics determined by [facility]. They may not have been cleared or approved by the U.S. Food and Drug Administration. The FDA has determined that such clearance or approval is not necessary. The above immunohistochemical/dualISH markers are ordered and reviewed by the Pathologist. INTERPRETATION: Chest wall mass, CT-guided core biopsy: Non-Hodgkin B-cell lymphoma, follicle center cell orign. SJ:ondina 10/19/2022 Case has been reviewed in consultation with Dr. Vincent who concurs with the above diagnosis. IDC:AM
[2022-10-15] MEDS: 0.9% Saline Lock 10 ML Syringe IV (08:18)
[2022-10-15] MEDS: 0.9 % NaCl (Sterile) Posiflush 10 mL IV (08:18)
--- NOTE | 2022-10-15 08:30 | CT_ITS ---
PROCEDURE: CT GUIDED biopsy of the right chest nodule. DATE: 10/15/2022. INDICATION: Female, 81 years old. History of non-Hodgkin''s lymphoma. Presternal soft tissue nodule. PHYSICIAN: Jagjit Villavicencio M.D. RADIATION DOSAGE (If Supplied By Facility): CTDIvol = ( 15 ) mGy, DLP = ( 139.02 ) mGycm PROCEDURE: The risks, benefits, and alternatives to the procedure were explained to the patient. The specific risk of hemorrhage requiring further treatment or intervention was detailed and accepted. Follow-up instructions were discussed with the patient as well. Written informed consent was obtained. The patient was brought into the CT suite and placed in the supine position. . An appropriate entry site was identified. The overlying skin was prepped and draped in the usual sterile fashion. 1% lidocaine was administered subcutaneously for local anesthesia. Conscious sedation was performed. The patient received 1 mg of VERSED and 25 mcg of FENTANYL intravenously. Conscious sedation was started at 9:39 AM and terminated at 9:56 AM. The patient was independently monitored by the department nurse. Under CT guidance, a total of 5 passes were performed utilizing a 18-gauge core biopsy needle. The specimens were then placed in the appropriate fluid and transported to the laboratory for analysis. Hemostasis was obtained. The patient tolerated the procedure well without immediate complications. CT/Biopsy/Inj or Needle Placement IMPRESSION: Successful CT guided chest wall mass, as described above. Conscious sedation protocol was followed. Electronically Signed: Jagjit Villavicencio MD at 10:14 EST ,
[2022-10-15 08:36] LABS: Absolute Lymphocyte Count 1.18 X10^3/uL (0.83-4.51); Absolute Neutrophil Count 3.1 X10^3/uL (2.0-7.7); Basophil# 0.03 X10^3/uL; Basophil% 0.6 % (0-1); Hematocrit 34.3 % (37-47); Hemoglobin 10.7 g/dL (12.0-15.0); Lymphocyte # 1.18 X10^3/ul (0.83-4.51); Lymphocyte % 24.9 % (19-41); Mean Corp Hgb Conc 31.2 g/dL (32-36); Mean Corpuscular Hgb 27.9 pg (27.0-32.0); Mean Corpuscular Volume 89.3 fL (81-99); Mean Platelet Vol. 9.3 fl (6.2-12.0); Monocyte# 0.38 X10^3/uL; NRBC Flagged by Analyzer 0 % (0-5); Neutrophil # 3.12 X10^3/uL (2.7-7.7); Neutrophil % 66.1 % (47-70); Platelet Count 109 K/mm3 (150-450); RBC Distribution Width CV 14.5 % (11.6-14.6); RBC Distribution Width SD 46.3 fl (35.1-43.9); Red Blood Count 3.84 M/mm3 (4.2-5.4); White Blood Count 4.7 K/mm3 (4.4-11.0)
[2022-10-15 08:42] LABS: Prothrombin Time (Protime)PT. 13.3 SECONDS (11.7-14.9)
[2022-10-15 08:43] LABS: Partial Thromboplast Time 33.2 Seconds (24.1-36.2)
[2022-10-15] MEDS: fentaNYL 100 MCG/2 ML Ampul IV (09:39)
[2022-10-15] MEDS: Midazolam 2 MG/2 ML Syringe IV (09:39)
--- NOTE | 2022-10-15 09:45 | ASPIGT_PTH ---
PATIENT: AMILCAR DALY LOC: CT U#:[id number] AGE/SX: 81/F ROOM: RE10/15/[address]: Dr. Marcus Caceres MD : 1940 BED: DIS: 10/15/2022 SPEC #: [id number] RECD: 10/15/22 10:04 STATUS: SALAZAR REAlfreda #: [id number] FRANCOIS: 10/15/22 09:[address]: Marcus Caceres DEPT: SURGICAL PATHOLOGY RECD BY: Zuleika Suárez ENTERED: 10/15/22 10:05 SP TYPE: ASP RAD OTHR DR: Dr. Pee Calle DO Tissues: Chest wall, NOS Procedures: FNA Specimen Adequacy Special Stain Group II Surgery Specimen Level IV Imprint (control) HEADER OPERATION: CT-guided chest wall biopsy PRE-OP DIAGNOSIS: Chest wall nodule TISSUE SUBMITTED: Chest wall nodule MICROSCOPIC DIAGNOSIS Chest wall nodule, CT-guided core biopsy: Consistent with involvement by non-Hodgkin B-cell lymphoma, follicular center cell origin, grade?2/3. See microscopic description and comment. SJ:rg 10/18/2022 COMMENT The specimen is evaluated at the time of biopsy by Dr. Moctezuma. Immediate Evaluation = Numerous lymphocytes are noted. Immunohistochemistry ([id number]) supports the above diagnosis. Flow cytometry studies from [facility] was cancelled due to lack of cells. Please make reference to previous specimen ([id number]), left retroperitoneal lymph node, CT-guided needle core biopsy with diagnosis of ?non-Hodgkin?s B-cell lymphoma of follicle center origin? and ([id number]) abdominal mass, CT-guided core biopsy with diagnosis of ?consistent with involvement by nonHodgkin?s B-cell lymphoma, favor follicle center cell origin.? Case has been reviewed in consultation with Dr. Vincent who concurs with the above diagnosis. IDC:AM MICROSCOPIC DESCRIPTION Slides are reviewed. The specimen shows lymph node tissue with distortion of normal lymph node architecture. Diffuse infiltration of small cleaved lymphocytes mixed with intermediate to large cleaved lymphocytes is noted. Large cells comprise about 5 to 15/HPF. Follicle formation is not seen. Significant necrosis or fibrosis is not seen. GROSS DESCRIPTION Received in fixative is one container labeled with the patient's name and designated chest wall. The specimen consists of multiple elongated fragments of mims soft tissue measuring 0.5 to 1.3 cm in length and 0.1 cm in diameter. Two touch imprints are prepared at the time of core biopsy. One core is submitted for flow cytometry study. The entire specimen is submitted in one cassette. / SJ:rg 10/15/2022 TC:0 CPT: 80888, 90133 ADDENDUM ADDENDUM ADDENDUM ADDENDUM ADDENDUM ADDENDUM ADDENDUM ADDENDUM ADDENDUM ADDENDUM ADDENDUM ADDENDUM ADDENDUM ADDENDUM ADDENDUM ADDENDUM ADDENDUM ADDENDUM ADDENDUM 11/05/2022 10:31 ADDENDUM 11/05/2022 10:31 ADDENDUM 11/05/2022 10:31 ADDENDUM 11/05/2022 10:31 ADDENDUM 11/05/2022 10:31 ONKOSIT ADVANCED CHRONIC LYMPHOID NGS REPORT FROM [facility] RESULT SUMMARY: Abnormal High level TMB is DETECTED IMMUNOTHERAPY BIOMARKERS: Tumor Mutation [place]: HIGH (10.2 mutations / MB) Microsatellite Instability: MSI Negative (0.81%) PERTINENT NEGATIVE RESULTS: The following genes are NEGATIVE for clinically relevant mutations. Mutational hotspots and surrounding exonic regions were interrogated for DNA level point mutations and indels (fusions not assayed). PAWEL, BCL6, BIRC3, BRAF, BTK, CD79B, CDKN2A, CREBBP, CXCR4, DNMT3A, EP300, EZH2, IDH1, IDH2, IKZF1, IRF4, JAK1, JAK3, KMT2D, KRAS, MAP2K1, MEF2B, MYC, MYD88, NOTCH1, NOTCH2, NRAS, PIK3CA, PIK3CG, PLCG2, PTPRD, RHOA, SETD2, SF3B1, STAT3, TET2, VPCSFG51, TP53 Please see complete report in e-chart or EMR
[2022-10-15] MEDS: Lidocaine 2% (20 ml mdv) 20 ML Vial (09:49)
[2022-10-15 16:29] LABS: Xtra Tube EP Lab EXTRA TUBE
== END 2022-10-15 23:59 | disposition home or self-care (01) ==
PROVIDERS: Referring Provider Internal Medicine Medical Oncology; Visit Provider Internal Medicine Medical Oncology
DX: C82.93 Follicular lymphoma, unspecified, intra-abdominal lymph nodes (principal); R22.2 Localized swelling, mass and lump, trunk
CPT/HCPCS: 32408; 36591; 77012; 85025; 85610; 85730; 88172; 88305; 88313; 88341; 88342; 99156; J7050; A4216

== ENCOUNTER 2022-11-19 09:24 | Day surgery (SDC) | payer MEDICARE, SELFPAY ==
[2022-11-19] VITALS (7 sets, daily range): BP systolic 105–133; BP diastolic 55–74; PULSE 63–69; RESP 14–18; TEMP 36.1–36.7; O2SAT 98–100; BMI 20.2
--- NOTE | 2022-11-19 | IMM_PTH ---
PATIENT: AMILCAR DALY LOC: [facility] [place] U#:[id number] AGE/SX: 81/F ROOM: RE11/19/[address]: Dr. Subha Gregory MD : 1940 BED: DIS: 11/19/2022 SPEC #: [id number] RECD: 11/22/22 13:08 STATUS: SALAZAR REQ #: [id number] FRANCOIS: 11/19/22 00:[address]: Subha Gregory DEPT: IMMUNOHISTOCHEMISTRY RECD BY: Samantha Jameson ENTERED: 11/22/22 13:10 SP TYPE: IMMUNO OTHR DR: Dr. Pee Calle, Tissues: Chest wall, NOS Procedures: BCL-2 (add) BCL-6 (add) CD10 (add) CD20 (add) CD23 (add) CD3 (add) CD43 (add) CD45 (add) CD5 (add) CD79A (add) CK8 (add) CYCLIN (add) KI-67 (add) MUM1 (add) C-MYC (add) Pankeratin (initial) PHYSICIAN & [address] [address] SPECIMEN INFORMATION: Tissue Source: Sternal mass, incisional biopsy Clinical Info: Chest wall nodule, follicular lymphoma Specimen Number: [id number] CPT code: 95302, 56063 x15 METHODOLOGY: Deparaffinized sections of prefer/formalin-fixed tissue or PAP/DQ stained slides are incubated with monoclonal/polyclonal antibodies/oligonucleotide probes. Localization is made via biotin free immunoperoxidase method. Appropriate controls are performed and reacted as expected. Results on target cell population are indicated in the following table: RESULTS: ANTIBODY / CLONE RESULT AE1-3 (AE1/AE3/PCK26) negative CK8 (33sthqJ52) negative CD3 (PS1) negative CD5 (SP10) negative CD20 (L26) positive CD43 (L60) positive, focal CD45 (RP2/18) positive CD79a (11E3) positive CD10 (56C6) positive CD23 (1B12) negative BCL-2 (bcl-2/100/D5) positive BCL-6 (HN587M/A8) positive Cyclin D1/BCL-1 (SP4) negative MUM1 (MRQ-43) positive, >50% C-MYC (Y69) negative Ki-67 (30-9) positive, high, ~75% These tests were developed and their performance characteristics determined by [facility]. They may not have been cleared or approved by the U.S. Food and Drug Administration. The FDA has determined that such clearance or approval is not necessary. The above immunohistochemical/dualISH markers are ordered and reviewed by the Pathologist. 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 SJ:ondina 11/23/2022 Case has been reviewed in consultation with Dr. Vincent who concurs with the above diagnosis. IDC:AM
--- NOTE | 2022-11-19 09:43 | PCM.HP.BLA ---
History and Physical Date of Admission: 11/19/22 Date of Service:? 11/11/22 MR#: [id number] Acct: [id number] Name:AMILCAR MARIE Rep #: [id number] : 1940 ? ? Provider: Dr. Subha Gregory MD Age/Sex:? 81/F ? ? Location: [facility] Status: Signed Intake Vital Signs ? 11/11/2308:38 Height 4 ft 10 in Weight: 99 lb 6 oz BMI 20.7 BP 162/90 H Blood Pressure Location Rt brachial Position Sitting Respiration 16 Pulse 77 Pulse Source Monitor Temp 97.2 F L Temp Source Temporal Pulse Oximetry (%) 96 Oxygen Delivery Method room air Intake Visit Reasons:?STERNAL MASS Chief Complaint: Sternal Mass Photoradio Operator Required: No Is patient in pain?: No Allergies No Known Allergies Allergy (Verified 11/11/22 09:39) Medications naproxen sodium 220 mg capsule (Aleve) 220 mg PO BID PRN Pain 05/21/21 [History Confirmed 11/11/22] carvedilol 12.5 mg tablet 12.5 mg PO BID #180 tabs 08/10/22 [Rx Confirmed 11/11/22] calcium carbonate 500 mg calcium (1,250 mg) tablet 1,000 mg PO DAILY SUPPLEMENT 08/12/22 [History Confirmed 11/11/22] cholecalciferol (vitamin D3) 50 mcg (2,000 unit) capsule 1 ea PO DAILY 08/12/22 [History Confirmed 11/11/22] ferrous sulfate 142 mg (45 mg iron) tablet,extended release (Slow Fe) 142 mg PO DAILY SUPPLEMENT 08/16/22 [History Confirmed 11/11/22] lisinopril 20 mg tablet See Rx Instructions .Route .COMPLEX #90 TABLETS 11/05/22 [Rx Confirmed 11/11/22] PFSH Medical History? Abdominal mass Chemotherapy follow-up examination CT guided biopsy Diffuse large B-cell lymphoma of intra-abdominal lymph nodes Edema Educational circumstance Follicular lymphoma GERD (gastroesophageal reflux disease) Gout History of non-Hodgkin's lymphoma Immunotherapy encounter Lymphadenopathy, abdominal Non Hodgkin's lymphoma Non-ischemic cardiomyopathy Osteoporosis Pain of sternum Pathologic fracture of lumbar vertebra Right sided abdominal pain Right-sided back pain Syncope (08/16/22) Surgical History? History of appendectomy History of lumpectomy s/p vascular port insertion (06/2018) Status post colectomy Family History? Mother Brain cancer Breast cancerFather Bone cancer Lung cancerBrother Esophageal cancer Bone cancer Social History? Smoking Status:? Never smoker alcohol intake:? never chirag/yazdanism:? Pentecostalism seatbelt use:? always do you feel safe at home:? Yes HPI HPI HPI: 81-year-old female presents with a new sternal mass for incisional biopsy.? Patient had a PET scan which showed enhancement of this area.? Patient has undergone a couple CT-guided core biopsies however there has not been enough tissue for analysis.? Patient is on her fourth bout of lymphoma.? Patient's right IJ Port-A-Cath still in place and working well. ROS General General: Yes fatigue; No weight change, appetite, colon cancer, breast cancer or weakness HEENT HEENT: No difficulty swallowing, eye injury, eye surgery, swollen glands or hoarseness Endo Endocrine: No thyroid disease, diabetes mellitus, thyroid cancer, Hair loss, heat intolerance or cold intolerance Skin Skin: No rash or changing moles Musc Musculoskeletal: Yes back problems, arthritis and gout; No rheumatoid arthritis or joint pain Cardio Cardiovascular: Yes high blood pressure; No murmur, pacemaker, heart disease, atrial fibrillation, heart attack, heart stent, palpitations, shortness of breat with exertion or chest pain Psych Psychiatric: No depression, anxiety or hearing voices Resp Respiratory: No shortness of breath, No sleep apnea, No cough, No COPD, No asthma, No emphysema and No wheezing Gastro Gastrointestinal: No abdominal pain, No nausea or vomiting, No diarrhea, No constipation, No blood in stool, No acid reflux, No hemorrhoids, No ulcers, No gallbladder problem and No black,tarry stools Sylvester Hematologic: No blood thinners, No blood disorders, No bleeding, No anemia and No blood clots Neuro Neurologic: No system reviewed and no additional complaints, except as documented, No as per HPI, No abnormal gait, No abnormal hearing, No abnormal movements, No abnormal speech, No behavioral changes, No burning sensations, No confusion, No convulsions, No disequilibrium, No dizziness, No localized weakness, No frequent falls, No headache(s), No lack of coordination, No loss of vision, No memory loss, No numbness, No other visual disturbances, No radicular pain, No restless legs, No sensory deficit, No syncope, No tingling, No tremor(s), No weakness and No other Exam Const General: cooperative, healthy appearing, comfortable and no acute distress Neck Neck: normal visual inspection Chest Other: Right mid/lower sternum about a 2 cm x 2 cm mass palpable, no change in overlying skin.,? Nontender Resp Effort & Inspection: normal respiratory effort Cardio Rate: regular rate GI Inspection: non-distended Palpation: soft Skin General: no rashes or lesions noted Neuro General: patient oriented x3 Psych Affect: normal affect Assessment and Plan Assessment and Plan (1) Nodule of chest wall: ?Status:?Acute ?Comment: R lower sternal area 1.5cm. CT guided bx on 10/05/2022 show NHL-follicular center cell origin. (2) Follicular lymphoma: ?Status:?Chronic ?Qualifiers: ?Follicular lymphoma type:?unspecified follicular type??Lymphoma site:?intra-abdominal nodes? Qualified Code(s):?C82.93 - Follicular lymphoma, unspecified, intra-abdominal lymph nodes ?Comment: Finished Radiation therapy to retroperitoneal nodes on 02/26/2021.? Began maintenance Gazyva after Radiation on 03/12/21. CT a/p on 05/26/2021 showed no evidence of progressive disease. CT c/a/p on 08/16/2022 shows new subcutaneous lesion. CT guided Biopsy on 10/15/2022 shows NHL of follicular center cell origin. Discussed biopsy result-suggestive of progressive disease. PET/CT on 11/02/2022 shows Hypermetabolic activity in SHANTA, bilateral upper abdomen, retrocrural area, retroperitoneal nodes, L and R hemipelvic nodes, sternum, pre-sternal nodule, vertebral lesion suggestive of metastatic disease. ?Need to obtain incisional or excisional biopsy of sternal lesion. Pt agrees to proceed. Plan We will plan for an incisional biopsy of this mass patient understands we cannot do an excisional biopsy get the entire thing as it does communicate with the bone.? We will plan to get a larger segment so hopefully they can run the test they need to on it.? Patient could end up with some wound care afterwards but hopefully the skin will close well over top.? Patient expressed understanding and had no further questions this time. Subha Gregory M.D. Pager: [phone] [facility] [address] [place] [address], [address] [place] [id number] Office: [phone] Coding Level of Care Code Off vis,est,level 3 Diagnoses Nodule of chest wall? R22.2 Follicular lymphoma? C82.93 ? ? ? Follicular lymphoma type: unspecified follicular type ? ? ? Lymphoma site: intra-abdominal nodes 11/12/226 <Electronically signed by Subha Gregory MD> Date Subha Gregory MD
[2022-11-19] MEDS: Lactated Ringers 1,000 ML 15 ML IV (10:06)
[2022-11-19] MEDS: Cefazolin 2 GM in 0.9% Normal Saline 100 ML IV (10:46)
[2022-11-19] MEDS: Bupiv/Epi 0.25% 30 ML Vial (10:58)
--- NOTE | 2022-11-19 11:05 | MASS_PTH ---
PATIENT: AMILCAR DALY LOC: [facility] [place] U#:[id number] AGE/SX: 81/F ROOM: RE11/19/[address]: Dr. Subha Gregory MD : 1940 BED: DIS: 11/19/2022 SPEC #: [id number] RECD: 11/19/22 11:08 STATUS: SALAZAR REAlfreda #: [id number] FRANCOIS: 11/19/22 11:[address]: Subha Gregory DEPT: SURGICAL PATHOLOGY RECD BY: Zuleika Suárez ENTERED: 11/19/22 11:34 SP TYPE: Mass OTHR DR: Dr. 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 See comment. SJ:rg 11/22/2022 COMMENT The specimen is evaluated at the time of imprints by Dr. Moctezuma. Immediate Evaluation = Numerous lymphocytes are noted. Immunohistochemistry ([id number]) supports the above diagnosis. Flow cytometry report from [facility] shows B-cell lymphoma, favor classic follicular lymphoma. Please see complete report in EMR. Please make reference to previous specimens ([id number]), left retroperitoneal lymph node, CT-guided core biopsy with diagnosis of ?non-Hodgkin B-cell lymphoma of follicle center origin? and ([id number]) abdominal mass, CT-guided core biopsy with diagnosis of ?consistent with involvement by non-Hodgkin?s B-cell lymphoma, favor follicle center cell origin? and ([id number]) chest wall nodule, CT-guided core biopsy with diagnosis of ?consistent with involvement by non-Hodgkin B-cell lymphoma, follicular center cell origin, grade 2-3.? MICROSCOPIC DESCRIPTION Slides are reviewed. GROSS DESCRIPTION Received fresh labeled with the patient's name is a specimen designated sternal mass incisional biopsy. The specimen consists of a piece of mims soft tissue measuring 2.2 x 1.5 x 1.2 cm. The specimen is bisected. A section is submitted for flow cytometry studies. Two touch imprints are prepared. The entire specimen is submitted in two cassettes. / SJ:ondina 11/19/2022 TC:0 CPT: 23026, 06989
--- NOTE | 2022-11-19 11:06 | PCM.OPRPT ---
Report of Operation Date of Procedure: 11/19/22 Pre-Operative Diagnosis: Sternal mass, history of lymphoma Post-Operative Diagnosis: Same Surgery/Procedure Performed:: Incisional biopsy sternal mass Surgeon: Subha Gregory Type of Anesthesia: Local MAC Anesthesiologist: Jung Padgett Special Medications: Ancef 2 g IV x1 Specimen's removed: Sternal mass sent as fresh specimen Estimated Blood Loss (mL): < 10 cc Description of Procedure: Patient was brought operating placed spine on operating table. Timeout was completed verifying correct patient, procedure, site, positioning, special from her prior beginning procedure. MAC anesthesia was induced. Patient's sternal area was prepped and cleaned in usual sterile fashion with chlorhexidine. 0.25% Marcaine with epinephrine was used for local infiltrated near planned incision. Vertical incision was made overlying the mass. This was deepened with electrocautery. Scalpel was used to remove a portion of the protruding mass?this was sent as a fresh specimen to pathology. Hemostasis was achieved with electrocautery. Subdermal sutures of 3-0 Vicryl were used to close the incision and 4-0 Monocryl for the skin with Steri-Strips. Patient tolerated procedure well was taken to the postanesthesia care unit in stable condition. Complications none
--- NOTE | 2022-11-19 11:09 | DCINST_ITS ---
Discharge Instructions Diet Discharge Diet: No restrictions Activity May shower in (days): 1 Dressing / Incision Call your doctor if your incision/area has: Continuous Slow Oozing, Sudden Increased Bleeding, Increased Pain/ Swelling, Increased Redness, Foul Smelling Discharge and Swelling at the incision site Call your doctor if you observe: Fever of 101 or Higher Remove Dressing in: 2 days Cleanse incision/area with: Soap & Water Additional Dressing/Incision Instructions:: Steri-Strips will fall off in 7 to 10 days, if they do not fall off okay to remove after 10 days. Follow Up Care Please Follow Up With: Subha Gregory MD When: Call the office for a follow-up appointment 2 weeks; after 5 PM and on the weekends call [phone] with any concerns. Test Results: Test results from this visit will be discussed in further detail at your follow- up appointment, if applicable. Discharge Plan Admission Attending Provider: Subha Gregory Primary Care Provider: Pee Calle Discharge Orders/Prescriptions Prescriptions: Continued naproxen sodium [Aleve] 220 mg capsule 220 mg PO BID PRN (Reason: Pain) calcium carbonate 500 mg calcium (1,250 mg) tablet 1,000 mg PO DAILY cholecalciferol (vitamin D3) 50 mcg (2,000 unit) capsule 1 ea PO DAILY Label Comments: TAKE 1 CAPSULE BY MOUTH EVERY DAY Slow Fe 142 mg (45 mg iron) Tablet Extended Release 142 mg PO DAILY lisinopril 20 mg tablet 20 mg PO DAILY carvedilol 12.5 mg tablet 12.5 mg PO BID Qty: 180 3RF Rx Instructions: must administer with a meal/food Referrals / Follow Up: Pee Calle DO [Primary Care Provider] - Disposition Disposition (needs filled in before D/C Order can be placed): Home, Self Care
== END 2022-11-19 12:34 | disposition home or self-care (01) ==
LOC: SDC 09:26 → AC 09:29
PROVIDERS: Referring Provider Surgery; Visit Provider Surgery
PROC: (CPT 21550; principal; 2022-11-19 10:50)
DX: C82.52 Diffuse follicle center lymphoma, intrathoracic lymph nodes (principal); I10 Essential (primary) hypertension; E61.1 Iron deficiency; Z79.899 Other long term (current) drug therapy; Z92.3 Personal history of irradiation
CPT/HCPCS: 21550; 00400; 88305; 88313; 88341; 88342; J7120; A4216; J2405

== ENCOUNTER 2023-01-12 21:23 | Emergency (ER) | payer MEDICARE, SELFPAY ==
[2023-01-12 21:24] VITALS: BP 171/88; PULSE 94; RESP 18; TEMP 36.8; O2SAT 97; BMI 20.9
--- NOTE | 2023-01-12 21:59 | EDS_ITS ---
HPI History of Present Illness Chief Complaint: Rash Narrative Narrative: 82-year-old female here for concern for rash. Patient states she has a rash that started 3 days ago in the left buttocks and vaginal area. Patient states she had 2 days of rash on the left buttocks radiating into the groin. Denies any change in mental status. Denies any headache or neck stiffness. States her last chemo was [address] [facility] Medical History Abdominal mass Anemia Back pain [facility] Cancer Cardiology follow-up encounter Chemotherapy follow-up examination CT guided biopsy Diffuse large B-cell lymphoma of intra-abdominal lymph nodes Edema Educational circumstance Encounter for education Follicular lymphoma GERD (gastroesophageal reflux disease) Gout History of echocardiogram History of non-Hodgkin's lymphoma Immunotherapy encounter Leg cramps Low iron Lymphadenopathy, abdominal Non Hodgkin's lymphoma Non-ischemic cardiomyopathy Non-smoker Osteoporosis Pain of sternum Pathologic fracture of lumbar vertebra Prerenal azotemia Restless legs Right sided abdominal pain Right-sided back pain Syncope (08/16/22) Wears glasses Wears partial dentures Home Medications naproxen sodium 220 mg capsule (Aleve) 220 mg PO BID PRN Pain 05/21/21 [History Last Taken 1 Week Ago ~08/09/22] carvedilol 12.5 mg tablet 12.5 mg PO BID #180 tabs 08/10/22 [Rx Last Taken 11/19/22] calcium carbonate 500 mg calcium (1,250 mg) tablet 1,000 mg PO DAILY SUPPLEMENT 08/12/22 [History Last Taken 08/16/22] cholecalciferol (vitamin D3) 50 mcg (2,000 unit) capsule 1 ea PO DAILY 08/12/22 [History Last Taken 08/15/22] ferrous sulfate 142 mg (45 mg iron) tablet,extended release (Slow Fe) 142 mg PO DAILY SUPPLEMENT 08/16/22 [History Last Taken 08/16/22] lisinopril 20 mg tablet 20 mg PO DAILY 11/15/22 [History Last Taken 11/19/22] allopurinol 100 mg tablet 200 mg PO DAILY #60 tabs 12/13/22 [Rx Last Taken Unknown] ondansetron 8 mg disintegrating tablet 8 mg PO Q8H PRN nausea and vomiting #30 tabs 12/13/22 [Rx Last Taken Unknown] oxycodone 5 mg capsule 5 mg PO Q6H PRN pain 5 days #20 caps 01/12/23 [Rx Last Taken Unknown] valacyclovir 1 gram tablet 1,000 mg PO Q8H #30 tabs 01/12/23 [Rx Last Taken Unknown] Allergy/AdvReac Type Severity Reaction Status Date / Time No Known Allergies Allergy Verified 01/12/23 21:27 Family History Mother Brain cancer Breast cancer Father Bone cancer Lung cancer Brother Esophageal cancer Bone cancer Surgical History History of appendectomy History of lumpectomy s/p vascular port insertion (06/2018) Status post colectomy Social History Smoking Status: Never smoker alcohol intake: never chirag/rastafari: Yarsani seatbelt use: always do you feel safe at home: Yes ROS ROS ED ROS Narrative Constitutional: Denies fever HEENT: Denies sore throat Neck: Denies neck pain Cardiovascular: Denies chest pain, syncope Respiratory: Denies shortness of breath GI: Denies nausea vomiting or abdominal pain : Denies changes in urinary habits Musculoskeletal: Denies muscle or joint pain Neurologic: Denies numbness weakness or loss of sensation Skin endorses rash EXAM Physical Exam Narrative Exam Narrative: Nursing triage notes reviewed, Vital signs reviewed Constitutional: please see mdm HENT: MMM Eyes: Pupils equal round and reactive to light, Extraocular muscles intact Neck: No stridor, no JVD, full neck ROM Lungs: Clear to auscultation, No wheezing or rales. No increased work of breathing, no conversational dyspnea, no accessory muscle use, no nasal flaring. No respiratory distress noted Heart: Regular rate and rhythm, No murmurs, No rubs and No gallops, 2+ distal pulses (radial, femoral, posterior tibial) in all extremities Abdomen: Soft, there is no tenderness, rigidity, rebound or guarding, no obvious peritoneal signs, no palpable pulsatile abdominal masses, no auscultated abdominal bruit : No CVAT Extremities: No edema Neuro: No focal neurological deficits, cranial nerves II through XII intact, 5/5 strength in all extremities. Intact sensation to light touch in all extremities, 2+ reflexes bilateral patella dens. Normal gait. No ataxia. Skin: Erythematous, vesicular rash noted over left buttock does not cross midline, rash appears like dew drop on caitie petal. There is no crepitus bullae. Pain is not out of proportion to exam. Const Vital Signs: 01/12/23 21:24 Temperature 98.2 F Temperature Source Temporal Pulse Rate 94 Respiratory Rate 18 Blood Pressure 171/88 H Blood Pressure Mean 115 Pulse Ox 97 Oxygen Delivery Method Room Air MDM MDM MDM Narrative Medical decision making narrative: Chief Complaint: Rash External records reviewed: No recent ED visits I considered the following differential diagnosis: Contact dermatitis, meningococcemia, shingles, necrotizing fasciitis Exam without purpura bullae, no crepitus. The patient's pain was not on proportion to exam. No clinical evidence to suggest meningococcemia, necrotizing fasciitis or contact dermatitis. Exam was vesicular, appeared as dew drop on caitie petal, do not cross midline classic appearance of herpes zoster. No signs of disseminated herpes zoster. Will give antivirals and narcotic pain medicine. Gave first dose of antiviral here in the emergency department. Gave strict return precautions and follow-up instructions. Factors affecting care: Follicular lymphoma, hypertension cardiomyopathy Social determinants of health: Elderly History obtained from others: The patient's daughter Shared decision making: I will have a discussion with the patient and or visitors regarding risk/benefits of further testing or admission. They will be made aware of of the risk/benefits inherent in this decision they will be given the opportunity to voice understanding. Consults: None Discharge Plan Triage Chief Complaint: Rash ED Provider: Joe Mello Dx/Rx/DC Orders Clinical Impression: Shingles Instructions: ED Shingles (Herpes Zoster) Prescriptions: New valacyclovir 1 gram tablet 1,000 mg PO Q8H Qty: 30 0RF oxycodone 5 mg capsule 5 mg PO Q6H PRN (Reason: pain) 5 Days Qty: 20 0RF No Action naproxen sodium [Aleve] 220 mg capsule 220 mg PO BID PRN (Reason: Pain) calcium carbonate 500 mg calcium (1,250 mg) tablet 1,000 mg PO DAILY cholecalciferol (vitamin D3) 50 mcg (2,000 unit) capsule 1 ea PO DAILY Label Comments: TAKE 1 CAPSULE BY MOUTH EVERY DAY allopurinol 100 mg tablet 200 mg PO DAILY Qty: 60 0RF ondansetron 8 mg tablet,disintegrating 8 mg PO Q8H PRN (Reason: nausea and vomiting) Qty: 30 2RF Slow Fe 142 mg (45 mg iron) Tablet Extended Release 142 mg PO DAILY lisinopril 20 mg tablet 20 mg PO DAILY carvedilol 12.5 mg tablet 12.5 mg PO BID Qty: 180 3RF Rx Instructions: must administer with a meal/food Primary Care Provider: Pee Calle Referrals: Pee Calle, [Primary Care Provider] - Activity Restrictions/Additional Instructions: Thank you for trusting us with your care today! Please take valacyclovir as prescribed. Please take Tylenol (2 pills, 650 mg), ibuprofen (2 pills, 400 mg) every 6 hours as needed for pain and fever control. If this does not control your pain please take oxycodone for breakthrough pain. Please return if you develop fever, neck stiffness, change in mental status. Please return to the emergency department if your symptoms change or worsen. Please follow with your primary care physician for further outpatient evaluation and management. Disposition Disposition: Home, Self Care Discharge Date/Time: 01/12/23 23:34
[2023-01-12] MEDS: oxyCODONE 5 MG Tablet PO (23:06)
[2023-01-12] MEDS: Acyclovir 800 MG Tablet PO (23:33)
== END 2023-01-12 23:34 | disposition home or self-care (01) ==
LOC: ED 22:56
PROVIDERS: Emergency Provider Emergency Medicine; Visit Provider Emergency Medicine
DX: B02.9 Zoster without complications (principal); C82.90 Follicular lymphoma, unspecified, unspecified site; I10 Essential (primary) hypertension; M10.9 Gout, unspecified; Z79.899 Other long term (current) drug therapy
CPT/HCPCS: 99283

== ENCOUNTER → 2023-01-14 | Outpatient (CLI) | payer MEDICARE, SELFPAY ==
--- NOTE | 2023-01-14 13:20 | CT_ITS ---
STUDY: CT CHEST, ABDOMEN T PELVIS WITH CONTRAST REASON FOR EXAM: Female, 82 years old. Non-Hodgkin''s lymphoma. Assess treatment effectiveness. RADIATION DOSAGE (If Supplied By Facility): CTDIvol = ( 8.06 ) mGy, DLP = ( 513.80 ) mGycm TECHNIQUE: Transaxial imaging was performed following intravenous administration of IV-100 ML ISOVUE 370. Individualized dose optimization techniques were used for this CT. COMPARISON: Pet/CT scan, November 02, 2022. CT of the chest abdomen and pelvis, August 16, 2022. FINDINGS: CHEST Mild emphysematous changes lungs. There is minimal stranding in the subpleural right upper lobe (image 38 of series 6). There is a stable small subpleural nodular density in the right upper lobe seen on image 41. Stable calcified granuloma in the left lower lobe. No other mass or infiltrate is seen within the lungs. There is no demonstrated pleural abnormality. Normal heart and pericardium. Coronary artery calcifications. Normal mediastinum. Normal hilar regions. Normal unenhanced pulmonary arteries. Mild atherosclerotic tortuosity of the thoracic aorta without aneurysm or dissection. Normal osseous structures. Soft tissues of the chest wall are symmetric and unchanged. ABDOMEN Normal liver. Normal gallbladder and extrahepatic biliary system. Normal spleen. Normal pancreas. Normal bilateral adrenal glands. Normal right kidney. Normal left kidney. Normal visualized ureters. Normal visualized stomach. There is minimally prominent loops of fluid-filled small bowel. Surgical changes are seen in the small bowel in the left lower quadrant. Air and fluid is seen layering within the proximal and transverse colon. Feces is seen in the descending colon. No mass or obstruction. There are surgical clips in the region of the appendix consistent with a prior appendectomy. There is diffuse atherosclerotic calcification of the abdominal aorta with elongation and tortuosity, but without a demonstrated aneurysm. Normal inferior vena cava. Normal retroperitoneum. There is a 1.7 x 1.9 x 3.6 cm low-attenuation mass posterior to the right crural at the level of the diaphragm. At the same level there is a 1.3 x 1.0 x 1.9 cm left retrocrural mass. PELVIS Normal urinary bladder. Normal uterus no adnexal mass. There is no pelvic fluid. There is no pelvic lymphadenopathy or mass lesion. No free air seen within the peritoneal cavity. Normal visualized pelvic arteries. Normal abdominal wall. Degenerative change lumbar spine. There are compression deformities of L2 and L3 with mild retropulsion and spinal stenosis seen at the L4 level. There is anterolisthesis of L5 on S1 without pars defects. These findings appear stable. CT/CT Chest, Abd, Pel w/Contrast IMPRESSION: 1. Stable bilateral retrocrural lymph nodes. 2. No evidence of new findings or major interval change. Electronically Signed: Christian Adair DO at 17:14 EDT ,
[2023-01-14] MEDS: 0.9% Saline Lock 10 ML Syringe IV (13:42)
== END | disposition home or self-care (01) ==
LOC: CT 13:16
PROVIDERS: Referring Provider Internal Medicine Medical Oncology; Visit Provider Internal Medicine Medical Oncology
DX: C82.90 Follicular lymphoma, unspecified, unspecified site (principal); C83.33 Diffuse large B-cell lymphoma, intra-abdominal lymph nodes
CPT/HCPCS: 71260; 74177; Q9967; A4216

== ENCOUNTER 2023-02-18 04:23 | Inpatient (IN) | payer MEDICARE, SELFPAY ==
[2023-02-18] VITALS (17 sets, daily range): BP systolic 122–213; BP diastolic 59–128; PULSE 75–118; RESP 12–38; TEMP 36.4–36.9; O2SAT 87–99; BMI 22.5; BMI 20.8
--- NOTE | 2023-02-18 04:35 | EKG12_ITS ---
Test Reason : DYSRHYTHMIA Blood Pressure : / mmHG Vent. Rate : 112 BPM Atrial Rate : 112 BPM P-R Int : 154 ms QRS Dur : 084 ms QT Int : 320 ms P-R-T Axes : 074 065 089 degrees QTc Int : 436 ms Sinus tachycardia Left ventricular hypertrophy with repolarization abnormality Abnormal ECG Confirmed by ANN MAYO, KORI ([id number]), editor managing director DOROTHY PARSONS ([id number]) on 02/22/2023 10:30:28 AM Referred By: CATRINA Confirmed By:KORI JUAREZ MD
[2023-02-18] MEDS: Labetalol (Prefilled) 20 MG/4 ML 10 MG IV (04:37)
--- NOTE | 2023-02-18 04:37 | ED.VIS.DYS ---
HPI History of Present Illness Chief Complaint: Shortness of Breath Informant: patient Onset/Context/Timing Onset: Today Narrative Narrative: Patient will from sleep with shortness of breath and chest pressure. She states she felt well when she went to bed last night. She has not had recent cough or congestion. She is currently on chemotherapy for lymphoma and her last chemotherapy treatment was last week. [facility] Medical History Abdominal mass Anemia Back pain [facility] Cancer Cardiology follow-up encounter Chemotherapy follow-up examination Constipation CT guided biopsy Diffuse large B-cell lymphoma of intra-abdominal lymph nodes Edema Educational circumstance Encounter for education Follicular lymphoma GERD (gastroesophageal reflux disease) Gout History of echocardiogram History of non-Hodgkin's lymphoma Immunotherapy encounter Leg cramps Low iron Lymphadenopathy, abdominal Non Hodgkin's lymphoma Non-ischemic cardiomyopathy Non-smoker Osteoporosis Pain of sternum Pathologic fracture of lumbar vertebra Prerenal azotemia Restless legs Right sided abdominal pain Right-sided back pain Syncope (08/16/22) Wears glasses Wears partial dentures Home Medications naproxen sodium 220 mg capsule (Aleve) 220 mg PO BID PRN Pain 05/21/21 [History Last Taken 1 Week Ago ~08/09/22] carvedilol 12.5 mg tablet 12.5 mg PO BID #180 tabs 08/10/22 [Rx Last Taken 11/19/22] calcium carbonate 500 mg calcium (1,250 mg) tablet 1,000 mg PO DAILY SUPPLEMENT 08/12/22 [History Last Taken 08/16/22] cholecalciferol (vitamin D3) 50 mcg (2,000 unit) capsule 1 ea PO DAILY 08/12/22 [History Last Taken 08/15/22] lisinopril 20 mg tablet 20 mg PO DAILY 11/15/22 [History Last Taken 11/19/22] ondansetron 8 mg disintegrating tablet 8 mg PO Q8H PRN nausea and vomiting #30 tabs 12/13/22 [Rx Last Taken Unknown] oxycodone 5 mg capsule 5 mg PO Q6H PRN pain 5 days #20 caps 01/12/23 [Rx Last Taken Unknown] acetaminophen 500 mg capsule 500 mg PO Q6H PRN Pain 01/18/23 [History Last Taken Unknown] gabapentin 100 mg capsule 200 mg PO TID 01/18/23 [History Last Taken Unknown] ibuprofen 400 mg tablet 400 mg PO Q8H 01/18/23 [History Last Taken Unknown] valacyclovir 500 mg tablet 500 mg PO BID 30 days #60 tabs 01/25/23 [Rx Last Taken Unknown] Allergy/AdvReac Type Severity Reaction Status Date / Time No Known Allergies Allergy Verified 02/18/23 04:35 Family History Mother Brain cancer Breast cancer Father Bone cancer Lung cancer Brother Esophageal cancer Bone cancer Surgical History History of appendectomy History of lumpectomy s/p vascular port insertion (06/2018) Status post colectomy Social History Smoking Status: Never smoker alcohol intake: never chirag/zoroastrianism: Lutheran seatbelt use: always do you feel safe at home: Yes ROS ROS ED Constitutional Constitutional ED: Denies chills or fever(s) Eyes Eyes: Denies change in vision or discharge from eye(s) ENT ENT ED: Denies discharge from eye(s), rhinorrhea or sore throat Cardiovascular Cardiovascular: Reports chest pain; Denies palpitations Respiratory/Chest Respiratory/Chest: Reports cough and dyspnea Gastrointestinal Gastrointestinal: Denies abdominal pain, nausea or vomiting Genitourinary Genitourinary ED: Denies difficulty urinating or dysuria Musculoskeletal Musculoskeletal: Denies back pain or extremity pain Integumentary Denies Abrasions or rash Neurologic Neurologic: Denies headache(s) or weakness Psychiatric Psychiatric: Denies anxiety or depression Allergic/Immunologic Allergic/Immunologic ED: Denies lip swelling or urticaria EXAM Physical Exam Const Vital Signs: 02/18/23 04:24 02/18/23 04:29 02/18/23 04:31 Temperature 97.7 F L 97.7 F L Temperature Source Temporal Temporal Pulse Rate 118 H 114 H Respiratory Rate 35 H 38 H Respiratory Effort Short of Breath Accessory Muscle Use Respiratory Depth Deep Respiratory Pattern Tachypnea Blood Pressure 213/128 H 210/124 H Blood Pressure Mean 156 152 Pulse Ox 87 96 Oxygen Delivery Method Room Air Room Air Nasal Cannula Oxygen Flow Rate (L/min) 3 Fraction of Inspired Oxygen (FIO2) 02/18/23 04:45 02/18/23 05:28 02/18/23 06:15 Temperature 97.6 F L Temperature Source Temporal Pulse Rate 80 88 85 Respiratory Rate 27 H 24 H 23 H Respiratory Effort Respiratory Depth Respiratory Pattern Tachypnea Tachypnea Blood Pressure 165/105 H Blood Pressure Mean 125 Pulse Ox 98 97 98 Oxygen Delivery Method Bi-pap Oxygen Flow Rate (L/min) Fraction of Inspired Oxygen (FIO2) 30 30 30 02/18/23 06:00 02/18/23 07:44 Temperature 98 F Temperature Source Temporal Pulse Rate 81 75 Respiratory Rate 15 16 Respiratory Effort Respiratory Depth Respiratory Pattern Blood Pressure 176/96 H 150/79 H Blood Pressure Mean 122 102 Pulse Ox 99 99 Oxygen Delivery Method Bi-pap Oxygen Flow Rate (L/min) Fraction of Inspired Oxygen (FIO2) 30 Positive well nourished and well developed General Appearance ED: well developed HEENT Reports normocephalic and head/scalp atraumatic Eyes PERRL and EOMs intact bilaterally Neck supple Chest Wall inspection of chest normal and palpation of chest normal Resp Resp Narrative: Tachypnea with coarse breath sounds bilaterally. Patient does have accessory muscle use. Cardio regular rhythm Rate: tachycardic GI non-tender Palpation: soft Back/Spine no CVA tenderness Extremity normal to inspection Neuro oriented x3 and no sensory deficits noted Sensorium / Orientation: alert Motor Exam: strength 5/5 throughout Psych mental status grossly normal Skin no rashes or lesions noted MDM MDM MDM Narrative Medical decision making narrative: Patient placed on office technician. Given her significant hypertension she was given a dose of labetalol for blood pressure control. Differential diagnosis includes acute coronary syndrome, CHF, COPD, pulmonary embolism. I am highly suspicious for pulmonary edema given her quick onset of symptoms and significant hypertension. She is placed on BiPAP. Labwork obtained to evaluate for leukocytosis, anemia, and electrolyte derangement. EKG obtained to evaluate for cardiac arrhythmia/ischemia. Chest x-ray obtained to evaluate for acute lung pathology, cardiac size, or mediastinal abnormality. History & Record Review Discussion w/independent historian: EMS personnel, Patient and Family Additional record(s) reviewed:: Prior outpatient record and Prior labs Lab Data Attestation: I reviewed the patient's lab results. Labs: Laboratory Results - last 24 hr 02/18/23 02/18/23 02/18/23 04:37 04:37 04:37 WBC 19.8 H RBC 3.22 L Hgb 10.0 L Hct 32.0 L MCV 99.4 H MCH 31.1 MCHC 31.3 L RDW Std Deviation 76.1 H RDW Coeff of Alden 21.7 H Plt Count 25 L* MPV 11.8 Immature Gran % (Auto) 4.700 H Neut % (Auto) 72.9 H Lymph % (Auto) 14.7 L [place] % (Auto) 7.2 Eos % (Auto) 0.0 Baso % (Auto) 0.5 Absolute Neuts (auto) 14.4 H Absolute Lymphs (auto) 2.91 Nucleated RBC % 0.1 Differential Comment SCANNED Diff Path Review May foll Atypical Lymphocytes 1+ Platelet Estimate MKD DEC Anisocytosis 2+ D-Dimer Quant (PE/DVT) 1.05 H* Sodium 142 Potassium 3.3 L Chloride 108 H Carbon Dioxide 24.0 Anion Gap 10 BUN 22 H Creatinine 0.76 Estim Creat Clear Calc 33.48 Est GFR (MDRD) Af Amer 94 Est GFR (MDRD) Non-Af 78 BUN/Creatinine Ratio 29.1 H Glucose 131 H Calcium 8.2 L Total Bilirubin 0.40 Direct Bilirubin 0.13 AST 58 H ALT 66 H Alkaline Phosphatase 182 H Troponin I High Sens 16 B-Natriuretic Peptide Total Protein 6.5 Albumin 3.4 Globulin 3.1 02/18/23 02/18/23 04:37 06:51 WBC RBC Hgb Hct MCV MCH MCHC RDW Std Deviation RDW Coeff of [place] Plt Count MPV Immature Gran % (Auto) Neut % (Auto) Lymph % (Auto) [place] % (Auto) Eos % (Auto) Baso % (Auto) Absolute Neuts (auto) Absolute Lymphs (auto) Nucleated RBC % Differential Comment Diff Path Review Atypical Lymphocytes Platelet Estimate Anisocytosis D-Dimer Quant (PE/DVT) Sodium Potassium Chloride Carbon Dioxide Anion Gap BUN Creatinine Estim Creat Clear Calc Est GFR (MDRD) Af Amer Est GFR (MDRD) Non-Af BUN/Creatinine Ratio Glucose Calcium Total Bilirubin Direct Bilirubin AST ALT Alkaline Phosphatase Troponin I High Sens 51 B-Natriuretic Peptide 507.9 H Total Protein Albumin Globulin Radiography Chest X-Ray - ED: 1 View, Read by ED Physician and - (Hyperinflation with mild pulmonary edema.) Diagnostic Testing: Clinical Impression(s) from Imaging Studies Chest X-Ray 02/18/23 04:50 IMPRESSION: Mild pulmonary edema. Electronically Signed: Dana Durant MD at 5:06 EDT , Chest CTA 02/18/23 05:26 IMPRESSION: Pulmonary edema and small bilateral pleural effusions. No demonstrated pulmonary embolism or arterial dissection. Stable heterogeneous osteoblastic lesions noted in the sternomanubrium, lower part of the sternum body and in the vertebral body of L2 are consistent with malignant neoplasm patient has known history of lymphoma. Electronically Signed: Dana Durant MD at 6:33 EDT , EKG Initial EKG: Attestation: I personally reviewed and interpreted this EKG as follows: Interpretation: Sinus Tachycardia (Sinus tachycardia at 112 with LVH. No acute ST elevation.) Treatment and Re-Evaluation :: Following administration of labetalol patient's blood pressure improved to the 160s systolic. On BiPAP her breathing improved. Heart rate returned to the 70s and respiratory rate normalized. CBC reveals a white count of 19.8 with 72% neutrophils. Patient did recently receive Neulasta or similar injection after her last chemotherapy treatment. Her hemoglobin is 10.0. Her platelet count as low at 25,000. Chemistry studies reveal slightly low potassium at 3.3. Renal function is normal. Glucose is 131. LFTs reveal an AST of 58 and ALT of 66. Alk phos is 182. Troponin is normal at 16. D-dimer is elevated at 1.05. BNP is 508. Chest x-ray per my interpretation reveals hyperinflation with mild pulmonary edema. IV Lasix is given. Patient sent for CTA of the chest. CTA of the chest reveals pulmonary edema and small bilateral pleural effusions. I was able to review prior records and patient did have an echocardiogram performed in July 2022. At that time she had 65% EF with stage I diastolic dysfunction. I will see with hospitalist regarding admission. Discharge Plan Dx/Rx/DC Orders Clinical Impression: Pulmonary edema, Respiratory failure, Thrombocytopenia, Hypertension Disposition Disposition: Acute Care Hospital [facility]
--- NOTE | 2023-02-18 04:50 | RAD_ITS ---
INDICATION: sob EXAMINATION/TECHNIQUE: X-RAY - XR Chest 1 View COMPARISON: 01/14/2023 FINDINGS: LINES/DEVICES: Mediport on the right. LUNGS: Increased interstitial markings in the perihilar regions and lung bases suggesting mild pulmonary edema. No pneumothorax. MEDIASTINUM AND CARDIOVASCULAR STRUCTURES: Cardiac silhouette not enlarged. Central airways and mediastinal contour are unremarkable. BONES AND SOFT TISSUES: Unremarkable. RAD/Chest 1 View (Portable) IMPRESSION: Mild pulmonary edema. Electronically Signed: Dana Durant MD at 5:06 EDT ,
[2023-02-18 04:53] LABS: Absolute Lymphocyte Count 2.91 X10^3/uL (0.83-4.51); Absolute Neutrophil Count 14.4 X10^3/uL (2.0-7.7); Basophil% 0.5 % (0-1); Lymphocyte # 2.91 X10^3/ul (0.83-4.51); Lymphocyte % 14.7 % (19-41); Mean Corp Hgb Conc 31.3 g/dL (32-36); Mean Corpuscular Hgb 31.1 pg (27.0-32.0); Mean Corpuscular Volume 99.4 fL (81-99); Mean Platelet Vol. 11.8 fl (6.2-12.0); Monocyte# 1.43 X10^3/uL; Monocyte% 7.2 % (0-10); NRBC Flagged by Analyzer 0.1 % (0-5); Neutrophil # 14.43 X10^3/uL (2.7-7.7); Neutrophil % 72.9 % (47-70); POSITIVE COUNT YES; POSITIVE MORPHOLOGY YES; RBC Distribution Width CV 21.7 % (11.6-14.6); RBC Distribution Width SD 76.1 fl (35.1-43.9); Red Blood Count 3.22 M/mm3 (4.2-5.4); White Blood Count 19.8 K/mm3 (4.4-11.0)
[2023-02-18 05:01] LABS: Differential Indicated SCAN CRITERIA MET; Platelet Count 25 K/mm3 (150-450)
[2023-02-18 05:13] LABS: AST(SGOT) 58 U/L (15-37); Alanine Aminotransfer ALT/SGPT 66 U/L (13-56); Albumin, Serum 3.4 g/dL (3.2-5.0); Alkaline Phosphatase 182 U/L (45-117); Anion Gap 10 (5-15); BUN 22 mg/dL (7-18); BUN/Creat Ratio 29.1 RATIO (10-20); Bilirubin, Direct 0.13 mg/dL (0.00-0.30); Calcium,Total 8.2 mg/dL (8.5-10.1); Chloride 108 mmol/L (98-107); Creatinine, Serum 0.76 mg/dL (0.55-1.02); EST Glomerular Filtration Rate 78 mL/min (>60); Est Glom Filt Rate - Afr Amer 94 mL/min (>60); Estimated Creatinine Clearance 33.48 ml/min; Globulin 3.1 g/dL (2.2-4.2); Glucose 131 mg/dL (74-106); Potassium 3.3 mmol/L (3.5-5.1); Protein, Total 6.5 g/dL (6.4-8.2); Sodium Level 142 mmol/L (136-145); Troponin-I HS (w/2H Reflex) 16 pg/mL (3.0-54.0)
[2023-02-18] MEDS: Furosemide 40 MG/4 ML Vial IV ×3 (05:15→22:36)
[2023-02-18 05:21] LABS: D-Dimer Quantitative (DVT/PE) 1.05 FEU/ug/m (0.27-0.49)
--- NOTE | 2023-02-18 05:26 | CT_ITS ---
STUDY: CTA CHEST REASON FOR EXAM: Female, 82 years old. sob, elevated d-dimer RADIATION DOSAGE (If Supplied By Facility): CTDIvol = ( 4.75 ) mGy, DLP = ( 120.80 ) mGycm TECHNIQUE: The examination was performed with the intravenous administration of IV 75mL Isovue-370. Post-processing of the angiographic images was performed, with multiplanar reformation and 3D reconstruction. Individualized dose optimization techniques were used for this CT. COMPARISON: 02/01/2023 FINDINGS: Normal enhancement of the main pulmonary artery and right and left pulmonary arteries. Normal enhancement of the bilateral peripheral pulmonary arteries. There is no demonstrated pulmonary embolism. Normal thoracic aorta and visualized great vessels. There is no demonstrated aortic dissection. Normal heart and pericardium. Normal mediastinum. Normal hilar regions. Normal visualized trachea and bronchi. There is interstitial thickening in both lungs suggesting pulmonary edema. There are small bilateral pleural effusions . Heterogeneous osteoblastic lesions noted in the sternomanubrium, lower part of the sternum body and in the vertebral body of L2 are consistent with malignant neoplasm patient has known history of lymphoma. Normal osseous structures. Normal visualized upper abdomen. CT/CTA Chest W/WO Contrast IMPRESSION: Pulmonary edema and small bilateral pleural effusions. No demonstrated pulmonary embolism or arterial dissection. Stable heterogeneous osteoblastic lesions noted in the sternomanubrium, lower part of the sternum body and in the vertebral body of L2 are consistent with malignant neoplasm patient has known history of lymphoma. Electronically Signed: Dana Durant MD at 6:33 EDT ,
[2023-02-18 05:44] LABS: BNP,B-Type NATRIURETIC PEPTIDE 507.9 pg/mL (0-100)
--- NOTE | 2023-02-18 05:49 | ED.RN ---
Dr. Orr placed hold on nitro patch to prevent significant drop in BP.
[2023-02-18 06:46] LABS: Reflex Troponin-HS? (from REC) Y
[2023-02-18 07:07] LABS: Atypical Lymphocyte 1+ %; Differential Comment SCANNED; Platelet Estimate MKD DEC (ADEQ)
[2023-02-18 07:08] LABS: Anisocytosis 2+
[2023-02-18 07:23] LABS: Troponin-I HS 51 pg/mL (3.0-54.0)
--- NOTE | 2023-02-18 07:58 | PCM.HP.STD ---
HPI - General General Date of Admission: 02/18/23 Date of Service: 02/18/23 Chief Complaint: Shortness of breath HPI Narrative AMILCAR DALY, is a 82 F who presents to the emergency room for evaluation of shortness of breath which woke the patient up from sleep early this morning. She had chest pressure also nonradiating. Patient denied any chills, fever or productive cough. Patient is currently receiving chemotherapy for B-cell lymphoma, I talked briefly with oncology and they verify that she received Neulasta after her chemo. Examination of the patient in the ER revealed her to be tachypneic, using accessory muscles, she was alert and appropriate. Patient's blood pressure was elevated at 213/128, respiratory rate was 35, pulse ox on room air initially was 87%, patient was placed on 3 L via nasal cannula, this had to be increased to BiPAP at 30% oxygen to maintain her pulse ox above 90%. Patient was given IV medication for her hypertension, chest x-ray was obtained which showed evidence of mild pulmonary edema. Patient's white blood cell count was elevated, her platelet count was low at 25,000, hemoglobin was low at 10, creatinine was normal. Patient's potassium was low at 3.3, her troponin was normal, she had elevated liver enzymes with an AST of 58, ALT was 66, alkaline phosphatase was 182, and her beta natruretic peptide was 507. Patient underwent a CT of the chest which showed pulmonary edema Patient was given IV Lasix also in the emergency room in addition to labetalol. Patient will be admitted to PCU for hypertensive emergency, acute CHF-type unknown, and acute hypoxic respiratory failure. [facility] Medical History Abdominal mass Anemia Back pain [facility] Cancer Cardiology follow-up encounter Chemotherapy follow-up examination Constipation CT guided biopsy Diffuse large B-cell lymphoma of intra-abdominal lymph nodes Edema Educational circumstance Encounter for education Follicular lymphoma GERD (gastroesophageal reflux disease) Gout History of echocardiogram History of non-Hodgkin's lymphoma Immunotherapy encounter Leg cramps Low iron Lymphadenopathy, abdominal Non Hodgkin's lymphoma Non-ischemic cardiomyopathy Non-smoker Osteoporosis Pain of sternum Pathologic fracture of lumbar vertebra Prerenal azotemia Restless legs Right sided abdominal pain Right-sided back pain Syncope (08/16/22) Wears glasses Wears partial dentures Home Medications naproxen sodium 220 mg capsule (Aleve) 220 mg PO BID PRN Pain 05/21/21 [History Last Taken 1 Week Ago ~08/09/22] carvedilol 12.5 mg tablet 12.5 mg PO BID #180 tabs 08/10/22 [Rx Last Taken 11/19/22] calcium carbonate 500 mg calcium (1,250 mg) tablet 1,000 mg PO DAILY SUPPLEMENT 08/12/22 [History Last Taken 08/16/22] cholecalciferol (vitamin D3) 50 mcg (2,000 unit) capsule 1 ea PO DAILY 08/12/22 [History Last Taken 08/15/22] lisinopril 20 mg tablet 20 mg PO DAILY 11/15/22 [History Last Taken 11/19/22] ondansetron 8 mg disintegrating tablet 8 mg PO Q8H PRN nausea and vomiting #30 tabs 12/13/22 [Rx Last Taken Unknown] oxycodone 5 mg capsule 5 mg PO Q6H PRN pain 5 days #20 caps 01/12/23 [Rx Last Taken Unknown] acetaminophen 500 mg capsule 500 mg PO Q6H PRN Pain 01/18/23 [History Last Taken Unknown] gabapentin 100 mg capsule 200 mg PO TID 01/18/23 [History Last Taken Unknown] ibuprofen 400 mg tablet 400 mg PO Q8H 01/18/23 [History Last Taken Unknown] valacyclovir 500 mg tablet 500 mg PO BID 30 days #60 tabs 01/25/23 [Rx Last Taken Unknown] Allergy/AdvReac Type Severity Reaction Status Date / Time No Known Allergies Allergy Verified 02/18/23 04:35 Family History Mother Brain cancer Breast cancer Father Bone cancer Lung cancer Brother Esophageal cancer Bone cancer Surgical History History of appendectomy History of lumpectomy s/p vascular port insertion (06/2018) Status post colectomy Social History Smoking Status: Never smoker alcohol intake: never chirag/mandaeism: Religion seatbelt use: always do you feel safe at home: Yes ROS Constitutional Constitutional: Reports weakness; Denies anorexia, change in weight, chills, fever(s) or night sweats Eyes Eyes: Denies blurry vision, change in vision, discharge from eye(s) or eye pain ENT HEENT: Denies dysphagia Cardiovascular Cardiovascular: Reports dyspnea on exertion; Denies chest pain, claudication, edema or palpitations Respiratory/Chest Respiratory/Chest: Reports dyspnea, shortness of breath at rest and shortness of breath with exertion; Denies cough or hemoptysis Gastrointestinal Gastrointestinal: Denies abdominal pain, constipation, diarrhea, hematemesis, hematochezia, melena, nausea or vomiting Genitourinary Genitourinary: Denies dysuria, hematuria, urinary frequency, urinary hesitancy, urinary incontinence or urinary urgency Musculoskeletal Musculoskeletal: Denies back pain, joint pain, joint stiffness, joint swelling, myalgias or neck pain Neurologic Neurologic: Denies abnormal gait, abnormal speech, confusion, dizziness, focal weakness, headache(s), loss of vision, numbness, other visual disturbances, paresthesias, syncope or tingling Psychiatric Psychiatric: Denies anxiety, cognitive impairment, depression, irritability, mood swings or suicidal ideation Endocrine Endocrinology: Denies change in body appearance, cold intolerance, excessive sweating, heat intolerance, polydipsia or polyuria Hematologic/Lymphatic Hematologic/Lymphatic: Denies none, anemia, easy bleeding, easy bruising or lymphadenopathy Allergic/Immunologic Allergic/Immunologic: Denies rhinitis, urticaria, eczemia or asthma Vital Signs Vital Signs Vital Signs: 02/18/23 04:24 02/18/23 04:29 02/18/23 04:31 Temperature 97.7 F L 97.7 F L Temperature Source Temporal Temporal Pulse Rate 118 H 114 H Respiratory Rate 35 H 38 H Respiratory Effort Short of Breath Accessory Muscle Use Respiratory Depth Deep Respiratory Pattern Tachypnea Blood Pressure 213/128 H 210/124 H Blood Pressure Mean 156 152 Pulse Ox 87 96 Oxygen Delivery Method Room Air Room Air Nasal Cannula Oxygen Flow Rate (L/min) 3 Fraction of Inspired Oxygen (FIO2) 02/18/23 04:45 02/18/23 05:28 02/18/23 06:15 Temperature 97.6 F L Temperature Source Temporal Pulse Rate 80 88 85 Respiratory Rate 27 H 24 H 23 H Respiratory Effort Respiratory Depth Respiratory Pattern Tachypnea Tachypnea Blood Pressure 165/105 H Blood Pressure Mean 125 Pulse Ox 98 97 98 Oxygen Delivery Method Bi-pap Oxygen Flow Rate (L/min) Fraction of Inspired Oxygen (FIO2) 30 30 30 02/18/23 06:00 02/18/23 07:44 Temperature 98 F Temperature Source Temporal Pulse Rate 81 75 Respiratory Rate 15 16 Respiratory Effort Respiratory Depth Respiratory Pattern Blood Pressure 176/96 H 150/79 H Blood Pressure Mean 122 102 Pulse Ox 99 99 Oxygen Delivery Method Bi-pap Oxygen Flow Rate (L/min) Fraction of Inspired Oxygen (FIO2) 30 Weight Weight: 48.9 kg Body Mass Index (BMI) 22.5 Physical Exam Const alert, oriented x3 and no apparent distress Constitutional Narrative: Patient appears in respiratory distress with rapid shallow respirations, use of accessory muscles are noted, she is able to carry on short conversations, she is on BiPAP General Appearance: cooperative, well kempt and well developed Orientation / Consciousness: awake, oriented to person, oriented to place and oriented to time HEENT normocephalic, head/scalp atraumatic, hearing grossly normal bilaterally and moist oral mucous membranes Eyes PERRL, EOMs intact bilaterally and conjunctivae normal Neck supple, no JVD, thyroid normal and no carotid bruits General: trachea midline Resp normal respiratory effort and clear to auscultation bilaterally Resp Narrative: Rapid respirations are noted, retractions are noted, use of accessory muscles is noted Auscultation: rales bilateral and diffuse; Negative for rhonchi or wheezes Cardio regular rate, regular rhythm, S1 normal heart sound, S2 normal heart sound, no murmurs, no rub and no gallops GI normal to inspection, nondistended, normoactive bowel sounds, soft to palpation, non-tender and non-distended Extremity no clubbing, cyanosis or edema Skin no rashes or lesions noted General Skin Exam: no breakdown Neuro oriented x3, CN's II-XII intact bilaterally, moves all extremities, no focal motor deficits and no sensory deficits noted Sensorium / Orientation: awake, alert, oriented to person, oriented to place and oriented to time Speech: speech normal Psych affect normal Results Lab / Micro Data Result Diagrams: 02/18/23 04:37 02/18/23 04:37 Labs: Laboratory Results - last 24 hr 02/18/23 04:37: WBC 19.8 H, RBC 3.22 L, Hgb 10.0 L, Hct 32.0 L, MCV 99.4 H, MCH 31.1, MCHC 31.3 L, RDW Std Deviation 76.1 H, RDW Coeff of Alden 21.7 H, Plt Count 25 L*, MPV 11.8, Immature Gran % (Auto) 4.700 H, Neut % (Auto) 72.9 H, Lymph % (Auto) 14.7 L, [place] % (Auto) 7.2, Eos % (Auto) 0.0, Baso % (Auto) 0.5, Absolute Neuts (auto) 14.4 H, Absolute Lymphs (auto) 2.91, Nucleated RBC % 0.1, Differential Comment SCANNED, Diff Path Review January foll, Atypical Lymphocytes 1+, Platelet Estimate MKD DEC, Anisocytosis 2+ 02/18/23 04:37: D-Dimer Quant (PE/DVT) 1.05 H* 02/18/23 04:37: Sodium 142, Potassium 3.3 L, Chloride 108 H, Carbon Dioxide 24.0, Anion Gap 10, BUN 22 H, Creatinine 0.76, Estim Creat Clear Calc 33.48, Est GFR (MDRD) Af Amer 94, Est GFR (MDRD) Non-Af 78, BUN/Creatinine Ratio 29.1 H, Glucose 131 H, Calcium 8.2 L, Total Bilirubin 0.40, Direct Bilirubin 0.13, AST 58 H, ALT 66 H, Alkaline Phosphatase 182 H, Troponin I High Sens 16, Total Protein 6.5, Albumin 3.4, Globulin 3.1 02/18/23 04:37: B-Natriuretic Peptide 507.9 H 02/18/23 06:51: Troponin I High Sens 51 Radiology Impression Chest X-Ray 02/18/23 04:50 IMPRESSION: Mild pulmonary edema. Electronically Signed: Dana Durant MD at 5:06 EDT , Chest CTA 02/18/23 05:26 IMPRESSION: Pulmonary edema and small bilateral pleural effusions. No demonstrated pulmonary embolism or arterial dissection. Stable heterogeneous osteoblastic lesions noted in the sternomanubrium, lower part of the sternum body and in the vertebral body of L2 are consistent with malignant neoplasm patient has known history of lymphoma. Electronically Signed: Dana Durant MD at 6:33 EDT , Assessment & Plan Assessment/Plan (1) Pulmonary edema: PLAN: Plan 1. Acute pulmonary edema secondary to hypertensive emergency and acute congestive heart failure-type unknown-patient will be admitted to PCU, she will be given IV Lasix, blood pressure will be monitored and controlled with medications, limited echocardiogram was ordered, troponins will be cycled #2 acute hypoxic respiratory failure secondary to acute congestive heart failure with pulmonary edema-patient's pulse ox will be monitored, she is currently on BiPAP #3 acute CHF-type unknown-patient will have an echocardiogram performed today to assess EF, continue IV Lasix #4 hypokalemia-patient will be given additional potassium, labs will be monitored #5 leukocytosis secondary to Neupogen administration after chemo for large B-cell lymphoma-lab will be monitored #6 thrombocytopenia secondary to chemotherapy for large B-cell lymphoma, labs will be monitored #7 hypertensive emergency-patient will remain on her home blood pressure medications, she may need additional medications for control of her blood pressure #8 elevated liver enzymes-possibly secondary to hepatic congestion, CMP will be monitored Total clinical time spent by myself addressing patient's medical issues, reviewing all of her data, and collaborating with patient's care team: 75-minute Charges/Coding Visit Charges Inpatient E&M: 45465 Init Hosp L3
--- NOTE | 2023-02-18 08:41 | ECHOL_ITS ---
Reason For Study: CHF Procedure This was a limited 2D transthoracic echocardiogram. Myocardial strain analysis was performed in this exam to aid in the assessment of cardiac function. Exam performed portable in patient room. Left Ventricle Normal LV size. The estimated ejection fraction is 40 %. Stage 1 diastolic dysfunction. No regional wall motion abnormalities noted. Right Ventricle Normal RV size. Normal systolic function. Atria Normal left atrium. Normal right atrium. Mitral Valve Normal mitral valve. Mild (1+) eccentric mitral valve insufficiency. Tricuspid Valve Normal tricuspid valve. Mild tricuspid valve insufficiency. Pulmonary artery systolic pressure is 25 mmHg. Aortic Valve Trisinus/trileaflet aortic valve. Pulmonic Valve Normal pulmonic valve. Great Vessels Normal aortic root. The pulmonary artery is normal size. Normal inferior vena cava. Pericardium/Pleural No pericardial effusion. MMode/2D Measurements & Calculations LVIDd: 4.7 cm IVSd: 1.2 cm LVOT diam: 2.0 cm LVIDs: 3.6 cm LVPWd: 1.1 cm LVOT area: 3.0 cm2 RVDd: 3.1 cm FS: 22.0 % LAV(MOD-sp4): 33.2 ml LVAd ap4: 26.4 cm2 SV(MOD-sp4): 33.2 ml LVLd ap4: 7.1 cm EDV(MOD-sp4): 82.3 ml EDV(sp4-el): 83.8 ml LVAs ap4: 18.9 cm2 LVLs ap4: 6.2 cm ESV(MOD-sp4): 49.1 ml ESV(sp4-el): 49.4 ml EF(MOD-sp4): 40.3 % EF(sp4-el): 41.1 % SV(sp4-el): 34.5 ml LA A4 area: 13.1 cm2 RA A4 area: 11.9 cm2 Time Measurements MV dec time: 0.25 sec Doppler Measurements & Calculations MV E max glen: 47.6 cm/sec Lat Peak E' Glen: 7.7 cm/sec Med Peak E' Glen: 6.6 cm/sec MV A max glen: 90.6 cm/sec E/E' lat: 6.2 E/E' med: 7.2 MV E/A: 0.53 MV V2 max: 94.1 cm/sec Ao V2 max: 167.8 cm/sec MV max P.5 mmHg MV dec slope: 190.5 cm/sec2 Ao max P.3 mmHg MV V2 mean: 46.9 cm/sec Ao V2 mean: 117.6 cm/sec MV mean P.1 mmHg Ao mean P.4 mmHg MV V2 VTI: 19.7 cm Ao V2 VTI: 33.8 cm AV (velocity ratio): 0.73 MVA(VTI): 3.7 cm2 ANNE(I,D): 2.2 cm2 ANNE(V,D): 2.2 cm2 LV V1 max: 121.7 cm/sec MR max glen: 559.1 cm/sec SV(LVOT): 73.9 ml LV V1 max P.9 mmHg MR max P.0 mmHg LV V1 mean P.6 mmHg LV V1 mean: 90.8 cm/sec LV V1 VTI: 24.7 cm TR max glen: 230.6 cm/sec TR max P.3 mmHg ECHO/Echo, Limited Study Interpretation Summary Normal LV size. The estimated ejection fraction is 40 %. Stage 1 diastolic dysfunction. Pulmonary artery systolic pressure is 25 mmHg. The global longitudinal strain is moderately abnormal. The global longitudinal strain = -13.2% (abnormal). Compared to previous study, the left ventricular systolic function has worsened.. Ordering Physician: Prosper Hernandez Referring Physician: Pee Calle Performed By: Dwayne Miranda RCS
[2023-02-18] MEDS: Carvedilol 12.5 MG Tablet PO (09:24)
[2023-02-18] MEDS: Potassium Chloride Oral Tablet 20 MEQ 40 MEQ PO (09:24)
[2023-02-18] MEDS: Heparin Injection (Vial) 5,000 UNIT/ML VIAL 5000 UNIT SC ×2 (09:25→22:36)
[2023-02-18] MEDS: Lisinopril 20 MG Tablet PO (09:26)
[2023-02-18 11:28] LABS: Troponin-I HS 62 pg/mL (3.0-54.0)
[2023-02-18] MEDS: Acyclovir 200 MG Capsule 400 MG PO ×2 (13:55→22:37)
[2023-02-18] MEDS: 0.9% Saline Lock 10 ML Syringe IV ×2 (13:55→22:51)
[2023-02-18] MEDS: Gabapentin 100 MG Capsule 200 MG PO ×2 (13:55→22:38)
[2023-02-18] MEDS: Ibuprofen 400 MG Tablet PO ×2 (13:56→22:36)
--- NOTE | 2023-02-18 14:54 | CASEMGMT ---
Discharge Planning HH list created and given to RN CM. Patricia Boss
[2023-02-18] MEDS: Potassium Chloride Oral Tablet 20 MEQ PO (16:52)
--- NOTE | 2023-02-18 17:17 | NURSING ---
Addendum entered by Tracey Samuel 02/18/23 17:26: pt reports chest pressure unchanged at this time. EKG obtained and MD updated. Original Note: pt called out c/o chest pressure around sternum. pt states she noticed discomfort intermittently starting around 1645 but it became more constant around 1710. denies dizziness, diaphoresis, pain radiating, nausea. rates pressure as 4/10. vital signs stable but pt placed on 2L NC as precaution. pt states pressure like there is a burp that won't move
[2023-02-18] MEDS: Nitroglycerin (INPATIENT USE) 0.4 MG TAB.SUBL SL (19:24)
[2023-02-18] MEDS: Carvedilol 25 MG Tablet PO (22:40)
[2023-02-19 04:26] VITALS: BP 119/63; PULSE 71; RESP 18; TEMP 36.7; O2SAT 93
[2023-02-19 05:35] VITALS: BP 126/66; PULSE 81; RESP 18; O2SAT 94
[2023-02-19] MEDS: Acyclovir 200 MG Capsule 400 MG PO (05:40)
[2023-02-19] MEDS: Ibuprofen 400 MG Tablet PO (05:40)
[2023-02-19] MEDS: Gabapentin 100 MG Capsule 200 MG PO (05:41)
[2023-02-19] MEDS: Furosemide 40 MG/4 ML Vial IV (05:41)
[2023-02-19] MEDS: 0.9% Saline Lock 10 ML Syringe IV (05:41)
--- NOTE | 2023-02-19 06:00 | RAD_ITS ---
STUDY: X-RAY CHEST REASON FOR EXAM: Female, 82 years old. CHF TECHNIQUE: Frontal and lateral views of the chest. COMPARISON: February 18, 2023 FINDINGS: Port on the right extends to the superior vena cava. There are monitoring devices. There is hyperinflation of the lungs consistent with chronic obstructive lung disease (COPD). There are small pleural effusions. Normal size heart. Normal mediastinum and emir. Normal visualized pulmonary arteries. There is atherosclerotic calcification of the aortic arch with tortuosity. There is demineralization of the osseous structures. Normal visualized ribs, clavicles, and shoulders. There is no demonstrated abnormality of the visualized soft tissue structures of the upper abdomen. RAD/Chest PA and Lateral IMPRESSION: COPD with small pleural effusions. Electronically Signed: Jovon Barboza MD at 8:13 EDT ,
[2023-02-19 06:36] LABS: Absolute Lymphocyte Count 1.55 X10^3/uL (0.83-4.51); Absolute Neutrophil Count 6.5 X10^3/uL (2.0-7.7); Basophil# 0.03 X10^3/uL; Basophil% 0.3 % (0-1); Hematocrit 30.2 % (37-47); Hemoglobin 9.7 g/dL (12.0-15.0); Lymphocyte # 1.55 X10^3/ul (0.83-4.51); Lymphocyte % 17.1 % (19-41); Mean Corp Hgb Conc 32.1 g/dL (32-36); Mean Corpuscular Hgb 31.5 pg (27.0-32.0); Mean Corpuscular Volume 98.1 fL (81-99); Mean Platelet Vol. 11.1 fl (6.2-12.0); Monocyte# 0.82 X10^3/uL; NRBC Flagged by Analyzer 0 % (0-5); Neutrophil # 6.49 X10^3/uL (2.7-7.7); Neutrophil % 71.4 % (47-70); POSITIVE COUNT YES; POSITIVE MORPHOLOGY YES; Platelet Count 34 K/mm3 (150-450); RBC Distribution Width CV 22.2 % (11.6-14.6); RBC Distribution Width SD 76.8 fl (35.1-43.9); Red Blood Count 3.08 M/mm3 (4.2-5.4); White Blood Count 9.1 K/mm3 (4.4-11.0)
[2023-02-19 07:12] LABS: Anion Gap 10 (5-15); BUN 20 mg/dL (7-18); BUN/Creat Ratio 20.9 RATIO (10-20); Calcium,Total 8.1 mg/dL (8.5-10.1); Chloride 103 mmol/L (98-107); Creatinine, Serum 0.96 mg/dL (0.55-1.02); EST Glomerular Filtration Rate 59 mL/min (>60); Est Glom Filt Rate - Afr Amer 72 mL/min (>60); Estimated Creatinine Clearance 32.31 ml/min; Glucose 117 mg/dL (74-106); Potassium 3.4 mmol/L (3.5-5.1); Sodium Level 139 mmol/L (136-145)
[2023-02-19 07:13] LABS: Differential Indicated SCAN CRITERIA MET
[2023-02-19 07:14] LABS: Anisocytosis 1+; Platelet Estimate MKD DEC (ADEQ)
[2023-02-19 07:39] LABS: Magnesium 1.7 mg/dL (1.6-2.6)
[2023-02-19 07:44] VITALS: BP 119/63; PULSE 73; RESP 18; TEMP 36.7; O2SAT 96
--- NOTE | 2023-02-19 09:45 | CASEMGMT ---
CHITRA LAWRENCE Assessment: Face to Face with pt for initial transition planning/care coordination assessment. CHITRA LAWRENCE introduced self and role at [facility], pt voices understanding and consents to assessment. Pt is A/O x4 and answers all questions appropriately at this time. Pt ambulating in room in no distress. Care providers, pharmacy, and demographics verified/updated. Admitting Dx: Pulmonary edema, resp failure PCP:Luc Specialists:bruce Caceres Preferred Pharmacy: [facility] Insurance: [employer] [facility] Prescription Benefit: yes LNOK: Duane Castro, ; Leonel Castro, son Living Arrangements: Pt lives with in a single story home with 1 step to enter. Pt reports she is I in ADL's and denies concerns at home. Transportation: Pt states she has not driven most recently, her transports her to medical appts. DME/HHC/SNF: Pt has grab bars in the bathroom, no other DME. Pt denies hx of HHC or SNF stays. Pt states no concerns with going home at time of dc. She denies need for any therapy or homegoing services. Pt states no further concerns/needs. CM to follow. Advised pt to ask CM if any further question/concerns/needs arise, voices understanding. Pt Goal: Home Plan: Home
--- NOTE | 2023-02-19 10:39 | DCINST_ITS ---
Discharge Instructions Diet Discharge Diet: No restrictions Activity Discharge Activity: Return to Normal Activity Weight Bearing Status: Full weight bearing Follow Up Care Test Results: Test results from this visit will be discussed in further detail at your follow- up appointment, if applicable. Discharge Plan Admission Admit Date/Time: 02/18/23 07:47 Primary Reason for Your Visit: congestive heart failure Attending Provider: Prosper Hernandez Primary Care Provider: Pee Calle Instructions Additional Instructions / Restrictions: Recommend you take Tylenol for pain instead of ibuprofen, take ibuprofen only as a last resort for pain Discharge Orders/Prescriptions Prescriptions: New furosemide [Lasix] 40 mg tablet 40 mg PO BID Qty: 60 0RF carvedilol 25 mg Tablet 25 mg PO BID Qty: 60 0RF potassium chloride [Klor-Con M20] 20 mEq Tablet,Er Particles/Crystals 20 meq PO BIDCM Qty: 60 0RF Continued calcium carbonate 500 mg calcium (1,250 mg) tablet 1,000 mg PO DAILY cholecalciferol (vitamin D3) 50 mcg (2,000 unit) capsule 1 ea PO DAILY Label Comments: TAKE 1 CAPSULE BY MOUTH EVERY DAY ondansetron 8 mg tablet,disintegrating 8 mg PO Q8H PRN (Reason: nausea and vomiting) Qty: 30 2RF gabapentin 100 mg capsule 200 mg PO TID acetaminophen 500 mg capsule 500 mg PO Q6H PRN (Reason: Pain) valacyclovir 500 mg tablet 500 mg PO BID 30 Days Qty: 60 5RF lisinopril 20 mg tablet 20 mg PO DAILY Changed ibuprofen 400 mg tablet 400 mg PO Q8H PRN (Reason: Pain) Qty: 1 0RF Discontinued naproxen sodium [Aleve] 220 mg capsule 220 mg PO BID PRN (Reason: Pain) carvedilol 12.5 mg tablet 12.5 mg PO BID Qty: 180 3RF Rx Instructions: must administer with a meal/food Referrals / Follow Up: Pee Calle DO [Primary Care Provider] - In 1 Week Disposition Disposition (needs filled in before D/C Order can be placed): Home, Self Care
[2023-02-19 10:57] VITALS: BP 119/63; PULSE 73; RESP 18; TEMP 36.7; O2SAT 96
[2023-02-19] MEDS: Carvedilol 12.5 MG Tablet PO (10:58)
[2023-02-19] MEDS: Potassium Chloride Oral Tablet 20 MEQ PO (10:58)
--- NOTE | 2023-02-19 10:58 | PCM.DC.SUM ---
Providers Date of Admission: 02/18/23 Date of Discharge: 02/19/23 Primary Care Physician: Dr. Pee Calle, Reason For Visit: PULMONARY EDEMA, RESP FAILURE Diagnosis Discharge Diagnosis (1) Pulmonary edema: Status: Acute Code(s): J81.1 - Chronic pulmonary edema Plan 1. Acute pulmonary edema secondary to hypertensive emergency and acute congestive heart failure-type unknown-patient will be admitted to PCU, she will be given IV Lasix, blood pressure will be monitored and controlled with medications, limited echocardiogram was ordered, troponins will be cycled #2 acute hypoxic respiratory failure secondary to acute congestive heart failure with pulmonary edema-patient's pulse ox will be monitored, she is currently on BiPAP #3 acute CHF-type unknown-patient will have an echocardiogram performed today to assess EF, continue IV Lasix #4 hypokalemia-patient will be given additional potassium, labs will be monitored #5 leukocytosis secondary to Neupogen administration after chemo for large B-cell lymphoma-lab will be monitored #6 thrombocytopenia secondary to chemotherapy for large B-cell lymphoma, labs will be monitored #7 hypertensive emergency-patient will remain on her home blood pressure medications, she may need additional medications for control of her blood pressure #8 elevated liver enzymes-possibly secondary to hepatic congestion, CMP will be monitored Total clinical time spent by myself addressing patient's medical issues, reviewing all of her data, and collaborating with patient's care team: 75-minute Medications at Discharge Home Medications calcium carbonate 500 mg calcium (1,250 mg) tablet 1,000 mg PO DAILY SUPPLEMENT 08/12/22 cholecalciferol (vitamin D3) 50 mcg (2,000 unit) capsule 1 ea PO DAILY pain 08/12/22 lisinopril 20 mg tablet 20 mg PO DAILY 11/15/22 ondansetron 8 mg disintegrating tablet 8 mg PO Q8H PRN nausea and vomiting #30 tabs 12/13/22 acetaminophen 500 mg capsule 500 mg PO Q6H PRN Pain 01/18/23 gabapentin 100 mg capsule 200 mg PO TID 01/18/23 valacyclovir 500 mg tablet 500 mg PO BID 30 days #60 tabs 01/25/23 carvedilol 25 mg tablet 25 mg PO BID #60 tabs 02/19/23 furosemide 40 mg tablet (Lasix) 40 mg PO BID #60 tabs 02/19/23 ibuprofen 400 mg tablet 400 mg PO Q8H PRN Pain #1 TAB 02/19/23 potassium chloride 20 mEq tablet,extended release(part/cryst) (Klor-Con M) 20 meq PO BIDCM #60 tabs 02/19/23 Hospital Course Operations None Procedures 2-D Echocardiogram Summary of Care Provided Minutes Spent on Discharge: 31 Hospital Course: This 82-year-old white female presented to the emergency room at [facility] for evaluation of shortness of breath which woke the patient up abruptly from sleep earlier that morning. Patient stated that she had also chest pressure which was nonradiating. Examination in the emergency room revealed her to be tachypneic, using accessory muscles, she was alert and appropriate however. Patient's blood pressure was elevated at 213/128, respiratory rate was 35, pulse ox on room air initially was 87%, patient was placed on 3 L via nasal cannula and this had to be increased to BiPAP at 30% oxygen to maintain her pulse ox above 90%. Patient was given IV medication for blood pressure in the emergency room, patient's labs revealed an elevated white blood cell count but the patient had been given Neulasta recently after chemotherapy, troponin was normal, liver enzymes were elevated. Patient underwent a CT of her chest which showed pulmonary edema. Patient was given IV Lasix in the emergency room, she was admitted to PCU and IV diuresis was continued, her oxygen requirement lessened and the oxygen was able to be weaned off during her hospitalization. Patient had echocardiogram which showed a reduced ejection fraction at 40% On 02/19/2023, patient was seen and examined: On examination she appeared in good health and spirits, she does not appear to be in any distress. Vital signs as documented. Skin warm and dry and without overt rashes. Neck without JVD, thyroid appears normal, trachea is midline, neck is supple. Lungs clear, normal air movement was noted. Heart exam notable for regular rhythm, normal sounds and absence of murmurs, rubs or gallops. Abdomen unremarkable and without evidence of organomegaly, masses, or abdominal aortic enlargement, bowel sounds are present in all 4 quadrants, no abdominal tenderness was noted. Extremities nonedematous, no cyanosis was noted, no clubbing was noted. Neuro: Cranial nerves II through XII are grossly intact, no focal motor deficits were noted, sensation to light touch and pinprick is intact, motor exam 5/5 throughout. Psych: Patient is alert and oriented x3, she does not appear anxious or depressed, she does not appear agitated. Patient was felt to be stable for discharge home on 02/19/2023. Weight / BMI Weight Weight: 45.3 kg Body Mass Index (BMI) 20.8 ABG / Lab / Microbiology Data Result Diagrams: 02/19/23 06:11 02/19/23 06:11 Laboratory: Laboratory Results - last 24 hr 02/18/23 10:35: Troponin I High Sens 62 H 02/19/23 06:11: WBC 9.1, RBC 3.08 L, Hgb 9.7 L, Hct 30.2 L, MCV 98.1, MCH 31.5, MCHC 32.1, RDW Std Deviation 76.8 H, RDW Coeff of Alden 22.2 H, Plt Count 34 L*, MPV 11.1, Immature Gran % (Auto) 2.200 H, Neut % (Auto) 71.4 H, Lymph % (Auto) 17.1 L, [place] % (Auto) 9.0, Eos % (Auto) 0.0, Baso % (Auto) 0.3, Absolute Neuts (auto) 6.5, Absolute Lymphs (auto) 1.55, Nucleated RBC % 0, Platelet Estimate MKD DEC, Anisocytosis 1+, Crenated Cell Z 02/19/23 06:11: Sodium 139, Potassium 3.4 L, Chloride 103, Carbon Dioxide 26.0, Anion Gap 10, BUN 20 H, Creatinine 0.96, Estim Creat Clear Calc 32.31, Est GFR (MDRD) Af Amer 72, Est GFR (MDRD) Non-Af 59 L, BUN/Creatinine Ratio 20.9 H, Glucose 117 H, Calcium 8.1 L 02/19/23 06:11: Magnesium 1.7 Radiography Diagnostic Testing: Radiology Impression Echocardiogram 02/18/23 08:41 Interpretation Summary Normal LV size. The estimated ejection fraction is 40 %. Stage 1 diastolic dysfunction. Pulmonary artery systolic pressure is 25 mmHg. The global longitudinal strain is moderately abnormal. The global longitudinal strain = -13.2% (abnormal). Compared to previous study, the left ventricular systolic function has worsened.. Ordering Physician: Prosper Hernandez Referring Physician: Pee Calle Performed By: Dwayne Miranda RCS Chest X-Ray 02/19/23 06:00 IMPRESSION: COPD with small pleural effusions. Electronically Signed: Jovon Barboza MD at 8:13 EDT Reading Location ID and State: [address] [place] [address] , Service support , D/C Instructions Discharge Diet: No restrictions Weight Bearing Status: Full weight bearing Meaningful Use Info Meaningful Use Diagnoses (Choose all that apply): CHF CHF MEKHI/ARB ordered at discharge?: Yes Documented LVEF (%): 40 Discharge Plan Admission Admit Date/Time: 02/18/23 07:47 Primary Reason for Your Visit: congestive heart failure Attending Provider: Prosper Hernandez Primary Care Provider: Pee Calle Instructions Additional Instructions / Restrictions: Recommend you take Tylenol for pain instead of ibuprofen, take ibuprofen only as a last resort for pain Discharge Orders/Prescriptions Prescriptions: New furosemide [Lasix] 40 mg tablet 40 mg PO BID Qty: 60 0RF carvedilol 25 mg Tablet 25 mg PO BID Qty: 60 0RF potassium chloride [Klor-Con M20] 20 mEq Tablet,Er Particles/Crystals 20 meq PO BIDCM Qty: 60 0RF Continued calcium carbonate 500 mg calcium (1,250 mg) tablet 1,000 mg PO DAILY cholecalciferol (vitamin D3) 50 mcg (2,000 unit) capsule 1 ea PO DAILY Label Comments: TAKE 1 CAPSULE BY MOUTH EVERY DAY ondansetron 8 mg tablet,disintegrating 8 mg PO Q8H PRN (Reason: nausea and vomiting) Qty: 30 2RF gabapentin 100 mg capsule 200 mg PO TID acetaminophen 500 mg capsule 500 mg PO Q6H PRN (Reason: Pain) valacyclovir 500 mg tablet 500 mg PO BID 30 Days Qty: 60 5RF lisinopril 20 mg tablet 20 mg PO DAILY Changed ibuprofen 400 mg tablet 400 mg PO Q8H PRN (Reason: Pain) Qty: 1 0RF Discontinued naproxen sodium [Aleve] 220 mg capsule 220 mg PO BID PRN (Reason: Pain) carvedilol 12.5 mg tablet 12.5 mg PO BID Qty: 180 3RF Rx Instructions: must administer with a meal/food Referrals / Follow Up: Pee Calle DO [Primary Care Provider] - In 1 Week Disposition Disposition (needs filled in before D/C Order can be placed): Home, Self Care Charges/Coding Visit Charges Inpatient E&M: 28369 Disch Hosp >30min
[2023-02-19] MEDS: Carvedilol 25 MG Tablet PO (10:59)
[2023-02-19] MEDS: Lisinopril 20 MG Tablet PO (11:00)
[2023-02-22 09:06] LABS: Pathologist Review Reviewed
[2023-02-22 12:03] LABS: Pathologist Review Reviewed
== END 2023-02-19 13:10 | disposition home or self-care (01) | DRG 291 ==
LOC: ED 06:48 → PCU 07:47
PROVIDERS: Hospitalist; Admitting Provider Internal Medicine; Emergency Provider Emergency Medicine; Visit Provider Internal Medicine
DX: I11.0 Hypertensive heart disease with heart failure (principal); J96.01 Acute respiratory failure with hypoxia; J81.0 Acute pulmonary edema; J81.1 Chronic pulmonary edema; C85.10 Unspecified B-cell lymphoma, unspecified site; C85.90 Non-Hodgkin lymphoma, unspecified, unspecified site; I16.1 Hypertensive emergency; D69.6 Thrombocytopenia, unspecified; I42.8 Other cardiomyopathies; K76.1 Chronic passive congestion of liver; I50.9 Heart failure, unspecified; I10 Essential (primary) hypertension; E87.6 Hypokalemia; Z80.1 Family history of malignant neoplasm of trachea, bronchus and lung; Z79.1 Long term (current) use of non-steroidal anti-inflammatories (NSAID); Z80.3 Family history of malignant neoplasm of breast; Z80.0 Family history of malignant neoplasm of digestive organs; Z92.21 Personal history of antineoplastic chemotherapy; Z80.8 Family history of malignant neoplasm of other organs or systems; T45.1X5A Adverse effect of antineoplastic and immunosuppressive drugs, initial encounter
CPT/HCPCS: 36415; 36591; 71045; 71046; 71275; 80048; 80076; 83735; 83880; 84484; 85025; 85379; 87040; 93005; 93308; 94002; 94668; 99252; 99285; Q9967; A4216; G0463; J1940

== ENCOUNTER 2023-03-01 09:33 | Emergency (ER) | payer MEDICARE, SELFPAY ==
[2023-03-01 09:34] VITALS: BP 126/60; PULSE 73; RESP 16; TEMP 36; O2SAT 100
--- NOTE | 2023-03-01 09:48 | EDS_ITS ---
HPI HPI - Fall History of Present Illness Chief Complaint: Fall PFSH [facility] Medical History (Updated 03/01/23 @ 12:[address] Joe Mello, DO) Abdominal mass Acute kidney injury Anemia Back pain Blackout Cancer Cardiology follow-up encounter Chemotherapy follow-up examination Constipation CT guided biopsy Diffuse large B-cell lymphoma of intra-abdominal lymph nodes Edema Educational circumstance Encounter for education Follicular lymphoma GERD (gastroesophageal reflux disease) Gout History of echocardiogram History of non-Hodgkin's lymphoma Immunotherapy encounter Leg cramps Low iron Lymphadenopathy, abdominal Non Hodgkin's lymphoma Non-ischemic cardiomyopathy Non-smoker Osteoporosis Pain of sternum Pathologic fracture of lumbar vertebra Prerenal azotemia Restless legs Right sided abdominal pain Right-sided back pain Syncope (08/16/22) Thrombocytopenia Traumatic injury of head without focal neurologic finding Wears glasses Wears partial dentures Home Medications calcium carbonate 500 mg calcium (1,250 mg) tablet 1,000 mg PO DAILY SUPPLEMENT 08/12/22 [History Last Taken 08/16/22] cholecalciferol (vitamin D3) 50 mcg (2,000 unit) capsule 1 ea PO DAILY pain 08/12/22 [History Last Taken 08/15/22] ondansetron 8 mg disintegrating tablet 8 mg PO Q8H PRN nausea and vomiting #30 tabs 12/13/22 [Rx Last Taken Unknown] acetaminophen 500 mg capsule 500 mg PO Q6H PRN Pain 01/18/23 [History Last Taken Unknown] valacyclovir 500 mg tablet 500 mg PO BID 30 days #60 tabs 01/25/23 [Rx Last Taken Unknown] carvedilol 25 mg tablet 25 mg PO BID #60 tabs 02/19/23 [Rx Last Taken Unknown] furosemide 40 mg tablet (Lasix) 40 mg PO BID #60 tabs 02/19/23 [Rx Last Taken Unknown] potassium chloride 20 mEq tablet,extended release(part/cryst) (Klor-Con M) 20 meq PO BIDCM #60 tabs 02/19/23 [Rx Last Taken Unknown] lisinopril 20 mg tablet 10 mg PO DAILY 02/28/23 [History Last Taken Unknown] gabapentin 100 mg capsule 100 mg PO TID 03/01/23 [History Last Taken Unknown] Allergy/AdvReac Type Severity Reaction Status Date / Time No Known Allergies Allergy Verified 03/01/23 09:34 Family History Mother Brain cancer Breast cancer Father Bone cancer Lung cancer Brother Esophageal cancer Bone cancer Surgical History History of appendectomy History of lumpectomy s/p vascular port insertion (06/2018) Status post colectomy Social History Smoking Status: Never smoker alcohol intake: never chirag/sikhism: Synagogue seatbelt use: always do you feel safe at home: Yes EXAM Physical Exam Const Vital Signs: 03/01/23 09:34 03/01/23 10:18 03/01/23 10:29 Temperature 96.8 F L Temperature Source Temporal Pulse Rate 73 72 Respiratory Rate 16 22 H Respiratory Effort Normal Non-Labored Blood Pressure 126/60 H 123/86 H Blood Pressure Mean 82 98 Pulse Ox 100 97 Oxygen Delivery Method Room Air Room Air 03/01/23 11:54 Temperature Temperature Source Pulse Rate 73 Respiratory Rate 23 H Respiratory Effort Blood Pressure 109/62 Blood Pressure Mean 77 Pulse Ox 97 Oxygen Delivery Method Room Air MDM MDM MDM Narrative Medical decision making narrative: HISTORY OF PRESENT ILLNESS: 82-year-old female here for fall and concern for acute kidney injury on outpatient labs. The patient states she had a syncopal episode last night. She thinks she is more prone to passing out given recent hydration heart failure medicines including Lasix and carvedilol. She denies any chest pain, palpitation, headache, abdominal pain, vomiting, nausea, fever prior to falling. She states she woke up at 3 AM went to the bathroom She knew she woke up on the floor hitting the back of her head. She denies any neck pain. Denies any focal weakness or numbness. REVIEW OF SYSTEMS: Pertinent positives: Fall, syncope Pertinent negatives: Focal weakness or numbness, vomiting, volume loss, headache, abdominal pain, fever PHYSICAL EXAM: Nursing triage notes reviewed, Vital signs reviewed Primary Survey Airway: Intact Breathing: Bilateral breath sounds Circulation: Palpable bilateral femorals, Palpable bilateral radial, Palpable bilateral DP and Palpable bilateral PT Disability / Spine precautions GCS Score: Eye Openin Verbal Response: 5 Motor Response: 6 Secondary Survey Constitutional: Please see MDM Head: Atraumatic, Midface stable, NO jaw malocclusion, No Cephalohematoma, and No Lacerations noted Eye: Pupils equal round and reactive to light, Extraocular muscles intact and No periorbital ecchymosis or stepoff, no evidence of entrapment ENT: Oropharynx clear, no lacerations, no hemotympanum, no raccoon eyes or casper sign Cervical spine / Neck: No cervical spine bony tenderness, crepitance, or stepoff deformity Trachea midline Lungs: Clear to auscultation, No asymmetric rise and No crepitus, no flail chest Cardiac: Regular rate and rhythm and No murmurs Abdomen: Soft, Nontender and No rebound Pelvis: Pelvis stable to compression : No evidence of genital injury Back: No midline bony tenderness to thoracic/lumbar/sacral spines Neuro: At baseline, intact strength and sensation in bilateral upper and lower extremities. 2+ patellar reflexes bilaterally. Extremities: NO gross Deformities Psych: Normal affect Nursing triage notes reviewed, Vital signs reviewed MEDICAL DECISION MAKING: Chief Complaint: Fall External records reviewed: Reviewed CMP from today, brain CT from July 2022 shows no acute intracranial abnormalities, echocardiogram from 02/18/2023 shows normal ejection fraction and grade 1 diastolic dysfunction. Factors affecting care: Lymphoma, on chemo, hypertension, Social determinants of health: Elderly History obtained from others: The patient's family Consults: None ALL IMAGES HAVE BEEN PERSONALLY REVIEWED AND INTERPRETED BY MYSELF. MDM Narrative: The patient was hemodynamically stable, afebrile, nontoxic-appearing. Primary secondary trauma surveys concerning for intracranial abnormalities, cervical spine abnormalities. I considered the following differential diagnosis: Arrhythmia, myocardial anemia, electrolyte abnormality, dehydration, polypharmacy, intracranial abnormality, cervical spine abnormality, CHF IV was placed, patient was placed on monitoring and evaluation advisor. I obtained a broad lab and imaging work-up to further elucidate the etiology the patient complaints. Labs and images did not reveal evidence of acute traumatic injury of the brain or C-spine. No evidence of myocardial ischemia. Initial troponin was negative essentially ruling out ACS. There is no arrhythmia. She did have evidence of decompensated heart failure. No evidence of acute kidney injury or electrolyte abnormalities. No evidence of severe anemia. The patient is in close communication with her panel machine tender. She believes she is taking an excessive amount of blood pressure medicine. These were just changed during her last visit for heart failure within the last month. She has called her primary doctor spoke with Dr. Gomez yesterday he decreased her lisinopril dose. She has not began this regiment. She also schedule an appoint with him for 03/11/2023. I did offer the patient admission given her advanced age, syncope, history of heart failure. She refused stating she like to go home. She was alert and orient x3 and had capacity to make her own medical decisions. She has close follow-up and is confident she can get back into the emergency department or talk to her panel machine tender if needed. Patient was discharged in stable condition. The patient and/or family, caregivers express understanding. The patient and/or family, caregivers agrees with the plan. Total critical care time today provided was at least 0 minutes. This excludes separately billable procedures. Critical care time if documented is secondary to the patient having high probability of clinically significant/life threatening deterioration in the patient's condition which required my urgent intervention. Shared decision making: I will have a discussion with the patient and or visitors regarding risk/benefits of further testing or admission. They will be made aware of of the risk/benefits inherent in this decision they will be given the opportunity to voice understanding. Lab Data Attestation: I reviewed the patient's lab results. Lab results narrative: CMP from today shows mild hyponatremia, there is mild renal insufficiency but her creatinine and GFR levels are not consistent with acute kidney injury. EKG with normal sinus rhythm, normal axis, no intervals, no STEMI BMP showed improvement in renal insufficiency, noted hyponatremia, no NATALIA or anion gap LFTs show no evidence of hepatobiliary pathology. Troponin is negative, no evidence of myocardial ischemia BNP within normal limits no evidence of transmural pressure Lipase is wnl indicating no pancreatic inflammation. Labs: Laboratory Results - last 24 hr 03/01/23 03/01/23 03/01/23 10:15 10:15 10:15 WBC 9.5 RBC 3.11 L Hgb 9.7 L Hct 31.2 L MCV 100.3 H MCH 31.2 MCHC 31.1 L RDW Std Deviation 71.6 H RDW Coeff of Alden 19.4 H Plt Count 337 MPV 9.3 Immature Gran % (Auto) 0.700 Neut % (Auto) 75.4 H Lymph % (Auto) 14.4 L [place] % (Auto) 9.1 Eos % (Auto) 0.0 Baso % (Auto) 0.4 Absolute Neuts (auto) 7.2 Absolute Lymphs (auto) 1.37 Nucleated RBC % 0 Differential Comment SCANNED Anisocytosis 2+ Sodium 131 L Potassium 4.4 Chloride 105 Carbon Dioxide 23.0 Anion Gap 3 L BUN 50 H Creatinine 1.10 H Estim Creat Clear Calc 28.45 Est GFR (MDRD) Af Amer 61 Est GFR (MDRD) Non-Af 51 L BUN/Creatinine Ratio 45.5 H Glucose 99 Calcium 8.8 Total Bilirubin 0.30 Direct Bilirubin 0.09 AST 33 ALT 34 Alkaline Phosphatase 121 H Troponin I High Sens 11 B-Natriuretic Peptide 48.4 Total Protein 6.7 Albumin 3.2 Globulin 3.5 Lipase 24 Urine Color Urine Clarity Urine pH Ur Specific [place] Urine Protein Urine Glucose (UA) Urine Ketones Urine Occult Blood Urine Nitrite Urine Bilirubin Urine Urobilinogen Ur Leukocyte Esterase Urine RBC Urine WBC Ur Squamous Epith Cells Urine Bacteria Urine Mucus 03/01/23 12:31 WBC RBC Hgb Hct MCV MCH MCHC RDW Std Deviation RDW Coeff of [place] Plt Count MPV Immature Gran % (Auto) Neut % (Auto) Lymph % (Auto) [place] % (Auto) Eos % (Auto) Baso % (Auto) Absolute Neuts (auto) Absolute Lymphs (auto) Nucleated RBC % Differential Comment Anisocytosis Sodium Potassium Chloride Carbon Dioxide Anion Gap BUN Creatinine Estim Creat Clear Calc Est GFR (MDRD) Af Amer Est GFR (MDRD) Non-Af BUN/Creatinine Ratio Glucose Calcium Total Bilirubin Direct Bilirubin AST ALT Alkaline Phosphatase Troponin I High Sens B-Natriuretic Peptide Total Protein Albumin Globulin Lipase Urine Color Straw Urine Clarity Sl. Cloudy Urine pH 6.0 Ur Specific [place] 1.010 Urine Protein Negative Urine Glucose (UA) Normal Urine Ketones Negative Urine Occult Blood Negative Urine Nitrite Negative Urine Bilirubin Negative Urine Urobilinogen Normal Ur Leukocyte Esterase Negative Urine RBC 0 SEEN Urine WBC 0 SEEN Ur Squamous Epith Cells 0-5 SEEN Urine Bacteria 0 SEEN Urine Mucus 0 SEEN Radiography Chest X-Ray - ED: Read by ED Physician Diagnostic Testing: Clinical Impression(s) from Imaging Studies Brain CT 03/01/23 10:03 IMPRESSION: Chronic involutional changes of the brain. Electronically Signed: Jagjit Villavicencio MD at 12:04 EDT , Cervical Spine CT 03/01/23 10:03 IMPRESSION: Multilevel degenerative changes, as described above. Electronically Signed: Jagjit Villavicencio MD at 12:07 EDT , Chest X-Ray 03/01/23 11:27 IMPRESSION: Hyperinflation. No acute abnormality is seen. Electronically Signed: Jagjit Villavicencio MD at 12:14 EDT , I have personally reviewed the patient's chest x-ray. Chest x-ray is unremarkable for pulmonary edema, pneumothorax, pneumonia or focal cardiopulmonary abnormality. Discharge Plan Triage Chief Complaint: Fall ED Provider: Joe Mello Dx/Rx/DC Orders Clinical Impression: Syncope, History of CHF (congestive heart failure), Renal insufficiency, CHI (closed head injury) Instructions: After a Concussion, Causes of Syncope Prescriptions: No Action calcium carbonate 500 mg calcium (1,250 mg) tablet 1,000 mg PO DAILY cholecalciferol (vitamin D3) 50 mcg (2,000 unit) capsule 1 ea PO DAILY Label Comments: TAKE 1 CAPSULE BY MOUTH EVERY DAY ondansetron 8 mg tablet,disintegrating 8 mg PO Q8H PRN (Reason: nausea and vomiting) Qty: 30 2RF acetaminophen 500 mg capsule 500 mg PO Q6H PRN (Reason: Pain) gabapentin 100 mg capsule 100 mg PO TID valacyclovir 500 mg tablet 500 mg PO BID 30 Days Qty: 60 5RF furosemide [Lasix] 40 mg tablet 40 mg PO BID Qty: 60 0RF carvedilol 25 mg Tablet 25 mg PO BID Qty: 60 0RF potassium chloride [Klor-Con M20] 20 mEq Tablet,Er Particles/Crystals 20 meq PO BIDCM Qty: 60 0RF lisinopril 20 mg tablet 10 mg PO DAILY Primary Care Provider: Pee Calle Referrals: Chucky Gomez MD [Med Staff - Active Staff] - Pee Calle DO [Primary Care Provider] - Activity Restrictions/Additional Instructions: Thank you for trusting us with your care today! Please continue to take your home heart failure, blood pressure medicine as prescribed. Please make any changes to your home regimen and close consultation with your primary care physician and panel machine tender. Please return to the emergency department if your symptoms change or worsen. Specifically if develop trouble with speech, facial drooping, loss of the ability to move or feel your extremities. If you develop chest pain, shortness of breath if you lose consciousness. Please follow with your primary care physician and panel machine tender for further outpatient evaluation and management. At the next available and already scheduled Disposition Disposition: Home, Self Care
--- NOTE | 2023-03-01 10:03 | CT_ITS ---
STUDY: CT CERVICAL SPINE WITHOUT CONTRAST REASON FOR EXAM: Female, 82 years old. Cervical pain following a fall. History of non-Hodgkin''s lymphoma. RADIATION DOSAGE (If Supplied By Facility): CTDIvol = ( 11.79 ) mGy, DLP = ( 200.83 ) mGycm TECHNIQUE: High resolution transaxial imaging was performed without contrast material. Sagittal and coronal images were reconstructed. Individualized dose optimization techniques were used for this CT. COMPARISON: Comparison is made with prior study dated August 16, 2022. FINDINGS: Normal craniovertebral junction. There are degenerative changes of the anterior atlantoaxial articulation. Normal odontoid process. Normal cervical lordosis. Normal vertebral bodies and posterior osseous elements. C2-3: Facet joint osteoarthritis and hypertrophy on the left side. No significant stenosis seen. C3-4: Minimal degree of anterior listhesis of C3 on C4. This is unchanged. Posterior spondylosis along the inferior aspect of the CT 2 vertebrae. Facet joint osteoarthritis and hypertrophy worse on the left side. Mild degree of bilateral neural foraminal stenosis. C4-5: Facet joint osteoarthritis and hypertrophy. C5-6: Mild degree of disc space narrowing. Facet joint osteoarthritis and hypertrophy. Uncovertebral arthrosis. Bilateral neural foraminal stenosis right greater than left. C6-7: Minimal anterolisthesis of C5 on C6 most likely secondary to the facet joint osteoarthritis and hypertrophy. Uncovertebral arthrosis. C7-T1: Normal endplates. Normal disc height and morphology. Normal central canal and intervertebral neuroforamina. Atherosclerotic plaque formation of the carotid bifurcations bilaterally. CT/Spine Cervical without Contras IMPRESSION: Multilevel degenerative changes, as described above. Electronically Signed: Jagjit Villavicencio MD at 12:07 EDT ,
--- NOTE | 2023-03-01 10:03 | CT_ITS ---
STUDY: CT BRAIN WITHOUT CONTRAST REASON FOR EXAM: Female, 82 years old. Fall, head trauma RADIATION DOSAGE (If Supplied By Facility): CTDIvol = ( 44.99 ) mGy, DLP = ( 749.49 ) mGycm TECHNIQUE: Transaxial CT imaging of the brain was performed without administration of intravenous contrast material. Individualized dose optimization techniques were used for this CT. COMPARISON: Comparison is made with prior study dated August 16, 2022. FINDINGS: Normal soft tissue structures. Normal calvarium. There is mild cerebral atrophy with widening of the extra-axial spaces and ventricular dilatation. There are areas of decreased attenuation within the white matter tracts of the supratentorial brain, consistent with microvascular disease changes. Normal basal ganglia and thalami. Normal brainstem. Normal cerebellum. There is no intracranial hemorrhage. There are no findings of an acute ischemic infarction. Atherosclerotic plaque formation of the vertebral arteries and cavernous portions of the internal carotid arteries bilaterally. Normal visualized paranasal sinuses. CT/Brain/Head without Contrast IMPRESSION: Chronic involutional changes of the brain. Electronically Signed: Jagjit Villavicencio MD at 12:04 EDT ,
--- NOTE | 2023-03-01 10:04 | EKG12_ITS ---
Test Reason : FALL Blood Pressure : / mmHG Vent. Rate : 075 BPM Atrial Rate : 075 BPM P-R Int : 144 ms QRS Dur : 092 ms QT Int : 402 ms P-R-T Axes : 013 038 097 degrees QTc Int : 448 ms Normal sinus rhythm with sinus arrhythmia Minimal voltage criteria for LVH, may be normal variant ( Sokolow-Pal ) Borderline ECG Confirmed by ANN MAYO, KORI ([id number]), sports editor DOROTHY PARSONS ([id number]) on 03/02/2023 9:05:06 AM Referred By: Confirmed By:KORI JUAREZ MD
[2023-03-01 10:17] VITALS: BMI 21.0
[2023-03-01 10:29] VITALS: BP 123/86; PULSE 72; RESP 22; O2SAT 97
[2023-03-01 10:30] LABS: Absolute Lymphocyte Count 1.37 X10^3/uL (0.83-4.51); Absolute Neutrophil Count 7.2 X10^3/uL (2.0-7.7); Basophil# 0.04 X10^3/uL; Basophil% 0.4 % (0-1); Hematocrit 31.2 % (37-47); Hemoglobin 9.7 g/dL (12.0-15.0); Lymphocyte # 1.37 X10^3/ul (0.83-4.51); Lymphocyte % 14.4 % (19-41); Mean Corp Hgb Conc 31.1 g/dL (32-36); Mean Corpuscular Hgb 31.2 pg (27.0-32.0); Mean Corpuscular Volume 100.3 fL (81-99); Mean Platelet Vol. 9.3 fl (6.2-12.0); Monocyte# 0.87 X10^3/uL; Monocyte% 9.1 % (0-10); NRBC Flagged by Analyzer 0 % (0-5); Neutrophil # 7.17 X10^3/uL (2.7-7.7); Neutrophil % 75.4 % (47-70); POSITIVE MORPHOLOGY YES; Platelet Count 337 K/mm3 (150-450); RBC Distribution Width CV 19.4 % (11.6-14.6); RBC Distribution Width SD 71.6 fl (35.1-43.9); Red Blood Count 3.11 M/mm3 (4.2-5.4); White Blood Count 9.5 K/mm3 (4.4-11.0)
[2023-03-01 10:32] LABS: Differential Indicated SCAN CRITERIA MET
[2023-03-01 10:47] LABS: Anisocytosis 2+; Differential Comment SCANNED
[2023-03-01 10:50] LABS: AST(SGOT) 33 U/L (15-37); Alanine Aminotransfer ALT/SGPT 34 U/L (13-56); Albumin, Serum 3.2 g/dL (3.2-5.0); Alkaline Phosphatase 121 U/L (45-117); Anion Gap 3 (5-15); BUN 50 mg/dL (7-18); BUN/Creat Ratio 45.5 RATIO (10-20); Bilirubin, Direct 0.09 mg/dL (0.00-0.30); Calcium,Total 8.8 mg/dL (8.5-10.1); Chloride 105 mmol/L (98-107); EST Glomerular Filtration Rate 51 mL/min (>60); Est Glom Filt Rate - Afr Amer 61 mL/min (>60); Estimated Creatinine Clearance 28.45 ml/min; Globulin 3.5 g/dL (2.2-4.2); Glucose 99 mg/dL (74-106); Lipase 24 U/L (13-75); Potassium 4.4 mmol/L (3.5-5.1); Protein, Total 6.7 g/dL (6.4-8.2); Sodium Level 131 mmol/L (136-145); Troponin-I HS 11 pg/mL (3.0-54.0)
[2023-03-01 11:26] LABS: BNP,B-Type NATRIURETIC PEPTIDE 48.4 pg/mL (0-100)
--- NOTE | 2023-03-01 11:27 | RAD_ITS ---
STUDY: X-RAY CHEST REASON FOR EXAM: Female, 82 years old. Syncopal episode. TECHNIQUE: Single AP portable view of the chest. COMPARISON: Comparison is made with prior study February 19, 2023. FINDINGS: A right-sided portacatheter is seen with the tip at the junction of the superior vena cava and right atrium. EKG electrode are seen. Hyperinflation. Scattered calcified granulomas. There is no demonstrated pleural abnormality. Normal size heart. Normal mediastinum and emir. Normal visualized pulmonary arteries. There is atherosclerotic calcification of the aortic arch with tortuosity. Normal visualized thoracic spine. Normal visualized ribs, clavicles, and shoulders. There is no demonstrated abnormality of the visualized soft tissue structures of the upper abdomen. RAD/Chest 1 View (Portable) IMPRESSION: Hyperinflation. No acute abnormality is seen. Electronically Signed: Jagjit Villavicencio MD at 12:14 EDT ,
[2023-03-01 11:54] VITALS: BP 109/62; PULSE 73; RESP 23; O2SAT 97
[2023-03-01 12:35] LABS: Bacteria 0 SEEN /hpf (None Seen); Mucous, Urine 0 SEEN /hpf (<or=2+); Red Blood Cells-Urine 0 SEEN /hpf (0-5); White Blood Cells 0 SEEN /hpf (0-5)
[2023-03-01 12:36] LABS: Color, Urine Straw (Yellow); Glucose, Dipstick Normal (Normal); Ketone-Dipstick Negative (Negative); Leukocyte Esterase-Dipstick Negative /ul (Negative); Nitrite-Dipstick Negative (Negative); Occult Blood-Urine Negative /ul (Negative); Protein-Dipstick Negative (Negative); Urine Bilirubin Dipstick Negative (Negative); Urine Clarity Sl. Cloudy (Clear); Urine Urobilinogen Normal (Normal)
[2023-03-01 12:42] LABS: Squamous Epithelial Cells - UA 0-5 SEEN /hpf (5-10)
[2023-03-01 12:51] VITALS: BP 120/62; PULSE 75; RESP 21; O2SAT 98
== END 2023-03-01 13:02 | disposition home or self-care (01) ==
PROVIDERS: Emergency Provider Emergency Medicine; Visit Provider Emergency Medicine
DX: R55 Syncope and collapse (principal); C85.90 Non-Hodgkin lymphoma, unspecified, unspecified site; I11.0 Hypertensive heart disease with heart failure; I50.32 Chronic diastolic (congestive) heart failure; N28.9 Disorder of kidney and ureter, unspecified; S09.8XXA Other specified injuries of head, initial encounter; R60.9 Edema, unspecified; Z90.49 Acquired absence of other specified parts of digestive tract; W19.XXXA Unspecified fall, initial encounter; Z92.21 Personal history of antineoplastic chemotherapy; Z79.899 Other long term (current) drug therapy
CPT/HCPCS: 70450; 71045; 72125; 80048; 80076; 81001; 83690; 83880; 84484; 85025; 93005; 99283; A4216

== ENCOUNTER → 2023-06-16 | Outpatient (CLI) | payer MEDICARE, SELFPAY ==
--- NOTE | 2023-06-16 13:16 | CT_ITS ---
EXAM: CT ABDOMEN AND PELVIS WITH INTRAVENOUS CONTRAST CLINICAL INDICATION: abd pain and distention; h/o non hodgkin lymphoma TECHNIQUE: Helically acquired images were obtained of the abdomen and pelvis with intravenous contrast. This CT exam was performed using one or more of the following dose reduction techniques: automated exposure control, adjustment of the mA and/or kV according to patient size, and/or use of iterative reconstruction technique. CONTRAST: IV 100mL Isovue-300 RADIATION DOSE: CTDIvol = 9.59 mGy, DLP = 259.43 mGy-cm COMPARISON: PET scan 05/10/2023 FINDINGS: LOWER THORAX: Unremarkable. Lung bases are clear. No cardiomegaly. No significant pericardial effusion. ABDOMEN: LIVER: Several small low-attenuation subtle lesions seen of the liver including a 1.6 cm lesion along the posterior segment of the right hepatic lobe and another 1.2 cm lesion in the periphery of the posterior segment of the right hepatic lobe. These are not clearly cysts. The smaller lesion is indeterminate on PET scan. The larger lesion appears negative on PET scan. GALLBLADDER AND BILE DUCTS: Unremarkable. No calcified gallstones. No gallbladder distention or wall edema. No intra- or extrahepatic biliary ductal dilation. PANCREAS: Unremarkable. No focal cystic or solid mass. SPLEEN: Unremarkable. Normal size without focal cystic or solid mass. ADRENALS: Unremarkable. No nodules. KIDNEYS AND URETERS: Unremarkable. Normal renal size and position. No hydronephrosis. STOMACH AND BOWEL: Nondistended stomach, cannot exclude stomach wall thickening. No dilated loops of bowel or evidence for obstruction. Cannot exclude segmental thickening of the valdez of the small or large bowel. Cannot exclude enteritis or colitis. Moderate diffuse fecal retention. Appendix within normal limits. PELVIS: APPENDIX: No evidence of acute appendicitis. BLADDER: Unremarkable. REPRODUCTIVE: Absent uterus. ABDOMEN and PELVIS: INTRAPERITONEAL SPACE: Mild ascites in all quadrants, including over the surfaces of the liver and spleen, and pooling in the pelvis. No free air. There is a heterogeneous irregular soft tissue mass approximately 4.4 cm size in the anterior pelvis adjacent to bowel loops. It was not definitely present previously and is suspicious for neoplastic mass. See axial image 73 and coronal image 31. BONES/JOINTS: Degenerative changes throughout the spine. Compression fractures of T12, L2, and L3 also present previously. No suspicious lytic or blastic abnormality. SOFT TISSUES: Unremarkable. No discrete abdominal or pelvic wall hernia. VASCULATURE: Tortuous calcified aorta without aneurysm. LYMPH NODES: Unremarkable. No enlarged lymph nodes. CT/Abdomen/Pelvis WITH Contrast IMPRESSION: 1. Small amount of free fluid in all quadrants. 2. Small ill-defined low-attenuation lesions of the right hepatic lobe as described, apparently negative on previous PET scan. Follow-up recommended. 3. Likely new malignant mass of the anterior midline pelvis. Electronically Signed: Ollie Zhao MD at 16:36 EDT ,
[2023-06-16] MEDS: 0.9% Saline Lock 10 ML Syringe IV (15:45)
== END | disposition home or self-care (01) ==
LOC: CT 13:16
PROVIDERS: Referring Provider Nurse Practitioner Family; Visit Provider Nurse Practitioner Family
DX: C83.30 Diffuse large B-cell lymphoma, unspecified site (principal); R14.0 Abdominal distension (gaseous); R10.9 Unspecified abdominal pain
CPT/HCPCS: 74177; Q9967; A4216

== ENCOUNTER → 2023-06-30 | Outpatient (CLI) | payer MEDICARE, SELFPAY ==
[2023-06-30] VITALS (9 sets, daily range): BP systolic 115–163; BP diastolic 42–71; PULSE 68–77; RESP 14–20; TEMP 36.5; O2SAT 95–100; BMI 18.6
--- NOTE | 2023-06-30 07:38 | CT_ITS ---
PROCEDURE: CT GUIDED biopsy of the right lower quadrant mesenteric mass. DATE: June 30, 2023. INDICATION: Female, 82 years old. Abnormal PET scan. PHYSICIAN: Jagjit Villavicencio M.D. RADIATION DOSAGE (If Supplied By Facility): CTDIvol = ( 16 ) mGy, DLP = ( 254.88 ) mGycm. Individualized dose optimization techniques were utilized. PROCEDURE: The risks, benefits, and alternatives to the procedure were explained to the patient. The specific risk of hemorrhage requiring further treatment or intervention was detailed and accepted. Follow-up instructions were discussed with the patient as well. Written informed consent was obtained. The patient was brought into the CT suite and placed in the supine position. . An appropriate entry site was identified. The overlying skin was prepped and draped in the usual sterile fashion. 1% lidocaine was administered subcutaneously for local anesthesia. Conscious sedation was performed. The patient received 1 mg of Versed and 25 mcg of fentanyl intravenously. Conscious sedation was started at 9:07 AM until 9:34 AM. The patient was independently monitored by the department nurse. Under CT guidance, a total of 6 passes were performed utilizing an 18-gauge core biopsy needle system. The specimens were then placed in the appropriate fluid and transported to the laboratory for analysis. Hemostasis was obtained. The patient tolerated the procedure well without immediate complications. CT/Biopsy/Inj or Needle Placement IMPRESSION: Successful CT guided biopsy of the soft tissue mass in the right lower quadrant mesentery, as described above. The conscious sedation protocol was followed. Electronically Signed: Jagjit Villavicencio MD at 9:52 EDT ,
[2023-06-30 07:48] LABS: Absolute Lymphocyte Count 1.12 X10^3/uL (0.83-4.51); Absolute Neutrophil Count 3.5 X10^3/uL (2.0-7.7); Basophil# 0.02 X10^3/uL; Basophil% 0.4 % (0-1); Eosinophil# 0.01 X10^3/uL; Eosinophils% 0.2 % (0-5); Hemoglobin 10.2 g/dL (12.0-15.0); Lymphocyte # 1.12 X10^3/ul (0.83-4.51); Lymphocyte % 21.8 % (19-41); Mean Corp Hgb Conc 30.9 g/dL (32-36); Mean Corpuscular Hgb 29.2 pg (27.0-32.0); Mean Corpuscular Volume 94.6 fL (81-99); Mean Platelet Vol. 9.1 fl (6.2-12.0); Monocyte# 0.48 X10^3/uL; Monocyte% 9.4 % (0-10); NRBC Flagged by Analyzer 0 % (0-5); Neutrophil # 3.49 X10^3/uL (2.7-7.7); Platelet Count 178 K/mm3 (150-450); RBC Distribution Width CV 14.4 % (11.6-14.6); RBC Distribution Width SD 50.2 fl (35.1-43.9); Red Blood Count 3.49 M/mm3 (4.2-5.4); White Blood Count 5.1 K/mm3 (4.4-11.0)
[2023-06-30 08:12] LABS: International Normalized Ratio 1.1; Prothrombin Time (Protime)PT. 13.8 SECONDS (11.7-14.9)
[2023-06-30 08:13] LABS: Partial Thromboplast Time 28.8 Seconds (24.1-36.2)
[2023-06-30] MEDS: 0.9% Normal Saline (250mL Bag) 250 ML 15 ML IV (08:38)
[2023-06-30] MEDS: Midazolam 2 MG/2 ML Syringe IV (09:07)
[2023-06-30] MEDS: fentaNYL 100 MCG/2 ML Ampul IV (09:09)
--- NOTE | 2023-06-30 09:20 | ASPIGT_PTH ---
PATIENT: AMILCAR DALY LOC: CT U#:[id number] AGE/SX: 82/F ROOM: RE06/30/[address]: Dr. Marcus Caceres MD : 1940 BED: DIS: 06/30/2023 SPEC #: [id number] RECD: 06/30/23 10:10 STATUS: SALAZAR REAlfreda #: [id number] FRANCOIS: 06/30/23 09:[address]: Marcus Caceres DEPT: SURGICAL PATHOLOGY RECD BY: Zuleika Suárez ENTERED: 06/30/23 10:48 SP TYPE: ASP RAD OTHR DR: Dr. Pee Calle DO Tissues: Abdomen, NOS Procedures: FNA Specimen Adequacy Special Stain Group II Surgery Specimen Level IV Imprint (control) HEADER OPERATION: Abdominal mass, CT-guided core biopsy PRE-OP DIAGNOSIS: Abdominal mass TISSUE SUBMITTED: Abdominal mass 18-guage x6 MICROSCOPIC DIAGNOSIS Abdominal mass, CT-guided core biopsy: Atypical epithelioid cells. Glandular mucosa and smooth muscle. See comment. AM:rg 07/11/2023 COMMENT The specimen is evaluated at the time of biopsy by Dr. Moctezuma. Immediate Evaluation = Malignant cells derived from non-small cell carcinoma. The touch prep smears show atypical epithelioid cells with plasmacytoid appearances. The corresponding biopsy shows benign skeletal muscle and glandular epithelium consistent with colonic/small bowel normal mucosa. Flow cytometry analysis was canceled due to lack of cells. An epithelioid neoplasm of uncertain type including possibly malignant neoplasm cannot be ruled out. Clinical correlation is suggested. 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 and ([id number]) abdominal mass, CT-guided core biopsy with diagnosis of consistent with involvement by non-Hodgkin B-cell lymphoma, favor follicle center cell origin . Case has been reviewed in consultation with Dr. Moctezuma who concurs with the above diagnosis. IDC:SJ MICROSCOPIC DESCRIPTION Slides are reviewed. GROSS DESCRIPTION Received in fixative is one container labeled with the patient's name and designated abdominal mass. The specimen consists of multiple irregular fragments of mims soft tissue that in aggregate measure 0.5 x 0.5 x <0.1 cm. The specimen is totally submitted in one cassette. A fragment is also saved for flow cytometry studies if needed. Two touch imprints are prepared at the time of core biopsy. / DANICA:ondina 06/30/2023 TC:? CPT: 31883, 43327
[2023-06-30] MEDS: Lidocaine 2% (20 ml mdv) 20 ML Vial INFILT (09:27)
[2023-06-30] MEDS: 0.9 % NaCl (Sterile) Posiflush 10 mL IV (10:31)
== END | disposition home or self-care (01) ==
PROVIDERS: Referring Provider Internal Medicine Medical Oncology; Visit Provider Internal Medicine Medical Oncology
DX: Z01.818 Encounter for other preprocedural examination (principal); C83.30 Diffuse large B-cell lymphoma, unspecified site; R19.00 Intra-abdominal and pelvic swelling, mass and lump, unspecified site; R06.02 Shortness of breath
CPT/HCPCS: 49180; 36415; 77012; 85025; 85610; 85730; 88172; 88305; 88313; 99156; J7050; A4216

== ENCOUNTER → 2023-07-26 | Outpatient (CLI) | payer MEDICARE, SELFPAY ==
[2023-07-26] VITALS (17 sets, daily range): BP systolic 87–113; BP diastolic 35–72; PULSE 73–86; RESP 16–21; TEMP 36.1; O2SAT 94–99; BMI 18.6
--- NOTE | 2023-07-26 | IMM_PTH ---
PATIENT: AMILCAR DALY LOC: CT U#:[id number] AGE/SX: 82/F ROOM: RE07/26/[address]: Dr. Marcus Caceres MD : 1940 BED: DIS: 07/26/2023 SPEC #: [id number] RECD: 07/27/23 14:04 STATUS: SALAZAR REQ #: [id number] FRANCOIS: 07/26/23 00:[address]: Marcus Caceres DEPT: IMMUNOHISTOCHEMISTRY RECD BY: Samantha Jameson ENTERED: 07/27/23 14:05 SP TYPE: IMMUNO OTHR DR: Dr. Pee Calle DO Tissues: Liver, NOS Procedures: RCC (add) NAPSIN A (add) CK20 (add) CK5-6 (add) CK7 (add) CK8 (add) HEP PAR (add) HI (add) TTF1 (add) Pankeratin (add) P40 (add) ER (initial) PHYSICIAN & [address] [address] SPECIMEN INFORMATION: Tissue Source: Right lobe liver Clinical Info: Abnormal PET, lymphoma Specimen Number: [id number] CPT code: 22680, 14783 x11 METHODOLOGY: Deparaffinized sections of prefer/formalin-fixed tissue or PAP/DQ stained slides are incubated with monoclonal/polyclonal antibodies/oligonucleotide probes. Localization is made via biotin free immunoperoxidase method. Appropriate controls are performed and reacted as expected. Results on target cell population are indicated in the following table: RESULTS: ANTIBODY / CLONE RESULT ER (6F11) negative HI (1E2) negative AE1-3 (AE1/AE3/PCK26) positive CK7 (OV-TL12/30) positive, rare cells CK8 (38ohziJ10) positive CK20 (KS20.8) negative TTF-1 (8G7G3/1) negative Napsin A (Rabbit Polyclonal) negative HepPar (OCh1E5) negative RCC (PN-15) negative CK5-6 (D5 & 1684) negative P40 (BC28) negative These tests were developed and their performance characteristics determined by [facility]. They may not have been cleared or approved by the U.S. Food and Drug Administration. The FDA has determined that such clearance or approval is not necessary. The above immunohistochemical/dualISH markers are ordered and reviewed by the Pathologist. INTERPRETATION: Right lobe liver, CT-guided core biopsy: Metastatic adenocarcinoma. See comment. DANICA:ondina 07/28/2023 Comment: IHC profile is noncontributory for site of origin, it may represent; however, not limited to upper gastrointestinal tract, pancreas, lung, breast or cholangiocarcinoma. Clinical correlation is necessary.
[2023-07-26 07:56] LABS: Absolute Lymphocyte Count 1.16 X10^3/uL (0.83-4.51); Absolute Neutrophil Count 4.1 X10^3/uL (2.0-7.7); Basophil# 0.03 X10^3/uL; Basophil% 0.5 % (0-1); Hematocrit 32.1 % (37-47); Hemoglobin 9.7 g/dL (12.0-15.0); Lymphocyte # 1.16 X10^3/ul (0.83-4.51); Lymphocyte % 19.8 % (19-41); Mean Corp Hgb Conc 30.2 g/dL (32-36); Mean Corpuscular Hgb 26.6 pg (27.0-32.0); Mean Corpuscular Volume 88.2 fL (81-99); Mean Platelet Vol. 9.3 fl (6.2-12.0); Monocyte# 0.55 X10^3/uL; Monocyte% 9.4 % (0-10); NRBC Flagged by Analyzer 0 % (0-5); Neutrophil # 4.08 X10^3/uL (2.7-7.7); Neutrophil % 69.6 % (47-70); Platelet Count 251 K/mm3 (150-450); RBC Distribution Width CV 14.6 % (11.6-14.6); RBC Distribution Width SD 46.9 fl (35.1-43.9); Red Blood Count 3.64 M/mm3 (4.2-5.4); White Blood Count 5.9 K/mm3 (4.4-11.0)
--- NOTE | 2023-07-26 08:00 | CT_ITS ---
PROCEDURE: CT DIRECTED CORE LIVER BIOPSY INDICATION: Female, 82 years old. LIVER MASS PHYSICIAN: Dr. Saud Mcdermott CONSENT: Written informed consent was obtained having explained the risks, benefits and alternatives in detail with the patient who accepted the risks and agreed to proceed. Laboratory review and clinical assessment was performed. CONSCIOUS SEDATION PROTOCOL: The Drugs used were: 1 mm Versed, IV., and 25 mcg Fentanyl, IV. The sedation time was: 27 minutes. Conscious sedation was started at 9:04 AM and terminated at 9:31 AM The conscious sedation protocol was independently monitored. RADIATION DOSAGE (If Supplied By Facility): CTDIvol = ( 18 ) mGy, DLP = ( 255.59 ) mGycm Individualized dose optimization techniques were used for this CT. TECHNIQUE: Using CT image guidance with image documentation, a suitable location in the inferior aspect of the right lobe of the liver was identified. Using a right lateral approach, puncture of the liver was uneventful with an 18-gauge core needle system. 5, 18-gauge core samples were obtained, and submitted in formalin to the pathologist for further assessment. Followup CT scan revealed no distinct sequelae. CT/Biopsy/Inj or Needle Placement IMPRESSION: 1. CT directed core needle biopsy of the liver, using CT image guidance with image documentation as described. 2. Conscious Sedation protocol utilized with independent monitoring. Electronically Signed: Jagjit Villavicencio MD at 9:52 EDT ,
[2023-07-26 08:04] LABS: International Normalized Ratio 1.1; Prothrombin Time (Protime)PT. 14.2 SECONDS (11.7-14.9)
[2023-07-26 08:05] LABS: Partial Thromboplast Time 32.1 Seconds (24.1-36.2)
--- NOTE | 2023-07-26 09:00 | ASPIGT_PTH ---
PATIENT: AMILCAR DALY LOC: CT U#:[id number] AGE/SX: 82/F ROOM: RE07/26/[address]: Dr. Marcus Caceres MD : 1940 BED: DIS: 07/26/2023 SPEC #: [id number] RECD: 07/26/23 09:30 STATUS: SALAZAR MAYURI #: [id number] FRANCOIS: 07/26/23 09:[address]: Marcus Caceres DEPT: SURGICAL PATHOLOGY RECD BY: Zuleika Suárez ENTERED: 07/26/23 09:45 SP TYPE: ASP RAD OTHR DR: Dr. Pee Calle DO Tissues: Liver, NOS Procedures: FNA Specimen Adequacy Special Stain Group II Surgery Specimen Level V Imprint (control) HEADER OPERATION: CT-guided liver biopsy PRE-OP DIAGNOSIS: Abnormal PET, lymphoma TISSUE SUBMITTED: Right lobe liver 18-gauge core x6 MICROSCOPIC DIAGNOSIS Right lobe liver, CT-guided core biopsy: Favor metastatic adenocarcinoma. Note: Immunohistochemistry ([id number]) supports the above diagnosis, and is noncontributory for primary site of origin, it may represent; however, not limited to upper gastrointestinal tract, pancreas, lung, breast or cholangiocarcinoma. SJ:ondina 07/28/2023 COMMENT The specimen is evaluated at the time of biopsy by Dr. Moctezuma. Immediate Evaluation = Hepatocytes, lymphocytes, ductal cells and a few atypical cells noted. Flow cytometry studies from [facility] shows no evidence of a B-cell or T-cell lymphoma. Please see EMR for complete report. 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 Correlation with clinical, radiologic findings and appropriate follow up are necessary. Case has been reviewed in consultation with Dr. Vincent who concurs with the above diagnosis. IDC:AM MICROSCOPIC DESCRIPTION Slides are reviewed. GROSS DESCRIPTION Received in fixative is one container labeled with the patient's name and designated liver nodule. The specimen consists of multiple elongated pieces of mims soft tissue that in aggregate measure 2.0 x 0.4 x 0.1 cm. The specimen is totally submitted in one cassette. Two touch imprints are prepared at the time of core biopsy. / SJ:rg 07/26/2023 TC:0 CPT: 54721, 58724 ADDENDUM ADDENDUM ADDENDUM ADDENDUM ADDENDUM ADDENDUM ADDENDUM ADDENDUM ADDENDUM ADDENDUM ADDENDUM ADDENDUM ADDENDUM ADDENDUM ADDENDUM ADDENDUM ADDENDUM ADDENDUM ADDENDUM ADDENDUM ADDENDUM ADDENDUM ADDENDUM ADDENDUM ADDENDUM ADDENDUM ADDENDUM ADDENDUM ADDENDUM ADDENDUM ADDENDUM ADDENDUM ADDENDUM ADDENDUM ADDENDUM ADDENDUM 08/31/2023 09:37 ADDENDUM 08/31/2023 09:37 ADDENDUM 08/31/2023 09:37 ADDENDUM 08/31/2023 09:37 ADDENDUM 08/31/2023 09:37 PD-L1 (KEYTRUDA) IMMUNOHISTOCHEMICAL ANALYSIS FROM [facility] [employer] RESULTS: Tumor proportion score: 1-2% / [facility] NGS REPORT FROM [facility] [employer] RESULT SUMMARY: Abnormal High level TMB is DETECTED DETECTED GENOMIC ALTERATIONS: Tier I: Variants of Strong Clinical Significance BRAF p.([id number]) Tier II: Variants of Potential Clinical Significance BRCA2 p.([id number]) PTEN p.(Efu501GwlzhRws6) PTEN p.? TP53 p.(Niy081Mgx) TP53 p.(Ovc729Skl) Tier III: Variants of Unknown Clinical Significance STK11 p.(Mrr265zcy IMMUNOTHERAPY BIOMARKERS: Tumor Mutation Magna: HIGH (56.5 Mutations / MB) Microsatellite Instability: MSI Negative (19.05%) PERTINENT NEGATIVE RESULTS: The following genes are NEGATIVE for clinically relevant mutations. Mutational hotspots and surrounding exonic regions were interrogated for DNA level point mutations and indels (fusions not assayed). AKT1, APC, ARID1A, PAWEL, BRCA1, CDH1, CDKN2A, CTNNB1, EGFR, EPCAM, ERBB2, ERBB4, FBXW7, FGFR1, FGFR2, FGFR3, GNA11, GNAQ, GNAS, HRAS, IDH1, IDH2, KDR, KIT, KRAS, MEN1, MET, MLH1, MSH2, MSH6, NOTCH1, NRAS, PDGFRA, PIK3CA, PMS2, POLE, PTPN11, RB1, RET, SMAD4, SMO, TERT, TSC1, TSC2, VHL Please see complete report in e-chart or EMR
[2023-07-26] MEDS: 0.9% Normal Saline (250mL Bag) 250 ML 15 ML IV (09:01)
[2023-07-26] MEDS: Midazolam 2 MG/2 ML Syringe IV (09:04)
[2023-07-26] MEDS: fentaNYL 100 MCG/2 ML Ampul IV (09:06)
[2023-07-26] MEDS: Lidocaine 2% (20 ml mdv) 20 ML Vial INFILT (09:20)
== END | disposition home or self-care (01) ==
LOC: CT 07:42
PROVIDERS: Referring Provider Internal Medicine Medical Oncology; Visit Provider Internal Medicine Medical Oncology
DX: Z01.818 Encounter for other preprocedural examination (principal); C83.33 Diffuse large B-cell lymphoma, intra-abdominal lymph nodes; R93.89 Abnormal findings on diagnostic imaging of other specified body structures; R16.0 Hepatomegaly, not elsewhere classified; R06.02 Shortness of breath
CPT/HCPCS: 47000; 36415; 77012; 85025; 85610; 85730; 88172; 88305; 88307; 88313; 88341; 88342; 99156; J7050; A4216

== ENCOUNTER 2023-08-02 00:20 | Inpatient (IN) | payer MEDICARE, SELFPAY ==
--- NOTE | 2023-08-01 | IMM_PTH ---
PATIENT: AMILCAR DALY LOC: [facility] U#:[id number] AGE/SX: 82/F ROOM: [facility] RE08/02/[address]: Dr. Baldemar Ruiz MD : 1940 BED: 1 DIS: 08/06/2023 SPEC #: [id number] RECD: 08/09/23 15:14 STATUS: SALAZAR REQ #: [id number] FRANCOIS: 08/01/23 00:[address]: Baldemar Ruiz DEPT: IMMUNOHISTOCHEMISTRY RECD BY: Samantha Jameson ENTERED: 08/09/23 15:16 SP TYPE: IMMUNO OTHR DR: MD Dr. Bear Bernstein DO Dr. Joseph Prah, MD Dr. Mansour Isckarus, MD Dr. Paul Nielsen, MD Dr. Robert Field, MD Dr. Ryan Jin, MD Dr. Roger Macklis, MD Dr. Steve Walston, DO Dr. Scott Wilkins, DO Tyra Schlabach, D[employer] OPERATOR-C Tissues: PARACENTESIS FLUID Procedures: CK20 (add) CK7 (add) CK8 (add) FRANSISCA (add) KI-67 (add) P53 (add) Pankeratin (initial) CDX2 (add) PHYSICIAN & [place] [address] SPECIMEN INFORMATION: Tissue Source: Paracentesis fluid Clinical Info: Ascites Specimen Number: [id number] CPT code: 24463, 55135 x7 METHODOLOGY: Deparaffinized sections of prefer/formalin-fixed tissue or PAP/DQ stained slides are incubated with monoclonal/polyclonal antibodies/oligonucleotide probes. Localization is made via biotin free immunoperoxidase method. Appropriate controls are performed and reacted as expected. Results on target cell population are indicated in the following table: RESULTS: ANTIBODY / CLONE RESULT AE1-3 (AE1/AE3/PCK26) positive CK7 (OV-TL12/30) negative CK8 (54vhlrL97) positive CK20 (KS20.8) negative CDX2 ([id number]) negative FRANSISCA (E29) positive P53 (DO-7) negative, null pattern Ki-67 (30-9) negative These tests were developed and their performance characteristics determined by [facility]. They may not have been cleared or approved by the U.S. Food and Drug Administration. The FDA has determined that such clearance or approval is not necessary. The above immunohistochemical/dualISH markers are ordered and reviewed by the Pathologist. INTERPRETATION: Paracentesis fluid (cell block): Atypical epithelioid cells suspicious for non-small cell carcinoma. AM:ondina 08/10/2023
[2023-08-02] VITALS (15 sets, daily range): BP systolic 100–144; BP diastolic 56–83; PULSE 74–88; RESP 12–22; TEMP 36.4–37.1; O2SAT 92–98; BMI 19.5; BMI 20.4
--- NOTE | 2023-08-02 00:40 | EKG12_ITS ---
Test Reason : WEAKNESS Blood Pressure : / mmHG Vent. Rate : 083 BPM Atrial Rate : 083 BPM P-R Int : 156 ms QRS Dur : 086 ms QT Int : 360 ms P-R-T Axes : 054 037 080 degrees QTc Int : 423 ms Normal sinus rhythm Normal ECG Confirmed by GAY MAYO, CHELLE ([id number]), editorial director DOROTHY PARSONS ([id number]) on 08/08/2023 10:10:55 AM Referred By: Confirmed By:KATY RASHID MD
--- NOTE | 2023-08-02 00:41 | EDS_ITS ---
HPI History of Present Illness Chief Complaint: Weakness Informant: patient, spouse/S.O. and family Narrative Narrative: Patient presents here private vehicle spouse and [id number] for evaluation. Sudden weakness around 8:30 PM had to be helped by her spouse. Typically does not ambulate with any assistance however there is a walker at home to use from spouse. No chest pains no cough. No nausea or vomiting states is chronic diarrhea 2-3 times a day nonbloody. Denies urinary symptoms. [id number] checked blood pressure was systolic 82. History of CHF on carvedilol states took her medication around 815. She is on a diuretic 3 times a week. Also history of diffuse large B-cell lymphoma back in [address] Caceres. States since then has been on multiple rounds of chemo last time approximately 7 weeks ago for recurrence. 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 GERD (gastroesophageal reflux disease) Gout History of echocardiogram History of non-Hodgkin's lymphoma Hyperkalemia Immunotherapy encounter Leg cramps Low iron Lymphadenopathy, abdominal Non Hodgkin's lymphoma Non-ischemic cardiomyopathy Non-smoker Osteoporosis Pain of sternum Pathologic fracture of lumbar vertebra Prerenal azotemia Restless legs Right sided abdominal pain Right-sided back pain Syncope (08/16/22) Thrombocytopenia Traumatic injury of head without focal neurologic finding Wears glasses Wears partial dentures Home Medications cholecalciferol (vitamin D3) 50 mcg (2,000 unit) capsule 1 ea PO DAILY pain 08/12/22 [History Last Taken 08/15/22] ondansetron 8 mg disintegrating tablet 8 mg PO Q8H PRN nausea and vomiting #30 tabs 12/13/22 [Rx Last Taken Unknown] acetaminophen 500 mg capsule 500 mg PO Q6H PRN Pain 01/18/23 [History Last Taken Unknown] lisinopril 20 mg tablet 10 mg PO DAILY 02/28/23 [History Last Taken 07/26/23] gabapentin 100 mg capsule 300 mg PO BID 03/21/23 [History Last Taken Unknown] carvedilol 25 mg tablet 25 mg PO BID #180 tabs 05/04/23 [Rx Last Taken 07/26/23] potassium chloride 20 mEq tablet,extended release(part/cryst) (Klor-Con M) 20 meq PO DAILY #90 tabs 05/06/23 [Rx Last Taken Unknown] calcium carbonate 600 mg calcium (1,500 mg) tablet (Calcium) 600 mg PO DAILY 08/02/23 [History Last Taken Unknown] furosemide 40 mg tablet (Lasix) 20 mg PO .COMPLEX 08/02/23 [History Last Taken Unknown] Allergy/AdvReac Type Severity Reaction Status Date / Time No Known Allergies Allergy Verified 08/02/23 00:24 Family History Mother Brain cancer Breast cancer Father Bone cancer Lung cancer Brother Esophageal cancer Bone cancer Surgical History History of appendectomy History of lumpectomy s/p vascular port insertion (06/2018) Status post colectomy Social History Smoking Status: Never smoker alcohol intake: never chirag/episcopal: Oriental Orthodox seatbelt use: always do you feel safe at home: Yes ROS ROS ED Constitutional Constitutional ED: Denies chills, fever(s) or sweats Eyes Eyes: Denies change in vision ENT ENT ED: Denies dysphagia or sore throat Cardiovascular Cardiovascular: Denies chest pain, leg edema, palpitations or racing heartbeat Respiratory/Chest Respiratory/Chest: Denies cough, dyspnea or dyspnea on exertion Gastrointestinal Gastrointestinal: Denies abdominal pain, diarrhea, nausea or vomiting Genitourinary Genitourinary ED: Denies dysuria, hematuria or urinary frequency Musculoskeletal Musculoskeletal: Denies back pain, extremity pain or neck pain Integumentary Denies rash or wounds Neurologic Neurologic: Reports weakness; Denies headache(s) or paresthesias EXAM Physical Exam Const Vital Signs: 08/02/23 00:24 08/02/23 00:27 08/02/23 00:27 Temperature 98.8 F 98.8 F Temperature Source Temporal Temporal Pulse Rate 84 84 Respiratory Rate 12 16 Respiratory Effort Normal Respiratory Pattern Normal Blood Pressure 118/63 118/63 Blood Pressure Mean 81 81 Pulse Ox 96 97 Oxygen Delivery Method Room Air Room Air Positive well nourished and well developed General Appearance ED: well developed and NAD HEENT Reports dry mucous membranes normocephalic and atraumatic Mouth ED: Yes dry mucous membranes Mouth: dry mucous membranes Eyes PERRL, EOMs intact bilaterally and conjunctivae normal General Eye ED: Yes normal appearance of both eyes Neck no lymphadenopathy and supple General: Negative for tenderness Chest Wall Chest: Negative for tenderness Resp normal respiratory effort and normal air movement Effort and Inspection: symmetric chest movement; Negative for respiratory distress Cardio regular rate, regular rhythm and no murmurs Peripheral Pulses: pulses 2+ throughout GI normal to inspection, nondistended, normoactive bowel sounds and non-tender Palpation: Negative for guarding or rebound tenderness present Back/Spine no CVA tenderness and no thoracic nor lumbar tenderness Extremity normal to inspection General Extremety ED: Negative for edema or tenderness General Extremity: Negative for edema Neuro oriented x3 and no sensory deficits noted Sensorium / Orientation: awake and alert Skin no rashes or lesions noted and no wounds MDM MDM MDM Narrative Medical decision making narrative: Interventions / MDM: Differential diagnosis: Electrolyte abnormalities, anemia, metastatic cancer Diagnosis considered but do not suspect: N/A My EKG interpretation: Sinus rate of 83, no ST changes. Isolated T wave version aVL nonspecific. QTc 423. Imaging independently reviewed and interpreted by myself: N/A External documents reviewed: Pathology from a week ago concerning for metastatic adenocarcinoma. Echocardiogram from January 2023 EF of 40%. Test considered but not ordered:N/A ED course: Blood pressure 118/63 on arrival. Dry mucosal membranes. Reports generalized weakness. EKG labs and urine, gentle fluids due to CHF history. 0215: Hemoglobin returned 7.3 down from 9.7 less than a week ago. Rectal exam brown stools however Hemoccult returned positive. Creatinine at 1.44. Normal previous levels 2 months ago. chronic diarrhea and on diuretics. She was given 500 cc of IV fluids. Discussed pathology results with patient and family concerning for metastatic adenocarcinoma, she had a pelvic mass with metastatic lesions noted leading to the biopsy. Pelvic mass may be the source of her bleed. Blood pressure currently stable. She is not on any blood thinners. Will order for 1 unit of packed red blood cells, will discuss with hospitalist service for admission. 0245: Discussed with Dr. Case for admission. Re-evaluation: stable Disposition discussed with patient/family/significant other: Patient and family Case discussed with consulting clinician: Hospitalist This note was generated with [employer] dictation software. It may contain incorrect words, spelling, and punctuation that were not noted in checking the note before signing. Lab Data Attestation: I reviewed the patient's lab results. Labs: Laboratory Results - last 24 hr 08/02/23 08/02/23 08/02/23 01:04 01:14 02:35 WBC 5.2 RBC 2.81 L Hgb 7.3 L Hct 24.5 L MCV 87.2 MCH 26.0 L MCHC 29.8 L RDW Std Deviation 47.6 H RDW Coeff of [place] 14.8 H Plt Count 203 MPV 9.5 Immature Gran % (Auto) 0.600 Neut % (Auto) 65.7 Lymph % (Auto) 22.4 [place] % (Auto) 10.9 H Eos % (Auto) 0.0 Baso % (Auto) 0.4 Absolute Neuts (auto) 3.4 Absolute Lymphs (auto) 1.17 Nucleated RBC % 0 Sodium 136 Potassium 4.7 Chloride 102 Carbon Dioxide 28.0 Anion Gap 6 BUN 39 H Creatinine 1.44 H Estim Creat Clear Calc 20.11 Est GFR (MDRD) Af Amer 45 L Est GFR (MDRD) Non-Af 37 L BUN/Creatinine Ratio 27.1 H Glucose 125 H Calcium 8.6 Urine Color Yellow Urine Clarity Clear Urine pH 5.0 Ur Specific [place] 1.015 Urine Protein Negative Urine Glucose (UA) Normal Urine Ketones Negative Urine Occult Blood Negative Urine Nitrite Negative Urine Bilirubin Negative Urine Urobilinogen Normal Ur Leukocyte Esterase 25 H Urine RBC 0 SEEN Urine WBC 0 SEEN Ur Squamous Epith Cells 0-5 SEEN Ur Transition Epith Cell 0-5 SEEN Urine Bacteria 0 SEEN Urine Mucus 0 SEEN Crossmatch See Detail Discharge Plan Dx/Rx/DC Orders Clinical Impression: GI (gastrointestinal bleed), Metastatic adenocarcinoma, Weakness, Symptomatic anemia, Acute renal insufficiency Disposition Disposition: [facility]
[2023-08-02] MEDS: 0.9% Normal Saline (500mL Bag) 500 ML 1000 ML IV (01:10)
[2023-08-02 01:12] LABS: Absolute Lymphocyte Count 1.17 X10^3/uL (0.83-4.51); Absolute Neutrophil Count 3.4 X10^3/uL (2.0-7.7); Basophil# 0.02 X10^3/uL; Basophil% 0.4 % (0-1); Hematocrit 24.5 % (37-47); Hemoglobin 7.3 g/dL (12.0-15.0); Lymphocyte # 1.17 X10^3/ul (0.83-4.51); Lymphocyte % 22.4 % (19-41); Mean Corp Hgb Conc 29.8 g/dL (32-36); Mean Corpuscular Volume 87.2 fL (81-99); Mean Platelet Vol. 9.5 fl (6.2-12.0); Monocyte# 0.57 X10^3/uL; Monocyte% 10.9 % (0-10); NRBC Flagged by Analyzer 0 % (0-5); Neutrophil # 3.44 X10^3/uL (2.7-7.7); Neutrophil % 65.7 % (47-70); Platelet Count 203 K/mm3 (150-450); RBC Distribution Width CV 14.8 % (11.6-14.6); RBC Distribution Width SD 47.6 fl (35.1-43.9); Red Blood Count 2.81 M/mm3 (4.2-5.4); White Blood Count 5.2 K/mm3 (4.4-11.0)
[2023-08-02 01:17] LABS: Bacteria 0 SEEN /hpf (None Seen); Mucous, Urine 0 SEEN /hpf (<or=2+); Red Blood Cells-Urine 0 SEEN /hpf (0-5); White Blood Cells 0 SEEN /hpf (0-5)
[2023-08-02 01:19] LABS: Color, Urine Yellow (Yellow); Glucose, Dipstick Normal (Normal); Ketone-Dipstick Negative (Negative); Leukocyte Esterase-Dipstick 25 /ul (Negative); Nitrite-Dipstick Negative (Negative); Occult Blood-Urine Negative /ul (Negative); Protein-Dipstick Negative (Negative); Specific Gravity, Urine 1.015 (1.002-1.030); Urine Bilirubin Dipstick Negative (Negative); Urine Clarity Clear (Clear); Urine Urobilinogen Normal (Normal)
[2023-08-02 01:30] LABS: Squamous Epithelial Cells - UA 0-5 SEEN /hpf (5-10); Transitional Epithelial - Ur 0-5 SEEN /hpf (0-5)
[2023-08-02 01:42] LABS: Anion Gap 6 (5-15); BUN 39 mg/dL (7-18); BUN/Creat Ratio 27.1 RATIO (10-20); Calcium,Total 8.6 mg/dL (8.5-10.1); Chloride 102 mmol/L (98-107); Creatinine, Serum 1.44 mg/dL (0.55-1.02); EST Glomerular Filtration Rate 37 mL/min (>60); Est Glom Filt Rate - Afr Amer 45 mL/min (>60); Estimated Creatinine Clearance 20.11 ml/min; Glucose 125 mg/dL (74-106); Potassium 4.7 mmol/L (3.5-5.1); Sodium Level 136 mmol/L (136-145)
--- NOTE | 2023-08-02 02:49 | PCM.HP.STD ---
[facility] - General General Date of Admission: 08/02/23 Date of Service: 08/02/23 Chief Complaint: Generalized weakness HPI Narrative AMILCAR DALY, is a 82 F who presents to the emergency room with chief complaint of generalized weakness. Onset of symptoms began approximately 8:30 PM this evening when the patient suddenly became weak and was unable to ambulate without assistance. The patient has significant past medical history of B-cell lymphoma and was recently diagnosed with a mass in the liver and was biopsied on July 27 and pathology reveals adenocarcinoma. Patient is anemic with a hemoglobin of 7.6 and slight increase in creatinine to 1.4 from her normal baseline. Patient denies chest pain, shortness of breath and/or fevers or chills but does feel weak and tired. She will be admitted to general medical floor and 1 unit of packed red blood cells transfused and consult to Dr. Caceres her associate professor of education. At this time she expressed wish to be full code. 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 GERD (gastroesophageal reflux disease) Gout History of echocardiogram History of non-Hodgkin's lymphoma Hyperkalemia Immunotherapy encounter Leg cramps Low iron Lymphadenopathy, abdominal Non Hodgkin's lymphoma Non-ischemic cardiomyopathy Non-smoker Osteoporosis Pain of sternum Pathologic fracture of lumbar vertebra Prerenal azotemia Restless legs Right sided abdominal pain Right-sided back pain Syncope (08/16/22) Thrombocytopenia Traumatic injury of head without focal neurologic finding Wears glasses Wears partial dentures Home Medications cholecalciferol (vitamin D3) 50 mcg (2,000 unit) capsule 1 ea PO DAILY pain 08/12/22 [History Last Taken 08/15/22] ondansetron 8 mg disintegrating tablet 8 mg PO Q8H PRN nausea and vomiting #30 tabs 12/13/22 [Rx Last Taken Unknown] acetaminophen 500 mg capsule 500 mg PO Q6H PRN Pain 01/18/23 [History Last Taken Unknown] lisinopril 20 mg tablet 10 mg PO DAILY 02/28/23 [History Last Taken 07/26/23] gabapentin 100 mg capsule 300 mg PO BID 03/21/23 [History Last Taken Unknown] carvedilol 25 mg tablet 25 mg PO BID #180 tabs 05/04/23 [Rx Last Taken 07/26/23] potassium chloride 20 mEq tablet,extended release(part/cryst) (Klor-Con M) 20 meq PO DAILY #90 tabs 05/06/23 [Rx Last Taken Unknown] calcium carbonate 600 mg calcium (1,500 mg) tablet (Calcium) 600 mg PO DAILY 08/02/23 [History Last Taken Unknown] furosemide 40 mg tablet (Lasix) 20 mg PO .COMPLEX 08/02/23 [History Last Taken Unknown] Allergy/AdvReac Type Severity Reaction Status Date / Time No Known Allergies Allergy Verified 08/02/23 00:24 Family History Mother Brain cancer Breast cancer Father Bone cancer Lung cancer Brother Esophageal cancer Bone cancer Surgical History History of appendectomy History of lumpectomy s/p vascular port insertion (06/2018) Status post colectomy Social History Smoking Status: Never smoker alcohol intake: never chirag/oriental orthodox: Confucianist seatbelt use: always do you feel safe at home: Yes ROS Constitutional Constitutional: Reports fatigue and weakness; Denies chills or fever(s) Eyes Eyes: Denies blurry vision ENT HEENT: Denies abnormal hearing Cardiovascular Cardiovascular: Denies chest pain or edema Respiratory/Chest Respiratory/Chest: Denies cough or shortness of breath at rest Gastrointestinal Gastrointestinal: Denies abdominal pain Genitourinary Genitourinary: Denies dysuria Musculoskeletal Musculoskeletal: Denies back pain Integumentary Integumentary: Denies dry skin Neurologic Neurologic: Denies abnormal gait, abnormal speech or confusion Psychiatric Psychiatric: Denies anxiety or depression Vital Signs Vital Signs Vital Signs: 08/02/23 00:24 08/02/23 00:27 08/02/23 00:27 Temperature 98.8 F 98.8 F Temperature Source Temporal Temporal Pulse Rate 84 84 Respiratory Rate 12 16 Respiratory Effort Normal Respiratory Pattern Normal Blood Pressure 118/63 118/63 Blood Pressure Mean 81 81 Pulse Ox 96 97 Oxygen Delivery Method Room Air Room Air 08/02/23 02:23 08/02/23 02:47 Temperature 98.3 F Temperature Source Pulse Rate 83 83 Respiratory Rate 22 H 20 H Respiratory Effort Respiratory Pattern Blood Pressure 120/72 117/69 Blood Pressure Mean 88 85 Pulse Ox 94 95 Oxygen Delivery Method Room Air Weight Weight: 93 lb 4.089 oz Body Mass Index (BMI) 19.5 Physical Exam Const alert, oriented x3 and no apparent distress HEENT normocephalic and head/scalp atraumatic Eyes PERRL and EOMs intact bilaterally Neck no lymphadenopathy Lymph Lymphatic: no lymphadenopathy noted Resp normal respiratory effort, normal air movement and clear to auscultation bilaterally Cardio regular rate, regular rhythm, S1 normal heart sound and S2 normal heart sound GI normal to inspection, nondistended, normoactive bowel sounds Extremity normal capillary refill General Extremity: Negative for edema Skin General Skin Exam: no breakdown Neuro no focal motor deficits and no sensory deficits noted Psych thought process normal, cooperative and affect normal Results Lab / Micro Data 08/02/23 01:04 08/02/23 01:04 Labs: Laboratory Results - last 24 hr 08/02/23 01:04: WBC 5.2, RBC 2.81 L, Hgb 7.3 L, Hct 24.5 L, MCV 87.2, MCH 26.0 L, MCHC 29.8 L, RDW Std Deviation 47.6 H, RDW Coeff of [place] 14.8 H, Plt Count 203, MPV 9.5, Immature Gran % (Auto) 0.600, Neut % (Auto) 65.7, Lymph % (Auto) 22.4, [place] % (Auto) 10.9 H, Eos % (Auto) 0.0, Baso % (Auto) 0.4, Absolute Neuts (auto) 3.4, Absolute Lymphs (auto) 1.17, Nucleated RBC % 0, Sodium 136, Potassium 4.7, Chloride 102, Carbon Dioxide 28.0, Anion Gap 6, BUN 39 H, Creatinine 1.44 H, Estim Creat Clear Calc 20.11, Est GFR (MDRD) Af Amer 45 L, Est GFR (MDRD) Non-Af 37 L, BUN/Creatinine Ratio 27.1 H, Glucose 125 H, Calcium 8.6 08/02/23 01:14: Urine Color Yellow, Urine Clarity Clear, Urine pH 5.0, Ur Specific [place] 1.015, Urine Protein Negative, Urine Glucose (UA) Normal, Urine Ketones Negative, Urine Occult Blood Negative, Urine Nitrite Negative, Urine Bilirubin Negative, Urine Urobilinogen Normal, Ur Leukocyte Esterase 25 H, Urine RBC 0 SEEN, Urine WBC 0 SEEN, Ur Squamous Epith Cells 0-5 SEEN, Ur Transition Epith Cell 0-5 SEEN, Urine Bacteria 0 SEEN, Urine Mucus 0 SEEN 08/02/23 02:35: Crossmatch See Detail Micro: Microbiology 08/02/23 01:45 Stool Stool Occult Blood (EPI) - Final Occult Blood Positive Assessment & Plan Assessment/Plan (1) Acute renal insufficiency: (2) Symptomatic anemia: (3) Weakness: (4) Metastatic adenocarcinoma: PLAN: Plan 1 generalized weakness?secondary to anemia?admit patient to general medical floor continue transfusion of 1 unit packed red blood cells, repeat CBC posttransfusion, will add PPI as suspicion exists for colon cancer primary 2. Metastatic adenocarcinoma with history of B-cell lymphoma?consult Dr. Caceres 3. Acute renal insufficiency?we will add IV fluid hydration and repeat BMP 4. DVT prophylaxis?SCDs 5. CODE STATUS?remains full at this time Charges/Coding Visit Charges Inpatient E&M: 26528 Init Hosp L2
[2023-08-02 03:43] LABS: International Normalized Ratio 1.1; Prothrombin Time (Protime)PT. 14.4 SECONDS (11.7-14.9)
[2023-08-02 04:06] LABS: Partial Thromboplast Time 98.1 Seconds (24.1-36.2)
[2023-08-02] MEDS: 0.9% Normal Saline (1000mL) 1,000 ML 75 ML IV (07:16)
--- NOTE | 2023-08-02 08:10 | PCM.PN.HOSP ---
Subjective Subjective Complaining of shingles involving her legs. Patient states that she has saddle anesthesia as well as pain going down her left leg. She denies a rash. Objective Data Objective Data Vital Signs: Vital Signs Temp Pulse Resp BP Pulse Ox O2 Del Method 36.7 C 76 17 113/62 93 Room Air 08/02/23 07:10 08/02/23 07:10 08/02/23 07:10 08/02/23 07:10 08/02/23 07:10 08/02/23 07:10 Oxygen Delivery Method Room Air Weight: 44.3 kg Body Mass Index (BMI) 20.4 Intake & Output: Intake and Output for Last 24 Hours 07/31/23 08/01/23 08/02/23 23:59 23:59 23:59 Intake Total 501 / 501 Balance 501 / 501 Lab / Micro Data 08/02/23 08:32 08/02/23 01:04 Labs: Laboratory Results - last 24 hr 08/02/23 01:04: WBC 5.2, RBC 2.81 L, Hgb 7.3 L, Hct 24.5 L, MCV 87.2, MCH 26.0 L, MCHC 29.8 L, RDW Std Deviation 47.6 H, RDW Coeff of [place] 14.8 H, Plt Count 203, MPV 9.5, Immature Gran % (Auto) 0.600, Neut % (Auto) 65.7, Lymph % (Auto) 22.4, [place] % (Auto) 10.9 H, Eos % (Auto) 0.0, Baso % (Auto) 0.4, Absolute Neuts (auto) 3.4, Absolute Lymphs (auto) 1.17, Nucleated RBC % 0, PT 14.4, INR 1.1, APTT 98.1 H*, Sodium 136, Potassium 4.7, Chloride 102, Carbon Dioxide 28.0, Anion Gap 6, BUN 39 H, Creatinine 1.44 H, Estim Creat Clear Calc 20.11, Est GFR (MDRD) Af Amer 45 L, Est GFR (MDRD) Non-Af 37 L, BUN/Creatinine Ratio 27.1 H, Glucose 125 H, Calcium 8.6 08/02/23 01:14: Urine Color Yellow, Urine Clarity Clear, Urine pH 5.0, Ur Specific [place] 1.015, Urine Protein Negative, Urine Glucose (UA) Normal, Urine Ketones Negative, Urine Occult Blood Negative, Urine Nitrite Negative, Urine Bilirubin Negative, Urine Urobilinogen Normal, Ur Leukocyte Esterase 25 H, Urine RBC 0 SEEN, Urine WBC 0 SEEN, Ur Squamous Epith Cells 0-5 SEEN, Ur Transition Epith Cell 0-5 SEEN, Urine Bacteria 0 SEEN, Urine Mucus 0 SEEN 08/02/23 02:35: Blood Type O POSITIVE, Antibody Screen NEGATIVE, Crossmatch See Detail Micro: Microbiology 08/02/23 01:45 Stool Stool Occult Blood (EPI) - Final Occult Blood Positive Physical Exam Const alert and no apparent distress HEENT head/scalp atraumatic and moist oral mucous membranes Resp normal respiratory effort, no retractions, no use of accessory muscles and clear to auscultation bilaterally Cardio regular rate, regular rhythm, S1 normal heart sound and S2 normal heart sound GI normal to inspection, nondistended, normoactive bowel sounds, soft to palpation, non-tender and non-distended Extremity normal to inspection and full ROM Neuro oriented x3 and CN's II-XII intact bilaterally Sensorium / Orientation: awake Psych affect normal Assessment & Plan Assessment/Plan (1) Weakness: PLAN: Multifactorial: anemia, underlying cancer, malnutrition, possible dehydration. PT OT eval and treat. (2) Acute renal insufficiency: PLAN: Baseline creatinine 1, therefore I cannot prudently qualify this as NATALIA IVF (3) Symptomatic anemia: PLAN: Acute blood loss: Hg 9.7 on 07/26, now down to 7.3 Transfused 1 unit PRBCs Monitor Check hemoccult, B12, folate, TSH, iron studies, LDH, haptoglobin (4) Metastatic adenocarcinoma: PLAN: + on liver biopsy on 07/26. DW Dr. Caceres: he recommends tumor markers (CA 125, CA 19-9, CEA) and CT of abdomen and pelvis. Poor prognosis. CT Chest, A/P: diffuse ascites. Omental metastasis. (5) Protein calorie malnutrition: QUALIFIERS: Protein-calorie malnutrition severity: severe Qualified Code(s): E43 - Unspecified severe protein-calorie malnutrition PLAN: BMI 20.4kg/m2 Add supplements (6) Saddle anesthesia: PLAN: Known lesion involving L2 from CT on 02/18. Stable on CT today. Additionally, sclerotic change of L1. Deformity and sclerosis of L3. Grade 1 anterolithesis of L4 on L5. Loss of height of T11. PLAN: Plan DVT prophylaxis?SCDs CODE STATUS?remains full at this time Charges/Coding Visit Charges Inpatient E&M: 20634 Subs Hosp L3
--- NOTE | 2023-08-02 08:32 | ONC.CONSULT ---
Assessment & Plan Assessment/Plan (1) Symptomatic anemia: Status: Acute Code(s): D64.9 - Anemia, unspecified Plan: To transfuse as needed. Since Stool occult blood is positive, Suggest GI consult. (2) Metastatic adenocarcinoma: Status: Acute Code(s): C79.9 - Secondary malignant neoplasm of unspecified site Plan: Newly diagnosed metastatic adenocarcinoma with peritoneal mass and abdominal distension. Suggest obtain CA125, CA19-9, CEA and CT a/p. I have discussed the diagnosis, prognosis which is poor with her, at this time she wants to pursue therapy. Will follow with more suggestions when test results are available. HPI Consult Data Date of Service:: 08/02/23 PCP / Referring Provider: Dr. Pee Calle DO Attending: Dr. Bear Scruggs DO Chief Complaint Chief Complaint: Asked to see Pt for newly diagnosed metastatic carcinoma. History of Present Illness History of Present Illness: 82-year-old woman with history of diffuse large B-cell lymphoma since 2008. She has received multiple lines of treatment, the last one with R-GEMOX ended on 04/20/2023. She had abdominal pain, was found to have new peritoneal mass with hypodensity in the liver. CT-guided biopsy of the abdominal mass on 06/30/2023 showed atypical epithelioid cells. She had a CT-guided biopsy of the liver lesion on 07/26/2023 which showed metastatic adenocarcinoma. She is now admitted to the hospital with general weakness, decrease in hemoglobin and abdominal distention. 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 GERD (gastroesophageal reflux disease) Gout History of echocardiogram History of non-Hodgkin's lymphoma Hyperkalemia Immunotherapy encounter Leg cramps Low iron Lymphadenopathy, abdominal Non Hodgkin's lymphoma Non-ischemic cardiomyopathy Non-smoker Osteoporosis Pain of sternum Pathologic fracture of lumbar vertebra Prerenal azotemia Restless legs Right sided abdominal pain Right-sided back pain Syncope (08/16/22) Thrombocytopenia Traumatic injury of head without focal neurologic finding Wears glasses Wears partial dentures Home Medications cholecalciferol (vitamin D3) 50 mcg (2,000 unit) capsule 1 ea PO DAILY pain 08/12/22 [History Last Taken 08/15/22] acetaminophen 500 mg capsule 500 mg PO Q6H PRN Pain 01/18/23 [History Last Taken Unknown] lisinopril 20 mg tablet 10 mg PO DAILY 02/28/23 [History Last Taken 07/26/23] gabapentin 100 mg capsule 300 mg PO BID pain 03/21/23 [History Last Taken Unknown] carvedilol 25 mg tablet 25 mg PO BID #180 tabs 05/04/23 [Rx Last Taken 07/26/23] potassium chloride 20 mEq tablet,extended release(part/cryst) (Klor-Con M) 20 meq PO DAILY #90 tabs 05/06/23 [Rx Last Taken Unknown] calcium carbonate 600 mg calcium (1,500 mg) tablet (Calcium) 600 mg PO DAILY 08/02/23 [History Last Taken Unknown] furosemide 40 mg tablet (Lasix) 20 mg PO MOWEFR HEART FAILURE 08/02/23 [History Last Taken Unknown] Allergy/AdvReac Type Severity Reaction Status Date / Time No Known Allergies Allergy Verified 08/02/23 00:24 Family History Mother Brain cancer Breast cancer Father Bone cancer Lung cancer Brother Esophageal cancer Bone cancer Surgical History History of appendectomy History of lumpectomy s/p vascular port insertion (06/2018) Status post colectomy Social History Smoking Status: Never smoker alcohol intake: never chirag/christian: Adventism seatbelt use: always do you feel safe at home: Yes ROS Constitutional Constitutional: Reports fatigue and poor appetite ENT HEENT: Denies dysphagia or odynophagia Cardiovascular Cardiovascular: Reports dyspnea on exertion; Denies chest pain Respiratory/Chest Respiratory/Chest: Denies chest tightness or cough Gastrointestinal Gastrointestinal: Reports abdominal pain; Denies change in bowel habits, constipation or diarrhea Genitourinary Genitourinary: Denies change in urinary stream or dysuria Musculoskeletal Musculoskeletal: Denies joint pain Integumentary Integumentary: Denies jaundice Neurologic Neurologic: Denies abnormal speech, behavior changes, confusion or dizziness Psychiatric Psychiatric: Denies anxiety or depression Physical Exam Const alert, oriented x3 and no apparent distress HEENT normocephalic Eyes no scleral icterus Neck No no lymphadenopathy Lymph Lymphatic: no lymphadenopathy noted Chest Chest Narrative: +Port R IC area. Resp clear to auscultation bilaterally Cardio regular rate, regular rhythm, S1 normal heart sound and S2 normal heart sound GI GI Narrative: distended, firm. Extremity no clubbing, cyanosis or edema Skin no rashes or lesions noted Neuro CN's II-XII intact bilaterally, moves all extremities and no focal motor deficits Psych mental status grossly normal Vital Signs Temperature 98.0 F 08/02/23 07:10 Temperature Source Oral 08/02/23 07:10 Pulse Rate 76 08/02/23 07:10 Respiratory Rate 17 08/02/23 07:10 Respiratory Effort Normal 08/02/23 00:27 Respiratory Pattern Normal 08/02/23 00:27 Blood Pressure 113/62 08/02/23 07:10 Blood Pressure Mean 79 08/02/23 07:10 Blood Pressure Source Monitor 08/02/23 07:10 Blood Pressure Position Semi-Fowlers 08/02/23 07:10 Blood Pressure Location Left Arm 08/02/23 07:10 Pulse Ox 93 08/02/23 07:10 Oxygen Delivery Method Room Air 08/02/23 07:10 Laboratory Results - last 24 hr 08/02/23 01:04: WBC 5.2, RBC 2.81 L, Hgb 7.3 L, Hct 24.5 L, MCV 87.2, MCH 26.0 L, MCHC 29.8 L, RDW Std Deviation 47.6 H, RDW Coeff of Alden 14.8 H, Plt Count 203, MPV 9.5, Immature Gran % (Auto) 0.600, Neut % (Auto) 65.7, Lymph % (Auto) 22.4, Upson % (Auto) 10.9 H, Eos % (Auto) 0.0, Baso % (Auto) 0.4, Absolute Neuts (auto) 3.4, Absolute Lymphs (auto) 1.17, Nucleated RBC % 0, PT 14.4, INR 1.1, APTT 98.1 H*, Sodium 136, Potassium 4.7, Chloride 102, Carbon Dioxide 28.0, Anion Gap 6, BUN 39 H, Creatinine 1.44 H, Estim Creat Clear Calc 20.11, Est GFR (MDRD) Af Amer 45 L, Est GFR (MDRD) Non-Af 37 L, BUN/Creatinine Ratio 27.1 H, Glucose 125 H, Calcium 8.6 08/02/23 01:14: Urine Color Yellow, Urine Clarity Clear, Urine pH 5.0, Ur Specific [place] 1.015, Urine Protein Negative, Urine Glucose (UA) Normal, Urine Ketones Negative, Urine Occult Blood Negative, Urine Nitrite Negative, Urine Bilirubin Negative, Urine Urobilinogen Normal, Ur Leukocyte Esterase 25 H, Urine RBC 0 SEEN, Urine WBC 0 SEEN, Ur Squamous Epith Cells 0-5 SEEN, Ur Transition Epith Cell 0-5 SEEN, Urine Bacteria 0 SEEN, Urine Mucus 0 SEEN 08/02/23 02:35: Blood Type O POSITIVE, Antibody Screen NEGATIVE, Crossmatch See Detail Microbiology 08/02/23 01:45 Stool Stool Occult Blood (EPI) - Final Occult Blood Positive Charges/Coding Visit Charges Office Visits / Consults: [id number] IP Consult L4
[2023-08-02 08:45] LABS: Hematocrit 31.6 % (37-47); Hemoglobin 9.7 g/dL (12.0-15.0)
[2023-08-02 09:01] LABS: LDH 162 U/L (84-246); Thyroid Stim Hormone (TSH) 0.87 uIU/mL (0.358-3.74)
[2023-08-02 09:19] LABS: Vitamin B12 1134 pg/mL (211-911)
[2023-08-02] MEDS: Pantoprazole Sodium 40 MG in 0.9% Normal Saline (100mL MB+) 100 ML 330 MG IV ×2 (10:06→22:14)
--- NOTE | 2023-08-02 10:40 | CASEMGMT ---
RN CM Face to Face with patient for initial transition planning/care coordination assessment. RN CM introduced self and role at [facility]. Patient lying in bed, alert and oriented. Patient willing to participate in assessment and is able to answer all questions appropriately. Care providers, pharmacy, and demographics verified. Patient wishes to discharge home, denies need for home health at this time. Patient states she has no further needs or concerns at this time. CM to follow for discharge planning needs that may arise. PCP: Luc Specialists: Nicki, oncologist; Basali, pain management Preferred Pharmacy: [facility] [place] Insurance: [facility] Prescription Benefit: yes Living Will/HPOA: yes, Duane Castro LNOK: Living Arrangements: Patient lives with in a single story home with 2 steps and railing to enter the home. Patient states she is independent at home. Transportation: DME/HHC: Patient has raised toilet, cane, walker, grab bars at home. No previous HHC or SNF Disposition Plan: Patient to discharge home with family support and follow-up plans in place. Chika KOWALSKI, RN, CM
[2023-08-02] MEDS: 0.9% Saline Lock 10 ML Syringe IV ×2 (11:09→12:10)
--- NOTE | 2023-08-02 11:30 | CT_ITS ---
STUDY: CT CHEST, ABDOMEN T PELVIS WITH CONTRAST REASON FOR EXAM: Female, 82 years old. Metastatic adenocarcinoma RADIATION DOSAGE (If Supplied By Facility): CTDIvol = ( 12.36 ) mGy, DLP = ( 380.90 ) mGycm TECHNIQUE: Transaxial imaging was performed following intravenous administration of Oral and amp; IV Gastrografin and amp; 75mL Isovue-300. Multiplanar coronal and sagittal images were reformatted. Individualized dose optimization techniques were used for this CT. COMPARISON: Comparison is made with prior CT scan of the chest dated January 14, 2023. FINDINGS: CHEST A right-sided Port-A-Cath is seen with the tip in the superior vena cava. Minimal scarring in the right lung apex. Focal atelectasis and/or infiltration is seen in the anterior medial aspect of the right upper lobe adjacent to the right minor fissure.. This is new as compared to prior study. There is no demonstrated pleural abnormality. There are calcifications of the coronary arteries. Normal mediastinum. Normal hilar regions. Normal unenhanced pulmonary arteries. Normal aorta arch and descending thoracic aorta. There are degenerative changes of the thoracic spine. Stable heterogeneous sclerosis of the sternum and manubrium sternum. Loss of white of the superior endplate of the L2 vertebrae. ABDOMEN Ascites. Questionable omental metastasis in the anterior abdomen. Mild hepatomegaly. There is been an increase in size of the hypodense nodule in the peripheral lateral aspect of the inferior aspect of the right lobe of the liver. Subcentimeters cyst is seen in the superior aspect of the right lobe of the liver. Contracted gallbladder. Thickened wall. Tiny gallstone. Normal spleen. Normal pancreas. Normal bilateral adrenal glands. Normal right kidney. Normal left kidney. Moderate-sized hiatal hernia. Normal small intestine. There are multiple colonic diverticula consistent with diverticulosis. The appendix is visualized and appears normal. Normal abdominal aorta. Normal inferior vena cava. Normal retroperitoneum. Normal abdominal wall. Normal osseous structures. PELVIS Normal urinary bladder. Patient status post hysterectomy. Normal visualized small intestine. Normal visualized colon. There is no pelvic fluid. There is no pelvic lymphadenopathy or mass lesion. Normal visualized pelvic arteries. Normal abdominal wall. Sclerotic changes of the L1 vertebra with loss of height. Deformity and sclerosis of the L3 vertebrae. Grade 1 anterolisthesis of L4 on L5. Loss of height of the T11 vertebrae. CT/CT Chest, Abd, Pel w/Contrast IMPRESSION: Diffuse ascites. Findings suggestive of omental metastasis along the anterior aspect of the abdomen. Slight increase in size of the hypodensity in the inferior aspect of the right lobe of liver. Stable subcentimeters cyst in the superior aspect of the right lobe of the liver. Hiatal hernia. Heterogeneous sclerosis of the sternum and manubrium sternum. Electronically Signed: Jagjit Villavicencio MD at 13:02 EST ,
[2023-08-02] MEDS: Potassium Chloride Oral Tablet 20 MEQ PO (12:09)
[2023-08-02] MEDS: Gabapentin 300 MG Capsule PO ×2 (12:09→19:37)
[2023-08-02] MEDS: Carvedilol 25 MG Tablet PO (12:09)
[2023-08-02] MEDS: Lisinopril 10 MG Tablet PO (12:09)
[2023-08-02] MEDS: Ensure Plus High Protein 120 ML LIQUID PO ×2 (12:15→19:38)
[2023-08-02] MEDS: Influenza Virus Vac Quad 23-24 60 MCG/0.5 ML SYRINGE IM (13:32)
[2023-08-02] MEDS: Acetaminophen 500 MG Tablet PO ×2 (13:38→19:39)
[2023-08-02] MEDS: Cholecalciferol (VIT D3) 25 MCG TABLET (1,000 UNITS) 50 MCG PO (19:36)
[2023-08-02] MEDS: Calcium (Elemental) 500 MG Tablet PO (19:37)
--- NOTE | 2023-08-02 20:10 | RAD_ITS ---
INDICATION: shortness of breath EXAMINATION/TECHNIQUE: X-RAY - XR Chest 1 View COMPARISON: 03/01/2023 FINDINGS: LIFE-SUPPORT AND LINES: 1. RIGHT IJ catheter without change extending along course the SVC. 2. No pneumothorax. HEART AND VESSELS: The cardiac silhouette, pulmonary vasculature have normal appearance. No evidence of congestive failure. LUNGS AND PLEURAL SPACES: Lungs are clear. No focal infiltrate, consolidation or effusions. No evidence of pneumothorax. Minimal atelectasis in the RIGHT midlung. MEDIASTINUM AND HILAR REGIONS: No masses adenopathy noted. No areas of calcification. Visualized upper airway is normal in position. BONY ELEMENTS: No acute bony changes noted. RAD/Chest 1 View (Portable) IMPRESSION: 1. Port-A-Cath without change. No pneumothorax. 2. Plate atelectasis in the RIGHT midlung. 3. Remaining lung zones are clear. No congestive failure consolidation or effusion. Electronically Signed: Pelon Osman MD at 21:18 EST ,
[2023-08-02 21:20] LABS: BNP,B-Type NATRIURETIC PEPTIDE 106.6 pg/mL (0-100)
--- NOTE | 2023-08-03 00:35 | NURSING ---
dr mccloud informed pt has improved breathing with hl and bnp is 106.6. no new orders at this time.
[2023-08-03 05:10] LABS: Absolute Lymphocyte Count 0.95 X10^3/uL (0.83-4.51); Absolute Neutrophil Count 3.5 X10^3/uL (2.0-7.7); Basophil# 0.02 X10^3/uL; Basophil% 0.4 % (0-1); Hematocrit 29.7 % (37-47); Hemoglobin 8.9 g/dL (12.0-15.0); Lymphocyte # 0.95 X10^3/ul (0.83-4.51); Lymphocyte % 19.2 % (19-41); Mean Corpuscular Hgb 25.9 pg (27.0-32.0); Mean Corpuscular Volume 86.3 fL (81-99); Mean Platelet Vol. 9.4 fl (6.2-12.0); Monocyte# 0.51 X10^3/uL; Monocyte% 10.3 % (0-10); NRBC Flagged by Analyzer 0 % (0-5); Neutrophil # 3.45 X10^3/uL (2.7-7.7); Neutrophil % 69.9 % (47-70); Platelet Count 184 K/mm3 (150-450); RBC Distribution Width CV 15.2 % (11.6-14.6); RBC Distribution Width SD 47.8 fl (35.1-43.9); Red Blood Count 3.44 M/mm3 (4.2-5.4); White Blood Count 4.9 K/mm3 (4.4-11.0)
[2023-08-03 05:41] LABS: ALB/GLOB Ratio 0.7 RATIO (0.9-2.4); AST(SGOT) 11 U/L (15-37); Alanine Aminotransfer ALT/SGPT 10 U/L (13-56); Albumin, Serum 2.2 g/dL (3.2-5.0); Alkaline Phosphatase 76 U/L (45-117); Anion Gap 6 (5-15); BUN 26 mg/dL (7-18); BUN/Creat Ratio 25.7 RATIO (10-20); Calcium,Total 8.2 mg/dL (8.5-10.1); Chloride 106 mmol/L (98-107); Creatinine, Serum 1.01 mg/dL (0.55-1.02); EST Glomerular Filtration Rate 56 mL/min (>60); Est Glom Filt Rate - Afr Amer 67 mL/min (>60); Estimated Creatinine Clearance 30.03 ml/min; Globulin 3.1 g/dL (2.2-4.2); Glucose 94 mg/dL (74-106); Potassium 4.5 mmol/L (3.5-5.1); Protein, Total 5.3 g/dL (6.4-8.2); Sodium Level 137 mmol/L (136-145)
[2023-08-03 05:46] VITALS: BP 116/64; PULSE 82; RESP 16; TEMP 36.8; O2SAT 92
[2023-08-03 07:08] LABS: Haptoglobin 373 mg/dL (41-333)
--- NOTE | 2023-08-03 08:34 | PN.HOSP_ITS ---
Reason for Visit Reason for Visit: Diagnoses Secondary malignant neoplasm of unspecified site (08/02/23) Anemia, unspecified (08/02/23) Unspecified severe protein-calorie malnutrition (08/02/23) Disorder of kidney and ureter, unspecified (08/02/23) Anesthesia of skin (08/02/23) Weakness (08/02/23) Subjective Subjective Acute worsening abdominal pain today. Has been slowly distended but much worse today. Objective Data Objective Data Vital Signs: Vital Signs Temp Pulse Resp BP Pulse Ox O2 Del Method 36.8 C 82 16 116/64 92 Room Air 08/03/23 05:46 08/03/23 05:46 08/03/23 05:46 08/03/23 05:46 08/03/23 05:46 08/03/23 06:24 Oxygen Delivery Method Room Air Weight: 44.3 kg Body Mass Index (BMI) 20.4 Intake & Output: Intake and Output for Last 24 Hours 08/01/23 08/02/23 08/03/23 23:59 23:59 23:59 Intake Total 2256.00 / 2656.00 400 / 400 Balance 2256.00 / 2656.00 400 / 400 Medical Nutrition Assessment Dietitian: Malnutrition Criteria Met Start: 08/02/23 14:41 Freq: Status: Active Protocol: Document 08/02/23 14:41 AG (Rec: 08/02/23 14:41 AG [id number]) Nutrition Malnutrition Evidence of Malnutrition Exists Yes Malnutrition (severe): Chronic Evidenced By Suboptimal Energy Intake ( Severe),Physical Changes ( Severe) Clinical Problem Chronic Disease or Condition Related Malnutrition Etiology severe chronic malnutrition related to inadequate energy intake w/ increased energy needs d/t adenocarcinoma Signs/Symptoms as evidenced by estimated PO intake meeting <50% of estimated energy needs>3 months, Severe muscle wasting/ fat loss evident per physical exam in orbital, clavicle, acromion, and temporal areas Status Active Problem Recommendation Dietitian Recommendations/Changes continue regular diet, ensure plus high protein 120mL 4x/day w/ medpass given evidence of malnutrition Lab / Micro Data 08/03/23 04:50 08/03/23 04:50 Labs: Laboratory Results - last 24 hr 08/02/23 01:04: Lactate Dehydrogenase 162, Folate 13.70, TSH 0.87 08/02/23 08:32: Hgb 9.7 L, Hct 31.6 L, Haptoglobin 373 H, Vitamin B12 1134 H 08/02/23 20:55: B-Natriuretic Peptide 106.6 H 08/03/23 04:50: WBC 4.9, RBC 3.44 L, Hgb 8.9 L, Hct 29.7 L, MCV 86.3, MCH 25.9 L , MCHC 30.0 L, RDW Std Deviation 47.8 H, RDW Coeff of Alden 15.2 H, Plt Count 184, MPV 9.4, Immature Gran % (Auto) 0.200, Neut % (Auto) 69.9, Lymph % (Auto) 19.2, Thomas % (Auto) 10.3 H, Eos % (Auto) 0.0, Baso % (Auto) 0.4, Absolute Neuts (auto) 3.5, Absolute Lymphs (auto) 0.95, Nucleated RBC % 0, Sodium 137, Potassium 4.5, Chloride 106, Carbon Dioxide 25.0, Anion Gap 6, BUN 26 H, Creatinine 1.01, Estim Creat Clear Calc 30.03, Est GFR (MDRD) Af Amer 67, Est GFR (MDRD) Non-Af 56 L, BUN/Creatinine Ratio 25.7 H, Glucose 94, Calcium 8.2 L, Total Bilirubin 0.40, AST 11 L, ALT 10 L, Alkaline Phosphatase 76, Total Protein 5.3 L, Albumin 2.2 L, Globulin 3.1, Albumin/Globulin Ratio 0.7 L Micro: Microbiology 08/02/23 20:17 Nasal Secretion SARS-CoV-2 Antigen (Rapid) - Final 08/02/23 01:45 Stool Stool Occult Blood (EPI) - Final Occult Blood Positive Radiography Diagnostic Testing: Radiology Impression Chest/Abdomen/Pelvis CT 08/02/23 11:30 IMPRESSION: Diffuse ascites. Findings suggestive of omental metastasis along the anterior aspect of the abdomen. Slight increase in size of the hypodensity in the inferior aspect of the right lobe of liver. Stable subcentimeters cyst in the superior aspect of the right lobe of the liver. Hiatal hernia. Heterogeneous sclerosis of the sternum and manubrium sternum. Electronically Signed: Jagjit Villavicencio MD at 13:02 EST , Chest X-Ray 08/02/23 20:10 IMPRESSION: 1. Port-A-Cath without change. No pneumothorax. 2. Plate atelectasis in the RIGHT midlung. 3. Remaining lung zones are clear. No congestive failure consolidation or effusion. Electronically Signed: Pelon Osman MD at 21:18 EST , Physical Exam Const alert Constitutional Narrative: Uncomfortable. Nontoxic. HEENT head/scalp atraumatic and moist oral mucous membranes Resp normal respiratory effort, no retractions, no use of accessory muscles and clear to auscultation bilaterally Cardio regular rate, regular rhythm, S1 normal heart sound and S2 normal heart sound GI GI Narrative: Hypoactive bowel sounds. Soft but distended. Tender palpation throughout. Assessment & Plan Assessment/Plan (1) Weakness: PLAN: Multifactorial: anemia, underlying cancer, malnutrition, possible dehydration. PT OT eval and treat. (2) Acute renal insufficiency: PLAN: Baseline creatinine 1, therefore I cannot prudently qualify this as NATALIA IVF (3) Symptomatic anemia: PLAN: Acute blood loss: Hg 9.7 on 07/26, went down to 7.3, transfused 1 unit PRBCs and now up to 8.9. No additional transfusions needed at this time. Check hemoccult, B12, folate, TSH, iron studies, LDH, haptoglobin Patient with heme positive stools. Will consult gastroenterology for potential evaluation. Discussed with Dr. Jay. (4) Metastatic adenocarcinoma: PLAN: + on liver biopsy on 07/26. ZEINAB Caceres: he recommends tumor markers (CA 125, CA 19-9, CEA) and CT of abdomen and pelvis. He was concerned that patient may have a poor prognosis but want to continue to fight. Did speak with him later and he did request paracentesis looking for tumor markers. His echo see if there is a chance that this could be ovarian as this would tend portend a worse prognosis. CT Chest, A/P: diffuse ascites. Omental metastasis. (5) Protein calorie malnutrition: QUALIFIERS: Protein-calorie malnutrition severity: severe Qualified Code(s): E43 - Unspecified severe protein-calorie malnutrition PLAN: BMI 20.4kg/m2 Add supplements (6) Postherpetic neuralgia: PLAN: Clarification from documentation on seventh. Patient actually does not have saddle anesthesia but did have about herpes zoster that involved her leg that was quite extensive. Ever since then she has been having severe pain from that. On repeat query, patient actually denied numbness in her groin but more pain in that region. Therefore I do not feel that MRI would be necessary at this time. Continue with pain control. (7) Ascites: PLAN: Most likely secondary to carcinomatosis. Worsening abdominal pain today, is concerned that the patient may have developed an ileus but the x-ray is negative for that. With the worsening pain, and her belly is distended but not really tight, be potentially concerned about spontaneous bacterial peritonitis. We will follow-up on the W BCs to see if antibiotics would be indicated. Patient have a paracentesis performed. Follow-up studies PLAN: Plan DVT prophylaxis?SCDs CODE STATUS?remains full at this time Discussed with family at bedside. Charges/Coding Visit Charges Inpatient E&M: 33232 Subs Hosp L2
[2023-08-03 09:00] VITALS: BP 154/88; PULSE 93; RESP 17; TEMP 36.8; O2SAT 99
[2023-08-03] MEDS: Carvedilol 25 MG Tablet PO (09:02)
[2023-08-03] MEDS: Lisinopril 10 MG Tablet PO (09:02)
[2023-08-03] MEDS: Ensure Plus High Protein 120 ML LIQUID PO ×2 (09:02→14:21)
[2023-08-03] MEDS: Acetaminophen 500 MG Tablet PO (09:02)
[2023-08-03] MEDS: Potassium Chloride Oral Tablet 20 MEQ PO (09:02)
[2023-08-03] MEDS: Gabapentin 300 MG Capsule PO ×2 (09:02→20:34)
[2023-08-03] MEDS: 0.9% Saline Lock 10 ML Syringe IV ×3 (09:04→18:01)
[2023-08-03] MEDS: Pantoprazole Sodium 40 MG in 0.9% Normal Saline (100mL MB+) 100 ML 330 MG IV ×2 (09:05→22:18)
[2023-08-03 10:04] VITALS: O2SAT 92
--- NOTE | 2023-08-03 13:00 | RAD_ITS ---
STUDY: X-RAY - ABDOMEN/PELVIS REASON FOR EXAM: Female, 82 years old. Abdominal pain TECHNIQUE: Single AP view of the abdomen / pelvis. COMPARISON: None. FINDINGS: Normal visualized lung bases. There is an unremarkable bowel gas pattern. Findings suggestive of ascites. The visualized liver, spleen and kidneys are grossly normal in size and morphology. Normal soft tissue structures. There are degenerative changes of the visualized lumbar spine. Loss of height of the L2 and T12 vertebrae. RAD/Abdomen Single View (Portable) IMPRESSION: Findings suggestive of ascites. Degenerative changes of the lumbar spine. Loss of height of the L2 and T12 vertebrae. Electronically Signed: Jagjit Villavicencio MD at 13:32 EST ,
[2023-08-03 13:35] VITALS: BP 102/63; BP 122/64; BP 131/70; BP 137/64; PULSE 74; PULSE 78; PULSE 79; RESP 16; TEMP 36.6; O2SAT 96; O2SAT 98
[2023-08-03] MEDS: Lidocaine 2% (20 ml mdv) 20 ML Vial INFILT (13:42)
[2023-08-03 14:24] LABS: Cytology, Body Fluid / CSF SEE PATHOLOGY REPORT
--- NOTE | 2023-08-03 14:43 | PRO.PCM_ITS ---
Procedure Report Date of Procedure: 08/03/23 Assessment & Plan Assessment/Plan (1) Ascites: QUALIFIERS: Ascites type: malignant Qualified Code(s): R18.0 - Malignant ascites PLAN: PROCEDURE: Ultrasound guided paracentesis ORDERING PROVIDER: Dr. Scruggs INDICATION: Female, 82 years old. Malignant ascites. PROVIDER: ABBEY Car TECHNIQUE: The risks, benefits, and alternatives to the procedure were explained to the patient. The specific risks of bleeding, infection, and damage to bowel were detailed and accepted. Witnessed informed consent was obtained. The abdomen was ultrasonographically surveyed. An appropriate pocket of fluid was identified in the right lower quadrant. The skin was prepped with Betadine swabs and sterile field established. 2% lidocaine was used for local anesthetic. Aspiration while anesthetizing the insertion track revealed the return of clear red ascitic fluid. Using ultrasound guidance, the peritoneal cavity was accessed with a 5-Tristanian paracentesis needle/catheter system. The trocar was removed. A total of 1800 ml of clear red colored fluid was removed from the peritoneal cavity. The catheter was removed and a sterile dressing was applied. The procedure was well tolerated. IMPRESSION: Successful ultrasound-guided paracentesis. Procedures Radiology Radiology US Procedures: 14464 Paracentesis
[2023-08-03 14:48] LABS: Body Fluid Mononuclear WBC # 0.674 10^3/uL; Body Fluid Mononuclear WBC % 77.4 %; Body Fluid Polynuclear WBC # 0.197 10^3/uL; Body Fluid Polynuclear WBC % 22.6 %; Body Fluid Total Cells Counted 1.001 10^3/ul; Red Cell Count/Body Fluid 0.016 10^6/ul; White Blood Count/Body Fluid 0.871 10^3/uL
[2023-08-03 14:54] LABS: Appearance/Body Fluid SL CLDY; Auto B Fluid Analyzer BKGD Ct COUNTS W/IN LIMITS (W/IN LIMITS); Color/Body Fluid RED; Source- Body Fluid OTHER
[2023-08-03 15:00] VITALS: BP 103/56; PULSE 83; RESP 16; TEMP 37.1; O2SAT 98
[2023-08-03 15:32] LABS: Lymphocytes 24 %; Mesothelial Cells 5 %; Monocytes 19 %; Neutrophil (Segs) 41 %; Other Cell Type/BF 11 %
[2023-08-03 15:33] LABS: Body Fluid QC Type(s) BF1Q
[2023-08-03 16:09] LABS: Carbohydrate Ag 19-9 2261 12704 U/mL (0-35); Carcinoembryonic Antigen 67.8 ng/mL (0.0-4.7)
--- NOTE | 2023-08-03 16:12 | CON.PCM.GI_ITS ---
HPI Consult Data Date of Consult: 08/03/23 HPI Narrative Reason for Consultation: Anemia and heme positive stools HPI Narrative: AMILCAR DALY, is a 82 F who presents with worsening abdominal with worsening abdominal pain and weakness. She has a past medical history of diffuse large B- cell lymphoma since 2008. She has received multiple lines of treatment, the last one with R-GEMOX ended on 04/20/2023. She had abdominal pain, was found to have new peritoneal mass with hypodensity in the liver. CT-guided biopsy of the abdominal mass on 06/30/2023 showed atypical epithelioid cells. She had a CT-guided biopsy of the liver lesion on 07/26/2023 which showed metastatic adenocarcinoma. She is now admitted to the hospital with general weakness, decrease in hemoglobin and abdominal distention. Patient is anemic with a hemoglobin of 7.6 and slight increase in creatinine to 1.4 from her normal baseline. Patient denies chest pain, shortness of breath and/or fevers or chills but does feel weak and tired. She will be admitted to general medical floor and 1 unit of packed red blood cells transfused and consult to Dr. Caceres her skiver box toe. At this time she expressed wish to be full code. 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 GERD (gastroesophageal reflux disease) Gout History of echocardiogram History of non-Hodgkin's lymphoma Hyperkalemia Immunotherapy encounter Leg cramps Low iron Lymphadenopathy, abdominal Non Hodgkin's lymphoma Non-ischemic cardiomyopathy Non-smoker Osteoporosis Pain of sternum Pathologic fracture of lumbar vertebra Prerenal azotemia Restless legs Right sided abdominal pain Right-sided back pain Syncope (08/16/22) Thrombocytopenia Traumatic injury of head without focal neurologic finding Wears glasses Wears partial dentures Home Medications cholecalciferol (vitamin D3) 50 mcg (2,000 unit) capsule 1 ea PO DAILY pain 08/12/22 [History Last Taken 08/15/22] acetaminophen 500 mg capsule 500 mg PO Q6H PRN Pain 01/18/23 [History Last Taken Unknown] lisinopril 20 mg tablet 10 mg PO DAILY 02/28/23 [History Last Taken 07/26/23] gabapentin 100 mg capsule 300 mg PO BID pain 03/21/23 [History Last Taken Unknown] carvedilol 25 mg tablet 25 mg PO BID #180 tabs 05/04/23 [Rx Last Taken 07/26/23] potassium chloride 20 mEq tablet,extended release(part/cryst) (Klor-Con M) 20 meq PO DAILY #90 tabs 05/06/23 [Rx Last Taken Unknown] calcium carbonate 600 mg calcium (1,500 mg) tablet (Calcium) 600 mg PO DAILY 08/02/23 [History Last Taken Unknown] furosemide 40 mg tablet (Lasix) 20 mg PO MOWEFR HEART FAILURE 08/02/23 [History Last Taken Unknown] Allergy/AdvReac Type Severity Reaction Status Date / Time No Known Allergies Allergy Verified 08/02/23 00:24 Family History Mother Brain cancer Breast cancer Father Bone cancer Lung cancer Brother Esophageal cancer Bone cancer Surgical History History of appendectomy History of lumpectomy s/p vascular port insertion (06/2018) Status post colectomy Social History Smoking Status: Never smoker alcohol intake: never chirag/sikh: Anabaptism seatbelt use: always do you feel safe at home: Yes Medical Records Data Medical Nutrition Assessment Dietitian: Malnutrition Criteria Met Start: 08/02/23 14:41 Freq: Status: Active Protocol: Document 08/02/23 14:41 AG (Rec: 08/02/23 14:41 [id number]) Nutrition Malnutrition Evidence of Malnutrition Exists Yes Malnutrition (severe): Chronic Evidenced By Suboptimal Energy Intake ( Severe),Physical Changes ( Severe) Clinical Problem Chronic Disease or Condition Related Malnutrition Etiology severe chronic malnutrition related to inadequate energy intake w/ increased energy needs d/t adenocarcinoma Signs/Symptoms as evidenced by estimated PO intake meeting <50% of estimated energy needs>3 months, Severe muscle wasting/ fat loss evident per physical exam in orbital, clavicle, acromion, and temporal areas Status Active Problem Recommendation Dietitian Recommendations/Changes continue regular diet, ensure plus high protein 120mL 4x/day w/ medpass given evidence of malnutrition Lab / Micro Data 08/03/23 04:50 08/03/23 04:50 Labs: Laboratory Results - last 24 hr 08/02/23 08:32: Haptoglobin 373 H, Carcinoembryonic Ag 67.8 H, CA 19-9 Antigen 72068 H, CA 125 Antigen 435.0 H 08/02/23 20:55: B-Natriuretic Peptide 106.6 H 08/03/23 04:50: WBC 4.9, RBC 3.44 L, Hgb 8.9 L, Hct 29.7 L, MCV 86.3, MCH 25.9 L , MCHC 30.0 L, RDW Std Deviation 47.8 H, RDW Coeff of Alden 15.2 H, Plt Count 184, MPV 9.4, Immature Gran % (Auto) 0.200, Neut % (Auto) 69.9, Lymph % (Auto) 19.2, Barnes % (Auto) 10.3 H, Eos % (Auto) 0.0, Baso % (Auto) 0.4, Absolute Neuts (auto) 3.5, Absolute Lymphs (auto) 0.95, Nucleated RBC % 0, Sodium 137, Potassium 4.5, Chloride 106, Carbon Dioxide 25.0, Anion Gap 6, BUN 26 H, Creatinine 1.01, Estim Creat Clear Calc 30.03, Est GFR (MDRD) Af Amer 67, Est GFR (MDRD) Non-Af 56 L, BUN/Creatinine Ratio 25.7 H, Glucose 94, Calcium 8.2 L, Total Bilirubin 0.40, AST 11 L, ALT 10 L, Alkaline Phosphatase 76, Total Protein 5.3 L, Albumin 2.2 L, Globulin 3.1, Albumin/Globulin Ratio 0.7 L 08/03/23 14:09: Fluid Source OTHER, Fluid Color RED, Fluid Appearance SL CLDY, Fluid WBC 0.871, Fluid RBC 0.016, Fluid Tot Cell Count 1.001 H, Fld Polynuclear WBCs # 0.197, Fld Polynuclear WBCs % 22.6, Fluid Mononuclear WBCs 0.674, Fld Mononuclear WBCs % 77.4, Fluid Neutrophils 41, Fluid Lymphocytes 24, Fluid Monocytes 19, Fld Mesothelial Cells 5, Fluid Other Cells 11, Fl Pathologist Comment May follow, Fluid Comment 2 SEE COMMENT Micro: Microbiology 08/02/23 20:17 Nasal Secretion SARS-CoV-2 Antigen (Rapid) - Final Radiology Impression Chest X-Ray 08/02/23 20:10 IMPRESSION: 1. Port-A-Cath without change. No pneumothorax. 2. Plate atelectasis in the RIGHT midlung. 3. Remaining lung zones are clear. No congestive failure consolidation or effusion. Electronically Signed: Pelon Osman MD at 21:18 EST , KUB X-Ray 08/03/23 13:00 IMPRESSION: Findings suggestive of ascites. Degenerative changes of the lumbar spine. Loss of height of the L2 and T12 vertebrae. Electronically Signed: Jagjit Villavicencio MD at 13:32 EST ,
[2023-08-03] MEDS: Ceftriaxone 2 GM in 0.9% Normal Saline (50mL MB+) 50 ML IV (16:26)
[2023-08-03] MEDS: Bisacodyl 5 MG Tablet 20 MG PO (16:53)
[2023-08-03] MEDS: Metoclopramide 10 MG/2 ML Vial 5 MG IV ×2 (18:00→23:56)
[2023-08-03] MEDS: Polyethylene Glycol 3350 BOWEL PREP PO (18:04)
--- NOTE | 2023-08-03 18:35 | CASEMGMT ---
Social Work - Advanced Directive Validation Unable to find Advanced Directives in the EMR. Met with patient, and multiple family members. Patient agreed for SW to come in and ask questions with visitors present. Patient and reports to have Advanced Directives in place and agrees to bring to hospital tomorrow. Did not go into detail as to who the [facility] is, as wanted to respect privacy in light of multiple visitors. Checked in with patient and how doing/coping. Patient reports has been through cancer treatment 4 times, so is a bit worried about health issues now. Supportive listening, encouragement, and validation offered to patient. -MARK Cortez
[2023-08-03] MEDS: Cholecalciferol (VIT D3) 25 MCG TABLET (1,000 UNITS) 50 MCG PO (20:35)
[2023-08-03] MEDS: Calcium (Elemental) 500 MG Tablet PO (20:36)
[2023-08-03 20:39] VITALS: BP 133/70; PULSE 92; RESP 20; TEMP 37.3; O2SAT 96
[2023-08-03] MEDS: 0.9 % NaCl (Sterile) Posiflush 10 mL IV ×2 (22:19→23:57)
[2023-08-04] VITALS (12 sets, daily range): BP systolic 76–137; BP diastolic 43–75; PULSE 68–99; RESP 14–20; TEMP 36.6–36.9; O2SAT 90–99; BMI 20.4
--- NOTE | 2023-08-04 | COLBX_PTH ---
PATIENT: AMILCAR DALY LOC: [facility] U#:[id number] AGE/SX: 82/F ROOM: [facility] RE08/02/[address]: Dr. Baldemar Ruiz MD : 1940 BED: 1 DIS: 08/06/2023 SPEC #: [id number] RECD: 08/04/23 14:51 STATUS: SALAZAR REQ #: [id number] FRANCOIS: 08/04/23 00:[address]: Patrice Jay DEPT: SURGICAL PATHOLOGY RECD BY: Pardeep Sotomayor ENTERED: 08/05/23 08:52 SP TYPE: COLON BX OTHR DR: MD Dr. Bear Bernstein DO Dr. Joseph Prah, MD Dr. Mansour Isckarus, MD Dr. Prakash Chand, MD Dr. Paul Nielsen, MD Dr. Robert Field, MD Dr. Ryan Jin, MD Dr. Roger Macklis, MD Dr. Steve Walston, DO Myriam Hernandez Dr. SOFTLINES SUPERVISOR-C Tissues: A - Gastric mucous membrane B - Cecum, NOS C - Cecum, NOS Procedures: Surgery Specimen Level IV Comments: @ Ordering doctor for SUIV edited from to @ by REMINGTON at 08/08/23 1349 @ Submitting doctor edited from to @ by REMINGTON at 08/08/23 134 HEADER OPERATION: Colonoscopy, EGD, biopsy PRE-OP DIAGNOSIS: Acute renal insufficiency, symptomatic anemia, weakness, metastatic carcinoma TISSUE SUBMITTED: A. Jejunum, B. Cecum polyp biopsy, C. Biopsy cecal mass MICROSCOPIC DIAGNOSIS A. Jejunum, biopsy: Mild nonspecific chronic inflammation. B. Cecal polyp, biopsy: Focal submucosal atypical gland suspicious for malignancy. C. Cecal mass, biopsy: Invasive moderately differentiated adenocarcinoma. See comment. AM:ondina 08/09/2023 COMMENT C. Immunohistochemistry ([id number]) supports the above diagnosis. MICROSCOPIC DESCRIPTION Slides are reviewed. GROSS DESCRIPTION A - Received in fixative is one container labeled with the patient's name and designated jejunal biopsy. The specimen consists of multiple irregular fragments of light mims soft tissue that in aggregate measure 1.2 x 0.3 x 0.1 cm. The specimen is totally submitted in one cassette. B - Received in fixative is one container labeled with the patient's name and designated cecum polyp. The specimen consists of one irregular fragment of light mims soft tissue that measures 3.4 x 0.3 x 0.1 cm. The specimen is totally submitted in one cassette. C - Received in fixative is one container labeled with the patient's name and designated cecal mass biopsy. The specimen consists of multiple irregular fragments of light mims soft tissue that in aggregate measure 2.0 x 0.5 x 0.1 cm. The specimen is totally submitted in one cassette. / SJ:rg 08/05/2023 TC:0 CPT: 87615 x3
--- NOTE | 2023-08-04 | FLU_PTH ---
PATIENT: AMILCAR DALY LOC: [facility] U#:[id number] AGE/SX: 82/F ROOM: [facility] RE08/02/[address]: Dr. Baldemar Ruiz MD : 1940 BED: 1 DIS: 08/06/2023 SPEC #: [id number] RECD: 08/04/23 07:42 STATUS: SALAZAR REQ #: [id number] FRANCOIS: 08/04/23 00:[address]: Baldemar Ruiz DEPT: CYTOLOGY RECD BY: Neeta Yarbrough ENTERED: 08/04/23 07:43 SP TYPE: Fluid OTHR DR: MD Dr. Bear Bernstein DO Dr. Joseph Prah, MD Dr. Mansour Isckarus, MD Dr. Paul Nielsen, MD Dr. Robert Field, MD Dr. Ryan Jin, MD Dr. Roger Macklis, MD Dr. Steve Walston, DO Dr. Scott Wilkins, DO Myriam Esparza, REFERRAL AGENT-C Tissues: PARACENTESIS FLUID Procedures: Special Stain Group II Mucicarmine Stain (control) Surgery Specimen Level IV Cytospin Fluid HEADER OPERATION: US guided paracentesis, right PRE-OP DIAGNOSIS: Not noted TISSUE SUBMITTED: Paracentesis fluid for cytology DIAGNOSIS CYTOLOGY Paracentesis fluid for cytology (cytospin and cell block): Scant highly atypical cells suspicious for metastatic non-small cell carcinoma. See comment. AM:ondina 08/10/2023 COMMENT Immunohistochemistry ([id number]) supports the above diagnosis. Mucin stain with matched control supports the above diagnosis. CYTOLOGY STUDY Slides are reviewed. CYTOLOGY GROSS Received is 85 ml of red cloudy fluid labeled with the patient's name and and designated per the requisition as paracentesis fluid. Submitted for cytology preparation including cell block. / ELIJAH:chel 08/04/23 TC:0 CPT: 28666, 69531, 64582
--- NOTE | 2023-08-04 | IMM_PTH ---
PATIENT: AMILCAR DALY LOC: [facility] U#:[id number] AGE/SX: 82/F ROOM: [facility] RE08/02/[address]: Dr. Baldemar Ruiz MD : 1940 BED: 1 DIS: 08/06/2023 SPEC #: [id number] RECD: 08/09/23 07:42 STATUS: SALAZAR REQ #: [id number] FRANCOIS: 08/04/23 00:[address]: Patrice Jay DEPT: IMMUNOHISTOCHEMISTRY RECD BY: Samantha Jameson ENTERED: 08/09/23 07:46 SP TYPE: IMMUNO OTHR DR: MD Dr. Bear Bernstein, MD Dr. Nazario Tong Dr., MD Dr. Prakash Chand, MD Dr. Paul Nielsen, MD Dr. Robert Field, MD Dr. Ryan Jin, MD Dr. Roger Macklis, MD Dr. Steve Walston, DO Dr. Pee Calle, DO Myriam Esparza, PAINTING MACHINE OPERATOR-C Tissues: C - Cecum, NOS Procedures: MSH2 (add) MLH-1 (add) MSH6 (add) Anti-PMS2 (add) CK20 (add) CK7 (add) CK8 (add) KI-67 (add) Pankeratin (initial) CDX2 (add) [facility]YSIC[facility] [address] [address] SPECIMEN INFORMATION: Tissue Source: C - Cecal mass Clinical Info: Acute renal insufficiency, anemia, cecal mass Specimen Number: [id number] CPT code: 53115, 95378 x9 METHODOLOGY: Deparaffinized sections of prefer/formalin-fixed tissue or PAP/DQ stained slides are incubated with monoclonal/polyclonal antibodies/oligonucleotide probes. Localization is made via biotin free immunoperoxidase method. Appropriate controls are performed and reacted as expected. Results on target cell population are indicated in the following table: RESULTS: ANTIBODY / CLONE RESULT Block C AE1-3 (AE1/AE3/PCK26) positive CK7 (OV-TL12/30) positive CK8 (09yzgvC55) positive CK20 (KS20.8) negative CDX2 ([id number]) positive MLH-1 (M1) positive, clot-like pattern MSH2 (25D12) positive MSH6 (44) positive PMS2 (NHZ6217) positive Ki-67 (30-9) positive, >95% These tests were developed and their performance characteristics determined by [facility]. They may not have been cleared or approved by the U.S. Food and Drug Administration. The FDA has determined that such clearance or approval is not necessary. The above immunohistochemical/dualISH markers are ordered and reviewed by the Pathologist. INTERPRETATION: C. Cecal mass, biopsy: Invasive moderately differentiated adenocarcinoma. Result of Microsatellite Instability Study: Negative (no loss of mismatch protein; no microsatellite instability detected). AM:ondina 08/09/2023
[2023-08-04 05:12] LABS: Absolute Lymphocyte Count 1.54 X10^3/uL (0.83-4.51); Absolute Neutrophil Count 3.7 X10^3/uL (2.0-7.7); Basophil# 0.03 X10^3/uL; Basophil% 0.5 % (0-1); Hematocrit 32.2 % (37-47); Hemoglobin 9.7 g/dL (12.0-15.0); Lymphocyte # 1.54 X10^3/ul (0.83-4.51); Lymphocyte % 25.8 % (19-41); Mean Corp Hgb Conc 30.1 g/dL (32-36); Mean Corpuscular Hgb 25.9 pg (27.0-32.0); Mean Corpuscular Volume 85.9 fL (81-99); Mean Platelet Vol. 9.5 fl (6.2-12.0); Monocyte# 0.69 X10^3/uL; Monocyte% 11.5 % (0-10); NRBC Flagged by Analyzer 0 % (0-5); Neutrophil # 3.71 X10^3/uL (2.7-7.7); Platelet Count 189 K/mm3 (150-450); RBC Distribution Width CV 15.4 % (11.6-14.6); RBC Distribution Width SD 48.6 fl (35.1-43.9); Red Blood Count 3.75 M/mm3 (4.2-5.4)
[2023-08-04] MEDS: Metoclopramide 10 MG/2 ML Vial 5 MG IV ×3 (05:15→18:34)
[2023-08-04 05:44] LABS: Anion Gap 8 (5-15); BUN 19 mg/dL (7-18); BUN/Creat Ratio 19.3 RATIO (10-20); Calcium,Total 8.3 mg/dL (8.5-10.1); Chloride 104 mmol/L (98-107); Creatinine, Serum 0.98 mg/dL (0.55-1.02); EST Glomerular Filtration Rate 58 mL/min (>60); Est Glom Filt Rate - Afr Amer 70 mL/min (>60); Estimated Creatinine Clearance 30.95 ml/min; Glucose 104 mg/dL (74-106); Potassium 3.8 mmol/L (3.5-5.1); Sodium Level 136 mmol/L (136-145)
--- NOTE | 2023-08-04 05:55 | EKG12_ITS ---
Test Reason : PRE-OP Blood Pressure : / mmHG Vent. Rate : 097 BPM Atrial Rate : 097 BPM P-R Int : 156 ms QRS Dur : 088 ms QT Int : 340 ms P-R-T Axes : 059 037 078 degrees QTc Int : 431 ms Normal sinus rhythm Normal ECG When compared with ECG of 02-AUG-2023 00:45, MANUAL COMPARISON REQUIRED, DATA IS UNCONFIRMED Confirmed by GAY MAYO, CHELLE ([id number]), managing editor DOROTHY PARSONS ([id number]) on 08/08/2023 10:58:20 AM Referred By: Confirmed By:KATY RASHID MD
[2023-08-04 06:11] LABS: International Normalized Ratio 1.2; Prothrombin Time (Protime)PT. 15.4 SECONDS (11.7-14.9)
[2023-08-04 06:12] LABS: Partial Thromboplast Time 42.6 Seconds (24.1-36.2)
[2023-08-04] MEDS: Carvedilol 25 MG Tablet PO ×2 (08:09→16:44)
[2023-08-04] MEDS: Lisinopril 10 MG Tablet PO (08:09)
[2023-08-04] MEDS: Potassium Chloride Oral Tablet 20 MEQ PO (08:09)
[2023-08-04] MEDS: Gabapentin 300 MG Capsule PO ×2 (08:09→23:04)
--- NOTE | 2023-08-04 08:11 | CASEMGMT ---
Addendum entered by Nicolle Jose 08/04/23 10:53: Social Work brought in LW/POA forms, listed as healthcare POA, copies placed on chart. BETHANY Grigsby Original Note: Social Work SW spoke w/pt and family about LW/POA, family to bring in the documents, as documented in prior note. BETHANY Grigsby
[2023-08-04] MEDS: 0.9 % NaCl (Sterile) Posiflush 10 mL IV ×3 (10:48→18:34)
[2023-08-04] MEDS: Pantoprazole Sodium 40 MG in 0.9% Normal Saline (100mL MB+) 100 ML 330 MG IV ×2 (10:48→23:11)
[2023-08-04] MEDS: 0.9% Normal Saline (1000mL) 1,000 ML 15 ML IV (11:44)
[2023-08-04] MEDS: Ceftriaxone 2 GM in 0.9% Normal Saline (50mL MB+) 50 ML IV (11:50)
--- NOTE | 2023-08-04 13:03 | SUR.PHASEI ---
ON ARRIVAL THE PATIENT'S BP WAS 76/51. DR ALEJO AT BEDSIDE AND ORDERED TO GIVE LR WIDE OPEN AND MONITOR BLOOD PRESSURE. PATIENT POSITIONED SUPINE. 1305; THE PATIENT'S BP UP TO 98/52, HR 77. LR CONTINUES WIDE OPEN AND PATIENT SLEEPING SUPINE.
--- NOTE | 2023-08-04 13:10 | SUR.PHASEI ---
PATIENTS BP 106/49 AND LR IV FLUIDS CONTINUE WIDE OPEN ORDERED. WILL UPDATE DR. ALEJO.
--- NOTE | 2023-08-04 13:29 | OP.EGD_ITS ---
Patient Name: Gina Castro Procedure Date: 08/04/2023 12:04 PM Date of : 1940 Age: 82 Procedure: Upper GI endoscopy Indications: Abdominal pain in the right upper quadrant, Iron deficiency anemia Providers: Patrice Jay DO Medicines: Monitored Anesthesia Care Patient Profile: This is an 82 year old female. Refer to note in patient chart for documentation of history and physical. Patient has symptoms of acute right upper quadrant abdominal pain. Complications: No immediate complications. Procedure: Pre-Anesthesia Assessment: - Prior to the procedure, a History and Physical was performed, and patient medications and allergies were reviewed. The patient is competent. The risks and benefits of the procedure and the sedation options and risks were discussed with the patient. All questions were answered and informed consent was obtained. Patient identification and proposed procedure were verified by the physician in the pre-procedure area. Mental Status Examination: alert and oriented. Airway Examination: normal oropharyngeal airway and neck mobility. Respiratory Examination: clear to auscultation. CV Examination: normal. Prophylactic Antibiotics: The patient does not require prophylactic antibiotics. Prior Anticoagulants: The patient has taken no anticoagulant or antiplatelet agents. ASA Grade Assessment: III - A patient with severe systemic disease. After reviewing the risks and benefits, the patient was deemed in satisfactory condition to undergo the procedure. The anesthesia plan was to use monitored anesthesia care (MAC). Immediately prior to administration of medications, the patient was re-assessed for adequacy to receive sedatives. The heart rate, respiratory rate, oxygen saturations, blood pressure, adequacy of pulmonary ventilation, and response to care were monitored throughout the procedure. The physical status of the patient was re-assessed after the procedure. After obtaining informed consent, the endoscope was passed under direct vision. Throughout the procedure, the patient's blood pressure, pulse, and oxygen saturations were monitored continuously. The Colonoscope was introduced through the mouth, and advanced to the second part of duodenum. The upper GI endoscopy was accomplished without difficulty. The patient tolerated the procedure well. Scope In: 12:17:30 PM Scope Out: 12:23:18 PM Total Procedure Duration Time 0 hours 5 minutes 48 seconds Findings: The examined esophagus was normal. Evidence of a patent Billroth II gastrojejunostomy was found. The gastrojejunal anastomosis was characterized by healthy appearing mucosa. The efferent limb was examined and was characterized by congestion, edema, erythema and friable mucosa. Contents were found including bile. The afferent limb was not examined as it could not be found. The examined jejunum was normal. Impression: - Normal esophagus. - Patent Billroth II gastrojejunostomy was found, characterized by healthy appearing mucosa. - Normal examined jejunum. - No specimens collected. Recommendation: - Return patient to hospital [facility] for ongoing care. - Resume regular diet. - Continue present medications. - Await pathology results. Procedure Code(s): --- Professional --- 72932, Esophagogastroduodenoscopy, flexible, transoral; diagnostic, including collection of specimen(s) by brushing or washing, when performed (separate procedure) CPT copyright 2021 [employer]. All rights reserved. The codes documented in this report are preliminary and upon software support technician review may be revised to meet current compliance requirements. Patrice Jay DO 08/04/2023 1:29:12 PM This report has been signed electronically. Number of Addenda: 0 Note Initiated On: 08/04/2023 12:04 PM
--- NOTE | 2023-08-04 13:29 | OP.CCLET_ITS ---
08/04/2023 Pee Calle Do Re : Upper GI endoscopy procedure for Gina Castro Dear Dr. Calle This procedure was performed on July. My impressions and recommendations are as follows: Impressions : - Normal esophagus. - Patent Billroth II gastrojejunostomy was found, characterized by healthy appearing mucosa. - Normal examined jejunum. - No specimens collected. Recommendations : - Return patient to hospital fry for ongoing care. - Resume regular diet. - Continue present medications. - Await pathology results. My findings are described in the full procedure note, which is enclosed. If I can be of further assistance, please feel free to contact me at . Sincerely, Patrice Jay, 08/04/2023 1:29:12 PM This report has been signed electronically.
--- NOTE | 2023-08-04 13:36 | OP.COLON_ITS ---
Patient Name: Gina Castro Procedure Date: 08/04/2023 12:23 PM Date of : 1940 Age: 82 Procedure: Colonoscopy Indications: Iron deficiency anemia Providers: Patrice Jay DO Medicines: Monitored Anesthesia Care Patient Profile: This is an 82 year old female. Refer to note in patient chart for documentation of history and physical. Patient has symptoms of acute right upper quadrant abdominal pain. Last Colonoscopy: more than 10 years ago. Complications: No immediate complications. Procedure: Pre-Anesthesia Assessment: - Prior to the procedure, a History and Physical was performed, and patient medications and allergies were reviewed. The patient is competent. The risks and benefits of the procedure and the sedation options and risks were discussed with the patient. All questions were answered and informed consent was obtained. Patient identification and proposed procedure were verified by the physician in the pre-procedure area. Mental Status Examination: alert and oriented. Airway Examination: normal oropharyngeal airway and neck mobility. Respiratory Examination: clear to auscultation. CV Examination: normal. Prophylactic Antibiotics: The patient does not require prophylactic antibiotics. Prior Anticoagulants: The patient has taken no anticoagulant or antiplatelet agents. ASA Grade Assessment: III - A patient with severe systemic disease. After reviewing the risks and benefits, the patient was deemed in satisfactory condition to undergo the procedure. The anesthesia plan was to use monitored anesthesia care (MAC). Immediately prior to administration of medications, the patient was re-assessed for adequacy to receive sedatives. The heart rate, respiratory rate, oxygen saturations, blood pressure, adequacy of pulmonary ventilation, and response to care were monitored throughout the procedure. The physical status of the patient was re-assessed after the procedure. After I obtained informed consent, the scope was passed under direct vision. Throughout the procedure, the patient's blood pressure, pulse, and oxygen saturations were monitored continuously. The Colonoscope was introduced through the anus and advanced to the cecum, identified by appendiceal orifice and ileocecal valve. The colonoscopy was performed without difficulty. The patient tolerated the procedure well. The quality of the bowel preparation was adequate. The terminal ileum, ileocecal valve, appendiceal orifice, and rectum were photographed. Scope In: 12:26:31 PM Scope Withdrawal Time 0 hours 8 minutes 39 seconds Scope Out: 12:39:32 PM Total Procedure Duration Time 0 hours 13 minutes 1 second Findings: The perianal and digital rectal examinations were normal. A few small and large-mouthed diverticula were found in the recto-sigmoid colon and sigmoid colon. An ulcerated non-obstructing large mass was found in the cecum. The mass was non-circumferential. The mass measured one cm in length. In addition, its diameter measured five mm. Oozing was present. This was biopsied with a cold forceps for histology. Verification of patient identification for the specimen was done. Estimated blood loss was minimal. A 5 mm polyp was found in the cecum. The polyp was sessile. The polyp was removed with a cold snare. Resection and retrieval were complete. Verification of patient identification for the specimen was done. Estimated blood loss was minimal. Impression: - Diverticulosis in the recto-sigmoid colon and in the sigmoid colon. - Likely malignant tumor in the cecum. Biopsied. - One 5 mm polyp in the cecum, removed with a cold snare. Resected and retrieved. Recommendation: - No recommendation at this time regarding repeat colonoscopy due to age. - Continue present medications. Procedure Code(s): --- Professional --- 10593, Colonoscopy, flexible; with removal of tumor(s), polyp(s), or other lesion(s) by snare technique 65569, 59, Colonoscopy, flexible; with biopsy, single or multiple CPT copyright 2021 [employer]. All rights reserved. The codes documented in this report are preliminary and upon inpatient coder review may be revised to meet current compliance requirements. Patrice Jay DO 08/04/2023 1:36:11 PM This report has been signed electronically. Number of Addenda: 0 Note Initiated On: 08/04/2023 12:23 PM
--- NOTE | 2023-08-04 13:36 | OP.CCLET_ITS ---
08/04/2023 Pee Calle Do Re : Colonoscopy procedure for Gina Castro Dear Dr. Calle This procedure was performed on July. My impressions and recommendations are as follows: Impressions : - Diverticulosis in the recto-sigmoid colon and in the sigmoid colon. - Likely malignant tumor in the cecum. Biopsied. - One 5 mm polyp in the cecum, removed with a cold snare. Resected and retrieved. Recommendations : - No recommendation at this time regarding repeat colonoscopy due to age. - Continue present medications. My findings are described in the full procedure note, which is enclosed. If I can be of further assistance, please feel free to contact me at . Sincerely, Patrice Jay, 08/04/2023 1:36:11 PM This report has been signed electronically.
[2023-08-04] MEDS: Lactated Ringers 1,000 ML 15 ML IV (14:07)
--- NOTE | 2023-08-04 17:09 | PN.HOSP_ITS ---
Reason for Visit Reason for Visit: Diagnoses Other postherpetic nervous system involvement (08/02/23) Secondary malignant neoplasm of unspecified site (08/02/23) Anemia, unspecified (08/02/23) Unspecified severe protein-calorie malnutrition (08/02/23) Disorder of kidney and ureter, unspecified (08/02/23) Malignant ascites (08/02/23) Other ascites (08/02/23) Anesthesia of skin (08/02/23) Weakness (08/02/23) Objective Data Objective Data Vital Signs: Vital Signs Temp Pulse Resp BP Pulse Ox O2 Del Method O2 Flow Rate 97.8 F 82 16 115/58 L 95 Room Air 2 08/04/23 13:40 08/04/23 13:40 08/04/23 13:40 08/04/23 13:40 08/04/23 13:40 08/04/23 13:40 08/04/23 13:00 Oxygen Flow Rate (L/min) 2 Oxygen Delivery Method [4] Room Air Oxygen Delivery Method [3] Room Air Oxygen Delivery Method [2] Room Air Oxygen Delivery Method [1 ( Room Air Initial Baseline)] Oxygen Delivery Method Room Air Weight: 97 lb 10.636 oz Body Mass Index (BMI) 20.4 Intake & Output: Intake and Output for Last 24 Hours 08/02/23 08/03/23 08/04/23 23:59 23:59 23:59 Intake Total 2256.00 / 2656.00 1110 / 2110 1480 / 1480 Output Total 1800 / 1800 Balance 2256.00 / 2656.00 -690 / 310 1480 / 1480 Medical Nutrition Assessment Dietitian: Malnutrition Criteria Met Start: 08/02/23 14:41 Freq: Status: Active Protocol: Document 08/04/23 13:15 AG (Rec: 08/04/23 13:15 AG Desktop) Nutrition Malnutrition Evidence of Malnutrition Exists Yes Malnutrition (severe): Chronic Evidenced By Suboptimal Energy Intake ( Severe),Physical Changes ( Severe) Clinical Problem Chronic Disease or Condition Related Malnutrition Etiology severe chronic malnutrition related to inadequate energy intake w/ increased energy needs d/t adenocarcinoma Signs/Symptoms as evidenced by estimated PO intake meeting <50% of estimated energy needs>3 months, Severe muscle wasting/ fat loss evident per physical exam in orbital, clavicle, acromion, and temporal areas Status Active Problem Recommendation Dietitian Recommendations/Changes continue regular diet, ensure plus high protein 120mL 4x/day w/ medpass given evidence of malnutrition when appropriate for PO diet Lab / Micro Data 08/04/23 04:09 08/04/23 04:09 Labs: Laboratory Results - last 24 hr 08/04/23 04:09: WBC 6.0, RBC 3.75 L, Hgb 9.7 L, Hct 32.2 L, MCV 85.9, MCH 25.9 L , MCHC 30.1 L, RDW Std Deviation 48.6 H, RDW Coeff of Alden 15.4 H, Plt Count 189, MPV 9.5, Immature Gran % (Auto) 0.200, Neut % (Auto) 62.0, Lymph % (Auto) 25.8, Mckenzie % (Auto) 11.5 H, Eos % (Auto) 0.0, Baso % (Auto) 0.5, Absolute Neuts (auto) 3.7, Absolute Lymphs (auto) 1.54, Nucleated RBC % 0, PT 15.4 H, INR 1.2, APTT 42.6 H, Sodium 136, Potassium 3.8, Chloride 104, Carbon Dioxide 24.0, Anion Gap 8, BUN 19 H, Creatinine 0.98, Estim Creat Clear Calc 30.95, Est GFR (MDRD) Af Amer 70, Est GFR (MDRD) Non-Af 58 L, BUN/Creatinine Ratio 19.3, Glucose 104, Calcium 8.3 L Micro: Microbiology 08/02/23 20:17 Nasal Secretion SARS-CoV-2 Antigen (Rapid) - Final 08/02/23 01:45 Stool Stool Occult Blood (EPI) - Final Occult Blood Positive Physical Exam Narrative Patient had paracentesis yesterday. Total WBC 871 with polymorphs 197, mononucleated 674, 77%. Currently she does not have abdominal pain. Colonoscopy was done and shows cecal mass. Discussed with the family member. The patient has a strong family history of cancer Physical exam General: Alert, Oriented x3, Cooperative, BMI 20.4 kg/m? HEENT: Atraumatic, PERRLA, EOMI, Normocephalic Oral: No Gingival or Mucosal Lesions/ Ulcerations Neck: Supple, No JVD, Negative Carotid Bruits Chest/lungs: Right-sided Mediport. Air entry diminished in bilateral lung bases. No crepitation/rhonchi Cardiovascular: Regular rate, Regular Rhythm, Normal S1, Normal S2, No murmurs Abdomen: Bowel Sounds Present, Soft, Non Tender, Non-Distended : No renal angle tenderness. No suprapubic tenderness. Extremities: No edema, Capillary Refill Less than 3 Seconds Skin: No rashes, No breakdown Musculoskeletal: Moderate decreased muscle mass of lower extremities, upper extremities and low subcutaneous fat, moderate chronic protein calorie malnutrition. No Tenderness to Palpation of Joints or Extremities Neurological: Cranial nerves II-XII grossly intact, DTR 2+/4. No acute focal neurological deficit. Psych/Mental Status: Normal Affect, Appropriate. Assessment & Plan Assessment/Plan (1) Weakness: PLAN: Multifactorial: anemia, underlying cancer, malnutrition, possible d ehydration. PT OT eval and treat. (2) Acute renal insufficiency: PLAN: Baseline creatinine 1, therefore I cannot prudently qualify this as NATALIA IVF (3) Symptomatic anemia: PLAN: Acute blood loss: Hg 9.7 on 07/26, went down to 7.3, transfused 1 unit PRBCs and now up to 8.9. No additional transfusions needed at this time. Check hemoccult, B12, folate, TSH, iron studies, LDH, haptoglobin Patient with heme positive stools. H&H 9.7/32.2. Patient had EGD and colonoscopy. Colonoscopy shows cecal mass likely malignant, biopsied. Diverticulosis in the rectosigmoid colon and sigmoid colon. One 5 mm polyp in the cecum removed. EGD normal except as, Billroth II gastrojejunostomy was found, healthy-appearing mucosa. Normal examined jejunum. Will consult gastroenterology for potential evaluation. Discussed with Dr. Jay. I discussed the colonoscopy findings with patient, patient's , her son, [id number] and the daughter present in the room. Microbiology Past 72 Hours 08/02/23 20:17 Nasal Secretion SARS-CoV-2 Antigen (Rapid) - Final 08/02/23 01:45 Stool Stool Occult Blood (EPI) - Final Occult Blood Positive Laboratory Results 08/04/23 04:09: WBC 6.0, RBC 3.75 L, Hgb 9.7 L, Hct 32.2 L, MCV 85.9, MCH 25.9 L , MCHC 30.1 L, RDW Std Deviation 48.6 H, RDW Coeff of Alden 15.4 H, Plt Count 189, MPV 9.5, Immature Gran % (Auto) 0.200, Neut % (Auto) 62.0, Lymph % (Auto) 25.8, Mckenzie % (Auto) 11.5 H, Eos % (Auto) 0.0, Baso % (Auto) 0.5, Absolute Neuts (auto) 3.7, Absolute Lymphs (auto) 1.54, Nucleated RBC % 0, PT 15.4 H, INR 1.2, APTT 42.6 H, Sodium 136, Potassium 3.8, Chloride 104, Carbon Dioxide 24.0, Anion Gap 8, BUN 19 H, Creatinine 0.98, Estim Creat Clear Calc 30.95, Est GFR (MDRD) Af Amer 70, Est GFR (MDRD) Non-Af 58 L, BUN/Creatinine Ratio 19.3, Glucose 104, Calcium 8.3 L (4) Metastatic adenocarcinoma: PLAN: + on liver biopsy on 07/26. DW Dr. Caceres: he recommends tumor markers (CA 125, CA 19-9, CEA) and CT of abdomen and pelvis. He was concerned that patient may have a poor prognosis but want to continue to fight. Did speak with him later and he did request paracentesis looking for tumor markers. His echo see if there is a chance that this could be ovarian as this would tend portend a worse prognosis. CT Chest, A/P: diffuse ascites. Omental metastasis. Paracentesis analysis shows mainly mononuclear cells 77.4% with total cell count 1000, polynuclear 22.6%, total polynuclear WBC 0.9197 therefore SBP unclear and seems more metastatic ascites from omental metastasis. Stool continue IV ceftriaxone. (5) Protein calorie malnutrition: QUALIFIERS: Protein-calorie malnutrition severity: severe Qualified Code(s): E43 - Unspecified severe protein-calorie malnutrition PLAN: BMI 20.4kg/m2 Add supplements (6) Postherpetic neuralgia: PLAN: Clarification from documentation on . Patient actually does not have saddle anesthesia but did have about herpes zoster that involved her leg that was quite extensive. Ever since then she has been having severe pain from that. On repeat query, patient actually denied numbness in her groin but more pain in that region. Therefore I do not feel that MRI would be necessary at this time. Continue with pain control. 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 Worsening abdominal pain today, is concerned that the patient may have developed an ileus but the x-ray is negative for that. With the worsening pain, and her belly is distended but not really tight. Continue IV ceftriaxone. Unlikely SBP with polymorphs less than 250 cells. PLAN: Plan DVT prophylaxis?SCDs CODE STATUS?remains full at this time Discussed with family at bedside. Charges/Coding Visit Charges Inpatient E&M: 78132 Subs Hosp L2
[2023-08-04] MEDS: Ensure Plus High Protein 120 ML LIQUID PO ×2 (18:33→23:04)
[2023-08-04] MEDS: Calcium (Elemental) 500 MG Tablet PO (23:03)
[2023-08-04] MEDS: Cholecalciferol (VIT D3) 25 MCG TABLET (1,000 UNITS) 50 MCG PO (23:03)
[2023-08-05] MEDS: Metoclopramide 10 MG/2 ML Vial 5 MG IV ×4 (00:41→18:38)
[2023-08-05] MEDS: 0.9% Saline Lock 10 ML Syringe IV ×2 (00:49→21:09)
[2023-08-05 05:00] VITALS: BP 138/76; PULSE 106; RESP 17; TEMP 36.8; O2SAT 99
[2023-08-05] MEDS: Furosemide 40 MG/4 ML Vial IV (09:55)
--- NOTE | 2023-08-05 09:55 | ONC.PN.INPT ---
Subjective Subjective Pt sitting in bed. Colonoscopy on 08/04/2023 showed cecal mass. Physical Exam Const alert, oriented x3 and no apparent distress Vital Signs Temperature 98.2 F 08/05/23 05:00 Temperature Source Oral 08/05/23 05:00 Pulse Rate 106 H 08/05/23 05:00 Pulse Strength Weak (1+) 08/05/23 08:58 Respiratory Rate 17 08/05/23 05:00 Respiratory Effort Normal 08/05/23 03:43 Respiratory Depth Normal 08/04/23 22:00 Respiratory Pattern Normal 08/04/23 22:00 Blood Pressure 138/76 H 08/05/23 05:00 Blood Pressure Mean 96 08/05/23 05:00 Blood Pressure Source Monitor 08/05/23 05:00 Blood Pressure Position Semi-Fowlers 08/05/23 05:00 Blood Pressure Location Right Arm 08/05/23 05:00 Baseline BP 113/75 08/04/23 13:15 Pulse Ox 99 08/05/23 05:00 Oxygen Delivery Method Nasal Cannula 08/05/23 08:56 Oxygen Flow Rate (L/min) 4 08/05/23 05:00 Laboratory Tests 08/02/23 08:32 Carcinoembryonic Ag 67.8 H CA 19-9 Antigen 67464 H CA 125 Antigen 435.0 H Laboratory Tests 08/02/23 08:32 Carcinoembryonic Ag 67.8 H CA 19-9 Antigen 25393 H CA 125 Antigen 435.0 H Diagnostic Data Chest/Abdomen/Pelvis CT 08/02/23 11:30 IMPRESSION: Diffuse ascites. Findings suggestive of omental metastasis along the anterior aspect of the abdomen. Slight increase in size of the hypodensity in the inferior aspect of the right lobe of liver. Stable subcentimeters cyst in the superior aspect of the right lobe of the liver. Hiatal hernia. Heterogeneous sclerosis of the sternum and manubrium sternum. Electronically Signed: Jagjit Villavicencio MD at 13:02 EST , Chest X-Ray 08/02/23 20:10 IMPRESSION: 1. Port-A-Cath without change. No pneumothorax. 2. Plate atelectasis in the RIGHT midlung. 3. Remaining lung zones are clear. No congestive failure consolidation or effusion. Electronically Signed: Pelon Osman MD at 21:18 EST , KUB X-Ray 08/03/23 13:00 IMPRESSION: Findings suggestive of ascites. Degenerative changes of the lumbar spine. Loss of height of the L2 and T12 vertebrae. Electronically Signed: Jagjit Villavicencio MD at 13:32 EST , Assessment & Plan Assessment/Plan (1) Symptomatic anemia: PLAN: Due to bleeding cecal tumor. Suggested supportive PRBC transfusion as needed. (2) Metastatic adenocarcinoma: PLAN: Increased tumor markers is suggestive Poorly differentiated carcinoma. Discussed metastatic adenocarcinoma most likely of Colonic origin with Pt, options of Palliative chemotherapy vs supportive care and hospice care. Pt wants to try therapy. If stable and discharged home, she should follow up in [facility] for further evaluation and management. Will not follow further on this admission. 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 Suggest supportive management. Charges/Coding Multi Select Codes Visit Charges Visit Charges: 38658 Subs Hosp L2
[2023-08-05] MEDS: Carvedilol 25 MG Tablet PO ×2 (09:57→18:38)
[2023-08-05] MEDS: Ensure Plus High Protein 120 ML LIQUID PO ×3 (09:57→21:09)
[2023-08-05] MEDS: Potassium Chloride Oral Tablet 20 MEQ PO (09:58)
[2023-08-05] MEDS: Lisinopril 10 MG Tablet PO (09:58)
[2023-08-05] MEDS: Gabapentin 300 MG Capsule PO ×2 (10:05→21:08)
[2023-08-05] MEDS: Pantoprazole Sodium 40 MG in 0.9% Normal Saline (100mL MB+) 100 ML 330 MG IV ×2 (10:05→21:08)
[2023-08-05] MEDS: Ceftriaxone 2 GM in 0.9% Normal Saline (50mL MB+) 50 ML IV (10:06)
[2023-08-05 10:20] VITALS: BP 162/73; PULSE 103; RESP 15; TEMP 36.8; O2SAT 95
--- NOTE | 2023-08-05 10:45 | RAD_ITS ---
STUDY: X-RAY CHEST REASON FOR EXAM: Female, 82 years old. Chest pain/pressure TECHNIQUE: Single AP portable view of the chest. COMPARISON: 08/02/2023 FINDINGS: Stable appearance of a right subclavian port Chronic interstitial changes in both lung cheney without a superimposed acute pulmonary process. Normal size heart. Normal mediastinum and emir. Normal visualized pulmonary arteries. Normal visualized aortic arch and descending thoracic aorta. Normal visualized thoracic spine. Normal visualized ribs, clavicles, and shoulders. There is no demonstrated abnormality of the visualized soft tissue structures of the upper abdomen. RAD/Chest 1 View (Portable) IMPRESSION: Chronic interstitial changes, no superimposed acute pulmonary process Electronically Signed: Ector Whitehead MD at 11:33 EST ,
[2023-08-05] MEDS: Acetaminophen 500 MG Tablet PO ×2 (13:13→21:08)
[2023-08-05 15:13] VITALS: BP 92/59; PULSE 87; RESP 16; TEMP 36.4; O2SAT 96
[2023-08-05 15:25] VITALS: O2SAT 96
--- NOTE | 2023-08-05 16:58 | PCM.PN.HOSP ---
Reason for Visit Reason for Visit: Diagnoses Other postherpetic nervous system involvement (08/02/23) Secondary malignant neoplasm of unspecified site (08/02/23) Anemia, unspecified (08/02/23) Unspecified severe protein-calorie malnutrition (08/02/23) Disorder of kidney and ureter, unspecified (08/02/23) Malignant ascites (08/02/23) Other ascites (08/02/23) Anesthesia of skin (08/02/23) Weakness (08/02/23) Objective Data Objective Data Vital Signs: Vital Signs Temp Pulse Resp BP Pulse Ox O2 Del Method O2 Flow Rate 97.5 F L 87 16 92/59 L 96 Nasal Cannula 2 08/05/23 15:13 08/05/23 15:13 08/05/23 15:13 08/05/23 15:13 08/05/23 15:13 08/05/23 15:13 08/05/23 15:13 Oxygen Flow Rate (L/min) 2 Oxygen Delivery Method [4] Room Air Oxygen Delivery Method [3] Room Air Oxygen Delivery Method [2] Room Air Oxygen Delivery Method [1 ( Room Air Initial Baseline)] Oxygen Delivery Method Nasal Cannula Weight: 97 lb 10.636 oz Body Mass Index (BMI) 20.4 Intake & Output: Intake and Output for Last 24 Hours 08/03/23 08/04/23 08/05/23 23:59 23:59 23:59 Intake Total 1110 / 2110 1590 / 1590 957.25 / 957.25 Output Total 1800 / 1800 Balance -690 / 310 1590 / 1590 957.25 / 957.25 Medical Nutrition Assessment Dietitian: Malnutrition Criteria Met Start: 08/02/23 14:41 Freq: Status: Active Protocol: Document 08/04/23 13:15 AG (Rec: 08/04/23 13:15 AG Desktop) Nutrition Malnutrition Evidence of Malnutrition Exists Yes Malnutrition (severe): Chronic Evidenced By Suboptimal Energy Intake ( Severe),Physical Changes ( Severe) Clinical Problem Chronic Disease or Condition Related Malnutrition Etiology severe chronic malnutrition related to inadequate energy intake w/ increased energy needs d/t adenocarcinoma Signs/Symptoms as evidenced by estimated PO intake meeting <50% of estimated energy needs>3 months, Severe muscle wasting/ fat loss evident per physical exam in orbital, clavicle, acromion, and temporal areas Status Active Problem Recommendation Dietitian Recommendations/Changes continue regular diet, ensure plus high protein 120mL 4x/day w/ medpass given evidence of malnutrition when appropriate for PO diet Lab / Micro Data 08/04/23 04:09 08/04/23 04:09 Micro: Microbiology 08/03/23 15:56 Fluid - Paracentesis (Abd) Gram Stain - Final 08/03/23 15:56 Fluid - Paracentesis (Abd) Body Fluid Culture - Preliminary No growth-Final to follow 08/02/23 20:17 Nasal Secretion SARS-CoV-2 Antigen (Rapid) - Final 08/02/23 01:45 Stool Stool Occult Blood (EPI) - Final Occult Blood Positive Radiography Diagnostic Testing: Radiology Impression Chest X-Ray 08/05/23 10:45 IMPRESSION: Chronic interstitial changes, no superimposed acute pulmonary process Electronically Signed: Ector Whitehead MD at 11:33 EST Reading Location ID and State: [address] [place] [address] , Service support , Physical Exam Narrative Patient short of breath requiring 4 L of oxygen. BP 162/73. Currently she does not have abdominal pain. Colonoscopy was done and shows cecal mass. Discussed with the family member. The patient has a strong family history of cancer. Discussed with the oncologist Dr. Caceres. Patient and family want to continue on definitive treatment for cancer. Physical exam General: Alert, Oriented x3, Cooperative, BMI 20.4 kg/m? HEENT: Atraumatic, PERRLA, EOMI, Normocephalic Oral: No Gingival or Mucosal Lesions/ Ulcerations Neck: Supple, No JVD, Negative Carotid Bruits Chest/lungs: Right-sided Mediport. Air entry diminished in bilateral lung bases. No crepitation/rhonchi Cardiovascular: Regular rate, Regular Rhythm, Normal S1, Normal S2, No murmurs Abdomen: Bowel Sounds Present, Soft, Non Tender, Non-Distended : No renal angle tenderness. No suprapubic tenderness. Extremities: No edema, Capillary Refill Less than 3 Seconds Skin: No rashes, No breakdown Musculoskeletal: Moderate decreased muscle mass of lower extremities, upper extremities and low subcutaneous fat, moderate chronic protein calorie malnutrition. No Tenderness to Palpation of Joints or Extremities Neurological: Cranial nerves II-XII grossly intact, DTR 2+/4. No acute focal neurological deficit. Psych/Mental Status: Normal Affect, Appropriate. Assessment & Plan Assessment/Plan (1) Weakness: PLAN: Multifactorial: anemia, underlying cancer, malnutrition, possible dehydration. PT OT eval and treat. (2) Acute renal insufficiency: PLAN: Baseline creatinine 1, therefore I cannot prudently qualify this as NATALIA IVF (3) Symptomatic anemia: PLAN: Acute blood loss: Hg 9.7 on 07/26, went down to 7.3, transfused 1 unit PRBCs and now up to 8.9. No additional transfusions needed at this time. Check hemoccult, B12, folate, TSH, iron studies, LDH, haptoglobin Patient with heme positive stools. H&H 9.7/32.2. Patient had EGD and colonoscopy. Colonoscopy shows cecal mass likely malignant, biopsied. Diverticulosis in the rectosigmoid colon and sigmoid colon. One 5 mm polyp in the cecum removed. EGD normal except as, Billroth II gastrojejunostomy was found, healthy-appearing mucosa. Normal examined jejunum. Will consult gastroenterology for potential evaluation. Discussed with Dr. Jay. I discussed the colonoscopy findings with patient, patient's , her son, [id number] and the daughter present in the room. 10/05: No external loss of blood. Monitor CBC. Microbiology Past 72 Hours 08/03/23 15:56 Fluid - Paracentesis (Abd) Gram Stain - Final 08/03/23 15:56 Fluid - Paracentesis (Abd) Body Fluid Culture - Preliminary No growth-Final to follow 08/02/23 20:17 Nasal Secretion SARS-CoV-2 Antigen (Rapid) - Final (4) Metastatic adenocarcinoma: PLAN: + on liver biopsy on 07/26. DW Dr. Caceres: he recommends tumor markers (CA 125, CA 19-9, CEA) and CT of abdomen and pelvis. He was concerned that patient may have a poor prognosis but want to continue to fight. Did speak with him later and he did request paracentesis looking for tumor markers. His echo see if there is a chance that this could be ovarian as this would tend portend a worse prognosis. CT Chest, A/P: diffuse ascites. Omental metastasis. Paracentesis analysis shows mainly mononuclear cells 77.4% with total cell count 1000, polynuclear 22.6%, total polynuclear WBC 0.9197 therefore SBP unclear and seems more metastatic ascites from omental metastasis. Stool continue IV ceftriaxone. Patient had paracentesis on 08/03/2023 total WBC 871 with polymorphs 197, mononucleated 674, 77%. Patient was evaluated by oncologist Dr. Caceres. Cecum has enough space therefore chances of obstruction is less with cecal tumor but might have anemia. Due to poor healing internally and externally after surgery, surgery will not be desirable with complications of delayed healing poor healing, fistulization and wound complications along with malnutrition. (5) Protein calorie malnutrition: QUALIFIERS: Protein-calorie malnutrition severity: severe Qualified Code(s): E43 - Unspecified severe protein-calorie malnutrition PLAN: BMI 20.4kg/m2 Add supplements (6) Postherpetic neuralgia: PLAN: Clarification from documentation on . Patient actually does not have saddle anesthesia but did have about herpes zoster that involved her leg that was quite extensive. Ever since then she has been having severe pain from that. On repeat query, patient actually denied numbness in her groin but more pain in that region. Therefore I do not feel that MRI would be necessary at this time. Continue with pain control. 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 Worsening abdominal pain today, is concerned that the patient may have developed an ileus but the x-ray is negative for that. With the worsening pain, and her belly is distended but not really tight. Continue IV ceftriaxone. Unlikely SBP with polymorphs less than 250 cells. PLAN: Plan DVT prophylaxis?SCDs CODE STATUS?remains full at this time Discussed with family at bedside. Charges/Coding Visit Charges Inpatient E&M: 58927 Subs Hosp L2
--- NOTE | 2023-08-05 17:23 | EX.PCM.PN.GI ---
Subjective Subjective Patient underwent colonoscopy yesterday. She was covered to have a cecal mass. Biopsy was taken of cecal mass. She is tolerating a diet. She is not having bleeding per rectum. Objective Data Objective Data Vital Signs: Vital Signs Temp Pulse Resp BP Pulse Ox O2 Del Method O2 Flow Rate 97.5 F L 87 16 92/59 L 96 Nasal Cannula 2 08/05/23 15:13 08/05/23 15:13 08/05/23 15:13 08/05/23 15:13 08/05/23 15:13 08/05/23 15:13 08/05/23 15:13 Oxygen Flow Rate (L/min) 2 Oxygen Delivery Method [4] Room Air Oxygen Delivery Method [3] Room Air Oxygen Delivery Method [2] Room Air Oxygen Delivery Method [1 ( Room Air Initial Baseline)] Oxygen Delivery Method Nasal Cannula Weight: 97 lb 10.636 oz Body Mass Index (BMI) 20.4 Intake & Output: Intake and Output for Last 24 Hours 08/03/23 08/04/23 08/05/23 23:59 23:59 23:59 Intake Total 1110 / 2110 1590 / 1590 957.25 / 957.25 Output Total 1800 / 1800 Balance -690 / 310 1590 / 1590 957.25 / 957.25 Medical Nutrition Assessment Dietitian: Malnutrition Criteria Met Start: 08/02/23 14:41 Freq: Status: Active Protocol: Document 08/04/23 13:15 AG (Rec: 08/04/23 13:15 AG Desktop) Nutrition Malnutrition Evidence of Malnutrition Exists Yes Malnutrition (severe): Chronic Evidenced By Suboptimal Energy Intake ( Severe),Physical Changes ( Severe) Clinical Problem Chronic Disease or Condition Related Malnutrition Etiology severe chronic malnutrition related to inadequate energy intake w/ increased energy needs d/t adenocarcinoma Signs/Symptoms as evidenced by estimated PO intake meeting <50% of estimated energy needs>3 months, Severe muscle wasting/ fat loss evident per physical exam in orbital, clavicle, acromion, and temporal areas Status Active Problem Recommendation Dietitian Recommendations/Changes continue regular diet, ensure plus high protein 120mL 4x/day w/ medpass given evidence of malnutrition when appropriate for PO diet Lab / Micro Data 08/04/23 04:09 08/04/23 04:09 Micro: Microbiology 08/03/23 15:56 Fluid - Paracentesis (Abd) Gram Stain - Final 08/03/23 15:56 Fluid - Paracentesis (Abd) Body Fluid Culture - Preliminary No growth-Final to follow 08/02/23 20:17 Nasal Secretion SARS-CoV-2 Antigen (Rapid) - Final 08/02/23 01:45 Stool Stool Occult Blood (EPI) - Final Occult Blood Positive Radiography Diagnostic Testing: Radiology Impression Chest X-Ray 08/05/23 10:45 IMPRESSION: Chronic interstitial changes, no superimposed acute pulmonary process Electronically Signed: Ector Whitehead MD at 11:33 EST , Physical Exam Narrative Patient short of breath requiring 4 L of oxygen. BP 162/73. Currently she does not have abdominal pain. Colonoscopy was done and shows cecal mass. Physical exam General: Alert, Oriented x3, Cooperative, BMI 20.4 kg/m? HEENT: Atraumatic, PERRLA, EOMI, Normocephalic Oral: No Gingival or Mucosal Lesions/ Ulcerations Neck: Supple, No JVD, Negative Carotid Bruits Chest/lungs: Right-sided Mediport. Air entry diminished in bilateral lung bases. No crepitation/rhonchi Cardiovascular: Regular rate, Regular Rhythm, Normal S1, Normal S2, No murmurs Abdomen: Bowel Sounds Present, Soft, Non Tender, Non-Distended : No renal angle tenderness. No suprapubic tenderness. Extremities: No edema, Capillary Refill Less than 3 Seconds Skin: No rashes, No breakdown Musculoskeletal: Moderate decreased muscle mass of lower extremities, upper extremities and low subcutaneous fat, moderate chronic protein calorie malnutrition. No Tenderness to Palpation of Joints or Extremities Neurological: Cranial nerves II-XII grossly intact, DTR 2+/4. No acute focal neurological deficit. Psych/Mental Status: Normal Affect, Appropriate. Assessment & Plan Assessment/Plan (1) Symptomatic anemia: PLAN: Due to bleeding cecal tumor. Suggested supportive PRBC transfusion as needed. (2) Metastatic adenocarcinoma: PLAN: Increased tumor markers is suggestive Poorly differentiated carcinoma. Dr. Hickey discussed metastatic adenocarcinoma most likely of Colonic origin with Pt, options of Palliative chemotherapy vs supportive care and hospice care. The patient and her family wants to try therapy. I will continue to follow if she does have a decrease in blood counts she may need APC to the tumor. 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 Suggest supportive management. Charges/Coding Visit Charges Inpatient E&M: 98441 Subs Hosp L3
[2023-08-05 18:36] VITALS: BP 101/58
[2023-08-05 21:00] VITALS: BP 95/53; PULSE 86; RESP 16; TEMP 36.2; O2SAT 96
[2023-08-05] MEDS: Cholecalciferol (VIT D3) 25 MCG TABLET (1,000 UNITS) 50 MCG PO (21:08)
[2023-08-05] MEDS: Calcium (Elemental) 500 MG Tablet PO (21:08)
[2023-08-06] MEDS: Metoclopramide 10 MG/2 ML Vial 5 MG IV ×2 (00:54→05:06)
[2023-08-06] MEDS: 0.9 % NaCl (Sterile) Posiflush 10 mL IV ×3 (00:55→12:56)
[2023-08-06 03:00] VITALS: BP 109/56; PULSE 86; RESP 16; TEMP 36.8; O2SAT 97
[2023-08-06 07:05] LABS: Absolute Lymphocyte Count 1.66 X10^3/uL (0.83-4.51); Absolute Neutrophil Count 5.2 X10^3/uL (2.0-7.7); Basophil# 0.03 X10^3/uL; Basophil% 0.4 % (0-1); Hematocrit 34.6 % (37-47); Hemoglobin 10.3 g/dL (12.0-15.0); Lymphocyte # 1.66 X10^3/ul (0.83-4.51); Lymphocyte % 21.8 % (19-41); Mean Corp Hgb Conc 29.8 g/dL (32-36); Mean Corpuscular Hgb 26.1 pg (27.0-32.0); Mean Corpuscular Volume 87.8 fL (81-99); Mean Platelet Vol. 9.8 fl (6.2-12.0); Monocyte# 0.69 X10^3/uL; Monocyte% 9.1 % (0-10); NRBC Flagged by Analyzer 0 % (0-5); Neutrophil % 68.2 % (47-70); Platelet Count 189 K/mm3 (150-450); RBC Distribution Width CV 15.3 % (11.6-14.6); RBC Distribution Width SD 49.1 fl (35.1-43.9); Red Blood Count 3.94 M/mm3 (4.2-5.4); White Blood Count 7.6 K/mm3 (4.4-11.0)
--- NOTE | 2023-08-06 07:43 | DCINST_ITS ---
Discharge Instructions Diet Discharge Diet: No restrictions Activity Discharge Activity: Return to Normal Activity Weight Bearing Status: Weight bearing as tolerated Dressing / Incision Call your doctor if you observe: Fever of 101 or Higher, Coldness, Increased Pain, Numbness or Tingling, Change in Color, Inability to urinate, Inability to have a bowel movement, Using more than 1 pad per hour, Shortness of breath, Dizziness, Fainting spells, Swelling in the ankles, Chest pain, Prolonged hiccupping, Increased palpitations (irregular heartbeat) and Calf discomfort Follow Up Care When: IN 2 WEEKS Test Results: Test results from this visit will be discussed in further detail at your follow- up appointment, if applicable. 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 Attending Provider: Baldemar Ruiz Primary Care Provider: Pee Calle Consulting Providers: Rajesh Case; Audie Lara; Marcus Caceres; Demond Sharif; Sampson Taveras; Biju Anand; Yoshi Mccarty; Corky Andrade; Myriam Esparza GRINDER SET UP OPERATOR SURFACE; Bear Scruggs Discharge Orders/Prescriptions Prescriptions: Continued cholecalciferol (vitamin D3) 50 mcg (2,000 unit) capsule 1 ea PO DAILY Patient Comments: TAKE 1 CAPSULE BY MOUTH EVERY DAY acetaminophen 500 mg capsule 500 mg PO Q6H PRN (Reason: Pain) gabapentin 100 mg capsule 300 mg PO BID calcium carbonate [Calcium 600] 600 mg calcium (1,500 mg) tablet 600 mg PO DAILY lisinopril 20 mg tablet 10 mg PO DAILY carvedilol 25 mg tablet 25 mg PO BID Qty: 180 3RF potassium chloride [Klor-Con M20] 20 mEq tablet,ER particles/crystals 20 meq PO DAILY Qty: 90 3RF Changed furosemide [Lasix] 40 mg tablet 20 mg PO DAILY Qty: 30 0RF Rx Instructions: 20 mg orally 3 TIMES A WEEK; Referrals / Follow Up: South Mcdermott MD [Med Staff - Active Staff] - Within 1 Month (For cecal tumor.) Marcus Caceres MD [Med Staff - Active Staff] - Within 2 Weeks Corky Andrade DO [Med Staff - Active Staff] - Pee Calle DO [Primary Care Provider] - Disposition Disposition (needs filled in before D/C Order can be placed): Home, Self Care
--- NOTE | 2023-08-06 07:53 | PCM.DC.SUM ---
Providers Date of Admission: 08/02/23 Date of Discharge: 08/06/23 Primary Care Physician: Dr. Pee Calle, DO Consultations 08/02/23 03:23 Consult: Oncology/Hematology Routine Consulting Provider: [facility] Reason for Consult: adenocarcinoma, b cell lymphoma EMERGENT Consult: Yes Notified: Yes Date Notified: 08/02/23 Time Notified: 02:59 Method of Notification: Verbal 08/03/23 12:56 Consult: Gastroenterology Routine Consulting Provider: [facility] Reason for Consult: heme positive stools EMERGENT Consult: No Notified: Yes Date Notified: 08/03/23 Time Notified: 12:56 Method of Notification: Verbal Reason For Visit: GENERALIZED WEAKNESS, ADENOCARCINOMA/ANEMIA Diagnosis Discharge Diagnosis (1) Symptomatic anemia: Status: Acute Code(s): D64.9 - Anemia, unspecified Plan: 82-year-old female was admitted through ER for generalized weakness, unable to ambulate without assistance for 1 day. She has a significant history of B-cell lymphoma recently diagnosed liver mass was biopsied #1 pathology adenocarcinoma, anemic hemoglobin 7.6. 1. Acute blood loss severe probably from bleeding cecal mass: Hg 9.7 on 07/26, went down to 7.3, transfused 1 unit PRBCs and now up to 8.9. No additional transfusions needed at this time. Patient with heme positive stools. H&H 9.7/32.2. Patient had EGD and colonoscopy. Colonoscopy shows cecal mass likely malignant, biopsied. Diverticulosis in the rectosigmoid colon and sigmoid colon. One 5 mm polyp in the cecum removed. EGD normal except as, Billroth II gastrojejunostomy was found, healthy-appearing mucosa. Normal examined jejunum. Will consult gastroenterology for potential evaluation. Discussed with Dr. Jay. I discussed the colonoscopy findings with patient, patient's , her son, [id number] and the daughter present in the room. 08/05: No external loss of blood. 08/06 hemoglobin 10.3, platelet count 189,000. Continue ferrous sulfate and vitamin C. Patient also had acute on chronic systolic heart failure: EF 40%. Patient was given Lasix. Chest x-ray was done which shows more fluid congestion/mild pulmonary edema. Patient at one time was on 4 L of oxygen, currently on room air. Walking to the bathroom. Discussed with the nursing staff. Microbiology Past 72 Hours 08/03/23 15:56 Fluid - Paracentesis (Abd) Gram Stain - Final 08/03/23 15:56 Fluid - Paracentesis (Abd) Body Fluid Culture - Preliminary No growth-Final to follow 08/03/23 15:56 Fluid - Paracentesis (Abd) Anaerobic Culture - Preliminary No growth in 48 hours. Laboratory Results 08/06/23 06:17: WBC 7.6, RBC 3.94 L, Hgb 10.3 L, Hct 34.6 L, MCV 87.8, MCH 26.1 L, MCHC 29.8 L, RDW Std Deviation 49.1 H, RDW Coeff of Alden 15.3 H, Plt Count 189, MPV 9.8, Immature Gran % (Auto) 0.500, Neut % (Auto) 68.2, Lymph % (Auto) 21.8, Hidalgo % (Auto) 9.1, Eos % (Auto) 0.0, Baso % (Auto) 0.4, Absolute Neuts (auto) 5.2, Absolute Lymphs (auto) 1.66, Nucleated RBC % 0, Sodium 138, Potassium 3.9, Chloride 108 H, Carbon Dioxide 23.0, Anion Gap 7, BUN 19 H, Creatinine 1.27 H, Estim Creat Clear Calc 23.88, Est GFR (MDRD) Af Amer 52 L, Est GFR (MDRD) Non-Af 43 L, BUN/Creatinine Ratio 15.0, Glucose 109 H, Calcium 8.3 L, Total Bilirubin 0.20, Direct Bilirubin 0.06, AST 14 L, ALT 10 L, Alkaline Phosphatase 85, Total Protein 5.5 L, Albumin 2.2 L, Globulin 3.3 Microbiology Past 72 Hours 08/03/23 15:56 Fluid - Paracentesis (Abd) Gram Stain - Final 08/03/23 15:56 Fluid - Paracentesis (Abd) Body Fluid Culture - Preliminary No growth-Final to follow 08/02/23 20:17 Nasal Secretion SARS-CoV-2 Antigen (Rapid) - Final (2) Metastatic adenocarcinoma: Status: Acute Code(s): C79.9 - Secondary malignant neoplasm of unspecified site Plan: + on liver biopsy on 07/26. ZEINAB Caceres: he recommends tumor markers (CA 125, CA 19-9, CEA) and CT of abdomen and pelvis. He was concerned that patient may have a poor prognosis but want to continue to fight. Did speak with him later and he did request paracentesis looking for tumor markers. His echo see if there is a chance that this could be ovarian as this would tend portend a worse prognosis. CT Chest, A/P: diffuse ascites. Omental metastasis. Paracentesis analysis shows mainly mononuclear cells 77.4% with total cell count 1000, polynuclear 22.6%, total polynuclear WBC 0.9197 therefore SBP unclear and seems more metastatic ascites from omental metastasis. Stool continue IV ceftriaxone. Patient had paracentesis on 08/03/2023 total WBC 871 with polymorphs 197, mononucleated 674, 77%. Patient was evaluated by oncologist Dr. Caceres. Cecum has enough space therefore chances of obstruction is less with cecal tumor but might have anemia. Due to poor healing internally and externally after surgery, surgery will not be desirable with complications of delayed healing poor healing, fistulization and wound complications along with malnutrition. 08/05: Earlier patient was 08/05: Overall patient is feeling better. Patient is off the oxygen. Earlier Dr. Jay and I discussed with Dr. Cruz Orr for cecal mass but his opinion was if the patient and oncologist decided for surgery which is not a good option as mentioned above, should be done?take care center where they can remove cecal mass and liver metastectomy. 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 Worsening abdominal pain today, is concerned that the patient may have developed an ileus but the x-ray is negative for that. With the worsening pain, and her belly is distended but not really tight. Continue IV ceftriaxone. Unlikely SBP with polymorphs less than 250 cells. 08/05: IV ceftriaxone discontinued. Acetic fluid culture negative for organism. Plan DVT prophylaxis?SCDs CODE STATUS?remains full at this time Discussed with family at bedside. Discharge medication reconciliation done. Discharge follow-up instructions completed. Discharge process discussed with the patient and all questions were answered to patient's satisfaction. Follow with PCP in 1 to 2 weeks Total time spent, exact 35 minutes on discharge meds reconciliation, examination, coordination of care with nurses and ancillary staff, review of imaging and blood test and discussion with the patient on follow-up instructions. Medications at Discharge Home Medications cholecalciferol (vitamin D3) 50 mcg (2,000 unit) capsule 1 ea PO DAILY pain 08/12/22 acetaminophen 500 mg capsule 500 mg PO Q6H PRN Pain 01/18/23 lisinopril 20 mg tablet 10 mg PO DAILY 02/28/23 gabapentin 100 mg capsule 300 mg PO BID pain 03/21/23 carvedilol 25 mg tablet 25 mg PO BID #180 tabs 05/04/23 potassium chloride 20 mEq tablet,extended release(part/cryst) (Klor-Con M) 20 meq PO DAILY #90 tabs 05/06/23 calcium carbonate 600 mg calcium (1,500 mg) tablet (Calcium) 600 mg PO DAILY 08/02/23 ascorbic acid (vitamin C) 500 mg tablet 500 mg PO BID #60 tabs 08/06/23 ferrous sulfate 325 mg (65 mg iron) tablet (FeroSul) 325 mg PO DAILY 30 days #30 tabs 08/06/23 furosemide 40 mg tablet (Lasix) 20 mg (1/2 x 40 mg) PO DAILY HEART FAILURE #30 tabs 08/06/23 Physical Exam Narrative Patient is off the oxygen.Blood pressure is good. Patient walking to the bathroom. Currently she does not have abdominal pain. Colonoscopy was done and shows cecal mass. Discussed with the family member. The patient has a strong family history of cancer. Discussed with the oncologist Dr. Caceres. Patient and family want to continue on definitive treatment for cancer. Physical exam General: Alert, Oriented x3, Cooperative, BMI 20.4 kg/m? HEENT: Atraumatic, PERRLA, EOMI, Normocephalic Oral: No Gingival or Mucosal Lesions/ Ulcerations Neck: Supple, No JVD, Negative Carotid Bruits Chest/lungs: Right-sided Mediport. Air entry diminished in bilateral lung bases. No crepitation/rhonchi Cardiovascular: Regular rate, Regular Rhythm, Normal S1, Normal S2, No murmurs Abdomen: Bowel Sounds Present, Soft, Non Tender, Non-Distended : No renal angle tenderness. No suprapubic tenderness. Extremities: No edema, Capillary Refill Less than 3 Seconds Skin: No rashes, No breakdown Musculoskeletal: Moderate decreased muscle mass of lower extremities, upper extremities and low subcutaneous fat, moderate chronic protein calorie malnutrition. No Tenderness to Palpation of Joints or Extremities Neurological: Cranial nerves II-XII grossly intact, DTR 2+/4. No acute focal neurological deficit. Psych/Mental Status: Normal Affect, Appropriate. Medical Records Data Medical Nutrition Assessment Dietitian: Malnutrition Criteria Met Start: 08/02/23 14:41 Freq: Status: Active Protocol: Document 08/04/23 13:15 AG (Rec: 08/04/23 13:15 AG Desktop) Nutrition Malnutrition Evidence of Malnutrition Exists Yes Malnutrition (severe): Chronic Evidenced By Suboptimal Energy Intake ( Severe),Physical Changes ( Severe) Clinical Problem Chronic Disease or Condition Related Malnutrition Etiology severe chronic malnutrition related to inadequate energy intake w/ increased energy needs d/t adenocarcinoma Signs/Symptoms as evidenced by estimated PO intake meeting <50% of estimated energy needs>3 months, Severe muscle wasting/ fat loss evident per physical exam in orbital, clavicle, acromion, and temporal areas Status Active Problem Recommendation Dietitian Recommendations/Changes continue regular diet, ensure plus high protein 120mL 4x/day w/ medpass given evidence of malnutrition when appropriate for PO diet Weight / BMI Weight Weight: 97 lb 10.636 oz Body Mass Index (BMI) 20.4 ABG / Lab / Microbiology Data 08/06/23 06:17 08/06/23 06:17 Laboratory: Laboratory Results - last 24 hr 08/06/23 06:17: WBC 7.6, RBC 3.94 L, Hgb 10.3 L, Hct 34.6 L, MCV 87.8, MCH 26.1 L, MCHC 29.8 L, RDW Std Deviation 49.1 H, RDW Coeff of Alden 15.3 H, Plt Count 189, MPV 9.8, Immature Gran % (Auto) 0.500, Neut % (Auto) 68.2, Lymph % (Auto) 21.8, Hidalgo % (Auto) 9.1, Eos % (Auto) 0.0, Baso % (Auto) 0.4, Absolute Neuts (auto) 5.2, Absolute Lymphs (auto) 1.66, Nucleated RBC % 0 Microbiology: Microbiology 08/03/23 15:56 Fluid - Paracentesis (Abd) Gram Stain - Final 08/03/23 15:56 Fluid - Paracentesis (Abd) Body Fluid Culture - Preliminary No growth-Final to follow 08/03/23 15:56 Fluid - Paracentesis (Abd) Anaerobic Culture - Preliminary No growth in 48 hours. 08/02/23 20:17 Nasal Secretion SARS-CoV-2 Antigen (Rapid) - Final 08/02/23 01:45 Stool Stool Occult Blood (EPI) - Final Occult Blood Positive Radiography Diagnostic Testing: Radiology Impression Chest X-Ray 08/05/23 10:45 IMPRESSION: Chronic interstitial changes, no superimposed acute pulmonary process Electronically Signed: Ector Whitehead MD at 11:33 EST Reading Location ID and State: [facility] / [place] , Service support , D/C Instructions Discharge Diet: No restrictions Weight Bearing Status: Weight bearing as tolerated Call your doctor if you observe: Fever of 101 or Higher, Coldness, Increased Pain, Numbness or Tingling, Change in Color, Inability to urinate, Inability to have a bowel movement, Using more than 1 pad per hour, Shortness of breath, Dizziness, Fainting spells, Swelling in the ankles, Chest pain, Prolonged hiccupping, Increased palpitations (irregular heartbeat) and Calf discomfort When: IN 2 WEEKS Meaningful Use Info Meaningful Use Diagnoses (Choose all that apply): None applicable 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 Discharge Orders/Prescriptions Prescriptions: New ferrous sulfate [FeroSul] 325 mg (65 mg iron) tablet 325 mg PO DAILY 30 Days Qty: 30 2RF ascorbic acid (vitamin C) 500 mg tablet 500 mg PO BID Qty: 60 2RF Continued cholecalciferol (vitamin D3) 50 mcg (2,000 unit) capsule 1 ea PO DAILY Patient Comments: TAKE 1 CAPSULE BY MOUTH EVERY DAY acetaminophen 500 mg capsule 500 mg PO Q6H PRN (Reason: Pain) gabapentin 100 mg capsule 300 mg PO BID calcium carbonate [Calcium 600] 600 mg calcium (1,500 mg) tablet 600 mg PO DAILY lisinopril 20 mg tablet 10 mg PO DAILY carvedilol 25 mg tablet 25 mg PO BID Qty: 180 3RF potassium chloride [Klor-Con M20] 20 mEq tablet,ER particles/crystals 20 meq PO DAILY Qty: 90 3RF Changed furosemide [Lasix] 40 mg tablet 20 mg PO DAILY Qty: 30 0RF Rx Instructions: 20 mg orally 3 TIMES A WEEK; Referrals / Follow Up: [place] Mcdermott MD [Med Staff - Active Staff] - Within 1 Month (For cecal tumor.) Marcus Caceres MD [Med Staff - Active Staff] - Within 2 Weeks Corky Andrade DO [Med Staff - Active Staff] - Pee Calle DO [Primary Care Provider] - Disposition Disposition (needs filled in before D/C Order can be placed): Home, Self Care Charges/Coding Visit Charges Inpatient E&M: 35446 Disch Hosp >30min
[2023-08-06 07:54] LABS: AST(SGOT) 14 U/L (15-37); Alanine Aminotransfer ALT/SGPT 10 U/L (13-56); Albumin, Serum 2.2 g/dL (3.2-5.0); Alkaline Phosphatase 85 U/L (45-117); Anion Gap 7 (5-15); BUN 19 mg/dL (7-18); Bilirubin, Direct 0.06 mg/dL (0.00-0.30); Calcium,Total 8.3 mg/dL (8.5-10.1); Chloride 108 mmol/L (98-107); Creatinine, Serum 1.27 mg/dL (0.55-1.02); EST Glomerular Filtration Rate 43 mL/min (>60); Est Glom Filt Rate - Afr Amer 52 mL/min (>60); Estimated Creatinine Clearance 23.88 ml/min; Globulin 3.3 g/dL (2.2-4.2); Glucose 109 mg/dL (74-106); Potassium 3.9 mmol/L (3.5-5.1); Protein, Total 5.5 g/dL (6.4-8.2); Sodium Level 138 mmol/L (136-145)
[2023-08-06 08:02] VITALS: O2SAT 93
[2023-08-06 08:44] VITALS: BP 154/83; PULSE 106; RESP 16; TEMP 37.1; O2SAT 93
[2023-08-06] MEDS: Pantoprazole Sodium 40 MG in 0.9% Normal Saline (100mL MB+) 100 ML 330 MG IV (08:46)
[2023-08-06] MEDS: Gabapentin 300 MG Capsule PO (08:47)
[2023-08-06] MEDS: Carvedilol 25 MG Tablet PO (08:48)
[2023-08-06] MEDS: Lisinopril 10 MG Tablet PO (08:49)
[2023-08-06] MEDS: Ensure Plus High Protein 120 ML LIQUID PO (08:49)
[2023-08-06] MEDS: Potassium Chloride Oral Tablet 20 MEQ PO (08:49)
[2023-08-06] MEDS: Ceftriaxone 2 GM in 0.9% Normal Saline (50mL MB+) 50 ML IV (09:22)
[2023-08-06 09:45] VITALS: O2SAT 90; O2SAT 95
[2023-08-09 09:42] LABS: Pathologist Comment/Body Fluid Reviewed
== END 2023-08-06 13:11 | disposition home or self-care (01) | DRG 374 ==
LOC: ED 02:23 → PCU 03:15
PROVIDERS: Anesthesiology; Internal Medicine; Internal Medicine Gastroenterology; Admitting Provider Family Medicine; Emergency Provider Emergency Medicine; Visit Provider Internal Medicine
PROC: 0DJD8ZZ Inspection of Lower Intestinal Tract, Via Natural or Artificial Opening Endoscopic (ICD-10-PCS; CPT 45378; principal; 2023-08-04 12:10)
DX: C18.0 Malignant neoplasm of cecum (principal); E43 Unspecified severe protein-calorie malnutrition; I50.23 Acute on chronic systolic (congestive) heart failure; R18.0 Malignant ascites; C79.89 Secondary malignant neoplasm of other specified sites; I42.8 Other cardiomyopathies; D62 Acute posthemorrhagic anemia; C78.6 Secondary malignant neoplasm of retroperitoneum and peritoneum; C78.7 Secondary malignant neoplasm of liver and intrahepatic bile duct; K92.2 Gastrointestinal hemorrhage, unspecified; D69.6 Thrombocytopenia, unspecified; D50.9 Iron deficiency anemia, unspecified; K52.9 Noninfective gastroenteritis and colitis, unspecified; K57.30 Diverticulosis of large intestine without perforation or abscess without bleeding; K63.5 Polyp of colon; Z80.3 Family history of malignant neoplasm of breast; N28.9 Disorder of kidney and ureter, unspecified; Z80.0 Family history of malignant neoplasm of digestive organs; R53.1 Weakness; Z80.1 Family history of malignant neoplasm of trachea, bronchus and lung; Z80.8 Family history of malignant neoplasm of other organs or systems; R89.6 Abnormal cytological findings in specimens from other organs, systems and tissues; B02.9 Zoster without complications
CPT/HCPCS: 36415; 49083; 71045; 71260; 74018; 74177; 80048; 80053; 80076; 81001; 82274; 82378; 82607; 82746; 83010; 83615; 83880; 84443; 85014; 85018; 85025; 85610; 85730; 86301; 86304; 86850; 86900; 86901; 86920; 87070; 87075; 87205; 87811; 88108; 88305; 88313; 88341; 88342; 89050; 93005; 97802; 97803; 99285; J7030; J7040; J7050; J7120; P9016; Q9967; 90686; A4216; J0696; J1940; J2405